=== PATIENT | female | born 1935 | race Caucasian/White ===

== ENCOUNTER → 2016-09-09 | Outpatient (CLI) | payer MEDICARE, OTHER ==
--- NOTE | 2016-09-09 11:07 | CR ---
EXAMINATION: Left knee HISTORY: Artificial joint COMPARISON: 03/06/2016 TECHNIQUE: 3 views FINDINGS/IMPRESSION: Left total knee hardware is demonstrated in stable position and alignment. No a cute osseous abnormalities are noted. Persistent postoperative soft tissue changes are present witho ut underlying joint effusion.
== END | disposition home or self-care (01) ==
LOC: MW.CHORTHO 08:54
PROVIDERS: ATTEND Orthopaedic Surgery
DX: Z47.1 Aftercare following joint replacement surgery (principal); M79.89 Other specified soft tissue disorders; Z96.652 Presence of left artificial knee joint
CPT/HCPCS: 73562; G0463

== ENCOUNTER 2016-11-01 10:17 | Emergency (ER) | payer MEDICARE, OTHER ==
[2016-11-01 10:34] VITALS: BP 155/54
--- NOTE | 2016-11-01 11:02 | EDM.PDOC ---
ED HPI RENAL/ - General Chief Complaint: Genitourinary Problem Stated Complaint: BLADDER INFECTION Time Seen by Provider: 11/01/16 10:23 Source of Information: Reports: Patient History Limitations: Reports: No limitations - History of Present Illness INITIAL COMMENTS - FREE TEXT/NARRATIVE: Presents reporting a 24-hour history of urinary frequency, burning and hematuria. She denies back pain or fever. She has had urinary tract infections previously. She was recently diagnosed with melanoma. - Related Data Allergies/ADRs: Allergies Allergy/AdvReac Type Severity Reaction Status Date / Time No Known Allergies Allergy Verified 11/01/16 10:28 Home Meds: Home Meds Chlorthalidone 12.5 mg PO DAILY 02/21/16 [History] Moexipril HCl [Moexipril] 15 mg PO DAILY 02/21/16 [History] Multivitamin [Daily Multiple Vitamin] 1 tab PO DAILY 02/21/16 [History] atorvaSTATin Calcium [Atorvastatin Calcium] 40 mg PO BEDTIME 02/21/16 [History] rOPINIRole HCl [Requip] 0.25 mg PO BEDTIME 02/21/16 [History] Acetaminophen [Tylenol Extra Strength] 1,000 mg PO Q6H #100 tablet 02/29/16 [Rx] Aspirin 325 mg PO BID #60 tablet 02/29/16 [Rx] Cephalexin [Keflex] 500 mg PO Q12H #8 capsule 02/29/16 [Rx] Docusate Sodium [Colace] 100 mg PO BID #60 cap 02/29/16 [Rx] Gabapentin [Neurontin] 300 mg PO BEDTIME #45 cap 02/29/16 [Rx] Ondansetron [Zofran] 4 mg PO Q8H PRN #20 tab 02/29/16 [Rx] oxyCODONE 5 mg PO Q4H PRN #80 tablet 02/29/16 [Rx] Nitrofurantoin Monohyd/M-Cryst [Macrobid 100 mg Capsule] 100 mg PO BID #14 capsule 11/01/16 [Rx] Past Medical History HEENT History: Reports: Cataract Other HEENT History: wears glasses Cardiovascular History: Reports: High cholesterol, Hypertension Respiratory History: Reports: None Gastrointestinal History: Reports: None Genitourinary History: Reports: None. 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 Musculoskeletal History: Reports: Other (see below) Other Musculoskeletal History: Lymphedema, both legs Neurological History: Reports: Other (see below) Other Neuro History: hx of restless leg syndrome Psychiatric History: Reports: None Endocrine/Metabolic History: Reports: Obesity/BMI 30+ Hematologic History: Reports: None Immunologic History: Reports: None Oncologic (Cancer) History: Reports: Other (see below) Other Oncologic History: malignant melanoma Dermatologic History: Reports: Melanoma - Past Surgical History Other Neurological Surgeries/Procedures: 3 cysts removed from spine (1950) Other Oncologic Surgeries/Procedures: removal of melanoma x2 Social & Family History - Family History Family Medical History: Noncontributory HEENT: Reports: None Other Cardiac Family History: Father from a stroke. Respiratory: Reports: None GI: Reports: None : Reports: None OBGYN: Reports: None Musculoskeletal: Reports: Arthritis Neurological: Reports: Seizure Endocrine/Metabolic: Reports: Diabetes, type II Dermatologic: Reports: Eczema - Tobacco Use Smoking Status *Q: Never Smoker Second Hand Smoke Exposure: No - Recreational Drug Use Recreational Drug Use: No Drug Use in Last 12 Months: No ED ROS GENERAL - Review of Systems Review Of Systems: ROS reveals no pertinent complaints other than HPI. ED EXAM, RENAL/ - Physical Exam Exam: See Below Exam Limited By: No limitations General Appearance: alert, no apparent distress Ears: normal external exam Nose: normal inspection Throat/Mouth: Normal inspection Head: atraumatic, normocephalic Neck: normal inspection Respiratory/Chest: no respiratory distress, lungs clear, normal breath sounds Cardiovascular: normal peripheral pulses, regular rate, rhythm, no murmur GI/Abdominal: soft Back Exam: No: CVA tenderness (L), CVA tenderness (R) Extremities: normal inspection Neurological: alert, oriented, normal cognition Psychiatric: normal affect, normal mood Skin Exam: Warm, Dry, Intact, Normal color, No rash Lymphatic: no adenopathy Course - Vital Signs Last Recorded V/S: Last Vital Signs Temp 36.9 C 11/01/16 10:30 Pulse 74 11/01/16 10:30 Resp 16 11/01/16 10:30 BP 155/54 H 11/01/16 10:30 Pulse Ox 96 11/01/16 10:30 - Orders/Labs/Meds Labs: Laboratory Tests 11/01/16 Range/Units 10:25 Urine Color BROWN Urine Appearance CLOUDY Urine pH 5.5 (5.0-8.0) Ur Specific [place] >= 1.030 (1.001-1.035) Urine Protein >=300 (NEGATIVE) mg/dL Urine Glucose (UA) NEGATIVE (NEGATIVE) mg/dL Urine Ketones TRACE H (NEGATIVE) mg/dL Urine Occult Blood LARGE H (NEGATIVE) Urine Nitrite POSITIVE H (NEGATIVE) Urine Bilirubin NEGATIVE (NEGATIVE) Urine Urobilinogen 1.0 (<2.0) EU/dL Ur Leukocyte Esterase TRACE (NEGATIVE) Urine RBC TOO NUMBEROUS TO CT H (0-2/HPF) Urine WBC 25-30 (0-5/HPF) Ur Epithelial Cells FEW (NONE-FEW) Urine Bacteria FEW (NEGATIVE) Departure - Departure Time of Disposition: 10:58 Disposition: Home, Self-Care 01 Condition: good Clinical Impression: UTI, Urinary tract infectious disease Referrals: PCP,None [Primary Care Provider] - [facility] [Outside] [facility] [Outside] Forms: ED Department Discharge Additional Instructions: 1. take your antibiotic twice daily for the next 7 days, start immediately 2. AZO over the counter as directed for bladder/urinary pain 3. Return promptly for back pain or fever 4. Drink large amounts of fluids
== END 2016-11-01 11:20 | disposition home or self-care (01) ==
LOC: MW.ED 10:17
DX: N39.0 Urinary tract infection, site not specified (principal); I10 Essential (primary) hypertension; E78.00 Pure hypercholesterolemia, unspecified; E66.9 Obesity, unspecified; Z68.34 Body mass index [BMI] 34.0-34.9, adult; Z98.890 Other specified postprocedural states; Z79.82 Long term (current) use of aspirin; Z79.899 Other long term (current) drug therapy
CPT/HCPCS: 81001; 99283

== ENCOUNTER → 2016-11-14 | Outpatient (CLI) | payer MEDICARE, OTHER | LOC: MW.CHGS 08:00 | PROVIDERS: ATTEND Surgery | DX: C43.9 Malignant melanoma of skin, unspecified (principal) | CPT/HCPCS: 99203 ==

== ENCOUNTER 2016-11-20 08:07 | Day surgery (SDC) | payer MEDICARE, OTHER ==
[~2016-11-20 08:07] MED LIST: Bupivacaine 0.5% 30 ML SDV ONE; Heparin Sodium 100 Units/ML 3 ML Syringe ONE; Iopamidol 408 MG/ML 50 ML SDV ONE; Lactated Ringers 1,000 ML IV SCH; Lidocaine 1% 20 ML MDV ONE; Propofol 200 MG/20 ML SDV ONE; Sodium Chloride 0.9% 10 ML Syringe FLUSH PRN; Sodium Chloride 0.9% 2.5 ML Syringe FLUSH PRN; ceFAZolin 2 GM in Premix Bag 1 BAG IV ONE; fentaNYL 100 MCG/2 ML SDV ONE
--- NOTE | 2016-11-20 08:50 | PCM.PREANE ---
Preanesthetic Assessment - Anesthesia/Transfusion/Family Hx Anesthesia History: Prior Anesthesia Without Reaction Family History of Anesthesia Reaction: No Transfusion History: No Prior Transfusion(s) - Review of Systems General: No Symptoms Pulmonary: No Symptoms Cardiovascular: No Symptoms Gastrointestinal: No symptoms Neurological: No Symptoms Other: Reports: None - Physical Assessment NPO Status Date: 11/19/16 NPO Status Time: 23:00 O2 Sat by Pulse Oximetry: 100 Respiratory Rate: 16 Vital Signs: Last Vital Signs Temp 37.1 C 11/20/16 08:29 Pulse 61 11/20/16 08:29 Resp 16 11/20/16 08:29 BP 147/56 H 11/20/16 08:29 Pulse Ox 100 11/20/16 08:29 Height: 1.52 m Weight: 77.564 kg ASA Class: 2 Mental Status: Alert & Oriented x3 Airway Class: Mallampati = 1 Dentition: Reports: Normal Dentition ROM/Head Extension: Full Lungs: Clear to auscultation, Normal respiratory effort Cardiovascular: Regular Rate, Regular Rhythm - Allergies Allergies/Adverse Reactions: Allergies Allergy/AdvReac Type Severity Reaction Status Date / Time No Known Allergies Allergy Verified 11/01/16 10:28 - Anesthesia Plan Pre-Op Medication Ordered: None - Acknowledgements Anesthesia Type Planned: General Anesthesia, MAC Pt an Appropriate Candidate for the Planned Anesthesia: Yes Alternatives and Risks of Anesthesia Discussed w Pt/Guardian: Yes Pt/Guardian Understands and Agrees with Anesthesia Plan: Yes PreAnesthesia Questionnaire HEENT History: Reports: Cataract Other HEENT History: wears glasses Cardiovascular History: Reports: High cholesterol, Hypertension Respiratory History: Reports: None Gastrointestinal History: Reports: None Genitourinary History: Reports: UTI, recurrent 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 Musculoskeletal History: Reports: Other (see below) Other Musculoskeletal History: Lymphedema, both legs Neurological History: Reports: Other (see below) Other Neuro History: hx of restless leg syndrome Psychiatric History: Reports: None Endocrine/Metabolic History: Reports: Obesity/BMI 30+ Hematologic History: Reports: None Immunologic History: Reports: None Oncologic (Cancer) History: Reports: Other (see below) Other Oncologic History: malignant melanoma Dermatologic History: Reports: Melanoma - Infectious Disease History Infectious Disease History: Reports: Chicken pox, Mumps - Past Surgical History Head Surgeries/Procedures: Reports: None HEENT Surgical History: Reports: Cataract surgery Cardiovascular Surgical History: Reports: None Respiratory Surgical History: Reports: None GI Surgical History: Reports: None Female Surgical History: Reports: None Endocrine Surgical History: Reports: None Neurological Surgical History: Reports: Other (see below) Other Neurological Surgeries/Procedures: 3 cysts removed from spine (1950) Musculoskeletal Surgical History: Reports: Knee replacement Other Musculoskeletal Surgeries/Procedures:: she knee replacements, continues to use cane Oncologic Surgical History: Reports: Other (see below) Other Oncologic Surgeries/Procedures: removal of melanoma x2 Dermatological Surgical History: Reports: Other (see below) - SUBSTANCE USE Smoking Status *Q: Never Smoker Second Hand Smoke Exposure: No Recreational Drug Use History: No - HOME MEDS Home Medications: Home Meds Chlorthalidone 12.5 mg PO DAILY 02/21/16 [History] Moexipril HCl [Moexipril] 15 mg PO ASDIRECTED 02/21/16 [History] atorvaSTATin Calcium [Atorvastatin Calcium] 40 mg PO BEDTIME 02/21/16 [History] rOPINIRole HCl [Requip] 0.25 mg PO BEDTIME 02/21/16 [History] Aspirin 81 mg PO BID 11/18/16 [History] Potassium Chloride 10 meq PO DAILY 11/18/16 [History] - CURRENT (IN HOUSE) MEDS Current Meds: Current Medications Lactated Ringer's (Ringers, Lactated) 1,000 mls @ 125 mls/hr IV ASDIRECTED EMILIO Last Admin: 11/20/16 07:11 Dose: 125 mls/hr Sodium Chloride (Saline Flush) 10 ml FLUSH ASDIRECTED PRN PRN Reason: Keep Vein Open Sodium Chloride (Saline Flush) 2.5 ml FLUSH ASDIRECTED PRN PRN Reason: Keep Vein Open Discontinued Medications Bupivacaine HCl (Marcaine 0.5%) Confirm Administered Dose 30 ml .ROUTE .STK-MED ONE Stop: 11/20/16 07:29 Fentanyl (Sublimaze) Confirm Administered Dose 100 mcg .ROUTE .STK-MED ONE Stop: 11/20/16 07:28 Heparin Sodium (Porcine) (Heparin Lock Flush 100 Units/Ml) Confirm Administered Dose 600 unit .ROUTE .STK-MED ONE Stop: 11/20/16 07:29 Cefazolin Sodium/Dextrose 2 gm (/ Premix) 50 mls @ 100 mls/hr IV ONETIME ONE Stop: 11/20/16 06:54 Iopamidol (Isovue-200 (41%)) Confirm Administered Dose 50 ml .ROUTE .STK-MED ONE Stop: 11/20/16 07:30 Lidocaine HCl (Xylocaine 1%) Confirm Administered Dose 20 ml .ROUTE .STK-MED ONE Stop: 11/20/16 07:30 Propofol (Diprivan 20 Ml) Confirm Administered Dose 200 mg .ROUTE .STK-MED ONE Stop: 11/20/16 07:27 Preanesthetic Assessment - ANESTHESIA/TRANSFUSION/FAMILY HX Anesthesia/Transfusion History: Prior Anesthesia (right knee replaced under genral anesthesia per patient report) Family History of Anesthesia Reaction: No Intubation History: Unknown - PHYSICAL ASSESSMENT O2 Sat by Pulse Oximetry: 100 RR: 16 Vital Signs: Last Vital Signs Temp 37.1 C 11/20/16 08:29 Pulse 61 11/20/16 08:29 Resp 16 11/20/16 08:29 BP 147/56 H 11/20/16 08:29 Pulse Ox 100 11/20/16 08:29 Height: 1.52 m Weight: 77.564 kg NPO Status Date: 11/19/16 NPO Status Time: 23:00 - ALLERGIES Allergies/Adverse Reactions: Allergies Allergy/AdvReac Type Severity Reaction Status Date / Time No Known Allergies Allergy Verified 11/01/16 10:28
[2016-11-20] MEDS ORDERED: Bupivacaine 0.5% 10 ML SDV ONE (09:39)
--- NOTE | 2016-11-20 11:03 | PCM.OPNOTE ---
- General Post-Op/Procedure Note Date of Surgery/Procedure: 11/20/16 Operative Procedure(s): Right internal jugular port a cath placement Findings: right internal jugular port placement Pre Op Diagnosis: Malignant melanoma Post-Op Diagnosis: same Anesthesia Technique: MAC Primary Surgeon: Tanya Polanco Condition: Good
--- NOTE | 2016-11-20 11:21 | PCM.POSTAN ---
POST ANESTHESIA ASSESSMENT - MENTAL STATUS Mental Status: alert, oriented - RESPIRATORY Respiratory Status: respiratory rate WNL, airway patent - CARDIOVASCULAR CV Status: pulse rate WNL, blood pressure stable - GASTROINTESTINAL GI Status: no symptoms - PAIN Pain Score: 0 - POST OP HYDRATION Hydration Status: adequate & stable
--- NOTE | 2016-11-20 11:21 | PCM48HPAN ---
Post Anesthesia Note - EVALUATION WITHIN 48HRS OF ANESTHETIC Vital Signs in Normal Range: Yes Patient Participated in Evaluation: Yes Respiratory Function Stable: Yes Airway Patent: Yes Cardiovascular Function Stable: Yes Hydration Status Stable: Yes Pain Control Satisfactory: Yes Nausea and Vomiting Control Satisfactory: Yes Mental Status Recovered: Yes
--- NOTE | 2016-11-20 11:29 | CR ---
EXAMINATION: Portable chest radiograph. HISTORY: Port-A-Cath placement. FINDINGS: The trachea is midline. The cardiomediastinal silhouette is within normal limits. No pulmonary infil trates, effusions or pneumothorax. There is a right-sided portacatheter with tip in the upper SVC. A ortic calcifications are noted. Chronic interstitial prominence is also noted. Osseous structures appear unremarkable. IMPRESSION: Right-sided portacatheter with tip in the upper SVC.
[2016-11-20 13:45] VITALS: BP 127/73
--- NOTE | 2016-11-20 20:10 | OR ---
SURGEON: KRISTEN KC MD DATE OF PROCEDURE: 11/20/2016 PREOPERATIVE DIAGNOSIS: Malignant melanoma. POSTOPERATIVE DIAGNOSIS: Malignant melanoma. PROCEDURE PERFORMED: Right internal jugular Port-A-Cath placement. ANESTHESIA: Monitored anesthesia care. ESTIMATED BLOOD LOSS: 5 mL. FINDINGS: Right internal jugular Port-A-Cath placement. COMPLICATIONS: None. INDICATIONS: The patient is a 81-year-old female with a diagnosis of malignant melanoma. She is in need of a Port-A-Cath placement for chemotherapy treatment. The patient and I discussed the procedure as well as expected perioperative course. We discussed the risks, including bleeding, infection, or damage to surrounding structures, including hemothorax or pneumothorax. The patient verbalized understanding and wished to proceed. PROCEDURE IN DETAIL: The patient was brought to the operating room and placed on the operating room table in supine position. A time-out was completed verifying the patient's name, age, date of , allergies, and procedure to be performed. A shoulder roll was placed on the patient's shoulders and both arms were tucked at her side. An ultrasound was brought in to verify the vasculature anatomy of the right side of the neck. The neck and chest were then prepped and draped in usual standard fashion. An ultrasound covered in a sterile probe cover was used to locate the right internal jugular vein at the base of the right neck. I was able to clearly visualize the right internal jugular vein and right carotid artery. Using the ultrasound, I gained access to the vein using a finder needle. A guidewire was then placed down the finder needle into the superior vena cava. C-arm was brought in to verify the placement of the guidewire within the vena cava. Once this was completed, I turned my attention to the right chest wall. A 3 cm incision was made 2 finger breaths below the right lateral clavicle using a 15 blade. Prior to doing this, both the neck and the port site on the chest were anesthetized with 1% lidocaine plain and 0.5% Marcaine plain. Using cautery, I dissected down to the chest wall and created a subcutaneous pocket for the port to be placed in. A tunneling device was used to tunnel the catheter tubing from the chest site up to the insertion site of the guidewire. A dilator and vascular sheath were then placed over the guidewire and the catheter tract was dilated using fluoroscopic guidance. The guidewire and dilator were then removed leaving the vascular sheath in place. The port catheter tubing was then placed down the sheath and the sheath broken and pulled out of the wound. C-arm was brought in to verify placement of the catheter tubing within the neck and in the vena cava. The catheter was pulled back under fluoroscopic guidance to an appropriate placement within the SVC. The catheter tubing was then aspirated and flushed with injectable saline. The catheter tubing was then trimmed to size and placed on the Port-A-Cath device. The Port- A-Cath device was then placed in subcutaneous pocket and secured to the chest wall using 3 interrupted 2-0 Prolene sutures. The Port-A-Cath was then accessed and had a good return of venous blood. It was then locked with 3 mL of heparinized saline. The Port-A-Cath site on the right anterior chest was closed with interrupted Vicryl sutures in the subcutaneous layer and the skin was closed with a running 4-0 Monocryl suture. The neck insertion site was then closed with interrupted 4-0 Monocryl. Steri-Strips and sterile dressings were applied. Counts were complete and correct at the end of the case. The patient was taken to the PACU in stable condition. A chest x-ray was completed at that time, that showed good placement of the Port-A-Cath with no evidence of pneumothorax or hemothorax. RAINE HARGROVE /[id number]
== END 2016-11-20 12:00 | disposition home or self-care (01) ==
LOC: MW.SDS 08:07
PROVIDERS: ATTEND Surgery
PROC: 05HM33Z Insertion of Infusion Device into Right Internal Jugular Vein, Percutaneous Approach (ICD-10-PCS; principal; 2016-11-20)
DX: C43.9 Malignant melanoma of skin, unspecified (principal); I10 Essential (primary) hypertension; E78.00 Pure hypercholesterolemia, unspecified; E66.9 Obesity, unspecified; Z87.440 Personal history of urinary (tract) infections; Z98.49 Cataract extraction status, unspecified eye; Z96.653 Presence of artificial knee joint, bilateral; Z98.890 Other specified postprocedural states; Z79.899 Other long term (current) drug therapy; Z79.82 Long term (current) use of aspirin
CPT/HCPCS: 36561; 71010; 76000; J1642; J3010; J7120; 00532; J2704; Q9966

== ENCOUNTER → 2016-12-01 | Outpatient (CLI) | payer MEDICARE, OTHER | LOC: MW.CHIM 09:17 | PROVIDERS: ATTEND Internal Medicine | DX: R30.0 Dysuria (principal); N39.0 Urinary tract infection, site not specified | CPT/HCPCS: 81001; 87086; 87088; 87186 ==

== ENCOUNTER → 2016-12-16 | Outpatient (CLI) | payer MEDICARE, OTHER | LOC: MW.CHIM 16:07 | PROVIDERS: ATTEND Internal Medicine | DX: R30.0 Dysuria (principal); N39.0 Urinary tract infection, site not specified | CPT/HCPCS: 81001; 87086; 87088; 87186 ==

== ENCOUNTER 2017-02-02 11:37 | Inpatient (IN) | payer MEDICARE, OTHER ==
[2017-02-02] MEDS ORDERED: Sodium Chloride 0.9% 1,000 ML IV ONE (12:15)
--- NOTE | 2017-02-02 12:22 | EDM.PDOC ---
ED HPI GENERAL MEDICAL PROBLEM - General Chief Complaint: General Stated Complaint: WEAKNESS Time Seen by Provider: 02/02/17 12:17 Source of Information: Reports: Patient History Limitations: Reports: No Limitations - History of Present Illness INITIAL COMMENTS - FREE TEXT/NARRATIVE: History of present illness: [81-year-old female comes in with complaints of abdominal pain and continued diarrhea for the last month.] Review of systems: As per history of present illness and below otherwise all systems reviewed and negative. Past medical history: As per history of present illness and as reviewed below otherwise noncontributory. Surgical history: As per history of present illness and as reviewed below otherwise noncontributory. Social history: No reported history of drug or alcohol abuse. Family history: As per history of present illness and as reviewed below otherwise noncontributory. Physical exam: HEENT: Atraumatic, normocephalic, pupils reactive, negative for conjunctival pallor or scleral icterus, mucous membranes moist, throat clear, neck supple, nontender, trachea midline. Lungs: Clear to auscultation, breath sounds equal bilaterally, chest nontender. Heart: S1S2, regular, negative for clicks, rubs, or JVD. Abdomen: Soft, with nonspecific diffuse tenderness Negative for masses or hepatosplenomegaly. Negative for costovertebral tenderness. Pelvis: Stable nontender. Genitourinary: Deferred. Rectal: Deferred. Extremities: Atraumatic, negative for cords or calf pain. Neurovascular unremarkable. Neuro: Awake, alert, oriented. Cranial nerves II through XII unremarkable. Cerebellum unremarkable. Motor and sensory unremarkable throughout. Exam nonfocal. Diagnostics: [CBC, CMP, amylase, lipase] Therapeutics: [IV fluid] Impression: [Dehydration] Plan: [Admit to observation and rehydration] Definitive disposition and diagnosis as appropriate pending reevaluation and review of above. - Related Data Allergies Allergy/AdvReac Type Severity Reaction Status Date / Time No Known Allergies Allergy Verified 11/01/16 10:28 Home Meds: Home Meds Chlorthalidone 12.5 mg PO DAILY 02/21/16 [History] Moexipril HCl [Moexipril] 15 mg PO ASDIRECTED 02/21/16 [History] atorvaSTATin Calcium [Atorvastatin Calcium] 40 mg PO BEDTIME 02/21/16 [History] rOPINIRole HCl [Requip] 0.25 mg PO BEDTIME 02/21/16 [History] Aspirin 81 mg PO BID 11/18/16 [History] Potassium Chloride 10 meq PO DAILY 11/18/16 [History] Ipilimumab 02/02/17 [History] Levothyroxine 125 mcg DAILY 02/02/17 [History] Nivolumab [Opdivo] 02/02/17 [History] Omeprazole 20 mg DAILY 02/02/17 [History] Past Medical History HEENT History: Reports: Cataract Other HEENT History: wears glasses Cardiovascular History: Reports: High Cholesterol, Hypertension Respiratory History: Reports: None Gastrointestinal History: Reports: None Genitourinary History: Reports: UTI, Recurrent 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 Musculoskeletal History: Reports: Other (See Below) Other Musculoskeletal History: Lymphedema, both legs Neurological History: Reports: Other (See Below) Other Neuro History: hx of restless leg syndrome Psychiatric History: Reports: None Endocrine/Metabolic History: Reports: Obesity/BMI 30+ Hematologic History: Reports: None Immunologic History: Reports: None Oncologic (Cancer) History: Reports: Malignant Melanoma, Other (See Below) Other Oncologic History: malignant melanoma Dermatologic History: Reports: Melanoma - Infectious Disease History Infectious Disease History: Reports: Chicken Pox, Mumps - Past Surgical History Head Surgeries/Procedures: Reports: None HEENT Surgical History: Reports: Cataract Surgery Respiratory Surgical History: Reports: None GI Surgical History: Reports: None Endocrine Surgical History: Reports: None Neurological Surgical History: Reports: Other (See Below) Musculoskeletal Surgical History: Reports: Knee Replacement Dermatological Surgical History: Reports: Other (See Below) Social & Family History - Family History Family Medical History: Noncontributory HEENT: Reports: None Other Cardiac Family History: Father from a stroke. Respiratory: Reports: None GI: Reports: None : Reports: None OBGYN: Reports: None Musculoskeletal: Reports: Arthritis Neurological: Reports: Seizure Endocrine/Metabolic: Reports: Diabetes, type II Dermatologic: Reports: Eczema - Tobacco Use Smoking Status *Q: Never Smoker Second Hand Smoke Exposure: No - Caffeine Use Caffeine Use: Reports: None - Recreational Drug Use Recreational Drug Use: No Drug Use in Last 12 Months: No ED ROS GENERAL - Review of Systems Review Of Systems: See Below (History of present illness) ED EXAM, GENERAL - Physical Exam Exam: See Below (History of present illness) Course - Vital Signs Last Recorded V/S: Last Vital Signs Temp 36.0 C 02/02/17 13:58 Pulse 99 02/02/17 13:58 Resp 18 02/02/17 13:58 BP 168/67 H 02/02/17 13:58 Pulse Ox 95 02/02/17 13:58 - Orders/Labs/Meds Orders: Active Orders 24 hr Category Date Time Status Abdomen Pelvis wo Cont [CT] Stat Exams 02/02/17 13:48 Ordered Labs: Laboratory Tests 02/02/17 02/02/17 Range/Units 13:13 13:13 WBC 11.78 H (4.0-11.0) K/uL RBC 5.20 (4.30-5.90) M/uL Hgb 15.2 (12.0-16.0) g/dL Hct 45.1 (36.0-46.0) % MCV 86.7 (80.0-98.0) fL MCH 29.2 (27.0-32.0) pg MCHC 33.7 (31.0-37.0) g/dL RDW Std Deviation 47.1 (28.0-62.0) fl RDW Coeff of Juan J 15 (11.0-15.0) % Plt Count 143 L (150-400) K/uL MPV 11.30 (7.40-12.00) fL Neut % (Auto) 89.2 H (48.0-80.0) % Lymph % (Auto) 7.3 L (16.0-40.0) % Pope % (Auto) 3.4 (0.0-15.0) % Eos % (Auto) 0.0 (0.0-7.0) % Baso % (Auto) 0.1 (0.0-1.5) % Neut # (Auto) 10.5 H (1.4-5.7) K/uL Lymph # (Auto) 0.9 (0.6-2.4) K/uL Pope # (Auto) 0.4 (0.0-0.8) K/uL Eos # (Auto) 0.0 (0.0-0.7) K/uL Baso # (Auto) 0.0 (0.0-0.1) K/uL Nucleated RBC % 0.0 /100WBC Nucleated RBCs # 0 K/uL Sodium 138 (136-146) mmol/L Potassium 4.2 (3.5-5.1) mmol/L Chloride 105 (98-110) mmol/L Carbon Dioxide 21 (21-31) mmol/L BUN 59 H (6.0-23.0) mg/dL Creatinine 2.5 H (0.6-1.5) mg/dL Est Cr Clr Drug Dosing 13.11 mL/min Estimated GFR (MDRD) 18.6 ml/min Glucose 146 H (60-110) mg/dL Calcium 7.8 L (8.8-10.8) mg/dL Total Bilirubin 0.9 (0.1-1.5) mg/dL AST 38 (5-40) IU/L ALT 22 (8-54) IU/L Alkaline Phosphatase 62 (40-150) Total Protein 4.6 L (6.0-8.0) g/dL Albumin 2.6 L (3.4-4.8) g/dL Globulin 2.0 (2.0-3.5) g/dL Albumin/Globulin Ratio 1.3 (1.3-2.8) Amylase 37 (10-90) U/L Lipase 67 (7-80) U/L Meds: Medications Discontinued Medications Generic Name Dose Route Start Last Admin Trade Name Freq PRN Reason Stop Dose Admin Sodium Chloride 1,000 mls @ 999 mls/hr 02/02/17 12:15 02/02/17 12:51 Normal Saline IV 02/02/17 13:15 999 mls/hr STAT ONE Administration Departure - Departure Time of Disposition: 14:22 Disposition: Refer to Observation Condition: Good Clinical Impression: Dehydration, Diarrhea - Discharge Information Forms: ED Department Discharge - My Orders Last 24 Hours: My Active Orders 02/02/17 13:48 Abdomen Pelvis wo Cont [CT] Stat - Assessment/Plan Last 24 Hours: My Active Orders 02/02/17 13:48 Abdomen Pelvis wo Cont [CT] Stat
[2017-02-02] MEDS ORDERED: Loperamide 2 MG Cap PO PRN (14:44)
[2017-02-02] MEDS ORDERED: Acetaminophen 325 MG Tab PO PRN (14:44)
--- NOTE | 2017-02-02 14:55 | CT ---
CT of the abdomen and pelvis without contrast. HISTORY: Pain TECHNIQUE: Axial CT images were obtained of the abdomen and pelvis without contrast. Coronal and sag ittal reconstructions obtained. FINDINGS: The lung bases are clear, no pleural effusion. The liver, spleen, adrenal glands, and pancreas appear unremarkable for noncontrast examination. The gallbladder appears normal. There is no bulky retroperitoneal lymphadenopathy. No abdominal ascite s. There is mild generalized soft tissue edema. There are no calcifications noted within the kidneys or along the courses of the ureters bilaterally . The large and small bowel are normal in caliber without evidence of obstruction. The appendix appear s normal. There is no bulky pelvic lymphadenopathy. No free fluid. No free air. The urinary bladder appears normal. Moderate degenerative changes noted within the spine with grade 1 anterolisthesis of L5 on S1. No rosa spicious osseous abnormalities identified. IMPRESSION: 1. Mild generalized soft tissue anasarca. 2. No focal acute abnormality identified within the abdomen or pelvis.
--- NOTE | 2017-02-02 14:57 | PCM.HP ---
H&P History of Present Illness - General Date of Service: 02/02/17 Admit Problem/Dx: Dehydration Source of Information: Patient, Family History Limitations: Reports: No Limitations - History of Present Illness Initial Comments - Free Text/Narative: 81 yo female admitted 02/02/17 for dehydration\\acute on chronic renal insufficiency with pmh of malignant melonoma on Nivolumab & Ipilimumab, hypertension, hypothyroidism, and lymphedema. Patient states that she has had diarrhea since starting therapy for her melonoma. This started 01/15/17. She has had "runny" stools 5-6 times daily since. No bloody stool or dark tarry stool. Reports no associated fever, sob, chest pain, or palpitations. No other family members having similar symptoms and no recent travel. Has felt fatigued for the past few days with no energy and chills. Has a history of hypertension and hypothyroidism that have been well controlled. Reports no allergies. In ED vitals 137/60 hr 59, afebrile. She did have mild leukocytosis of 11.78, low platelets 143, and acute on chronic renal insufficiency BUN 59, Cr 2.5. Creatnine on 01/15/[address] of the abdomin showed no acute abnormalities in the abdomen or pelvis. Patient was admitted for dehyration. - Related Data Allergies/Adverse Reactions: Allergies Allergy/AdvReac Type Severity Reaction Status Date / Time No Known Allergies Allergy Verified 11/01/16 10:28 Home Medications: Home Meds Chlorthalidone 12.5 mg PO DAILY 02/21/16 [History] Moexipril HCl [Moexipril] 15 mg PO ASDIRECTED 02/21/16 [History] atorvaSTATin Calcium [Atorvastatin Calcium] 40 mg PO BEDTIME 02/21/16 [History] rOPINIRole HCl [Requip] 0.25 mg PO BEDTIME 02/21/16 [History] Aspirin 81 mg PO BID 11/18/16 [History] Potassium Chloride 10 meq PO DAILY 11/18/16 [History] Ipilimumab 02/02/17 [History] Levothyroxine 125 mcg DAILY 02/02/17 [History] Nivolumab [Opdivo] 02/02/17 [History] Omeprazole 20 mg DAILY 02/02/17 [History] Past Medical History HEENT History: Reports: Cataract Other HEENT History: wears glasses Cardiovascular History: Reports: High Cholesterol, Hypertension Respiratory History: Reports: None Gastrointestinal History: Reports: None Genitourinary History: Reports: UTI, Recurrent [employer]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 Musculoskeletal History: Reports: Other (See Below) Other Musculoskeletal History: Lymphedema, both legs Neurological History: Reports: Other (See Below) Other Neuro History: hx of restless leg syndrome Psychiatric History: Reports: None Endocrine/Metabolic History: Reports: Obesity/BMI 30+ Hematologic History: Reports: None Immunologic History: Reports: None Oncologic (Cancer) History: Reports: Malignant Melanoma, Other (See Below) Other Oncologic History: malignant melanoma Dermatologic History: Reports: Melanoma - Infectious Disease History Infectious Disease History: Reports: Chicken Pox, Mumps - Past Surgical History Head Surgeries/Procedures: Reports: None HEENT Surgical History: Reports: Cataract Surgery Respiratory Surgical History: Reports: None GI Surgical History: Reports: None Endocrine Surgical History: Reports: None Neurological Surgical History: Reports: Other (See Below) Musculoskeletal Surgical History: Reports: Knee Replacement Dermatological Surgical History: Reports: Other (See Below) Social & Family History - Family History Family Medical History: Noncontributory HEENT: Reports: None Other Cardiac Family History: Father from a stroke. Respiratory: Reports: None GI: Reports: None : Reports: None OBGYN: Reports: None Musculoskeletal: Reports: Arthritis Neurological: Reports: Seizure Endocrine/Metabolic: Reports: Diabetes, type II Dermatologic: Reports: Eczema - Tobacco Use Smoking Status *Q: Never Smoker Second Hand Smoke Exposure: No - Caffeine Use Caffeine Use: Reports: None - Recreational Drug Use Recreational Drug Use: No Drug Use in Last 12 Months: No H&P Review of Systems - Review of Systems: Review Of Systems: See Below General: Reports: Chills, Weakness, Fatigue. Denies: Fever, Malaise HEENT: Denies: Ear Pain, Eye Pain, Headaches, Sore Throat Pulmonary: Denies: Shortness of Breath, Wheezing, Hemoptysis Cardiovascular: Reports: Edema. Denies: Chest Pain, Palpitations Gastrointestinal: Reports: Diarrhea. Denies: Abdominal Pain, Black Stool, Bloody Stool, Nausea Genitourinary: Denies: Dysuria, Hematuria, Flank Pain Musculoskeletal: Denies: Neck Pain, Leg Pain Skin: Denies: Cyanosis, Rash Psychiatric: Denies: Confusion, Depression Neurological: Denies: Confusion, Dizziness, Headache Hematologic/Lymphatic: Denies: Anemia Exam - Exam Exam: See Below - Vital Signs Vital Signs: Last Vital Signs Temp 36.0 C 02/02/17 13:58 Pulse 99 02/02/17 13:58 Resp 18 02/02/17 13:58 BP 168/67 H 02/02/17 13:58 Pulse Ox 95 02/02/17 13:58 Weight: 74.843 kg - Exam Quality Assessment: DVT Prophylaxis General: Alert, Oriented, Cooperative HEENT: Conjunctiva Clear, EACs Clear, EOMI, Hearing Intact, Mucosa Moist & [place] , Nares Patent, Normal Nasal Septum, Posterior Pharynx Clear Neck: Supple, Trachea Midline, 2 Lungs: Clear to Auscultation, Normal Respiratory Effort Cardiovascular: Regular Rate, Regular Rhythm, Normal S1, Normal S2 Abdomen: Normal Bowel Sounds, Soft. No: Distention, Guarding, Rigidity, Tenderness Back Exam: Normal Inspection, Full Range of Motion, NT Extremities: Normal Inspection, Normal Pulses, Edema Peripheral Pulses: 2+: Radial (L), Radial (R), Posterior Tibial (L), Posterior Tibial (R), Dorsalis Pedis (L), Dorsalis Pedis (R) Skin: Warm, Dry, Intact Neurological: Cranial Nerves Intact Neuro Extensive - Mental Status: Alert, Oriented x3, Normal Mood/Affect, Normal Cognition Neuro Extensive - Motor, Sensory, Reflexes: CN II-XII Intact Psychiatric: Alert, Normal Affect, Normal Mood - Patient Data Result Diagrams: 02/02/17 13:13 02/02/17 13:13 *Q Meaningful Use (ADM) - VTE *Q VTE Criteria *Q: - Stroke *Q Stroke Criteria *Q: - AMI *Q AMI Criteria *Q: - Problem List (1) Acute on chronic renal insufficiency SNOMED Code(s): 345815432 ICD Code: N28.9 - DISORDER OF KIDNEY AND URETER, UNSPECIFIED; N18.9 - CHRONIC KIDNEY DISEASE, UNSPECIFIED Status: Acute Priority: High Current Visit: Yes (2) Dehydration SNOMED Code(s): 57269384 ICD Code: E86.0 - DEHYDRATION Status: Acute Priority: High Current Visit: Yes (3) Diarrhea SNOMED Code(s): 97518344 ICD Code: R19.7 - DIARRHEA, UNSPECIFIED Status: Chronic Priority: High Current Visit: Yes Qualifiers: Diarrhea type: unspecified type Qualified Code(s): R19.7 - Diarrhea, unspecified (4) HTN (hypertension) SNOMED Code(s): 59846708 ICD Code: I10 - ESSENTIAL (PRIMARY) HYPERTENSION Status: Chronic Priority : Medium Current Visit: No Qualifiers: Hypertension type: essential hypertension Qualified Code(s): I10 - Essential (primary) hypertension (5) Lymphedema SNOMED Code(s): 995176771 ICD Code: I89.0 - LYMPHEDEMA, NOT ELSEWHERE CLASSIFIED Status: Chronic Priority: Medium Current Visit: Yes (6) Malignant melanoma SNOMED Code(s): 312836796 ICD Code: C43.9 - MALIGNANT MELANOMA OF SKIN, UNSPECIFIED Status: Chronic Priority: High Current Visit: Yes Qualifiers: Laterality: unspecified laterality Problem List Initiated/Reviewed/Updated: Yes Orders Last 24hrs: Active Orders 24 hr Category Date Time Status Patient Status [ADT] Routine ADT 02/02/17 14:44 Ordered Antiembolic Devices [RC] PER UNIT ROUTINE Care 02/02/17 14:46 Ordered Oxygen Therapy [RC] PRN Care 02/02/17 14:44 Ordered Up With Assistance [RC] ASDIRECTED Care 02/02/17 14:44 Ordered VTE/DVT Education [RC] PER UNIT ROUTINE Care 02/02/17 14:44 Ordered Vital Signs [RC] Q4H Care 02/02/17 14:44 Ordered Regular Diet [DIET] Diet 02/02/17 Dinner Ordered BASIC METABOLIC PANEL,BMP [CHEM] AM Lab 02/03/17 05:11 Ordered BASIC METABOLIC PANEL,BMP [CHEM] AM Lab 02/04/17 05:11 Ordered BASIC METABOLIC PANEL,BMP [CHEM] AM Lab 02/05/17 05:11 Ordered BASIC METABOLIC PANEL,BMP [CHEM] AM Lab 02/06/17 05:11 Ordered CBC WITH AUTO DIFF [HEME] AM Lab 02/03/17 05:11 Ordered CBC WITH AUTO DIFF [HEME] AM Lab 02/04/17 05:11 Ordered CBC WITH AUTO DIFF [HEME] AM Lab 02/05/17 05:11 Ordered CBC WITH AUTO DIFF [HEME] AM Lab 02/06/17 05:11 Ordered CDIFF TOX A+B [OP] Routine Lab 02/02/17 14:44 Uncollected CULTURE STOOL + CAMPY+SHIGATOX [RM] Routine Lab 02/02/17 14:44 Uncollected MAGNESIUM [CHEM] AM Lab 02/03/17 05:11 Ordered PHOSPHORUS [CHEM] AM Lab 02/03/17 05:11 Ordered Acetaminophen [Tylenol] Med 02/02/17 14:44 Ordered 650 mg PO Q4H PRN Heparin Sodium Med 02/02/17 14:45 Ordered 5,000 units SUBCUT Q8H Levothyroxine Med 02/03/17 09:00 Ordered 125 mcg PO DAILY Loperamide [Imodium] Med 02/02/17 14:44 Ordered 2 mg PO Q4H PRN Ondansetron [Zofran ODT] Med 02/02/17 14:44 Ordered 4 mg PO Q4H PRN Sodium Chloride 0.9% @ 125 MLS/HR (1000ml) Med 02/02/17 14:45 Ordered Sodium Chloride 0.9% [Normal Saline] 1,000 ml IV ASDIRECTED Sequential Compression Device [OM.PC] Per Unit Routine Oth 02/02/17 14:45 Ordered Medication Orders Acetaminophen (Tylenol) 650 mg PO Q4H PRN PRN Reason: Pain (Mild 1-3)/fever Heparin Sodium (Porcine) (Heparin Sodium) 5,000 units SUBCUT Q8H EMILIO Sodium Chloride (Normal Saline) 1,000 mls @ 125 mls/hr IV ASDIRECTED EMILIO Levothyroxine Sodium (Levothyroxine) 125 mcg PO DAILY EMILIO Loperamide HCl (Imodium) 2 mg PO Q4H PRN PRN Reason: Diarrhea Ondansetron HCl (Zofran Odt) 4 mg PO Q4H PRN PRN Reason: nausea, able to take PO Assessment/Plan Comment:: 81 yo female with dehydration/acute on chronic renal insufficiency and diarrhea with pmh of malignant melenoma, htn, hypothyroidism, and lymphedema. Dehydration\\acute on chronic renal insufficiency: Most likely secondary to diarrhea. Cr was 1.3 on 01/15/17. Will resus with IVF at 125ml Diarrhea: Most likely from her current Nivolumab and Ipilimumab for her malignant melenoma as diarrhea started when she started these meds. Will rule out infectious with Stool culture and C-diff. Imodium for diarrhea as needed. Malignant melenoma: Currently being treated will have to double check her current medications and possible contact her oncologist as to her diarrhea. htn: Controlled Restart home meds hypothyroidism: controlled will restart home meds. VTE: SCD and Heparin Dispo 1-2 days
[2017-02-02] MEDS: Sodium Chloride 0.9% 1,000 ML IV SCH (16:22)
[2017-02-02] MEDS: Heparin Sodium 5,000 Units/ML Vial SUBCUT SCH ×2 (16:32→21:49)
[2017-02-02] MEDS ORDERED: Calcium Carbonate 500 MG Tab.Chew PO ONE (17:19)
[2017-02-03] MEDS: Sodium Chloride 0.9% 1,000 ML IV SCH ×3 (00:31→20:04)
[2017-02-03] MEDS ORDERED: Levofloxacin/Dextrose 5%-Water 750 MG in Premix Bag 1 BAG IV ONE (04:45)
[2017-02-03] MEDS: Heparin Sodium 5,000 Units/ML Vial SUBCUT SCH (06:29)
[2017-02-03] MEDS: Levothyroxine 125 MCG Tab PO SCH (06:29)
[2017-02-03] MEDS ORDERED: Potassium Chloride 20 MEQ Tab.ER PO ONE (07:50)
[2017-02-03] MEDS ORDERED: Calcium Carbonate 500 MG Tab.Chew PO ONE (07:51)
[2017-02-03] MEDS ORDERED: Sodium Chloride 0.9% 500 ML IV SCH (08:00)
--- NOTE | 2017-02-03 09:53 | PCM.PN ---
- General Info Date of Service: 02/03/17 Admission Dx/Problem (Free Text): Dehydration Subjective Update: Feeling very tired and "out of sorts" this am. No pain but just feels weak. Denies pain with urination but states that she has not been urinating that much. No appetite. Denies difficulty with swallowing. Still having diarrhea. Functional Status: Reports: pain controlled. Denies: tolerating diet, ambulating - Review of Systems General: Reports: Weakness, Fatigue, Malaise, Chills. Denies: Fever HEENT: Denies: dysphasia, headaches, sinus congestion, sore throat Pulmonary: Denies: shortness of breath, wheezing Cardiovascular: Reports: Edema (chronic from lymphedema). Denies: Chest Pain, Palpitations Gastrointestinal: Reports: Diarrhea. Denies: Abdominal pain, Constipation, Vomiting Genitourinary: Denies: dysuria, hematuria Musculoskeletal: Denies: neck pain, leg pain Skin: Denies: cyanosis Neurological: Denies: Confusion Psychiatric: Denies: confusion - Patient Data Vitals - most recent: Last Vital Signs Temp 36.2 C 02/03/17 08:00 Pulse 83 02/03/17 08:00 Resp 20 02/03/17 08:00 BP 93/45 L 02/03/17 08:00 Pulse Ox 95 02/03/17 08:00 Weight - most recent: 80.1 kg I&O - last 24 hours: Intake & Output 02/02/17 02/03/17 02/03/17 22:59 06:59 14:59 Intake Total 150 Output Total 300 Balance -150 Lab Results last 24 hrs: Laboratory Results - last 24 hr 02/03/17 02/03/17 02/03/17 Range/Units 01:15 05:11 05:11 WBC 10.41 (4.0-11.0) K/uL RBC 4.86 (4.30-5.90) M/uL Hgb 14.0 (12.0-16.0) g/dL Hct 41.7 (36.0-46.0) % MCV 85.8 (80.0-98.0) fL MCH 28.8 (27.0-32.0) pg MCHC 33.6 (31.0-37.0) g/dL RDW Std Deviation 46.8 (28.0-62.0) fl RDW Coeff of Juan J 15 (11.0-15.0) % Plt Count 137 L (150-400) K/uL MPV 11.40 (7.40-12.00) fL Neut % (Auto) 88.7 H (48.0-80.0) % Lymph % (Auto) 5.1 L (16.0-40.0) % Braxton % (Auto) 6.1 (0.0-15.0) % Eos % (Auto) 0.1 (0.0-7.0) % Baso % (Auto) 0.0 (0.0-1.5) % Neut # (Auto) 9.2 H (1.4-5.7) K/uL Lymph # (Auto) 0.5 L (0.6-2.4) K/uL Braxton # (Auto) 0.6 (0.0-0.8) K/uL Eos # (Auto) 0.0 (0.0-0.7) K/uL Baso # (Auto) 0.0 (0.0-0.1) K/uL Nucleated RBC % 0.0 /100WBC Nucleated RBCs # 0 K/uL Sodium 139 (136-146) mmol/L Potassium 3.0 L (3.5-5.1) mmol/L Chloride 108 (98-110) mmol/L Carbon Dioxide 19 L (21-31) mmol/L BUN 61 H (6.0-23.0) mg/dL Creatinine 2.2 H (0.6-1.5) mg/dL Est Cr Clr Drug Dosing 14.89 mL/min Estimated GFR (MDRD) 21.5 ml/min Glucose 86 (60-110) mg/dL Calcium 7.1 L (8.8-10.8) mg/dL Phosphorus 3.3 (2.4-4.7) mg/dL Magnesium 1.8 (1.5-2.3) mEq/L Urine Color YELLOW Urine Appearance CLEAR Urine pH 5.5 (5.0-8.0) Ur Specific [place] 1.025 (1.001-1.035) Urine Protein NEGATIVE (NEGATIVE) mg/dL Urine Glucose (UA) NEGATIVE (NEGATIVE) mg/dL Urine Ketones TRACE H (NEGATIVE) mg/dL Urine Occult Blood SMALL H (NEGATIVE) Urine Nitrite POSITIVE H (NEGATIVE) Urine Bilirubin SMALL H (NEGATIVE) Urine Ictotest NEGATIVE Urine Urobilinogen 0.2 (<2.0) EU/dL Ur Leukocyte Esterase TRACE (NEGATIVE) Urine RBC 2-5 (0-2/HPF) Urine WBC 2-4 (0-5/HPF) Ur Epithelial Cells FEW (NONE-FEW) Urine Bacteria 3+ H (NEGATIVE) Hyaline Casts 30-35 (0-2/LPF) Urine Mucus LIGHT (NONE-MOD) Ge[place]any Results last 24 hrs: Microbiology 02/03/17 08:19 Campylobacter Antigen Assay - Final Stool / Feces NEGATIVE CAMPYLOBACTER AG 02/03/17 08:19 Clostridium difficile Toxin A&B (M) - Final Stool / Feces Negative for C.Diff Toxin/AG Med Orders - Current: Current Medications Acetaminophen (Tylenol) 650 mg PO Q4H PRN PRN Reason: Pain (Mild 1-3)/fever Heparin Sodium (Porcine) (Heparin Sodium) 5,000 units SUBCUT Q8H [facility] Last Admin: 02/03/17 06:29 Dose: 5,000 units Sodium Chloride (Normal Saline) 1,000 mls @ 125 mls/hr IV ASDIRECTED [facility] Last Admin: 02/03/17 00:31 Dose: 125 mls/hr Levofloxacin/Dextrose (Levaquin In D5w 500 Mg/100 Ml) 100 mls @ 100 mls/hr IV Q48H [facility] Sodium Chloride (Normal Saline) 500 mls @ 999 mls/hr IV ASDIRECTED [facility] Last Admin: 02/03/17 08:37 Dose: 999 mls/hr Levothyroxine Sodium (Levothyroxine) 125 mcg PO ACBREAKFAST [facility] Last Admin: 02/03/17 06:29 Dose: 125 mcg Loperamide HCl (Imodium) 2 mg PO Q4H PRN PRN Reason: Diarrhea Last Admin: 02/02/17 16:22 Dose: 2 mg Ondansetron HCl (Zofran Odt) 4 mg PO Q4H PRN PRN Reason: nausea, able to take PO Discontinued Medications Calcium Carbonate/Glycine (Tums) 1,000 mg PO DAILY ONE Stop: 02/02/17 17:20 Last Admin: 02/02/17 17:32 Dose: 1,000 mg Calcium Carbonate/Glycine (Tums) 1,000 mg PO ONETIME ONE Stop: 02/03/17 07:52 Last Admin: 02/03/17 08:24 Dose: 1,000 mg Sodium Chloride (Normal Saline) 1,000 mls @ 999 mls/hr IV STAT ONE Stop: 02/02/17 13:15 Last Admin: 02/02/17 12:51 Dose: 999 mls/hr Levofloxacin/Dextrose 750 mg/ (Premix) 150 mls @ 100 mls/hr IV NOW ONE Stop: 02/03/17 06:14 Last Admin: 02/03/17 05:13 Dose: 100 mls/hr Potassium Chloride (Klor-Con M20) 40 meq PO DAILY ONE Stop: 02/03/17 07:51 Last Admin: 02/03/17 08:24 Dose: 40 meq - Exam Quality Assessment: DVT prophylaxis General: alert, oriented, cooperative, no acute distress HEENT: Pupils equal, Pupils reactive, EOMI, Mucous membr. moist/pink Neck: supple Lungs: Clear to auscultation, Normal respiratory effort Cardiovascular: Regular Rate, Regular Rhythm Abdomen: bowel sounds present, soft, no tenderness, no distension Back Exam: Normal Inspection Extremities: normal pulses, no tenderness/swelling, edema (lymphedema) Peripheral Pulses: 2+: Radial (L), Radial (R), Posterior Tibial (L), Posterior Tibial (R), Dorsalis Pedis (L), Dorsalis Pedis (R) Skin: warm, dry, intact Neurological: no new focal deficit Psy/Mental Status: alert, normal affect, normal mood - Problem List & Annotations (1) Acute on chronic renal insufficiency SNOMED Code(s): 566416258 Code(s): N28.9 - DISORDER OF KIDNEY AND URETER, UNSPECIFIED; N18.9 - CHRONIC KIDNEY DISEASE, UNSPECIFIED Status: Acute Priority: High Current Visit: Yes (2) Dehydration SNOMED Code(s): 47368579 Code(s): E86.0 - DEHYDRATION Status: Acute Priority: High Current Visit : Yes (3) Diarrhea SNOMED Code(s): 80142824 Code(s): R19.7 - DIARRHEA, UNSPECIFIED Status: Acute Priority: High Current Visit: Yes Qualifiers: Diarrhea type: unspecified type Qualified Code(s): R19.7 - Diarrhea, unspecified (4) HTN (hypertension) SNOMED Code(s): 90225357 Code(s): I10 - ESSENTIAL (PRIMARY) HYPERTENSION Status: Acute Current Visit: No Qualifiers: Hypertension type: essential hypertension Qualified Code(s): I10 - Essential (primary) hypertension (5) Lymphedema SNOMED Code(s): 296500206 Code(s): I89.0 - LYMPHEDEMA, NOT ELSEWHERE CLASSIFIED Status: Acute Current Visit: No (6) Malignant melanoma SNOMED Code(s): 655742716 Code(s): C43.9 - MALIGNANT MELANOMA OF SKIN, UNSPECIFIED Status: Acute Current Visit: No - Problem List Review Problem List Initiated/Reviewed/Updated: Yes - My Orders Last 24 Hours: My Active Orders 02/02/17 14:44 Patient Status [ADT] Routine Oxygen Therapy [RC] PRN Up With Assistance [RC] ASDIRECTED Vital Signs [RC] Q4H Acetaminophen [Tylenol] 650 mg PO Q4H PRN Loperamide [Imodium] 2 mg PO Q4H PRN Ondansetron [Zofran ODT] 4 mg PO Q4H PRN 02/02/17 14:45 Heparin Sodium 5,000 units SUBCUT Q8H Sodium Chloride 0.9% [Normal Saline] 1,000 ml IV ASDIRECTED Sequential Compression Device [OM.PC] Per Unit Routine 02/02/17 14:46 Antiembolic Devices [RC] PER UNIT ROUTINE 02/02/17 15:35 Fecal Occult Blood Collection [RC] ASDIRECTED 02/02/17 15:37 Code Status [Resuscitation Status] Routine 02/02/17 Dinner Regular Diet [DIET] 02/03/17 01:15 CULTURE URINE [RM] Routine 02/03/17 07:30 Levothyroxine 125 mcg PO ACBREAKFAST 02/03/17 08:00 Sodium Chloride 0.9% [Normal Saline] 500 ml IV ASDIRECTED 02/03/17 08:19 CULTURE STOOL + CAMPY+SHIGATOX [RM] Routine Hemoccult [OCCULT BLOOD DIAGNOSTIC] [OP] Routine 02/04/17 05:11 BASIC METABOLIC PANEL,BMP [CHEM] AM CBC WITH AUTO DIFF [HEME] AM 02/05/17 05:11 BASIC METABOLIC PANEL,BMP [CHEM] AM CBC WITH AUTO DIFF [HEME] AM 02/06/17 05:11 BASIC METABOLIC PANEL,BMP [CHEM] AM CBC WITH AUTO DIFF [HEME] AM - Plan Plan:: 81 yo female with dehydration/acute on chronic renal insufficiency and diarrhea with pmh of malignant melenoma, htn, hypothyroidism, and lymphedema. Dehydration\\acute on chronic renal insufficiency: Most likely secondary to diarrhea. Cr 2.2 today down from 2.5. Will give NS bolus of [address] catheter after bladder scan as patient reports not urinating. Strict I & O. Patient does see Dr. Whitten for frequent UTI. UTI: Urine positive for infection was started on Levaquin IV last evening renally dosed. Culture pending. Diarrhea: Most likely from her current Nivolumab and Ipilimumab for her malignant melenoma as diarrhea started when she started these meds. C-diff negative. Culture pending. Malignant melenoma: Will talk with her oncology team today, Elizabeth Truong, to report her diarrhea and modifications recommended. htn: holding home medications as patient vol. depeted and blood pressure normotensive. Cont. to monitor and restart home meds as indicated. hypothyroidism: controlled will restart home meds. VTE: SCD stool positive for blood will stop pharmacologic therapy Dispo 1-2 days
[2017-02-03] MEDS: Pantoprazole 40 MG in Sodium Chloride 0.9% 10 ML IVPUSH SCH (15:22)
[2017-02-04] MEDS: Sodium Chloride 0.9% 1,000 ML IV SCH ×3 (04:03→16:03)
[2017-02-04] MEDS: Levothyroxine 125 MCG Tab PO SCH (06:34)
[2017-02-04] MEDS ORDERED: Potassium Chloride 20 MEQ Tab.ER PO ONE (07:55)
[2017-02-04] MEDS ORDERED: Sodium Chloride 0.9% 500 ML IV SCH (09:30)
[2017-02-04] MEDS ORDERED: Calcium Carbonate 500 MG Tab.Chew PO ONE (09:36)
--- NOTE | 2017-02-04 11:27 | PCM.PN ---
- General Info Date of Service: 02/04/17 Admission Dx/Problem (Free Text): Dehydration Subjective Update: Still feeling very weak and tired. Some right sided abdominal pain. No nausea/ vomiting. Continued diarrhea. Eating very little with no appetite. No chest pain, palpitations or sob. Functional Status: Reports: pain controlled. Denies: tolerating diet, ambulating - Review of Systems General: Reports: Weakness, Fatigue, Malaise, Chills. Denies: Fever HEENT: Denies: headaches Pulmonary: Denies: shortness of breath, pleuritic chest pain, cough Cardiovascular: Reports: Edema. Denies: Chest Pain, Palpitations Gastrointestinal: Reports: Diarrhea. Denies: Abdominal pain, Constipation, Nausea, Vomiting Genitourinary: Denies: dysuria, hematuria Musculoskeletal: Denies: neck pain, leg pain Skin: Denies: cyanosis Neurological: Denies: Confusion, Dizziness Psychiatric: Denies: confusion - Patient Data Vitals - most recent: Last Vital Signs Temp 37.0 C 02/04/17 07:19 Pulse 88 02/04/17 07:19 Resp 16 02/04/17 07:19 BP 118/55 L 02/04/17 07:19 Pulse Ox 95 02/04/17 07:19 Weight - most recent: 80.1 kg I&O - last 24 hours: Intake & Output 02/03/17 02/04/17 02/04/17 22:59 06:59 14:59 Intake Total 1660 50 1200 Output Total 150 150 Balance 1510 -100 1200 Lab Results last 24 hrs: Laboratory Results - last 24 hr 02/03/17 02/04/17 02/04/17 Range/Units 17:50 04:19 04:19 WBC 8.89 (4.0-11.0) K/uL RBC 4.29 L (4.30-5.90) M/uL Hgb 12.3 (12.0-16.0) g/dL Hct 37.2 (36.0-46.0) % MCV 86.7 (80.0-98.0) fL MCH 28.7 (27.0-32.0) pg MCHC 33.1 (31.0-37.0) g/dL RDW Std Deviation 48.6 (28.0-62.0) fl RDW Coeff of Juan J 15 (11.0-15.0) % Plt Count 107 L (150-400) K/uL MPV 11.10 (7.40-12.00) fL Add Manual Diff YES Neutrophils % (Manual) 63 (48.0-80.0) % Band Neutrophils % 21 % Lymphocytes % (Manual) 13 L (16.0-40.0) % Monocytes % (Manual) 3 (0.0-15.0) % Nucleated RBC % 0.0 /100WBC Absolute Seg Neuts 5.6 Band Neutrophils # 1.9 Lymphocytes # (Manual) 1.2 Monocytes # (Manual) 0.3 Nucleated RBCs # 0 K/uL Lactate (0.20-2.00) mmol/L Sodium 138 (136-146) mmol/L Potassium 3.1 L (3.5-5.1) mmol/L Chloride 112 H (98-110) mmol/L Carbon Dioxide 18 L (21-31) mmol/L BUN 64 H (6.0-23.0) mg/dL Creatinine 2.1 H (0.6-1.5) mg/dL Est Cr Clr Drug Dosing 15.60 mL/min Estimated GFR (MDRD) 22.7 ml/min Glucose 122 H (60-110) mg/dL Calcium 6.7 L (8.8-10.8) mg/dL Ur Random Creatinine 206.6 mg/dL Ur Random Sodium < 20.0 mmol/L 02/04/17 Range/Units 08:27 WBC (4.0-11.0) K/uL RBC (4.30-5.90) M/uL Hgb (12.0-16.0) g/dL Hct (36.0-46.0) % MCV (80.0-98.0) fL MCH (27.0-32.0) pg MCHC (31.0-37.0) g/dL RDW Std Deviation (28.0-62.0) fl RDW Coeff of Juan J (11.0-15.0) % Plt Count (150-400) K/uL MPV (7.40-12.00) fL Add Manual Diff Neutrophils % (Manual) (48.0-80.0) % Band Neutrophils % % Lymphocytes % (Manual) (16.0-40.0) % Monocytes % (Manual) (0.0-15.0) % Nucleated RBC % /100WBC Absolute Seg Neuts Band Neutrophils # Lymphocytes # (Manual) Monocytes # (Manual) Nucleated RBCs # K/uL Lactate 1.0 (0.20-2.00) mmol/L Sodium (136-146) mmol/L Potassium (3.5-5.1) mmol/L Chloride (98-110) mmol/L Carbon Dioxide (21-31) mmol/L BUN (6.0-23.0) mg/dL Creatinine (0.6-1.5) mg/dL Est Cr Clr Drug Dosing mL/min Estimated GFR (MDRD) ml/min Glucose (60-110) mg/dL Calcium (8.8-10.8) mg/dL Ur Random Creatinine mg/dL Ur Random Sodium mmol/L Geovany Results last 24 hrs: Microbiology 02/03/17 08:19 Campylobacter Antigen Assay - Final Stool / Feces NEGATIVE CAMPYLOBACTER AG - Final NEGATIVE FOR SHIGA TOXIN 1 - Final NEGATIVE FOR SHIGA TOXIN 2 02/03/17 08:19 Stool Occult Blood (GEOVANY) - Final Stool / Feces 02/03/17 08:19 Clostridium difficile Toxin A&B (M) - Final Stool / Feces Negative for C.Diff Toxin/AG Med Orders - Current: Current Medications Acetaminophen (Tylenol) 650 mg PO Q4H PRN PRN Reason: Pain (Mild 1-3)/fever Sodium Chloride (Normal Saline) 1,000 mls @ 125 mls/hr IV ASDIRECTED [facility] Last Admin: 02/04/17 10:38 Dose: 125 mls/hr Levofloxacin/Dextrose (Levaquin In D5w 500 Mg/100 Ml) 100 mls @ 100 mls/hr IV Q48H [facility] Sodium Chloride (Normal Saline) 500 mls @ 999 mls/hr IV ASDIRECTED [facility] Last Admin: 02/03/17 08:37 Dose: 999 mls/hr Pantoprazole Sodium 40 mg/ (Sodium Chloride) 10 mls @ 300 mls/hr IVPUSH Q24H [facility] Last Admin: 02/03/17 15:22 Dose: 300 mls/hr Sodium Chloride (Normal Saline) 500 mls @ 999 mls/hr IV ASDIRECTED [facility] Last Admin: 02/04/17 10:28 Dose: 999 mls/hr Levothyroxine Sodium (Levothyroxine) 125 mcg PO ACBREAKFAST EMILIO Last Admin: 02/04/17 06:34 Dose: 125 mcg Loperamide HCl (Imodium) 2 mg PO Q4H PRN PRN Reason: Diarrhea Last Admin: 02/02/17 16:22 Dose: 2 mg Ondansetron HCl (Zofran Odt) 4 mg PO Q4H PRN PRN Reason: nausea, able to take PO Discontinued Medications Calcium Carbonate/Glycine (Tums) 1,000 mg PO DAILY ONE Stop: 02/02/17 17:20 Last Admin: 02/02/17 17:32 Dose: 1,000 mg Calcium Carbonate/Glycine (Tums) 1,000 mg PO ONETIME ONE Stop: 02/03/17 07:52 Last Admin: 02/03/17 08:24 Dose: 1,000 mg Calcium Carbonate/Glycine (Tums) 1,000 mg PO ONETIME ONE Stop: 02/04/17 09:37 Last Admin: 02/04/17 10:23 Dose: 1,000 mg Heparin Sodium (Porcine) (Heparin Sodium) 5,000 units SUBCUT Q8H [facility] Last Admin: 02/03/17 06:29 Dose: 5,000 units Sodium Chloride (Normal Saline) 1,000 mls @ 999 mls/hr IV STAT ONE Stop: 02/02/17 13:15 Last Admin: 02/02/17 12:51 Dose: 999 mls/hr Levofloxacin/Dextrose 750 mg/ (Premix) 150 mls @ 100 mls/hr IV NOW ONE Stop: 02/03/17 06:14 Last Admin: 02/03/17 05:13 Dose: 100 mls/hr Potassium Chloride (Klor-Con M20) 40 meq PO DAILY ONE Stop: 02/03/17 07:51 Last Admin: 02/03/17 08:24 Dose: 40 meq Potassium Chloride (Klor-Con M20) 40 meq PO ONETIME ONE Stop: 02/04/17 07:56 Last Admin: 02/04/17 08:58 Dose: 40 meq - Exam Quality Assessment: DVT prophylaxis General: alert, oriented, cooperative, no acute distress HEENT: Pupils equal, Pupils reactive, EOMI, Mucous membr. moist/pink Neck: supple Lungs: Clear to auscultation, Normal respiratory effort Cardiovascular: Regular Rate, Regular Rhythm, Murmurs Abdomen: bowel sounds present, soft, no distension, tenderness (mild right sided tenderness to palpation) (Female) Exam: Normal External Exam, Normal Speculum Exam, Normal Bimanual Exam Back Exam: Normal Inspection, Full Range of Motion Extremities: normal pulses, no calf tenderness, edema Peripheral Pulses: 2+: Radial (L), Radial (R), Posterior Tibial (L), Posterior Tibial (R), Dorsalis Pedis (L), Dorsalis Pedis (R) Skin: warm, dry, intact Neurological: no new focal deficit Psy/Mental Status: alert, normal affect, normal mood - Problem List & Annotations (1) Acute on chronic renal insufficiency SNOMED Code(s): 169899162 Code(s): N28.9 - DISORDER OF KIDNEY AND URETER, UNSPECIFIED; N18.9 - CHRONIC KIDNEY DISEASE, UNSPECIFIED Status: Acute Priority: High Current Visit: Yes (2) Dehydration SNOMED Code(s): 51061834 Code(s): E86.0 - DEHYDRATION Status: Acute Priority: High Current Visit : Yes (3) Diarrhea SNOMED Code(s): 51043496 Code(s): R19.7 - DIARRHEA, UNSPECIFIED Status: Acute Priority: High Current Visit: Yes Qualifiers: Diarrhea type: unspecified type Qualified Code(s): R19.7 - Diarrhea, unspecified (4) HTN (hypertension) SNOMED Code(s): 70462060 Code(s): I10 - ESSENTIAL (PRIMARY) HYPERTENSION Status: Chronic Priority : Medium Current Visit: No Qualifiers: Hypertension type: essential hypertension Qualified Code(s): I10 - Essential (primary) hypertension (5) Lymphedema SNOMED Code(s): 786710770 Code(s): I89.0 - LYMPHEDEMA, NOT ELSEWHERE CLASSIFIED Status: Chronic Priority: Medium Current Visit: No (6) Malignant melanoma SNOMED Code(s): 988813434 Code(s): C43.9 - MALIGNANT MELANOMA OF SKIN, UNSPECIFIED Status: Chronic Priority: Medium Current Visit: No Qualifiers: Laterality: unspecified laterality - Problem List Review Problem List Initiated/Reviewed/Updated: Yes - My Orders Last 24 Hours: My Active Orders 02/03/17 11:01 Admission Status [Patient Status] [ADT] Routine 02/04/17 09:30 Sodium Chloride 0.9% [Normal Saline] 500 ml IV ASDIRECTED 02/05/17 05:11 BASIC METABOLIC PANEL,BMP [CHEM] AM CBC WITH AUTO DIFF [HEME] AM 02/06/17 05:11 BASIC METABOLIC PANEL,BMP [CHEM] AM CBC WITH AUTO DIFF [HEME] AM - Plan Plan:: 81 yo female with dehydration/acute on chronic renal insufficiency and diarrhea with pmh of malignant melenoma, htn, hypothyroidism, and lymphedema. Dehydration\\acute on chronic renal insufficiency: Most likely secondary to diarrhea and vol depletion. FeNa 0.14% indicating prerenal. Cr 2.1 today down from 2.2. Will give NS bolus of 500 this am. Urine output only 300 yesteday. Strict I & O. Patient stated yesterday that she takes "lots" of ibuprofen but daughter thinks this is a mistake and she means imodium. Since she is having abd pain we will get CT abdomen and hold off on Renal ultrasound at this time. Heart murmur: Appreciated today on exam no history of CHF only htn will get Echo today. UTI: Asymptomatic Levaquin day 2. Culture pending. Diarrhea: Most likely from her current Nivolumab and Ipilimumab for her malignant melenoma as diarrhea started when she started these meds. All stool cultures have been negative thus far. Malignant melenoma: Will talk with her oncology team today, Elizabeth Truong, to report her diarrhea and modifications recommended. htn: holding home medications, normotensive. Cont. to monitor and restart home meds as indicated. hypothyroidism: controlled will restart home meds. VTE: SCD stool positive for blood will stop pharmacologic therapy Dispo 2-3 days
--- NOTE | 2017-02-04 12:54 | CT ---
CT of the abdomen and pelvis without contrast. HISTORY: Pain TECHNIQUE: Axial CT images were obtained of the abdomen and pelvis without contrast. Coronal and sag ittal reconstructions obtained. FINDINGS: Small bilateral pleural effusions are noted with adjacent atelectasis. The liver, spleen, adrenal glands, and pancreas appear unremarkable for noncontrast examination. The gallbladder appears mildly distended, otherwise unremarkable. There is no bulky retroperitoneal lym phadenopathy. No abdominal ascites. There is moderate generalized anasarca. There are no calcifications noted within the kidneys or along the courses of the ureters bilaterally . The large and small bowel are normal in caliber without evidence of obstruction. The appendix appear s normal. There are a few loops of small bowel within the the ileum demonstrating borderline wall th ickening. Mild gaseous distention is also noted of several loops of small bowel without evidence of obstruction. There is no bulky pelvic lymphadenopathy. No free fluid. No free air. There is a Kang catheter noted within the bladder. There is grade 1 anterolisthesis of L5 on S1 with mild degenerative changes noted within the lumbar spine. IMPRESSION: 1. Moderate generalized anasarca. 2. Borderline wall thickening within the small bowel and colon. Correlate clinically for a gastroent eritis. 3. The gallbladder appears distended otherwise unremarkable.
[2017-02-04] MEDS: Pantoprazole 40 MG in Sodium Chloride 0.9% 10 ML IVPUSH SCH (14:42)
[2017-02-05] MEDS: Sodium Chloride 0.9% 1,000 ML IV SCH ×3 (00:09→17:06)
[2017-02-05] MEDS: Levofloxacin/Dextrose 5%-Water 100 ML IV SCH (05:32)
[2017-02-05] MEDS: Levothyroxine 125 MCG Tab PO SCH (06:32)
[2017-02-05] MEDS: Potassium Chloride 10% 20 MEQ/15 ML Soln 30 ML UD Cup PO SCH ×2 (09:12→20:45)
--- NOTE | 2017-02-05 12:20 | PCM.PN ---
<MobleyGarrett paniagua - Last Filed: 02/05/17 12:08> - General Info Date of Service: 02/05/17 Admission Dx/Problem (Free Text): Dehydration Subjective Update: Still not feeling well. No appetite and only eating very little. Still having mild right sided abd pain. Not as much diarrhea. No nausea or vomiting. Functional Status: Reports: pain controlled, urinating. Denies: tolerating diet , ambulating - Review of Systems General: Reports: Weakness, Fatigue, Malaise, Chills. Denies: Fever HEENT: Denies: headaches, visual changes Pulmonary: Denies: shortness of breath, wheezing Cardiovascular: Reports: Edema. Denies: Chest Pain, Palpitations Gastrointestinal: Reports: Abdominal pain, Decreased appetite Genitourinary: Denies: dysuria, hematuria Musculoskeletal: Denies: neck pain, leg pain Skin: Denies: cyanosis Neurological: Denies: Confusion, Dizziness, Headache Psychiatric: Denies: confusion - Patient Data Vitals - most recent: Last Vital Signs Temp 36.4 C 02/05/17 07:00 Pulse 87 02/05/17 07:00 Resp 16 02/05/17 07:00 BP 120/58 L 02/05/17 07:00 Pulse Ox 95 02/05/17 07:00 Weight - most recent: 80.1 kg I&O - last 24 hours: Intake & Output 02/04/17 02/05/17 02/05/17 22:59 06:59 14:59 Intake Total 1100 240 Output Total 320 275 Balance 780 -35 Lab Results last 24 hrs: Laboratory Results - last 24 hr 02/05/17 02/05/17 Range/Units 04:01 04:01 WBC 5.35 (4.0-11.0) K/uL RBC 4.21 L (4.30-5.90) M/uL Hgb 12.3 (12.0-16.0) g/dL Hct 36.5 (36.0-46.0) % MCV 86.7 (80.0-98.0) fL MCH 29.2 (27.0-32.0) pg MCHC 33.7 (31.0-37.0) g/dL RDW Std Deviation 49.8 (28.0-62.0) fl RDW Coeff of Juan J 16 H (11.0-15.0) % Plt Count 99 L (150-400) K/uL MPV 11.40 (7.40-12.00) fL Add Manual Diff YES Neutrophils % (Manual) 79 (48.0-80.0) % Band Neutrophils % 10 % Lymphocytes % (Manual) 9 L (16.0-40.0) % Monocytes % (Manual) 1 (0.0-15.0) % Eosinophils % (Manual) 1 (0.0-7.0) % Nucleated RBC % 0.0 /100WBC Absolute Seg Neuts 4.2 Band Neutrophils # 0.5 Lymphocytes # (Manual) 0.5 Monocytes # (Manual) 0.1 Eosinophils # (Manual) 0.1 Nucleated RBCs # 0 K/uL Sodium 142 (136-146) mmol/L Potassium 3.2 L (3.5-5.1) mmol/L Chloride 116 H (98-110) mmol/L Carbon Dioxide 18 L (21-31) mmol/L BUN 60 H (6.0-23.0) mg/dL Creatinine 1.8 H (0.6-1.5) mg/dL Est Cr Clr Drug Dosing 18.20 mL/min Estimated GFR (MDRD) 27.1 ml/min Glucose 170 H (60-110) mg/dL Calcium 6.8 L (8.8-10.8) mg/dL [place] Results last 24 hrs: Microbiology 02/03/17 08:19 Stool Culture - Final Stool / Feces NO SALMONELLA, SHIGELLA,OR E.COLI O157 ISOLATED Campylobacter Antigen Assay - Final NEGATIVE CAMPYLOBACTER AG - Final NEGATIVE FOR SHIGA TOXIN 1 - Final NEGATIVE FOR SHIGA TOXIN 2 02/03/17 01:15 Urine Culture - Final Urine, Catheterized Klebsiella Pneumoniae 02/03/17 01:15 Urine Culture - Final Urine, Quick Cath (In-Out) Klebsiella Pneumoniae Med Orders - Current: Current Medications Acetaminophen (Tylenol) 650 mg PO Q4H PRN PRN Reason: Pain (Mild 1-3)/fever Sodium Chloride (Normal Saline) 1,000 mls @ 125 mls/hr IV ASDIRECTED [facility] Last Admin: 02/05/17 09:12 Dose: 125 mls/hr Levofloxacin/Dextrose (Levaquin In D5w 500 Mg/100 Ml) 100 mls @ 100 mls/hr IV Q48H [facility] Last Admin: 02/05/17 05:32 Dose: 100 mls/hr Sodium Chloride (Normal Saline) 500 mls @ 999 mls/hr IV ASDIRECTED [facility] Last Admin: 02/03/17 08:37 Dose: 999 mls/hr Pantoprazole Sodium 40 mg/ (Sodium Chloride) 10 mls @ 300 mls/hr IVPUSH Q24H [facility] Last Admin: 02/04/17 14:42 Dose: 300 mls/hr Sodium Chloride (Normal Saline) 500 mls @ 999 mls/hr IV ASDIRECTED [facility] Last Admin: 02/04/17 10:28 Dose: 999 mls/hr Levothyroxine Sodium (Levothyroxine) 125 mcg PO ACBREAKFAST [facility] Last Admin: 02/05/17 06:32 Dose: 125 mcg Loperamide HCl (Imodium) 2 mg PO Q4H PRN PRN Reason: Diarrhea Last Admin: 02/02/17 16:22 Dose: 2 mg Ondansetron HCl (Zofran Odt) 4 mg PO Q4H PRN PRN Reason: nausea, able to take PO Potassium Chloride (Potassium Chloride) 40 meq PO BID [facility] Stop: 02/06/17 23:59 Last Admin: 02/05/17 09:12 Dose: 40 meq Discontinued Medications Calcium Carbonate/Glycine (Tums) 1,000 mg PO DAILY ONE Stop: 02/02/17 17:20 Last Admin: 02/02/17 17:32 Dose: 1,000 mg Calcium Carbonate/Glycine (Tums) 1,000 mg PO ONETIME ONE Stop: 02/03/17 07:52 Last Admin: 02/03/17 08:24 Dose: 1,000 mg Calcium Carbonate/Glycine (Tums) 1,000 mg PO ONETIME ONE Stop: 02/04/17 09:37 Last Admin: 02/04/17 10:23 Dose: 1,000 mg Heparin Sodium (Porcine) (Heparin Sodium) 5,000 units SUBCUT Q8H [facility] Last Admin: 02/03/17 06:29 Dose: 5,000 units Sodium Chloride (Normal Saline) 1,000 mls @ 999 mls/hr IV STAT ONE Stop: 02/02/17 13:15 Last Admin: 02/02/17 12:51 Dose: 999 mls/hr Levofloxacin/Dextrose 750 mg/ (Premix) 150 mls @ 100 mls/hr IV NOW ONE Stop: 02/03/17 06:14 Last Admin: 02/03/17 05:13 Dose: 100 mls/hr Potassium Chloride (Klor-Con M20) 40 meq PO DAILY ONE Stop: 02/03/17 07:51 Last Admin: 02/03/17 08:24 Dose: 40 meq Potassium Chloride (Klor-Con M20) 40 meq PO ONETIME ONE Stop: 02/04/17 07:56 Last Admin: 02/04/17 08:58 Dose: 40 meq - Exam Quality Assessment: DVT prophylaxis General: alert, oriented, cooperative, no acute distress HEENT: Pupils equal, Pupils reactive, EOMI, Mucous membr. moist/pink Neck: supple Lungs: Normal respiratory effort, Crackles (bibasilar) Cardiovascular: Regular Rate, Regular Rhythm, Murmurs Abdomen: bowel sounds present, soft, no tenderness, no distension (Female) Exam: Normal Bimanual Exam Back Exam: Normal Inspection Extremities: no edema, normal pulses. No: calf tenderness Peripheral Pulses: 2+: Radial (L), Radial (R), Posterior Tibial (L), Posterior Tibial (R), Dorsalis Pedis (L), Dorsalis Pedis (R) Skin: warm, dry, intact Neurological: no new focal deficit Psy/Mental Status: alert, normal affect, normal mood - Problem List & Annotations (1) Acute on chronic renal insufficiency SNOMED Code(s): 013872499 Code(s): N28.9 - DISORDER OF KIDNEY AND URETER, UNSPECIFIED; N18.9 - CHRONIC KIDNEY DISEASE, UNSPECIFIED Status: Acute Priority: High Current Visit: Yes (2) Dehydration SNOMED Code(s): 29298962 Code(s): E86.0 - DEHYDRATION Status: Acute Priority: High Current Visit : Yes (3) Diarrhea SNOMED Code(s): 74732395 Code(s): R19.7 - DIARRHEA, UNSPECIFIED Status: Resolved Priority: High Current Visit: Yes Qualifiers: Diarrhea type: unspecified type Qualified Code(s): R19.7 - Diarrhea, unspecified (4) HTN (hypertension) SNOMED Code(s): 53515199 Code(s): I10 - ESSENTIAL (PRIMARY) HYPERTENSION Status: Chronic Priority : Medium Current Visit: Yes Qualifiers: Hypertension type: essential hypertension Qualified Code(s): I10 - Essential (primary) hypertension (5) Lymphedema SNOMED Code(s): 435643133 Code(s): I89.0 - LYMPHEDEMA, NOT ELSEWHERE CLASSIFIED Status: Chronic Priority: Medium Current Visit: Yes (6) Malignant melanoma SNOMED Code(s): 011766189 Code(s): C43.9 - MALIGNANT MELANOMA OF SKIN, UNSPECIFIED Status: Chronic Priority: Medium Current Visit: Yes Qualifiers: Laterality: unspecified laterality - Problem List Review Problem List Initiated/Reviewed/Updated: Yes - My Orders Last 24 Hours: My Active Orders 02/05/17 09:00 Potassium Chloride 40 meq PO BID 02/06/17 05:11 BASIC METABOLIC PANEL,BMP [CHEM] AM CBC WITH AUTO DIFF [HEME] AM - Plan Plan:: 81 yo female with dehydration/acute on chronic renal insufficiency and diarrhea with pmh of malignant melenoma, htn, hypothyroidism, and lymphedema. Dehydration\acute on chronic renal insufficiency: Prerenal Cr 1.8 today down from 2.1. Some bibasilar crackles on lung exam will not bolus IVF this am and keep fluids at 125. Strict I & O. CT abd showed moderate generalized anasarca increased from mild at admission closely watch fluids and may have to diurese some after kidney function back to normal. Borderline wall thickening within small bowel and colon and distended gallbladder most likely from gastroenteritis and lack of food intake. Heart murmur: Echo results pending UTI: Asymptomatic Levaquin day 3. Culture Kleb pneum highly sensitive including Levaquin Diarrhea: Most likely from her current Nivolumab and Ipilimumab for her malignant melenoma as diarrhea started when she started these meds. All stool cultures have been negative thus far. Seems to be resolving will monitory Malignant melenoma: Oncology team, Elizabeth Truong, report her diarrhea and modifications recommended. Patient was scheduled to get 4th round of chemo today but not medically stable for treatment. htn: holding home medications, normotensive. Cont. to monitor and restart home meds as indicated. hypothyroidism: controlled will restart home meds. VTE: SCD stool positive for blood will stop pharmacologic therapy Dispo 2-3 days <Emmanuel Rizvi - Last Filed: 02/05/17 19:16> - Patient Data Vitals - most recent: Last Vital Signs Temp 37.1 C 02/05/17 15:00 Pulse 92 02/05/17 15:00 Resp 18 02/05/17 15:00 BP 150/56 H 02/05/17 17:49 Pulse Ox 95 02/05/17 15:00 I&O - last 24 hours: Intake & Output 02/05/17 02/05/17 02/05/17 06:59 14:59 22:59 Intake Total 240 4283 Output Total 275 330 Balance -35 3953 Lab Results last 24 hrs: Laboratory Results - last 24 hr 02/05/17 02/05/17 Range/Units 04:01 04:01 WBC 5.35 (4.0-11.0) K/uL RBC 4.21 L (4.30-5.90) M/uL Hgb 12.3 (12.0-16.0) g/dL Hct 36.5 (36.0-46.0) % MCV 86.7 (80.0-98.0) fL MCH 29.2 (27.0-32.0) pg MCHC 33.7 (31.0-37.0) g/dL RDW Std Deviation 49.8 (28.0-62.0) fl RDW Coeff of Juan J 16 H (11.0-15.0) % Plt Count 99 L (150-400) K/uL MPV 11.40 (7.40-12.00) fL Add Manual Diff YES Neutrophils % (Manual) 79 (48.0-80.0) % Band Neutrophils % 10 % Lymphocytes % (Manual) 9 L (16.0-40.0) % Monocytes % (Manual) 1 (0.0-15.0) % Eosinophils % (Manual) 1 (0.0-7.0) % Nucleated RBC % 0.0 /100WBC Absolute Seg Neuts 4.2 Band Neutrophils # 0.5 Lymphocytes # (Manual) 0.5 Monocytes # (Manual) 0.1 Eosinophils # (Manual) 0.1 Nucleated RBCs # 0 K/uL Sodium 142 (136-146) mmol/L Potassium 3.2 L (3.5-5.1) mmol/L Chloride 116 H (98-110) mmol/L Carbon Dioxide 18 L (21-31) mmol/L BUN 60 H (6.0-23.0) mg/dL Creatinine 1.8 H (0.6-1.5) mg/dL Est Cr Clr Drug Dosing 18.20 mL/min Estimated GFR (MDRD) 27.1 ml/min Glucose 170 H (60-110) mg/dL Calcium 6.8 L (8.8-10.8) mg/dL [place] Results last 24 hrs: Microbiology 02/03/17 08:19 Stool Culture - Final Stool / Feces NO SALMONELLA, SHIGELLA,OR E.COLI O157 ISOLATED Campylobacter Antigen Assay - Final NEGATIVE CAMPYLOBACTER AG - Final NEGATIVE FOR SHIGA TOXIN 1 - Final NEGATIVE FOR SHIGA TOXIN 2 02/03/17 01:15 Urine Culture - Final Urine, Catheterized Klebsiella Pneumoniae 02/03/17 01:15 Urine Culture - Final Urine, Quick Cath (In-Out) Klebsiella Pneumoniae Med Orders - Current: Current Medications Acetaminophen (Tylenol) 650 mg PO Q4H PRN PRN Reason: Pain (Mild 1-3)/fever Sodium Chloride (Normal Saline) 1,000 mls @ 125 mls/hr IV ASDIRECTED [facility] Last Admin: 02/05/17 17:06 Dose: 125 mls/hr Levofloxacin/Dextrose (Levaquin In D5w 500 Mg/100 Ml) 100 mls @ 100 mls/hr IV Q48H [facility] Last Admin: 02/05/17 05:32 Dose: 100 mls/hr Sodium Chloride (Normal Saline) 500 mls @ 999 mls/hr IV ASDIRECTED [facility] Last Admin: 02/03/17 08:37 Dose: 999 mls/hr Pantoprazole Sodium 40 mg/ (Sodium Chloride) 10 mls @ 300 mls/hr IVPUSH Q24H [facility] Last Admin: 02/05/17 13:50 Dose: 300 mls/hr Sodium Chloride (Normal Saline) 500 mls @ 999 mls/hr IV ASDIRECTED [facility] Last Admin: 02/04/17 10:28 Dose: 999 mls/hr Levothyroxine Sodium (Levothyroxine) 125 mcg PO ACBREAKFAST [facility] Last Admin: 02/05/17 06:32 Dose: 125 mcg Loperamide HCl (Imodium) 2 mg PO Q4H PRN PRN Reason: Diarrhea Last Admin: 02/02/17 16:22 Dose: 2 mg Ondansetron HCl (Zofran Odt) 4 mg PO Q4H PRN PRN Reason: nausea, able to take PO Potassium Chloride (Potassium Chloride) 40 meq PO BID [facility] Stop: 02/06/17 23:59 Last Admin: 02/05/17 09:12 Dose: 40 meq Discontinued Medications Calcium Carbonate/Glycine (Tums) 1,000 mg PO DAILY ONE Stop: 02/02/17 17:20 Last Admin: 02/02/17 17:32 Dose: 1,000 mg Calcium Carbonate/Glycine (Tums) 1,000 mg PO ONETIME ONE Stop: 02/03/17 07:52 Last Admin: 02/03/17 08:24 Dose: 1,000 mg Calcium Carbonate/Glycine (Tums) 1,000 mg PO ONETIME ONE Stop: 02/04/17 09:37 Last Admin: 02/04/17 10:23 Dose: 1,000 mg Heparin Sodium (Porcine) (Heparin Sodium) 5,000 units SUBCUT Q8H [facility] Last Admin: 02/03/17 06:29 Dose: 5,000 units Sodium Chloride (Normal Saline) 1,000 mls @ 999 mls/hr IV STAT ONE Stop: 02/02/17 13:15 Last Admin: 02/02/17 12:51 Dose: 999 mls/hr Levofloxacin/Dextrose 750 mg/ (Premix) 150 mls @ 100 mls/hr IV NOW ONE Stop: 02/03/17 06:14 Last Admin: 02/03/17 05:13 Dose: 100 mls/hr Potassium Chloride (Klor-Con M20) 40 meq PO DAILY ONE Stop: 02/03/17 07:51 Last Admin: 02/03/17 08:24 Dose: 40 meq Potassium Chloride (Klor-Con M20) 40 meq PO ONETIME ONE Stop: 02/04/17 07:56 Last Admin: 02/04/17 08:58 Dose: 40 meq - My Orders Last 24 Hours: My Active Orders 02/05/17 05:00 Levofloxacin/Dextrose 5%-Water [Levaquin in D5W 500 MG/100 ML] 100 ml IV Q48H - Free Text/Narrative Note: I have examined the patient. I have discussed findings and treatment plan with resident. I agree with the assessment and plan outlined in the following note.
[2017-02-05] MEDS: Pantoprazole 40 MG in Sodium Chloride 0.9% 10 ML IVPUSH SCH (13:50)
[2017-02-06] MEDS: Sodium Chloride 0.9% 1,000 ML IV SCH ×3 (01:13→18:08)
[2017-02-06] MEDS: Levothyroxine 125 MCG Tab PO SCH (07:00)
[2017-02-06] MEDS: Potassium Chloride 10% 20 MEQ/15 ML Soln 30 ML UD Cup PO SCH ×2 (09:21→21:04)
--- NOTE | 2017-02-06 13:41 | PCM.PN ---
- General Info Date of Service: 02/06/17 Admission Dx/Problem (Free Text): she feels weak; poor appetite for food. No complaint of pain currently. - Patient Data Vitals - most recent: Last Vital Signs Temp 97.2 F 02/06/17 11:52 Pulse 70 02/06/17 11:52 Resp 20 02/06/17 11:52 BP 145/67 H 02/06/17 11:52 Pulse Ox 96 02/06/17 11:52 Weight - most recent: 80.1 kg I&O - last 24 hours: Intake & Output 02/05/17 02/06/17 02/06/17 22:59 06:59 14:59 Intake Total 4283 1548 Output Total 330 450 Balance 3953 1098 Lab Results last 24 hrs: Laboratory Results - last 24 hr 02/06/17 02/06/17 Range/Units 05:14 05:14 WBC 3.81 L (4.0-11.0) K/uL RBC 4.12 L (4.30-5.90) M/uL Hgb 12.0 (12.0-16.0) g/dL Hct 36.0 (36.0-46.0) % MCV 87.4 (80.0-98.0) fL MCH 29.1 (27.0-32.0) pg MCHC 33.3 (31.0-37.0) g/dL RDW Std Deviation 51.4 (28.0-62.0) fl RDW Coeff of Juan J 16 H (11.0-15.0) % Plt Count 97 L (150-400) K/uL MPV 11.00 (7.40-12.00) fL Add Manual Diff YES Neutrophils % (Manual) 72 (48.0-80.0) % Band Neutrophils % 14 % Lymphocytes % (Manual) 6 L (16.0-40.0) % Monocytes % (Manual) 8 (0.0-15.0) % Nucleated RBC % 0.0 /100WBC Absolute Seg Neuts 2.7 Band Neutrophils # 0.5 Lymphocytes # (Manual) 0.2 Monocytes # (Manual) 0.3 Nucleated RBCs # 0 K/uL Sodium 142 (136-146) mmol/L Potassium 3.6 (3.5-5.1) mmol/L Chloride 120 H (98-110) mmol/L Carbon Dioxide 16 L (21-31) mmol/L BUN 51 H (6.0-23.0) mg/dL Creatinine 1.3 (0.6-1.5) mg/dL Est Cr Clr Drug Dosing 25.20 mL/min Estimated GFR (MDRD) 39.5 ml/min Glucose 137 H (60-110) mg/dL Calcium 7.2 L (8.8-10.8) mg/dL [place] Results last 24 hrs: Microbiology 02/03/17 08:19 Stool Culture - Final Stool / Feces NO SALMONELLA, SHIGELLA,OR E.COLI O157 ISOLATED Campylobacter Antigen Assay - Final NEGATIVE CAMPYLOBACTER AG - Final NEGATIVE FOR SHIGA TOXIN 1 - Final NEGATIVE FOR SHIGA TOXIN 2 Med Orders - Current: Current Medications Acetaminophen (Tylenol) 650 mg PO Q4H PRN PRN Reason: Pain (Mild 1-3)/fever Sodium Chloride (Normal Saline) 1,000 mls @ 125 mls/hr IV ASDIRECTED [facility] Last Admin: 02/06/17 09:51 Dose: 125 mls/hr Levofloxacin/Dextrose (Levaquin In D5w 500 Mg/100 Ml) 100 mls @ 100 mls/hr IV Q48H [facility] Last Admin: 02/05/17 05:32 Dose: 100 mls/hr Sodium Chloride (Normal Saline) 500 mls @ 999 mls/hr IV ASDIRECTED [facility] Last Admin: 02/03/17 08:37 Dose: 999 mls/hr Pantoprazole Sodium 40 mg/ (Sodium Chloride) 10 mls @ 300 mls/hr IVPUSH Q24H [facility] Last Admin: 02/05/17 13:50 Dose: 300 mls/hr Sodium Chloride (Normal Saline) 500 mls @ 999 mls/hr IV ASDIRECTED [facility] Last Admin: 02/04/17 10:28 Dose: 999 mls/hr Levothyroxine Sodium (Levothyroxine) 125 mcg PO ACBREAKFAST [facility] Last Admin: 02/06/17 07:00 Dose: 125 mcg Loperamide HCl (Imodium) 2 mg PO Q4H PRN PRN Reason: Diarrhea Last Admin: 02/02/17 16:22 Dose: 2 mg Ondansetron HCl (Zofran Odt) 4 mg PO Q4H PRN PRN Reason: nausea, able to take PO Potassium Chloride (Potassium Chloride) 40 meq PO BID [facility] Stop: 02/06/17 23:59 Last Admin: 02/06/17 09:21 Dose: 40 meq Discontinued Medications Calcium Carbonate/Glycine (Tums) 1,000 mg PO DAILY ONE Stop: 02/02/17 17:20 Last Admin: 02/02/17 17:32 Dose: 1,000 mg Calcium Carbonate/Glycine (Tums) 1,000 mg PO ONETIME ONE Stop: 02/03/17 07:52 Last Admin: 02/03/17 08:24 Dose: 1,000 mg Calcium Carbonate/Glycine (Tums) 1,000 mg PO ONETIME ONE Stop: 02/04/17 09:37 Last Admin: 02/04/17 10:23 Dose: 1,000 mg Heparin Sodium (Porcine) (Heparin Sodium) 5,000 units SUBCUT Q8H [facility] Last Admin: 02/03/17 06:29 Dose: 5,000 units Sodium Chloride (Normal Saline) 1,000 mls @ 999 mls/hr IV STAT ONE Stop: 02/02/17 13:15 Last Admin: 02/02/17 12:51 Dose: 999 mls/hr Levofloxacin/Dextrose 750 mg/ (Premix) 150 mls @ 100 mls/hr IV NOW ONE Stop: 02/03/17 06:14 Last Admin: 02/03/17 05:13 Dose: 100 mls/hr Potassium Chloride (Klor-Con M20) 40 meq PO DAILY ONE Stop: 02/03/17 07:51 Last Admin: 02/03/17 08:24 Dose: 40 meq Potassium Chloride (Klor-Con M20) 40 meq PO ONETIME ONE Stop: 02/04/17 07:56 Last Admin: 02/04/17 08:58 Dose: 40 meq - Exam General: alert, cooperative Neck: supple Lungs: Clear to auscultation, Normal respiratory effort Cardiovascular: Regular Rate, Regular Rhythm Abdomen: no tenderness Physical Findings Comments:: 3- 4 plus chronic lymphedema LE's marked generalized weakness - Problem List & Annotations (1) Generalized weakness SNOMED Code(s): 60585619 Code(s): R53.1 - WEAKNESS Status: Acute Current Visit: Yes (2) Acute on chronic renal insufficiency SNOMED Code(s): 185262400 Code(s): N28.9 - DISORDER OF KIDNEY AND URETER, UNSPECIFIED; N18.9 - CHRONIC KIDNEY DISEASE, UNSPECIFIED Status: Acute Priority: High Current Visit: Yes (3) Lymphedema SNOMED Code(s): 824788179 Code(s): I89.0 - LYMPHEDEMA, NOT ELSEWHERE CLASSIFIED Status: Chronic Priority: Medium Current Visit: Yes (4) Malignant melanoma SNOMED Code(s): 943049977 Code(s): C43.9 - MALIGNANT MELANOMA OF SKIN, UNSPECIFIED Status: Chronic Priority: Medium Current Visit: Yes Qualifiers: Laterality: unspecified laterality - Problem List Review Problem List Initiated/Reviewed/Updated: Yes - My Orders Last 24 Hours: My Active Orders 02/06/17 21:00 Aspirin 81 mg PO BID rOPINIRole [Requip] 1 mg PO BEDTIME 02/07/17 05:11 CBC WITH AUTO DIFF [HEME] AM COMPREHENSIVE METABOLIC PN,CMP [CHEM] AM MG [MAGNESIUM] [CHEM] AM 02/07/17 09:00 Omeprazole [Omeprazole] 20 mg PO DAILY 02/08/17 05:11 CBC WITH AUTO DIFF [HEME] AM COMPREHENSIVE METABOLIC PN,CMP [CHEM] AM MG [MAGNESIUM] [CHEM] AM 02/09/17 05:11 CBC WITH AUTO DIFF [HEME] AM COMPREHENSIVE METABOLIC PN,CMP [CHEM] AM MG [MAGNESIUM] [CHEM] AM - Plan Plan:: 81 yo female with dehydration/acute on chronic renal insufficiency and diarrhea with pmh of malignant melenoma, htn, hypothyroidism, and lymphedema. Dehydration\acute on chronic renal insufficiency: Prerenal Cr 1.8 today down from 2.1. Some bibasilar crackles on lung exam will not bolus IVF this am and keep fluids at 125. Strict I & O. CT abd showed moderate generalized anasarca increased from mild at admission closely watch fluids and may have to diurese some after kidney function back to normal. Borderline wall thickening within small bowel and colon and distended gallbladder most likely from gastroenteritis and lack of food intake. Heart murmur: Echo results pending UTI: Asymptomatic Levaquin day 3. Culture Kleb pneum highly sensitive including Levaquin Diarrhea: Most likely from her current Nivolumab and Ipilimumab for her malignant melenoma as diarrhea started when she started these meds. All stool cultures have been negative thus far. Seems to be resolving will monitory Malignant melenoma: Oncology team, Elizabeth Waitman, report her diarrhea and modifications recommended. Patient was scheduled to get 4th round of chemo today but not medically stable for treatment. htn: holding home medications, normotensive. Cont. to monitor and restart home meds as indicated. hypothyroidism: controlled will restart home meds. VTE: SCD stool positive for blood will stop pharmacologic therapy Dispo 2-3 days 02/06/2017: supportive care; planning likely discharge to [facility] thursday or Thursday. Richard Mccracken MD
[2017-02-06] MEDS: Pantoprazole 40 MG in Sodium Chloride 0.9% 10 ML IVPUSH SCH (15:08)
[2017-02-06] MEDS ORDERED: rOPINIRole 1 MG Tab PO SCH (21:00)
[2017-02-06] MEDS ORDERED: Aspirin 325 MG Tab PO SCH (21:00)
[2017-02-06] MEDS: Aspirin 81 MG Tab.EC PO SCH (21:55)
[2017-02-07] MEDS: Sodium Chloride 0.9% 1,000 ML IV SCH (02:16)
[2017-02-07] MEDS: Levofloxacin/Dextrose 5%-Water 100 ML IV SCH (05:08)
[2017-02-07] MEDS: Ondansetron 4 MG Tab.DIS PO PRN ×3 (05:12→15:37)
[2017-02-07] MEDS: Levothyroxine 125 MCG Tab PO SCH (06:46)
[2017-02-07] MEDS ORDERED: Omeprazole 20 MG Cap.CR PO SCH (09:00)
[2017-02-07] MEDS: Aspirin 81 MG Tab.EC PO SCH (09:26)
[2017-02-07] MEDS ORDERED: Magnesium Sulfate/Water 4 GM in Premix Bag 1 BAG IV ONE (12:23)
[2017-02-07] MEDS ORDERED: MVI, Adult with Vitamin K 10 ML SDV IV SCH (12:30)
[2017-02-07] MEDS ORDERED: Metoclopramide 10 MG/2 ML SDV IVPUSH SCH (12:30)
[2017-02-07] MEDS ORDERED: MVI, Adult with Vitamin K 10 ML in Sodium Chloride 0.9% 500 ML IV SCH ×4 (13:00→15:30)
--- NOTE | 2017-02-07 13:46 | PCM.PN ---
- General Info Date of Service: 02/07/17 Subjective Update: she feels very weak. She vomited this am. she feels some abdominal bloating. she has passed flatus this am. - Patient Data Vitals - most recent: Last Vital Signs Temp 97.6 F 02/07/17 11:47 Pulse 100 02/07/17 11:47 Resp 22 H 02/07/17 11:47 BP 120/58 L 02/07/17 11:47 Pulse Ox 95 02/07/17 11:47 Weight - most recent: 80.1 kg I&O - last 24 hours: Intake & Output 02/06/17 02/07/17 02/07/17 22:59 06:59 14:59 Intake Total 1009 1400 999 Output Total 350 Balance 1009 1050 999 Lab Results last 24 hrs: Laboratory Results - last 24 hr 02/07/17 02/07/17 Range/Units 06:20 06:20 WBC 5.01 (4.0-11.0) K/uL RBC 4.47 (4.30-5.90) M/uL Hgb 13.0 (12.0-16.0) g/dL Hct 39.2 (36.0-46.0) % MCV 87.7 (80.0-98.0) fL MCH 29.1 (27.0-32.0) pg MCHC 33.2 (31.0-37.0) g/dL RDW Std Deviation 52.7 (28.0-62.0) fl RDW Coeff of Juan J 17 H (11.0-15.0) % Plt Count 95 L (150-400) K/uL MPV 10.70 (7.40-12.00) fL Add Manual Diff YES Neutrophils % (Manual) 71 (48.0-80.0) % Band Neutrophils % 21 % Lymphocytes % (Manual) 3 L (16.0-40.0) % Monocytes % (Manual) 5 (0.0-15.0) % Nucleated RBC % 0.0 /100WBC Absolute Seg Neuts 3.6 Band Neutrophils # 1.1 Lymphocytes # (Manual) 0.2 Monocytes # (Manual) 0.3 Nucleated RBCs # 0 K/uL Sodium 141 (136-146) mmol/L Potassium 4.0 (3.5-5.1) mmol/L Chloride 119 H (98-110) mmol/L Carbon Dioxide 16 L (21-31) mmol/L BUN 42 H (6.0-23.0) mg/dL Creatinine 1.1 (0.6-1.5) mg/dL Est Cr Clr Drug Dosing 29.79 mL/min Estimated GFR (MDRD) 47.9 ml/min Glucose 153 H (60-110) mg/dL Calcium 7.3 L (8.8-10.8) mg/dL Magnesium 1.2 L (1.5-2.3) mEq/L Total Bilirubin 1.1 (0.1-1.5) mg/dL AST 21 (5-40) IU/L ALT 29 (8-54) IU/L Alkaline Phosphatase 77 (40-150) Total Protein 4.0 L (6.0-8.0) g/dL Albumin 1.6 L (3.4-4.8) g/dL Globulin 2.4 (2.0-3.5) g/dL Albumin/Globulin Ratio 0.7 L (1.3-2.8) Med Orders - Current: Current Medications Acetaminophen (Tylenol) 650 mg PO Q4H PRN PRN Reason: Pain (Mild 1-3)/fever Aspirin (Halfprin) 81 mg PO BID [facility] Last Admin: 02/07/17 09:26 Dose: 81 mg Sodium Chloride (Normal Saline) 1,000 mls @ 100 mls/hr IV ASDIRECTED [facility] Last Admin: 02/07/17 02:16 Dose: 125 mls/hr Levofloxacin/Dextrose (Levaquin In D5w 500 Mg/100 Ml) 100 mls @ 100 mls/hr IV Q48H [facility] Last Admin: 02/07/17 05:08 Dose: 100 mls/hr Sodium Chloride (Normal Saline) 500 mls @ 999 mls/hr IV ASDIRECTED [facility] Last Admin: 02/03/17 08:37 Dose: 999 mls/hr Pantoprazole Sodium 40 mg/ (Sodium Chloride) 10 mls @ 300 mls/hr IVPUSH Q24H [facility] Last Admin: 02/06/17 15:08 Dose: 300 mls/hr Sodium Chloride (Normal Saline) 500 mls @ 999 mls/hr IV ASDIRECTED [facility] Last Admin: 02/04/17 10:28 Dose: 999 mls/hr Magnesium Sulfate 4 gm/ Premix 100 mls @ 50 mls/hr IV ONETIME ONE Stop: 02/07/17 14:22 Last Admin: 02/07/17 12:54 Dose: 50 mls/hr Multivitamins/Minerals 10 ml/ (Sodium Chloride) 510 mls @ 510 mls/hr IV Q24H [facility] Levothyroxine Sodium (Levothyroxine) 125 mcg PO ACBREAKFAST [facility] Last Admin: 02/07/17 06:46 Dose: 125 mcg Loperamide HCl (Imodium) 2 mg PO Q4H PRN PRN Reason: Diarrhea Last Admin: 02/02/17 16:22 Dose: 2 mg Metoclopramide HCl (Reglan) 5 mg IVPUSH Q6H [facility] Last Admin: 02/07/17 12:54 Dose: 5 mg Omeprazole (Omeprazole) 20 mg PO DAILY [facility] Last Admin: 02/07/17 09:26 Dose: 20 mg Ondansetron HCl (Zofran Odt) 4 mg PO Q4H PRN PRN Reason: nausea, able to take PO Last Admin: 02/07/17 09:35 Dose: 4 mg Ropinirole HCl (Requip) 1 mg PO BEDTIME [facility] Last Admin: 02/06/17 21:06 Dose: 1 mg Discontinued Medications Calcium Carbonate/Glycine (Tums) 1,000 mg PO DAILY ONE Stop: 02/02/17 17:20 Last Admin: 02/02/17 17:32 Dose: 1,000 mg Calcium Carbonate/Glycine (Tums) 1,000 mg PO ONETIME ONE Stop: 02/03/17 07:52 Last Admin: 02/03/17 08:24 Dose: 1,000 mg Calcium Carbonate/Glycine (Tums) 1,000 mg PO ONETIME ONE Stop: 02/04/17 09:37 Last Admin: 02/04/17 10:23 Dose: 1,000 mg Heparin Sodium (Porcine) (Heparin Sodium) 5,000 units SUBCUT Q8H [facility] Last Admin: 02/03/17 06:29 Dose: 5,000 units Sodium Chloride (Normal Saline) 1,000 mls @ 999 mls/hr IV STAT ONE Stop: 02/02/17 13:15 Last Admin: 02/02/17 12:51 Dose: 999 mls/hr Levofloxacin/Dextrose 750 mg/ (Premix) 150 mls @ 100 mls/hr IV NOW ONE Stop: 02/03/17 06:14 Last Admin: 02/03/17 05:13 Dose: 100 mls/hr Multivitamins/Minerals (Infuvite Adult) 10 ml IV Q24H [facility] Last Admin: 02/07/17 13:35 Dose: Not Given Potassium Chloride (Klor-Con M20) 40 meq PO DAILY ONE Stop: 02/03/17 07:51 Last Admin: 02/03/17 08:24 Dose: 40 meq Potassium Chloride (Klor-Con M20) 40 meq PO ONETIME ONE Stop: 02/04/17 07:56 Last Admin: 02/04/17 08:58 Dose: 40 meq Potassium Chloride (Potassium Chloride) 40 meq PO BID [facility] Stop: 02/06/17 23:59 Last Admin: 02/06/17 21:04 Dose: 40 meq - Exam General: alert, cooperative Neck: trachea midline Lungs: Clear to auscultation, Normal respiratory effort Cardiovascular: Regular Rate, Regular Rhythm Abdomen: bowel sounds present (some slightly high pitched bowel sounds), soft, no tenderness, distension. No: no distension (slight distention) Extremities: other (marked lymphedema LE's ) Psy/Mental Status: No: agitated - Problem List & Annotations (1) Generalized weakness SNOMED Code(s): 71280395 Code(s): R53.1 - WEAKNESS Status: Acute Current Visit: Yes (2) Acute on chronic renal insufficiency SNOMED Code(s): 181074081 Code(s): N28.9 - DISORDER OF KIDNEY AND URETER, UNSPECIFIED; N18.9 - CHRONIC KIDNEY DISEASE, UNSPECIFIED Status: Acute Priority: High Current Visit: Yes (3) Lymphedema SNOMED Code(s): 160142423 Code(s): I89.0 - LYMPHEDEMA, NOT ELSEWHERE CLASSIFIED Status: Chronic Priority: Medium Current Visit: Yes (4) Malignant melanoma SNOMED Code(s): 807101164 Code(s): C43.9 - MALIGNANT MELANOMA OF SKIN, UNSPECIFIED Status: Chronic Priority: Medium Current Visit: Yes Qualifiers: Laterality: unspecified laterality - Problem List Review Problem List Initiated/Reviewed/Updated: Yes - My Orders Last 24 Hours: My Active Orders 02/06/17 21:00 Aspirin [Halfprin] 81 mg PO BID rOPINIRole [Requip] 1 mg PO BEDTIME 02/07/17 09:00 Omeprazole 20 mg PO DAILY 02/07/17 12:23 Magnesium Sulfate/Water [Magnesium Sulfate 4 GM in Water 100 ML] 4 gm Premix Bag 1 bag IV ONETIME 02/07/17 12:30 Metoclopramide [Reglan] 5 mg IVPUSH Q6H 02/07/17 13:00 MVI, Adult with Vitamin K [Infuvite Adult] 10 ml Sodium Chloride 0.9% [Normal Saline] 500 ml IV Q24H 02/07/17 13:41 Consult to Pharmacy [CONS] Routine 02/07/17 Lunch Clear Liquid Diet [DIET] 02/08/17 05:11 CBC WITH AUTO DIFF [HEME] AM COMPREHENSIVE METABOLIC PN,CMP [CHEM] AM MG [MAGNESIUM] [CHEM] AM 02/09/17 05:11 CBC WITH AUTO DIFF [HEME] AM COMPREHENSIVE METABOLIC PN,CMP [CHEM] AM MG [MAGNESIUM] [CHEM] AM - Assessment Assessment:: 02/07/[address] from February 04. In light of bowel wall thickening, will start flagyl IV I suspect that she has a mild ileus. Will start reglan IV scheduled and change to clear liquid diet As she has had very little po intake for over one week, will plan to start TPN if not improved in about 24 hours. Richard Mccracken MD - Plan Plan:: 81 yo female with dehydration/acute on chronic renal insufficiency and diarrhea with pmh of malignant melenoma, htn, hypothyroidism, and lymphedema. Dehydration\acute on chronic renal insufficiency: Prerenal Cr 1.8 today down from 2.1. Some bibasilar crackles on lung exam will not bolus IVF this am and keep fluids at 125. Strict I & O. CT abd showed moderate generalized anasarca increased from mild at admission closely watch fluids and may have to diurese some after kidney function back to normal. Borderline wall thickening within small bowel and colon and distended gallbladder most likely from gastroenteritis and lack of food intake. Heart murmur: Echo results pending UTI: Asymptomatic Levaquin day 3. Culture Kleb pneum highly sensitive including Levaquin Diarrhea: Most likely from her current Nivolumab and Ipilimumab for her malignant melenoma as diarrhea started when she started these meds. All stool cultures have been negative thus far. Seems to be resolving will monitory Malignant melenoma: Oncology team, Elizabeth Beedeion, report her diarrhea and modifications recommended. Patient was scheduled to get 4th round of chemo today but not medically stable for treatment. htn: holding home medications, normotensive. Cont. to monitor and restart home meds as indicated. hypothyroidism: controlled will restart home meds. VTE: SCD stool positive for blood will stop pharmacologic therapy Dispo 2-3 days 02/06/2017: supportive care; planning likely discharge to [facility] thursday or Thursday. Richard Mccracken MD
[2017-02-07] MEDS ORDERED: Albumin 25% 12.5 GM/50 ML BAG IV ONE (13:47)
--- NOTE | 2017-02-07 13:51 | PCM.SN ---
- Free Text/Narrative Note: echo result reviewed: LVEF of 70-75% noted. hyperdynamic left ventricular systolic function. Mild aortic valve regurgitation. hyperchloremia noted; will change to LR; MVI ordered low serum albumin noted; likely nutritional; I have ordered albumin 25% 50 ml IV Richard Mccracken MD
[2017-02-07] MEDS ORDERED: metroNIDAZOLE/Normal Saline 500 MG in Premix Bag 1 BAG IV SCH (14:00)
[2017-02-07] MEDS: Pantoprazole 40 MG in Sodium Chloride 0.9% 10 ML IVPUSH SCH (14:52)
--- NOTE | 2017-02-07 16:07 | PCM.SN ---
- Free Text/Narrative Note: increasing feeling of abdominal bloating. Exam: abdomen: distended; decreased bowel sounds; no focal tenderness. A: suspect ileus P: NG to low intermittent suction; CT abdomen and pelvis
[2017-02-07] MEDS ORDERED: Furosemide 40 MG/4 ML VIAL IVPUSH ONE (16:08)
[2017-02-07] MEDS: Lactated Ringers 1,000 ML IV SCH (16:47)
[2017-02-07] MEDS: metroNIDAZOLE/Normal Saline 500 MG in Premix Bag 1 BAG IV SCH ×2 (16:51→21:42)
[2017-02-07] MEDS ORDERED: Pantoprazole 40 MG in Sodium Chloride 0.9% 10 ML IVPUSH SCH (20:00)
[2017-02-08] MEDS: Pantoprazole 40 MG in Sodium Chloride 0.9% 10 ML IVPUSH SCH ×2 (02:26→16:10)
[2017-02-08] MEDS: Lactated Ringers 1,000 ML IV SCH (04:45)
[2017-02-08] MEDS: metroNIDAZOLE/Normal Saline 500 MG in Premix Bag 1 BAG IV SCH ×4 (04:49→21:29)
[2017-02-08] MEDS ORDERED: Albumin 25% 12.5 GM/50 ML BAG IV ONE (11:07)
[2017-02-08] MEDS ORDERED: FAMOTIDINE IV SCH (11:30)
[2017-02-08] MEDS ORDERED: [UNRECOGNIZED DRUG - OTHER] IV SCH (11:30)
[2017-02-08] MEDS ORDERED: MVI IV SCH (11:30)
[2017-02-08] MEDS ORDERED: VITAMIN K IV SCH (11:30)
--- NOTE | 2017-02-08 12:34 | PCM.PN ---
- General Info Date of Service: 02/08/17 Subjective Update: she seems very weak. She feels better with the nasogastric tube in place. she is thirsty. - Patient Data Vitals - most recent: Last Vital Signs Temp 97.2 F 02/08/17 11:38 Pulse 84 02/08/17 11:38 Resp 20 02/08/17 11:38 BP 102/54 L 02/08/17 11:38 Pulse Ox 92 L 02/08/17 11:38 Weight - most recent: 80.1 kg I&O - last 24 hours: Intake & Output 02/07/17 02/08/17 02/08/17 22:59 06:59 14:59 Intake Total 870 1130 150 Output Total 1150 1700 Balance -280 -570 150 Lab Results last 24 hrs: Laboratory Results - last 24 hr 02/08/17 02/08/17 Range/Units 05:55 05:55 WBC 7.54 (4.0-11.0) K/uL RBC 4.09 L (4.30-5.90) M/uL Hgb 11.8 L (12.0-16.0) g/dL Hct 35.7 L (36.0-46.0) % MCV 87.3 (80.0-98.0) fL MCH 28.9 (27.0-32.0) pg MCHC 33.1 (31.0-37.0) g/dL RDW Std Deviation 52.9 (28.0-62.0) fl RDW Coeff of Juan J 17 H (11.0-15.0) % Plt Count 81 L (150-400) K/uL MPV 10.40 (7.40-12.00) fL Add Manual Diff YES Neutrophils % (Manual) 76 (48.0-80.0) % Band Neutrophils % 16 % Lymphocytes % (Manual) 2 L (16.0-40.0) % Monocytes % (Manual) 6 (0.0-15.0) % Nucleated RBC % 0.0 /100WBC Absolute Seg Neuts 5.7 Band Neutrophils # 1.2 Lymphocytes # (Manual) 0.2 Monocytes # (Manual) 0.5 Nucleated RBCs # 0 K/uL Sodium 144 (136-146) mmol/L Potassium 3.5 (3.5-5.1) mmol/L Chloride 120 H (98-110) mmol/L Carbon Dioxide 15 L (21-31) mmol/L BUN 47 H (6.0-23.0) mg/dL Creatinine 1.4 (0.6-1.5) mg/dL Est Cr Clr Drug Dosing 23.40 mL/min Estimated GFR (MDRD) 36.3 ml/min Glucose 137 H (60-110) mg/dL Calcium 7.4 L (8.8-10.8) mg/dL Magnesium 1.7 (1.5-2.3) mEq/L Total Bilirubin 1.3 (0.1-1.5) mg/dL AST 16 (5-40) IU/L ALT 22 (8-54) IU/L Alkaline Phosphatase 70 (40-150) Total Protein 3.7 L (6.0-8.0) g/dL Albumin 1.7 L (3.4-4.8) g/dL Globulin 2.0 (2.0-3.5) g/dL Albumin/Globulin Ratio 0.9 L (1.3-2.8) Med Orders - Current: Current Medications Acetaminophen (Tylenol) 650 mg PO Q4H PRN PRN Reason: Pain (Mild 1-3)/fever Aspirin (Halfprin) 81 mg PO BID [facility] Last Admin: 02/07/17 09:26 Dose: 81 mg Levofloxacin/Dextrose (Levaquin In D5w 500 Mg/100 Ml) 100 mls @ 100 mls/hr IV Q48H [facility] Last Admin: 02/07/17 05:08 Dose: 100 mls/hr Lactated Ringer's (Ringers, Lactated) 1,000 mls @ 100 mls/hr IV ASDIRECTED [facility] Last Admin: 02/08/17 04:45 Dose: 100 mls/hr Metronidazole 500 mg/ Premix 100 mls @ 100 mls/hr IV Q6H [facility] Last Admin: 02/08/17 11:11 Dose: 100 mls/hr Pantoprazole Sodium 40 mg/ (Sodium Chloride) 10 mls @ 300 mls/hr IVPUSH Q12H [facility] Last Infusion: 02/08/17 02:30 Dose: Infused Multivitamins/Minerals 10 ml/Famotidine 40 mg/ Amino Ac/Electrol/Dextrose/ Calcium/ Fat Emulsion Intravenous 2,264 mls @ 94.333 mls/hr IV Q24H [facility] Levothyroxine Sodium (Levothyroxine) 125 mcg PO ACBREAKFAST [facility] Last Admin: 02/07/17 06:46 Dose: 125 mcg Loperamide HCl (Imodium) 2 mg PO Q4H PRN PRN Reason: Diarrhea Last Admin: 02/02/17 16:22 Dose: 2 mg Omeprazole (Omeprazole) 20 mg PO DAILY [facility] Last Admin: 02/07/17 09:26 Dose: 20 mg Ondansetron HCl (Zofran Odt) 4 mg PO Q4H PRN PRN Reason: nausea, able to take PO Last Admin: 02/07/17 15:37 Dose: 4 mg Ropinirole HCl (Requip) 1 mg PO BEDTIME [facility] Last Admin: 02/06/17 21:06 Dose: 1 mg Discontinued Medications Calcium Carbonate/Glycine (Tums) 1,000 mg PO DAILY ONE Stop: 02/02/17 17:20 Last Admin: 02/02/17 17:32 Dose: 1,000 mg Calcium Carbonate/Glycine (Tums) 1,000 mg PO ONETIME ONE Stop: 02/03/17 07:52 Last Admin: 02/03/17 08:24 Dose: 1,000 mg Calcium Carbonate/Glycine (Tums) 1,000 mg PO ONETIME ONE Stop: 02/04/17 09:37 Last Admin: 02/04/17 10:23 Dose: 1,000 mg Furosemide (Lasix) 60 mg IVPUSH NOW ONE Stop: 02/07/17 16:09 Last Admin: 02/07/17 16:47 Dose: 60 mg Heparin Sodium (Porcine) (Heparin Sodium) 5,000 units SUBCUT Q8H [facility] Last Admin: 02/03/17 06:29 Dose: 5,000 units Sodium Chloride (Normal Saline) 1,000 mls @ 999 mls/hr IV STAT ONE Stop: 02/02/17 13:15 Last Admin: 02/02/17 12:51 Dose: 999 mls/hr Sodium Chloride (Normal Saline) 1,000 mls @ 100 mls/hr IV ASDIRECTED [facility] Last Admin: 02/07/17 02:16 Dose: 125 mls/hr Levofloxacin/Dextrose 750 mg/ (Premix) 150 mls @ 100 mls/hr IV NOW ONE Stop: 02/03/17 06:14 Last Admin: 02/03/17 05:13 Dose: 100 mls/hr Sodium Chloride (Normal Saline) 500 mls @ 999 mls/hr IV ASDIRECTED [facility] Last Admin: 02/03/17 08:37 Dose: 999 mls/hr Pantoprazole Sodium 40 mg/ (Sodium Chloride) 10 mls @ 300 mls/hr IVPUSH Q24H [facility] Last Admin: 02/07/17 14:52 Dose: 300 mls/hr Sodium Chloride (Normal Saline) 500 mls @ 999 mls/hr IV ASDIRECTED [facility] Last Admin: 02/04/17 10:28 Dose: 999 mls/hr Magnesium Sulfate 4 gm/ Premix 100 mls @ 50 mls/hr IV ONETIME ONE Stop: 02/07/17 14:22 Last Admin: 02/07/17 12:54 Dose: 50 mls/hr Multivitamins/Minerals 10 ml/ (Sodium Chloride) 510 mls @ 510 mls/hr IV Q24H [facility] Last Admin: 02/07/17 15:22 Dose: Not Given Albumin Human (Flexbumin 25%) 12.5 gm in 50 mls @ 100 mls/hr IV ONETIME ONE Stop: 02/07/17 14:16 Last Admin: 02/07/17 14:58 Dose: 100 mls/hr Metronidazole 500 mg/ Premix 100 mls @ 100 mls/hr IV Q6H [facility] Last Admin: 02/07/17 15:22 Dose: Not Given Multivitamins/Minerals 10 ml/ (Sodium Chloride) 510 mls @ 510 mls/hr IV Q24H [facility] Last Admin: 02/07/17 15:37 Dose: 510 mls/hr Pantoprazole Sodium 40 mg/ (Sodium Chloride) 10 mls @ 300 mls/hr IVPUSH Q12H [facility] Albumin Human (Flexbumin 25%) 12.5 gm in 50 mls @ 100 mls/hr IV ONETIME ONE Stop: 02/08/17 11:36 Last Admin: 02/08/17 12:16 Dose: 100 mls/hr Metoclopramide HCl (Reglan) 5 mg IVPUSH Q6H [facility] Last Admin: 02/07/17 12:54 Dose: 5 mg Multivitamins/Minerals (Infuvite Adult) 10 ml IV Q24H [facility] Last Admin: 02/07/17 13:35 Dose: Not Given Potassium Chloride (Klor-Con M20) 40 meq PO DAILY ONE Stop: 02/03/17 07:51 Last Admin: 02/03/17 08:24 Dose: 40 meq Potassium Chloride (Klor-Con M20) 40 meq PO ONETIME ONE Stop: 02/04/17 07:56 Last Admin: 02/04/17 08:58 Dose: 40 meq Potassium Chloride (Potassium Chloride) 40 meq PO BID [facility] Stop: 02/06/17 23:59 Last Admin: 02/06/17 21:04 Dose: 40 meq - Exam General: other (sleeping but awakens and answers questions) Lungs: Clear to auscultation Cardiovascular: Regular Rate, Regular Rhythm Abdomen: no tenderness, other (still with slight distention but improved; abdomen firm but not rigid; no focal tenderness) Psy/Mental Status: No: agitated Physical Findings Comments:: marked edema LE's to the thighs scattered reddened macular rash with incomplete blanching; mainly LEs - Problem List & Annotations (1) Generalized weakness SNOMED Code(s): 74246027 Code(s): R53.1 - WEAKNESS Status: Acute Current Visit: Yes (2) Acute on chronic renal insufficiency SNOMED Code(s): 167483854 Code(s): N28.9 - DISORDER OF KIDNEY AND URETER, UNSPECIFIED; N18.9 - CHRONIC KIDNEY DISEASE, UNSPECIFIED Status: Acute Priority: High Current Visit: Yes (3) Lymphedema SNOMED Code(s): 493620064 Code(s): I89.0 - LYMPHEDEMA, NOT ELSEWHERE CLASSIFIED Status: Chronic Priority: Medium Current Visit: Yes (4) Malignant melanoma SNOMED Code(s): 359745149 Code(s): C43.9 - MALIGNANT MELANOMA OF SKIN, UNSPECIFIED Status: Chronic Priority: Medium Current Visit: Yes Qualifiers: Laterality: unspecified laterality (5) Rash and nonspecific skin eruption SNOMED Code(s): 607442203, 524768775 Code(s): R21 - RASH AND OTHER NONSPECIFIC SKIN ERUPTION Status: Acute Current Visit: Yes (6) Heme positive stool SNOMED Code(s): 68067328, 529010738 Code(s): R19.5 - OTHER FECAL ABNORMALITIES Status: Acute Current Visit: Yes - Problem List Review Problem List Initiated/Reviewed/Updated: Yes - My Orders Last 24 Hours: My Active Orders 02/07/17 13:41 Consult to Pharmacy [CONS] Routine 02/07/17 14:00 Lactated Ringers [Ringers, Lactated] 1,000 ml IV ASDIRECTED 02/07/17 16:15 Communication Order [RC] STAT 02/07/17 16:22 Abdomen Pelvis wo Cont [CT] Routine 02/07/17 16:30 metroNIDAZOLE/Normal Saline [Flagyl 500 MG in NS 100 ML] 500 mg Premix Bag 1 bag IV Q6H 02/07/17 16:52 Nasogastric Tube Management [Gastrointestinal Tube Mgmt] [RC] Q4H 02/07/17 Dinner NPO [Nothing Per Oral Diet] [DIET] 02/08/17 02:30 Pantoprazole [ProTONIX IV] 40 mg Sodium Chloride 0.9% [Normal Saline] 10 ml IVPUSH Q12H 02/08/17 11:16 UA W/MICROSCOPIC [URIN] Routine 02/08/17 11:18 CXR [Chest 1V Frontal] [CR] Routine 02/08/17 11:30 MVI, Adult with Vitamin K [Infuvite Adult] 10 ml Famotidine [Pepcid] 40 mg AA 5%/Calcium/D20W/Lytes [Clinimix E 5/20] 2,000 ml Fat Emulsion [Intralipid 20% ] 250 ml IV Q24H 02/08/17 12:27 Chest wo Cont [CT] Urgent Head wo Cont [CT] Urgent 02/09/17 05:11 CBC WITH AUTO DIFF [HEME] AM COMPREHENSIVE METABOLIC PN,CMP [CHEM] AM LIPID PANEL [CHEM] AM MAGNESIUM [CHEM] AM 02/10/17 05:11 CBC WITH AUTO DIFF [HEME] AM COMPREHENSIVE METABOLIC PN,CMP [CHEM] AM LIPID PANEL [CHEM] AM MAGNESIUM [CHEM] AM 02/11/17 05:11 CBC WITH AUTO DIFF [HEME] AM COMPREHENSIVE METABOLIC PN,CMP [CHEM] AM LIPID PANEL [CHEM] AM MAGNESIUM [CHEM] AM 02/12/17 05:11 CBC WITH AUTO DIFF [HEME] AM COMPREHENSIVE METABOLIC PN,CMP [CHEM] AM LIPID PANEL [CHEM] AM MAGNESIUM [CHEM] AM 02/13/17 05:11 CBC WITH AUTO DIFF [HEME] AM COMPREHENSIVE METABOLIC PN,CMP [CHEM] AM LIPID PANEL [CHEM] AM MAGNESIUM [CHEM] AM - Assessment Assessment:: 02/07/[address] from February 04. In light of bowel wall thickening, will start flagyl IV I suspect that she has a mild ileus. Will start reglan IV scheduled and change to clear liquid diet As she has had very little po intake for over one week, will plan to start TPN if not improved in about 24 hours. Richard Mccracken MD - Plan Plan:: 81 yo female with dehydration/acute on chronic renal insufficiency and diarrhea with pmh of malignant melenoma, htn, hypothyroidism, and lymphedema. Dehydration\acute on chronic renal insufficiency: Prerenal Cr 1.8 today down from 2.1. Some bibasilar crackles on lung exam will not bolus IVF this am and keep fluids at 125. Strict I & O. CT abd showed moderate generalized anasarca increased from mild at admission closely watch fluids and may have to diurese some after kidney function back to normal. Borderline wall thickening within small bowel and colon and distended gallbladder most likely from gastroenteritis and lack of food intake. Heart murmur: Echo results pending UTI: Asymptomatic Levaquin day 3. Culture Kleb pneum highly sensitive including Levaquin Diarrhea: Most likely from her current Nivolumab and Ipilimumab for her malignant melenoma as diarrhea started when she started these meds. All stool cultures have been negative thus far. Seems to be resolving will monitory Malignant melenoma: Oncology team, Elizabeth Truong, report her diarrhea and modifications recommended. Patient was scheduled to get 4th round of chemo today but not medically stable for treatment. htn: holding home medications, normotensive. Cont. to monitor and restart home meds as indicated. hypothyroidism: controlled will restart home meds. VTE: SCD stool positive for blood will stop pharmacologic therapy Dispo 2-3 days 02/06/2017: supportive care; planning likely discharge to [facility] thursday or Thursday. Richard Mccracken MD 02/08/2017: She has clinically deteriorated as far as level of generalized weakness. I see that she has no had recent imaging of the brain or chest. CXR , CT of brain, CT of chest ordered. TPN to be started today. repeat UA levaquin was for UTI flagyl is for possible concurrent colitis Will continue antibiotics for now but they are of doubtful benefit. time of disposition unclear at this time; I do not plan discharge to [place] by Thursday or Thursday. Richard Mccracken
[2017-02-08] MEDS: Insulin Regular, Human 100 Units/ML 10 ML Vial SUBCUT SCH ×2 (14:38→20:09)
[2017-02-08] MEDS ORDERED: Lactated Ringers 1,000 ML IV SCH (16:00)
[2017-02-09] MEDS: Insulin Regular, Human 100 Units/ML 10 ML Vial SUBCUT SCH ×4 (01:15→20:09)
[2017-02-09] MEDS: metroNIDAZOLE/Normal Saline 500 MG in Premix Bag 1 BAG IV SCH ×4 (04:15→21:48)
[2017-02-09] MEDS: Levofloxacin/Dextrose 5%-Water 100 ML IV SCH (05:39)
[2017-02-09] MEDS: Morphine 4 MG/ML Syringe IVPUSH PRN ×3 (09:25→23:33)
[2017-02-09] MEDS ORDERED: FAMOTIDINE IV SCH ×15 (09:30→10:00)
[2017-02-09] MEDS ORDERED: HUMAN IV SCH ×14 (09:30→10:00)
[2017-02-09] MEDS ORDERED: VITAMIN K IV SCH ×15 (09:30→10:00)
[2017-02-09] MEDS ORDERED: [UNRECOGNIZED DRUG - OTHER] IV SCH ×14 (09:30→10:00)
[2017-02-09] MEDS ORDERED: MVI IV SCH ×15 (09:30→10:00)
[2017-02-09] MEDS ORDERED: INSULIN REGULAR IV SCH ×14 (09:30→10:00)
[2017-02-09] MEDS ORDERED: [UNRECOGNIZED DRUG - OTHER] IV SCH (10:00)
--- NOTE | 2017-02-09 10:12 | PCM.PN ---
- General Info Date of Service: 02/09/17 Subjective Update: she feels very weak. - Patient Data Vitals - most recent: Last Vital Signs Temp 98 F 02/09/17 07:53 Pulse 96 02/09/17 07:53 Resp 22 H 02/09/17 07:53 BP 131/59 L 02/09/17 07:53 Pulse Ox 94 L 02/09/17 07:53 Weight - most recent: 88.1 kg I&O - last 24 hours: Intake & Output 02/08/17 02/09/17 02/09/17 22:59 06:59 14:59 Intake Total 2304 1285 Output Total 575 1425 Balance 1729 -140 Lab Results last 24 hrs: Laboratory Results - last 24 hr 02/08/17 02/08/17 02/08/17 Range/Units 13:19 13:29 19:43 WBC (4.0-11.0) K/uL RBC (4.30-5.90) M/uL Hgb (12.0-16.0) g/dL Hct (36.0-46.0) % MCV (80.0-98.0) fL MCH (27.0-32.0) pg MCHC (31.0-37.0) g/dL RDW Std Deviation (28.0-62.0) fl RDW Coeff of Juan J (11.0-15.0) % Plt Count (150-400) K/uL MPV (7.40-12.00) fL Add Manual Diff Neutrophils % (Manual) (48.0-80.0) % Band Neutrophils % % Lymphocytes % (Manual) (16.0-40.0) % Monocytes % (Manual) (0.0-15.0) % Nucleated RBC % /100WBC Absolute Seg Neuts Band Neutrophils # Lymphocytes # (Manual) Monocytes # (Manual) Nucleated RBCs # K/uL Sodium (136-146) mmol/L Potassium (3.5-5.1) mmol/L Chloride (98-110) mmol/L Carbon Dioxide (21-31) mmol/L BUN (6.0-23.0) mg/dL Creatinine (0.6-1.5) mg/dL Est Cr Clr Drug Dosing mL/min Estimated GFR (MDRD) ml/min Glucose (60-110) mg/dL POC Glucose 115 H 229 H (60-110) mg/dL Calcium (8.8-10.8) mg/dL Magnesium (1.5-2.3) mEq/L Total Bilirubin (0.1-1.5) mg/dL AST (5-40) IU/L ALT (8-54) IU/L Alkaline Phosphatase (40-150) Total Protein (6.0-8.0) g/dL Albumin (3.4-4.8) g/dL Globulin (2.0-3.5) g/dL Albumin/Globulin Ratio (1.3-2.8) Triglycerides (10-190) mg/dL Cholesterol (131-240) mg/dL LDL Cholesterol, Calc (60-180) mg/dL VLDL Cholesterol (5-55) mg/dL HDL Cholesterol (40-80) mg/dL Cholesterol/HDL Ratio (3.3-6.0) Urine Color YELLOW Urine Appearance SLT CLOUDY Urine pH 5.0 (5.0-8.0) Ur Specific Hope 1.015 (1.001-1.035) Urine Protein NEGATIVE (NEGATIVE) mg/dL Urine Glucose (UA) NEGATIVE (NEGATIVE) mg/dL Urine Ketones NEGATIVE (NEGATIVE) mg/dL Urine Occult Blood LARGE H (NEGATIVE) Urine Nitrite NEGATIVE (NEGATIVE) Urine Bilirubin NEGATIVE (NEGATIVE) Urine Urobilinogen 0.2 (<2.0) EU/dL Ur Leukocyte Esterase NEGATIVE (NEGATIVE) Urine RBC 6-8 (0-2/HPF) Urine WBC 0-2 (0-5/HPF) Ur Epithelial Cells FEW (NONE-FEW) Amorphous Sediment FEW (NEGATIVE) Urine Bacteria FEW (NEGATIVE) 02/09/17 02/09/17 02/09/17 Range/Units 01:08 06:23 07:39 WBC (4.0-11.0) K/uL RBC (4.30-5.90) M/uL Hgb (12.0-16.0) g/dL Hct (36.0-46.0) % MCV (80.0-98.0) fL MCH (27.0-32.0) pg MCHC (31.0-37.0) g/dL RDW Std Deviation (28.0-62.0) fl RDW Coeff of Juan J (11.0-15.0) % Plt Count (150-400) K/uL MPV (7.40-12.00) fL Add Manual Diff Neutrophils % (Manual) (48.0-80.0) % Band Neutrophils % % Lymphocytes % (Manual) (16.0-40.0) % Monocytes % (Manual) (0.0-15.0) % Nucleated RBC % /100WBC Absolute Seg Neuts Band Neutrophils # Lymphocytes # (Manual) Monocytes # (Manual) Nucleated RBCs # K/uL Sodium 144 (136-146) mmol/L Potassium 2.5 L (3.5-5.1) mmol/L Chloride 120 H (98-110) mmol/L Carbon Dioxide 17 L (21-31) mmol/L BUN 49 H (6.0-23.0) mg/dL Creatinine 1.4 (0.6-1.5) mg/dL Est Cr Clr Drug Dosing 23.40 mL/min Estimated GFR (MDRD) 36.3 ml/min Glucose 267 H (60-110) mg/dL POC Glucose 280 H 397 H (60-110) mg/dL Calcium 7.1 L (8.8-10.8) mg/dL Magnesium 1.8 (1.5-2.3) mEq/L Total Bilirubin 0.8 (0.1-1.5) mg/dL AST 11 (5-40) IU/L ALT 17 (8-54) IU/L Alkaline Phosphatase 62 (40-150) Total Protein 3.2 L (6.0-8.0) g/dL Albumin 1.7 L (3.4-4.8) g/dL Globulin 1.5 L (2.0-3.5) g/dL Albumin/Globulin Ratio 1.1 L (1.3-2.8) Triglycerides 30 (10-190) mg/dL Cholesterol 55 L (131-240) mg/dL LDL Cholesterol, Calc 28 L (60-180) mg/dL VLDL Cholesterol 6 (5-55) mg/dL HDL Cholesterol 21 L (40-80) mg/dL Cholesterol/HDL Ratio 2.6 L (3.3-6.0) Urine Color Urine Appearance Urine pH (5.0-8.0) Ur Specific Hope (1.001-1.035) Urine Protein (NEGATIVE) mg/dL Urine Glucose (UA) (NEGATIVE) mg/dL Urine Ketones (NEGATIVE) mg/dL Urine Occult Blood (NEGATIVE) Urine Nitrite (NEGATIVE) Urine Bilirubin (NEGATIVE) Urine Urobilinogen (<2.0) EU/dL Ur Leukocyte Esterase (NEGATIVE) Urine RBC (0-2/HPF) Urine WBC (0-5/HPF) Ur Epithelial Cells (NONE-FEW) Amorphous Sediment (NEGATIVE) Urine Bacteria (NEGATIVE) 02/09/17 Range/Units 07:39 WBC 4.09 (4.0-11.0) K/uL RBC 3.90 L (4.30-5.90) M/uL Hgb 11.4 L (12.0-16.0) g/dL Hct 33.6 L (36.0-46.0) % MCV 86.2 (80.0-98.0) fL MCH 29.2 (27.0-32.0) pg MCHC 33.9 (31.0-37.0) g/dL RDW Std Deviation 52.7 (28.0-62.0) fl RDW Coeff of Juan J 17 H (11.0-15.0) % Plt Count 69 L (150-400) K/uL MPV 11.20 (7.40-12.00) fL Add Manual Diff YES Neutrophils % (Manual) 75 (48.0-80.0) % Band Neutrophils % 11 % Lymphocytes % (Manual) 11 L (16.0-40.0) % Monocytes % (Manual) 3 (0.0-15.0) % Nucleated RBC % 0.0 /100WBC Absolute Seg Neuts 3.1 Band Neutrophils # 0.4 Lymphocytes # (Manual) 0.4 Monocytes # (Manual) 0.1 Nucleated RBCs # 0 K/uL Sodium (136-146) mmol/L Potassium (3.5-5.1) mmol/L Chloride (98-110) mmol/L Carbon Dioxide (21-31) mmol/L BUN (6.0-23.0) mg/dL Creatinine (0.6-1.5) mg/dL Est Cr Clr Drug Dosing mL/min Estimated GFR (MDRD) ml/min Glucose (60-110) mg/dL POC Glucose (60-110) mg/dL Calcium (8.8-10.8) mg/dL Magnesium (1.5-2.3) mEq/L Total Bilirubin (0.1-1.5) mg/dL AST (5-40) IU/L ALT (8-54) IU/L Alkaline Phosphatase (40-150) Total Protein (6.0-8.0) g/dL Albumin (3.4-4.8) g/dL Globulin (2.0-3.5) g/dL Albumin/Globulin Ratio (1.3-2.8) Triglycerides (10-190) mg/dL Cholesterol (131-240) mg/dL LDL Cholesterol, Calc (60-180) mg/dL VLDL Cholesterol (5-55) mg/dL HDL Cholesterol (40-80) mg/dL Cholesterol/HDL Ratio (3.3-6.0) Urine Color Urine Appearance Urine pH (5.0-8.0) Ur Specific Hope (1.001-1.035) Urine Protein (NEGATIVE) mg/dL Urine Glucose (UA) (NEGATIVE) mg/dL Urine Ketones (NEGATIVE) mg/dL Urine Occult Blood (NEGATIVE) Urine Nitrite (NEGATIVE) Urine Bilirubin (NEGATIVE) Urine Urobilinogen (<2.0) EU/dL Ur Leukocyte Esterase (NEGATIVE) Urine RBC (0-2/HPF) Urine WBC (0-5/HPF) Ur Epithelial Cells (NONE-FEW) Amorphous Sediment (NEGATIVE) Urine Bacteria (NEGATIVE) Med Orders - Current: Current Medications Acetaminophen (Tylenol) 650 mg PO Q4H PRN PRN Reason: Pain (Mild 1-3)/fever Aspirin (Halfprin) 81 mg PO BID [facility] Last Admin: 02/07/17 09:26 Dose: 81 mg Levofloxacin/Dextrose (Levaquin In D5w 500 Mg/100 Ml) 100 mls @ 100 mls/hr IV Q48H [facility] Last Infusion: 02/09/17 06:40 Dose: Infused Metronidazole 500 mg/ Premix 100 mls @ 100 mls/hr IV Q6H [facility] Last Infusion: 02/09/17 05:15 Dose: Infused Multivitamins/Minerals 10 ml/Famotidine 40 mg/ Insulin Human Regular 10 unit/ Potassium Phosphate 27 mmole/Amino Ac/Electrol/Dextrose/Calcium/ Fat Emulsion Intravenous/ Sterile Water 3,273.1 mls @ 136.379 mls/hr IV Q24H [facility] Multivitamins/Minerals 10 ml/Famotidine 40 mg/ Amino Ac/Electrol/Dextrose/ Calcium/ Fat Emulsion Intravenous 2,264 mls @ 94.333 mls/hr IV Q24H [facility] Stop: 02/09/17 14:00 Potassium Phosphate 27 mmole/ (Sodium Chloride) 509 mls @ 127.25 mls/hr IV ONETIME ONE Stop: 02/09/17 14:14 Insulin Human Regular (Novolin R) 0 unit SUBCUT Q6H [facility] PRN Reason: Protocol Last Admin: 02/09/17 07:45 Dose: 5 units Levothyroxine Sodium (Levothyroxine) 125 mcg PO ACBREAKFAST [facility] Last Admin: 02/07/17 06:46 Dose: 125 mcg Loperamide HCl (Imodium) 2 mg PO Q4H PRN PRN Reason: Diarrhea Last Admin: 02/02/17 16:22 Dose: 2 mg Morphine Sulfate (Morphine) 0 mg IVPUSH Q1H PRN PRN Reason: Pain Last Admin: 02/09/17 09:25 Dose: 2 mg Ondansetron HCl (Zofran Odt) 4 mg PO Q4H PRN PRN Reason: nausea, able to take PO Last Admin: 02/07/17 15:37 Dose: 4 mg Ropinirole HCl (Requip) 1 mg PO BEDTIME [facility] Last Admin: 02/06/17 21:06 Dose: 1 mg Discontinued Medications Calcium Carbonate/Glycine (Tums) 1,000 mg PO DAILY ONE Stop: 02/02/17 17:20 Last Admin: 02/02/17 17:32 Dose: 1,000 mg Calcium Carbonate/Glycine (Tums) 1,000 mg PO ONETIME ONE Stop: 02/03/17 07:52 Last Admin: 02/03/17 08:24 Dose: 1,000 mg Calcium Carbonate/Glycine (Tums) 1,000 mg PO ONETIME ONE Stop: 02/04/17 09:37 Last Admin: 02/04/17 10:23 Dose: 1,000 mg Furosemide (Lasix) 60 mg IVPUSH NOW ONE Stop: 02/07/17 16:09 Last Admin: 02/07/17 16:47 Dose: 60 mg Heparin Sodium (Porcine) (Heparin Sodium) 5,000 units SUBCUT Q8H [facility] Last Admin: 02/03/17 06:29 Dose: 5,000 units Sodium Chloride (Normal Saline) 1,000 mls @ 999 mls/hr IV STAT ONE Stop: 02/02/17 13:15 Last Admin: 02/02/17 12:51 Dose: 999 mls/hr Sodium Chloride (Normal Saline) 1,000 mls @ 100 mls/hr IV ASDIRECTED [facility] Last Admin: 02/07/17 02:16 Dose: 125 mls/hr Levofloxacin/Dextrose 750 mg/ (Premix) 150 mls @ 100 mls/hr IV NOW ONE Stop: 02/03/17 06:14 Last Admin: 02/03/17 05:13 Dose: 100 mls/hr Sodium Chloride (Normal Saline) 500 mls @ 999 mls/hr IV ASDIRECTED [facility] Last Admin: 02/03/17 08:37 Dose: 999 mls/hr Pantoprazole Sodium 40 mg/ (Sodium Chloride) 10 mls @ 300 mls/hr IVPUSH Q24H [facility] Last Admin: 02/07/17 14:52 Dose: 300 mls/hr Sodium Chloride (Normal Saline) 500 mls @ 999 mls/hr IV ASDIRECTED [facility] Last Admin: 02/04/17 10:28 Dose: 999 mls/hr Magnesium Sulfate 4 gm/ Premix 100 mls @ 50 mls/hr IV ONETIME ONE Stop: 02/07/17 14:22 Last Admin: 02/07/17 12:54 Dose: 50 mls/hr Multivitamins/Minerals 10 ml/ (Sodium Chloride) 510 mls @ 510 mls/hr IV Q24H [facility] Last Admin: 02/07/17 15:22 Dose: Not Given Albumin Human (Flexbumin 25%) 12.5 gm in 50 mls @ 100 mls/hr IV ONETIME ONE Stop: 02/07/17 14:16 Last Admin: 02/07/17 14:58 Dose: 100 mls/hr Lactated Ringer's (Ringers, Lactated) 1,000 mls @ 100 mls/hr IV ASDIRECTED [facility] Last Infusion: 02/08/17 13:38 Dose: 50 mls/hr Metronidazole 500 mg/ Premix 100 mls @ 100 mls/hr IV Q6H [facility] Last Admin: 02/07/17 15:22 Dose: Not Given Multivitamins/Minerals 10 ml/ (Sodium Chloride) 510 mls @ 510 mls/hr IV Q24H [facility] Last Admin: 02/07/17 15:37 Dose: 510 mls/hr Pantoprazole Sodium 40 mg/ (Sodium Chloride) 10 mls @ 300 mls/hr IVPUSH Q12H [facility] Pantoprazole Sodium 40 mg/ (Sodium Chloride) 10 mls @ 300 mls/hr IVPUSH Q12H [facility] Last Admin: 02/08/17 16:10 Dose: Not Given Albumin Human (Flexbumin 25%) 12.5 gm in 50 mls @ 100 mls/hr IV ONETIME ONE Stop: 02/08/17 11:36 Last Admin: 02/08/17 12:16 Dose: 100 mls/hr Multivitamins/Minerals 10 ml/Famotidine 40 mg/ Amino Ac/Electrol/Dextrose/ Calcium/ Fat Emulsion Intravenous 2,264 mls @ 94.333 mls/hr IV Q24H [facility] Last Infusion: 02/08/17 17:35 Dose: 94 mls/hr Lactated Ringer's (Ringers, Lactated) 1,000 mls @ 50 mls/hr IV ASDIRECTED [facility] Last Admin: 02/08/17 21:35 Dose: 50 mls/hr Multivitamins/Minerals 10 ml/Famotidine 40 mg/ Insulin Human Regular 10 unit/ Potassium Chloride 40 meq/Amino Ac/Electrol/Dextrose/Calcium/ Fat Emulsion Intravenous/ Sterile Water 3,284.1 mls @ 136.838 mls/hr IV Q24H [facility] Multivitamins/Minerals 10 ml/Famotidine 40 mg/ Insulin Human Regular 10 unit/ Potassium Phosphate 27 mmole/Amino Ac/Electrol/Dextrose/Calcium/ Fat Emulsion Intravenous/ Sterile Water 3,273.1 mls @ 136.379 mls/hr IV Q24H [facility] Metoclopramide HCl (Reglan) 5 mg IVPUSH Q6H [facility] Last Admin: 02/07/17 12:54 Dose: 5 mg Multivitamins/Minerals (Infuvite Adult) 10 ml IV Q24H [facility] Last Admin: 02/07/17 13:35 Dose: Not Given Omeprazole (Omeprazole) 20 mg PO DAILY [facility] Last Admin: 02/07/17 09:26 Dose: 20 mg Potassium Chloride (Klor-Con M20) 40 meq PO DAILY ONE Stop: 02/03/17 07:51 Last Admin: 02/03/17 08:24 Dose: 40 meq Potassium Chloride (Klor-Con M20) 40 meq PO ONETIME ONE Stop: 02/04/17 07:56 Last Admin: 02/04/17 08:58 Dose: 40 meq Potassium Chloride (Potassium Chloride) 40 meq PO BID [facility] Stop: 02/06/17 23:59 Last Admin: 02/06/17 21:04 Dose: 40 meq - Exam General: other (severe generalized weakness) Lungs: Clear to auscultation, Normal respiratory effort Cardiovascular: Regular Rate, Regular Rhythm Abdomen: tenderness (mild diffuse tenderness) Extremities: other (severe diffuse edema worse LE's ) Neurological: normal speech (but soft ,quiet) Psy/Mental Status: No: agitated Physical Findings Comments:: about 150 out NG tube past shift - Problem List & Annotations (1) Generalized weakness SNOMED Code(s): 11570863 Code(s): R53.1 - WEAKNESS Status: Acute Current Visit: Yes (2) Acute on chronic renal insufficiency SNOMED Code(s): 290251578 Code(s): N28.9 - DISORDER OF KIDNEY AND URETER, UNSPECIFIED; N18.9 - CHRONIC KIDNEY DISEASE, UNSPECIFIED Status: Acute Priority: High Current Visit: Yes (3) Lymphedema SNOMED Code(s): 814136572 Code(s): I89.0 - LYMPHEDEMA, NOT ELSEWHERE CLASSIFIED Status: Chronic Priority: Medium Current Visit: Yes (4) Malignant melanoma SNOMED Code(s): 138436986 Code(s): C43.9 - MALIGNANT MELANOMA OF SKIN, UNSPECIFIED Status: Chronic Priority: Medium Current Visit: Yes Qualifiers: Laterality: unspecified laterality (5) Rash and nonspecific skin eruption SNOMED Code(s): 173111324, 683636057 Code(s): R21 - RASH AND OTHER NONSPECIFIC SKIN ERUPTION Status: Acute Current Visit: Yes (6) Heme positive stool SNOMED Code(s): 14012680, 513208339 Code(s): R19.5 - OTHER FECAL ABNORMALITIES Status: Acute Current Visit: Yes - Problem List Review Problem List Initiated/Reviewed/Updated: Yes - My Orders Last 24 Hours: My Active Orders 02/08/17 11:18 CXR [Chest 1V Frontal] [CR] Routine 02/08/17 12:27 Chest wo Cont [CT] Urgent Head wo Cont [CT] Urgent 02/08/17 13:30 Blood Glucose Check, Bedside [RC] Q6HR Insulin Regular, Human [NovoLIN R] See Protocol SUBCUT Q6H 02/08/17 Dinner Clear Liquid Diet [DIET] 02/09/17 09:11 Morphine See Dose Instructions IVPUSH Q1H PRN 02/09/17 10:00 MVI, Adult with Vitamin K [Infuvite Adult] 10 ml Famotidine [Pepcid] 40 mg AA 5%/Calcium/D20W/Lytes [Clinimix E 5/20] 2,000 ml Fat Emulsion [Intralipid 20% ] 250 ml IV Q24H 02/09/17 10:15 Potassium Phosphates 27 mmole Sodium Chloride 0.45% 500 ml IV ONETIME 02/09/17 14:00 MVI, Adult with Vitamin K [Infuvite Adult] 10 ml Famotidine [Pepcid] 40 mg Insulin Regular, Human [NovoLIN R] 10 unit Potassium Phosphates 27 mmole AA 5% /Calcium/D20W/Lytes [Clinimix E 5/20] 2,000 ml Fat Emulsion [Intralipid 20%] 250 ml Water For Injection,Sterile [Sterile Water for Injection] 1,000 ml IV Q24H 02/10/17 05:11 CBC WITH AUTO DIFF [HEME] AM COMPREHENSIVE METABOLIC PN,CMP [CHEM] AM LIPID PANEL [CHEM] AM MAGNESIUM [CHEM] AM 02/11/17 05:11 CBC WITH AUTO DIFF [HEME] AM COMPREHENSIVE METABOLIC PN,CMP [CHEM] AM LIPID PANEL [CHEM] AM MAGNESIUM [CHEM] AM 02/12/17 05:11 CBC WITH AUTO DIFF [HEME] AM COMPREHENSIVE METABOLIC PN,CMP [CHEM] AM LIPID PANEL [CHEM] AM MAGNESIUM [CHEM] AM 02/13/17 05:11 CBC WITH AUTO DIFF [HEME] AM COMPREHENSIVE METABOLIC PN,CMP [CHEM] AM LIPID PANEL [CHEM] AM MAGNESIUM [CHEM] AM - Assessment Assessment:: 02/07/[address] from February 04. In light of bowel wall thickening, will start flagyl IV I suspect that she has a mild ileus. Will start reglan IV scheduled and change to clear liquid diet As she has had very little po intake for over one week, will plan to start TPN if not improved in about 24 hours. Richard Mccracken MD - Plan Plan:: 81 yo female with dehydration/acute on chronic renal insufficiency and diarrhea with pmh of malignant melenoma, htn, hypothyroidism, and lymphedema. Dehydration\acute on chronic renal insufficiency: Prerenal Cr 1.8 today down from 2.1. Some bibasilar crackles on lung exam will not bolus IVF this am and keep fluids at 125. Strict I & O. CT abd showed moderate generalized anasarca increased from mild at admission closely watch fluids and may have to diurese some after kidney function back to normal. Borderline wall thickening within small bowel and colon and distended gallbladder most likely from gastroenteritis and lack of food intake. Heart murmur: Echo results pending UTI: Asymptomatic Levaquin day 3. Culture Kleb pneum highly sensitive including Levaquin Diarrhea: Most likely from her current Nivolumab and Ipilimumab for her malignant melenoma as diarrhea started when she started these meds. All stool cultures have been negative thus far. Seems to be resolving will monitory Malignant melenoma: Oncology team, Elizabeth Truong, report her diarrhea and modifications recommended. Patient was scheduled to get 4th round of chemo today but not medically stable for treatment. htn: holding home medications, normotensive. Cont. to monitor and restart home meds as indicated. hypothyroidism: controlled will restart home meds. VTE: SCD stool positive for blood will stop pharmacologic therapy Dispo 2-3 days 02/06/2017: supportive care; planning likely discharge to [facility] thursday or Thursday. Richard Mccracken MD 02/08/2017: She has clinically deteriorated as far as level of generalized weakness. I see that she has no had recent imaging of the brain or chest. CXR , CT of brain, CT of chest ordered. TPN to be started today. repeat UA levaquin was for UTI flagyl is for possible concurrent colitis Will continue antibiotics for now but they are of doubtful benefit. time of disposition unclear at this time; I do not plan discharge to [place] by Thursday or Thursday. Richard Mccracken 02/09/2017: hypokalemia, hyperchloremia and elevated serum creatinine noted. hyperglycemia noted. adjust insulin dosing with 10 units added to each bag of TPN; K replacement - will add some to TPN and give also via 40 meq bag in over 4 hours. add free water to TPN. Discussed with Naomie, pharmacist Discussed case with Dr Hairston. Will arrange follow up with oncology this week when visiting oncologists come to our facility ( thu or ). Richard Mccracken MD
[2017-02-09] MEDS ORDERED: POTASSIUM PHOSPHATES IV ONE (10:15)
[2017-02-09] MEDS ORDERED: SODIUM CHLORIDE IV ONE (10:15)
--- NOTE | 2017-02-09 11:33 | CT ---
EXAM DATE: 02/02/17 PATIENT'S AGE: 81 Patient: CR SERRANO Facility: [place], [place] Site . Site : 1935 Study: CT Abdomen/Pelvis [id number]/24/2017 5:41:27 PM Ordering Physician: Belkys Benitez Final Report: INDICATION: Metastatic melanoma. Technique: Volumetric unenhanced CT of the abdomen and pelvis with multiplanar reconstruction. Comparison: Unenhanced CT of the abdomen and pelvis on 02/04/2017. Findings: Again noted is deformity of the right chest wall. Bibasilar atelectasis with bilateral pleural effusions, left greater than right. The left-sided effusion has increased in size since prior study. Nasogastric tube in place with its tip in the stomach. The liver, spleen, pancreas, and adrenal glands are unremarkable. The gallbladder is present. Partial resolution of gallbladder distention. The kidneys bilaterally symmetrical. Prominence of the renal pelves no collecting system or ureteral dilatation.The abdominal aorta normal in caliber and displays changes of atherosclerosis. No para aortic or retrocrural adenopathy. Air-fluid levels in dilated loops of small bowel throughout the abdomen without a transition point. Scattered air and stool in colon. The colon is decompressed. The urinary bladder has a smooth contour. There is a Kang catheter in the urinary bladder. Air within the bladder is likely the result of catheter placement. No free fluid in the abdomen and pelvis. Extensive whole- body edema is stable since prior study. Lumbar spondylosis. Impression : 1. Mildly dilated fluid-filled loops of small bowel throughout the abdomen. No transition point. The colon is decompressed. Distal tip of a nasogastric tube in the stomach. 2. Extensive anasarca is similar to prior study. 3. Partial resolution of gallbladder distention. Please note that all CT scans at this facility use dose modulation, iterative reconstruction, and/or weight-based dosing when appropriate to reduce radiation dose to as low as reasonably achievable. Dictated by Jazmyne Brown MD @ Feb 07 2017 5:52PM (Electronic Signature) Report Signed by Proxy. [facility]
--- NOTE | 2017-02-09 12:47 | CR ---
EXAM DATE: 02/02/17 PATIENT'S AGE: 81 Patient: CR SERRANO Facility: [place], [place] Site . Site : 1935 Study: XRay Chest [id number]/25/2017 12:22:28 PM Ordering Physician: Belkys Benitez Final Report: INDICATION: Metastatic melanoma. Technique: Portable chest. Findings: The distal tip of the nasogastric tube in stomach. Distal tip of a right internal jugular central venous catheter in the mid superior vena cava. No pneumothorax. The heart and mediastinum are normal in size. The pulmonary vessels are normal. Mild elevation of the right hemidiaphragm with adjacent atelectasis. No pleural fluid. Multiple air-filled dilated loops of bowel beneath the diaphragm. Impression : 1. Support tubes and catheters as described above. No pneumothorax 2. Right lower lobe atelectasis. Dictated by Jazmyne Brown MD @ Feb 08 2017 12:29PM (Electronic Signature) Report Signed by Proxy. NIL[facility]
--- NOTE | 2017-02-09 13:20 | CT ---
EXAM DATE: 02/02/17 PATIENT'S AGE: 81 Patient: CR SERRANO Facility: [place], [place] Site . Site : 1935 Study: CT Chest [id number]/25/2017 2:14:04 PM Ordering Physician: Belkys Benitez Final Report: INDICATION: Metastatic melanoma. Technique: Volumetric unenhanced CT acquisition of the chest with multiplanar reconstruction. Findings: The thyroid gland bilaterally symmetrical. The distal tip of a right internal jugular central venous catheter in the mid superior vena cava. The distal tip of the nasogastric tube in the stomach. The thoracic aorta normal in caliber and displays changes of atherosclerosis. The right and left main pulmonary arteries are unremarkable. The trachea and mainstem bronchi are patent. The lungs are free of nodules, masses, and areas of acute airspace consolidation. Mild elevation of the right hemidiaphragm with adjacent atelectasis. Left lower lobe atelectasis. Bilateral pleural effusions, right larger than left. No abnormal pericardial fluid. Accentuation of the normal thoracic kyphosis and thoracic spondylosis. Extensive subcutaneous edema in the soft tissues of the chest wall Impression : 1. Extensive anasarca 2. Bibasilar atelectasis and bilateral pleural effusions, right larger than left Please note that all CT scans at this facility use dose modulation, iterative reconstruction, and/or weight-based dosing when appropriate to reduce radiation dose to as low as reasonably achievable. Dictated by Jazmyne Brown MD @ Feb 08 2017 2:17PM (Electronic Signature) Report Signed by Proxy. NIL[facility]
--- NOTE | 2017-02-09 13:21 | CT ---
EXAM DATE: 02/02/17 PATIENT'S AGE: 81 Patient: CR SERRANO Facility: [place], [place] Site . Site : 1935 Study: CT Head [id number]/25/2017 2:16:24 PM Ordering Physician: Belkys Benitez Final Report: INDICATION: Metastatic malignant melanoma. Technique : Noncontrast head CT. FINDINGS: There is no evidence for acute intracranial hemorrhage or hydrocephalus. There is no evidence for mass effect or shift of midline structures. Small vessel ischemic type change in the deep white matter of the cerebral hemispheres. The calvarium and skull base are negative for fractures. The included paranasal sinuses and mastoid air cells are clear although please note there is a nasogastric tube via the right nasal passage. Impression : Chronic age related changes intracranially. No acute intracranial process identified. No convincing evidence for metastatic disease on this noncontrast study. Dictated by Herbie Curran MD @ 02/08/2017 2:22:28 PM Dictated by: Herbie Curran MD @ 02/08/2017 14:22:32 (Electronic Signature) Report Signed by Proxy. [facility]
--- NOTE | 2017-02-09 13:56 | ECHO ---
EXAM DATE: 02/02/17 PATIENT'S AGE: 81 The echocardiogram report can be seen in this patient's EMR (Electronic Medical Record) in the Reports section. NILESH
[2017-02-09] MEDS ORDERED: Sodium Chloride 0.45% 1,000 ML IV SCH ×2 (15:00→16:45)
[2017-02-09] MEDS: MVI IV SCH ×7 (15:07)
[2017-02-09] MEDS: [UNRECOGNIZED DRUG - OTHER] IV SCH ×7 (15:07)
[2017-02-09] MEDS: VITAMIN K IV SCH ×7 (15:07)
[2017-02-09] MEDS: HUMAN IV SCH ×7 (15:07)
[2017-02-09] MEDS: INSULIN REGULAR IV SCH ×7 (15:07)
[2017-02-09] MEDS: FAMOTIDINE IV SCH ×7 (15:07)
[2017-02-10] MEDS: Insulin Regular, Human 100 Units/ML 10 ML Vial SUBCUT SCH ×4 (01:22→18:42)
[2017-02-10] MEDS: metroNIDAZOLE/Normal Saline 500 MG in Premix Bag 1 BAG IV SCH ×4 (03:33→22:55)
[2017-02-10 05:47] LABS: CHLORIDE,CL 118 mmol/L (98-110); SODIUM,NA 141 mmol/L (136-146)
[2017-02-10] MEDS ORDERED: Magnesium Sulfate/Water 2 GM in Premix Bag 1 BAG IV ONE (10:59)
[2017-02-10] MEDS ORDERED: Furosemide 40 MG/4 ML VIAL IVPUSH ONE (11:15)
[2017-02-10] MEDS: NS + KCl 20mEq/L 1,000 ML IV SCH (11:30)
[2017-02-10] MEDS: Levothyroxine 100 MCG Vial IVPUSH SCH (12:28)
[2017-02-10] MEDS: HUMAN IV SCH ×7 (15:00)
[2017-02-10] MEDS: INSULIN REGULAR IV SCH ×7 (15:00)
[2017-02-10] MEDS: MVI IV SCH ×7 (15:00)
[2017-02-10] MEDS: [UNRECOGNIZED DRUG - OTHER] IV SCH ×7 (15:00)
[2017-02-10] MEDS: VITAMIN K IV SCH ×7 (15:00)
[2017-02-10] MEDS: FAMOTIDINE IV SCH ×7 (15:00)
--- NOTE | 2017-02-10 15:47 | PCM.PN ---
- General Info Date of Service: 02/10/17 Subjective Update: she seems a little more alert. She sat on the side of the bed today. she has slight abdominal pain well controlled with morphine. - Patient Data Vitals - most recent: Last Vital Signs Temp 97.0 F 02/10/17 12:00 Pulse 87 02/10/17 12:00 Resp 16 02/10/17 12:00 BP 100/45 L 02/10/17 12:00 Pulse Ox 93 L 02/10/17 12:00 Weight - most recent: 91.5 kg I&O - last 24 hours: Intake & Output 02/10/17 02/10/17 02/10/17 06:59 14:59 22:59 Intake Total 75 150 3050 Output Total 310 Balance -[phone] Lab Results last 24 hrs: Laboratory Results - last 24 hr 02/09/17 02/10/17 02/10/17 Range/Units 18:47 01:17 05:05 WBC (4.0-11.0) K/uL RBC (4.30-5.90) M/uL Hgb (12.0-16.0) g/dL Hct (36.0-46.0) % MCV (80.0-98.0) fL MCH (27.0-32.0) pg MCHC (31.0-37.0) g/dL RDW Std Deviation (28.0-62.0) fl RDW Coeff of Juan J (11.0-15.0) % Plt Count (150-400) K/uL MPV (7.40-12.00) fL Add Manual Diff Neutrophils % (Manual) (48.0-80.0) % Band Neutrophils % % Lymphocytes % (Manual) (16.0-40.0) % Monocytes % (Manual) (0.0-15.0) % Eosinophils % (Manual) (0.0-7.0) % Basophils % (Manual) (0.0-1.5) % Nucleated RBC % /100WBC Absolute Seg Neuts Band Neutrophils # Lymphocytes # (Manual) Monocytes # (Manual) Eosinophils # (Manual) Basophils # (Manual) Nucleated RBCs # K/uL Sodium 141 (136-146) mmol/L Potassium 2.9 L (3.5-5.1) mmol/L Chloride 118 H (98-110) mmol/L Carbon Dioxide 16 L (21-31) mmol/L BUN 49 H (6.0-23.0) mg/dL Creatinine 1.3 (0.6-1.5) mg/dL Est Cr Clr Drug Dosing 25.20 mL/min Estimated GFR (MDRD) 39.5 ml/min Glucose 150 H (60-110) mg/dL POC Glucose 243 H 196 H (60-110) mg/dL Calcium 6.7 L (8.8-10.8) mg/dL Magnesium 1.5 (1.5-2.3) mEq/L Total Bilirubin 0.5 (0.1-1.5) mg/dL AST 12 (5-40) IU/L ALT 14 (8-54) IU/L Alkaline Phosphatase 62 (40-150) Total Protein 3.0 L (6.0-8.0) g/dL Albumin 1.4 L (3.4-4.8) g/dL Globulin 1.6 L (2.0-3.5) g/dL Albumin/Globulin Ratio 0.9 L (1.3-2.8) Triglycerides 24 (10-190) mg/dL Cholesterol 49 L (131-240) mg/dL LDL Cholesterol, Calc 25 L (60-180) mg/dL VLDL Cholesterol 5 (5-55) mg/dL HDL Cholesterol 19 L (40-80) mg/dL Cholesterol/HDL Ratio 2.6 L (3.3-6.0) Vitamin B12 > 2000 H (200-1100) PG/ML Folate 4.6 L (7.2-15.4) ng/mL Free T4 0.40 L (0.7-1.48) ng/dL TSH 3rd Generation 15.96 H (0.47-5.0) uIU/mL 02/10/17 02/10/17 02/10/17 Range/Units 05:05 05:41 12:27 WBC 5.56 (4.0-11.0) K/uL RBC 3.88 L (4.30-5.90) M/uL Hgb 11.3 L (12.0-16.0) g/dL Hct 33.5 L (36.0-46.0) % MCV 86.3 (80.0-98.0) fL MCH 29.1 (27.0-32.0) pg MCHC 33.7 (31.0-37.0) g/dL RDW Std Deviation 53.4 (28.0-62.0) fl RDW Coeff of Juan J 17 H (11.0-15.0) % Plt Count 61 L (150-400) K/uL MPV 11.50 (7.40-12.00) fL Add Manual Diff YES Neutrophils % (Manual) 67 (48.0-80.0) % Band Neutrophils % 11 % Lymphocytes % (Manual) 16 (16.0-40.0) % Monocytes % (Manual) 4 (0.0-15.0) % Eosinophils % (Manual) 1 (0.0-7.0) % Basophils % (Manual) 1 (0.0-1.5) % Nucleated RBC % 0.4 /100WBC Absolute Seg Neuts 3.7 Band Neutrophils # 0.6 Lymphocytes # (Manual) 0.9 Monocytes # (Manual) 0.2 Eosinophils # (Manual) 0.1 Basophils # (Manual) 0 Nucleated RBCs # 0 K/uL Sodium (136-146) mmol/L Potassium (3.5-5.1) mmol/L Chloride (98-110) mmol/L Carbon Dioxide (21-31) mmol/L BUN (6.0-23.0) mg/dL Creatinine (0.6-1.5) mg/dL Est Cr Clr Drug Dosing mL/min Estimated GFR (MDRD) ml/min Glucose (60-110) mg/dL POC Glucose 191 H 176 H (60-110) mg/dL Calcium (8.8-10.8) mg/dL Magnesium (1.5-2.3) mEq/L Total Bilirubin (0.1-1.5) mg/dL AST (5-40) IU/L ALT (8-54) IU/L Alkaline Phosphatase (40-150) Total Protein (6.0-8.0) g/dL Albumin (3.4-4.8) g/dL Globulin (2.0-3.5) g/dL Albumin/Globulin Ratio (1.3-2.8) Triglycerides (10-190) mg/dL Cholesterol (131-240) mg/dL LDL Cholesterol, Calc (60-180) mg/dL VLDL Cholesterol (5-55) mg/dL HDL Cholesterol (40-80) mg/dL Cholesterol/HDL Ratio (3.3-6.0) Vitamin B12 (200-1100) PG/ML Folate (7.2-15.4) ng/mL Free T4 (0.7-1.48) ng/dL TSH 3rd Generation (0.47-5.0) uIU/mL Geovany Results last 24 hrs: Microbiology 02/10/17 12:10 Clostridium difficile Toxin A&B (M) - Final Stool / Feces - Stool, Liquid Negative for C.Diff Toxin/AG 02/10/17 12:10 Campylobacter Antigen Assay - Final Stool / Feces - Stool, Liquid NEGATIVE [facility] Med Orders - Current: Current Medications Levofloxacin/Dextrose (Levaquin In D5w 500 Mg/100 Ml) 100 mls @ 100 mls/hr IV Q48H [facility] Last Infusion: 02/09/17 06:40 Dose: Infused Metronidazole 500 mg/ Premix 100 mls @ 100 mls/hr IV Q6H [facility] Last Admin: 02/10/17 15:41 Dose: 100 mls/hr Multivitamins/Minerals 10 ml/Famotidine 40 mg/ Insulin Human Regular 10 unit/ Potassium Phosphate 27 mmole/Amino Ac/Electrol/Dextrose/Calcium/ Fat Emulsion Intravenous/ Sterile Water 3,273.1 mls @ 95 mls/hr IV Q24H [facility] Last Admin: 02/10/17 15:00 Dose: 95 mls/hr Potassium Chloride/Sodium Chloride (Normal Saline With 20 Meq Kcl) 1,000 mls @ 75 mls/hr IV ASDIRECTED [facility] Last Admin: 02/10/17 11:30 Dose: 75 mls/hr Insulin Human Regular (Novolin R) 0 unit SUBCUT Q6H [facility] PRN Reason: Protocol Last Admin: 02/10/17 12:30 Dose: 1 units Levothyroxine Sodium (Levothyroxine) 125 mcg PO ACBREAKFAST [facility] Last Admin: 02/07/17 06:46 Dose: 125 mcg Levothyroxine Sodium (Synthroid) 75 mcg IVPUSH DAILY [facility] Last Admin: 02/10/17 12:28 Dose: 75 mcg Morphine Sulfate (Morphine) 0 mg IVPUSH Q1H PRN PRN Reason: Pain Last Admin: 02/09/17 23:33 Dose: 2 mg Ondansetron HCl (Zofran Odt) 4 mg PO Q4H PRN PRN Reason: nausea, able to take PO Last Admin: 02/07/17 15:37 Dose: 4 mg Discontinued Medications Acetaminophen (Tylenol) 650 mg PO Q4H PRN PRN Reason: Pain (Mild 1-3)/fever Aspirin (Halfprin) 81 mg PO BID [facility] Last Admin: 02/07/17 09:26 Dose: 81 mg Calcium Carbonate/Glycine (Tums) 1,000 mg PO DAILY ONE Stop: 02/02/17 17:20 Last Admin: 02/02/17 17:32 Dose: 1,000 mg Calcium Carbonate/Glycine (Tums) 1,000 mg PO ONETIME ONE Stop: 02/03/17 07:52 Last Admin: 02/03/17 08:24 Dose: 1,000 mg Calcium Carbonate/Glycine (Tums) 1,000 mg PO ONETIME ONE Stop: 02/04/17 09:37 Last Admin: 02/04/17 10:23 Dose: 1,000 mg Furosemide (Lasix) 60 mg IVPUSH NOW ONE Stop: 02/07/17 16:09 Last Admin: 02/07/17 16:47 Dose: 60 mg Furosemide (Lasix) 60 mg IVPUSH NOW ONE Stop: 02/10/17 11:16 Last Admin: 02/10/17 11:28 Dose: 60 mg Heparin Sodium (Porcine) (Heparin Sodium) 5,000 units SUBCUT Q8H [facility] Last Admin: 02/03/17 06:29 Dose: 5,000 units Sodium Chloride (Normal Saline) 1,000 mls @ 999 mls/hr IV STAT ONE Stop: 02/02/17 13:15 Last Admin: 02/02/17 12:51 Dose: 999 mls/hr Sodium Chloride (Normal Saline) 1,000 mls [facility] Admin: 02/07/17 02:16 Dose: 125 mls/hr Levofloxacin/Dextrose 750 mg/ (Premix) 150 mls @ 100 mls/hr IV NOW ONE Stop: 02/03/17 06:14 Last Admin: 02/03/17 05:13 Dose: 100 mls/hr Sodium Chloride (Normal Saline) 500 mls @ [facility] Last Admin: 02/03/17 08:37 Dose: 999 mls/hr Pantoprazole Sodium 40 mg/ (Sodium Chloride) 10 mls @ 300 mls/hr IVPUSH Q24H [facility] Last Admin: 02/07/17 14:52 Dose: 300 mls/hr Sodium Chloride (Normal Saline) 500 mls @ 999 mls/hr IV ASDIRECTED [facility] Last Admin: 02/04/17 10:28 Dose: 999 mls/hr Magnesium Sulfate 4 gm/ Premix 100 mls @ 50 mls/hr IV ONETIME ONE Stop: 02/07/17 14:22 Last Admin: 02/07/17 12:54 Dose: 50 mls/hr Multivitamins/Minerals 10 ml/ (Sodium Chloride) 510 mls @ 510 mls/hr IV Q24H [facility] Last Admin: 02/07/17 15:22 Dose: Not Given Albumin Human (Flexbumin 25%) 12.5 gm in 50 mls @ 100 mls/hr IV ONETIME ONE Stop: 02/07/17 14:16 Last Admin: 02/07/17 14:58 Dose: 100 mls/hr Lactated Ringer's (Ringers, Lactated) 1,000 mls @ 100 mls/hr IV ASDIRECTED [facility] Last Infusion: 02/08/17 13:38 Dose: 50 mls/hr Metronidazole 500 mg/ Premix 100 mls @ 100 mls/hr IV Q6H [facility] Last Admin: 02/07/17 15:22 Dose: Not Given Multivitamins/Minerals 10 ml/ (Sodium Chloride) 510 mls @ 510 mls/hr IV Q24H [facility] Last Admin: 02/07/17 15:37 Dose: 510 mls/hr Pantoprazole Sodium 40 mg/ (Sodium Chloride) 10 mls @ 300 mls/hr IVPUSH Q12H [facility] Pantoprazole Sodium 40 mg/ (Sodium Chloride) 10 mls @ 300 mls/hr IVPUSH Q12H [facility] Last Admin: 02/08/17 16:10 Dose: Not Given Albumin Human (Flexbumin 25%) 12.5 gm in 50 mls @ 100 mls/hr IV ONETIME ONE Stop: 02/08/17 11:36 Last Admin: 02/08/17 12:16 Dose: 100 mls/hr Multivitamins/Minerals 10 ml/Famotidine 40 mg/ Amino Ac/Electrol/Dextrose/ Calcium/ Fat Emulsion Intravenous 2,264 mls @ 94.333 mls/hr IV Q24H [facility] Last Infusion: 02/08/17 17:35 Dose: 94 mls/hr Lactated Ringer's (Ringers, Lactated) 1,000 mls @ 50 mls/hr IV ASDIRECTED [facility] Last Admin: 02/08/17 21:35 Dose: 50 mls/hr Potassium Phosphate 27 mmole/ (Sodium Chloride) 509 mls @ 127.25 mls/hr IV ONETIME ONE Stop: 02/09/17 14:14 Last Admin: 02/09/17 11:44 Dose: 127.25 mls/hr Sodium Chloride (Sodium Chloride 0.45%) 1,000 mls @ 50 mls/hr IV ASDIRECTED [facility] Sodium Chloride (Sodium Chloride 0.45%) 1,000 mls @ 50 mls/hr IV ASDIRECTED [facility] Last Admin: 02/09/17 16:42 Dose: 50 mls/hr Magnesium Sulfate 2 gm/ Premix 50 mls @ 25 mls/hr IV ONETIME ONE Stop: 02/10/17 12:58 Last Admin: 02/10/17 11:28 Dose: 25 mls/hr Loperamide HCl (Imodium) 2 mg PO Q4H PRN PRN Reason: Diarrhea Last Admin: 02/02/17 16:22 Dose: 2 mg Metoclopramide HCl (Reglan) 5 mg IVPUSH Q6H [facility] Last Admin: 02/07/17 12:54 Dose: 5 mg Multivitamins/Minerals (Infuvite Adult) 10 ml IV Q24H [facility] Last Admin: 02/07/17 13:35 Dose: Not Given Omeprazole (Omeprazole) 20 mg PO DAILY [facility] Last Admin: 02/07/17 09:26 Dose: 20 mg Potassium Chloride (Klor-Con M20) 40 meq PO DAILY ONE Stop: 02/03/17 07:51 Last Admin: 02/03/17 08:24 Dose: 40 meq Potassium Chloride (Klor-Con M20) 40 meq PO ONETIME ONE Stop: 02/04/17 07:56 Last Admin: 02/04/17 08:58 Dose: 40 meq Potassium Chloride (Potassium Chloride) 40 meq PO BID [facility] Stop: 02/06/17 23:59 Last Admin: 06/23/17 21:04 Dose: 40 meq Ropinirole HCl (Requip) 1 mg PO BEDTIME [facility] Last Admin: 02/06/17 21:06 Dose: 1 mg - Exam General: cooperative Lungs: Clear to auscultation, Normal respiratory effort Abdomen: soft, tenderness (mild diffuse) Extremities: other (anasarca noted) - Problem List & Annotations (1) Generalized weakness SNOMED Code(s): 14088963 Code(s): R53.1 - WEAKNESS Status: Acute Current Visit: Yes (2) Acute on chronic renal insufficiency SNOMED Code(s): 185310668 Code(s): N28.9 - DISORDER OF KIDNEY AND URETER, UNSPECIFIED; N18.9 - CHRONIC KIDNEY DISEASE, UNSPECIFIED Status: Acute Priority: High Current Visit: Yes (3) Lymphedema SNOMED Code(s): 550255584 Code(s): I89.0 - LYMPHEDEMA, NOT ELSEWHERE CLASSIFIED Status: Chronic Priority: Medium Current Visit: Yes (4) Malignant melanoma SNOMED Code(s): 788069934 Code(s): C43.9 - MALIGNANT MELANOMA OF SKIN, UNSPECIFIED Status: Chronic Priority: Medium Current Visit: Yes Qualifiers: Laterality: unspecified laterality (5) Rash and nonspecific skin eruption SNOMED Code(s): 403417004, 253927803 Code(s): R21 - RASH AND OTHER NONSPECIFIC SKIN ERUPTION Status: Acute Current Visit: Yes (6) Heme positive stool SNOMED Code(s): 66531245, 410037462 Code(s): R19.5 - OTHER FECAL ABNORMALITIES Status: Acute Current Visit: Yes (7) Physical deconditioning SNOMED Code(s): 68213637700192 Code(s): R53.81 - OTHER MALAISE Status: Acute Current Visit: Yes (8) Hypothyroidism SNOMED Code(s): 51937881 Code(s): E03.9 - HYPOTHYROIDISM, UNSPECIFIED Status: Acute Current Visit : Yes (9) Volume overload SNOMED Code(s): 09357890 Code(s): E87.70 - FLUID OVERLOAD, UNSPECIFIED Status: Acute Current Visit : Yes (10) Anasarca SNOMED Code(s): 989968912, 739012564 Code(s): R60.1 - GENERALIZED EDEMA Status: Acute Current Visit: Yes (11) UTI (urinary tract infection) SNOMED Code(s): 50397724 Code(s): N39.0 - URINARY TRACT INFECTION, SITE NOT SPECIFIED Status: Acute Current Visit: No Qualifiers: Urinary tract infection type: acute cystitis Hematuria presence: with hematuria Qualified Code(s): N30.01 - Acute cystitis with hematuria - Problem List Review Problem List Initiated/Reviewed/Updated: Yes - My Orders Last 24 Hours: My Active Orders 02/10/17 11:00 NS + KCl 20mEq/L [Normal Saline with 20 mEq KCl] 1,000 ml IV ASDIRECTED 02/11/17 05:11 CBC WITH AUTO DIFF [HEME] AM COMPREHENSIVE METABOLIC PN,CMP [CHEM] AM LIPID PANEL [CHEM] AM MAGNESIUM [CHEM] AM 02/12/17 05:11 CBC WITH AUTO DIFF [HEME] AM COMPREHENSIVE METABOLIC PN,CMP [CHEM] AM LIPID PANEL [CHEM] AM MAGNESIUM [CHEM] AM 02/13/17 05:11 CBC WITH AUTO DIFF [HEME] AM COMPREHENSIVE METABOLIC PN,CMP [CHEM] AM LIPID PANEL [CHEM] AM MAGNESIUM [CHEM] AM - Assessment Assessment:: 02/07/[address] from February 04. In light of bowel wall thickening, will start flagyl IV I suspect that she has a mild ileus. Will start reglan IV scheduled and change to clear liquid diet As she has had very little po intake for over one week, will plan to start TPN if not improved in about 24 hours. Richard Mccracken MD - Plan Plan:: 81 yo female with dehydration/acute on chronic renal insufficiency and diarrhea with pmh of malignant melenoma, htn, hypothyroidism, and lymphedema. Dehydration\acute on chronic renal insufficiency: Prerenal Cr 1.8 today down from 2.1. Some bibasilar crackles on lung exam will not bolus IVF this am and keep fluids at 125. Strict I & O. CT abd showed moderate generalized anasarca increased from mild at admission closely watch fluids and may have to diurese some after kidney function back to normal. Borderline wall thickening within small bowel and colon and distended gallbladder most likely from gastroenteritis and lack of food intake. Heart murmur: Echo results pending UTI: Asymptomatic Levaquin day 3. Culture Kleb pneum highly sensitive including Levaquin Diarrhea: Most likely from her current Nivolumab and Ipilimumab for her malignant melenoma as diarrhea started when she started these meds. All stool cultures have been negative thus far. Seems to be resolving will monitory Malignant melenoma: Oncology team, Elizabeth Truong, report her diarrhea and modifications recommended. Patient was scheduled to get 4th round of chemo today but not medically stable for treatment. htn: holding home medications, normotensive. Cont. to monitor and restart home meds as indicated. hypothyroidism: controlled will restart home meds. VTE: SCD stool positive for blood will stop pharmacologic therapy Dispo 2-3 days 02/06/2017: supportive care; planning likely discharge to [facility] thursday or Thursday. Richard Mccracken MD 02/08/2017: She has clinically deteriorated as far as level of generalized weakness. I see that she has no had recent imaging of the brain or chest. CXR , CT of brain, CT of chest ordered. TPN to be started today. repeat UA levaquin was for UTI flagyl is for possible concurrent colitis Will continue antibiotics for now but they are of doubtful benefit. time of disposition unclear at this time; I do not plan discharge to [place] by Thursday or Thursday. Richard Mccracken 02/09/2017: hypokalemia, hyperchloremia and elevated serum creatinine noted. hyperglycemia noted. adjust insulin dosing with 10 units added to each bag of TPN; K replacement - will add some to TPN and give also via 40 meq bag in over 4 hours. add free water to TPN. Discussed with Naomie, pharmacist Discussed case with Dr Hairston. Will arrange follow up with oncology this week when visiting oncologists come to our facility ( thu or ). Richard Mccracken MD 02/10/2017 monitor electrolytes. oncology consult tomorrow pending frequent position changes K replacement intravenous levothyroxine reviewed I/Os : lasix today IV . reassess need for diuresis daily. Richard Mccracken MD
[2017-02-11] MEDS: Insulin Regular, Human 100 Units/ML 10 ML Vial SUBCUT SCH ×4 (01:52→17:50)
[2017-02-11] MEDS: metroNIDAZOLE/Normal Saline 500 MG in Premix Bag 1 BAG IV SCH ×2 (04:07→10:20)
[2017-02-11] MEDS: NS + KCl 20mEq/L 1,000 ML IV SCH (04:16)
[2017-02-11] MEDS: Levofloxacin/Dextrose 5%-Water 100 ML IV SCH (05:39)
[2017-02-11] MEDS: Morphine 4 MG/ML Syringe IVPUSH PRN ×2 (07:39→14:50)
[2017-02-11] MEDS: Levothyroxine 100 MCG Vial IVPUSH SCH (10:10)
[2017-02-11] MEDS ORDERED: SODIUM CHLORIDE IV SCH ×2 (10:15→14:00)
[2017-02-11] MEDS ORDERED: POTASSIUM PHOSPHATES IV SCH ×9 (10:15→14:00)
[2017-02-11] MEDS ORDERED: MVI IV SCH ×7 (14:00)
[2017-02-11] MEDS ORDERED: FAMOTIDINE IV SCH ×7 (14:00)
[2017-02-11] MEDS ORDERED: VITAMIN K IV SCH ×7 (14:00)
[2017-02-11] MEDS ORDERED: [UNRECOGNIZED DRUG - OTHER] IV SCH ×7 (14:00)
[2017-02-11] MEDS ORDERED: Furosemide 40 MG/4 ML VIAL IVPUSH ONE (14:49)
--- NOTE | 2017-02-11 14:55 | PCM.PN ---
- General Info Date of Service: 02/11/17 Admission Dx/Problem (Free Text): she feels weak; poor appetite for food. No complaint of pain currently. Subjective Update: she is more alert; she has more speech; she took some bites of jello ( for comfort) she states that she is a little better. - Patient Data Vitals - most recent: Last Vital Signs Temp 96.3 F 02/11/17 12:00 Pulse 91 02/11/17 12:00 Resp 20 02/11/17 12:00 BP 129/45 L 02/11/17 12:00 Pulse Ox 95 02/11/17 12:00 Weight - most recent: 90.5 kg I&O - last 24 hours: Intake & Output 02/10/17 02/11/17 02/11/17 22:59 06:59 14:59 Intake Total 3998 2512 100 Output Total 1200 1050 Balance 2798 1462 100 Lab Results last 24 hrs: Laboratory Results - last 24 hr 02/10/17 02/11/17 02/11/17 Range/Units 18:39 01:35 05:51 WBC (4.0-11.0) K/uL RBC (4.30-5.90) M/uL Hgb (12.0-16.0) g/dL Hct (36.0-46.0) % MCV (80.0-98.0) fL MCH (27.0-32.0) pg MCHC (31.0-37.0) g/dL RDW Std Deviation (28.0-62.0) fl RDW Coeff of Juan J (11.0-15.0) % Plt Count (150-400) K/uL MPV (7.40-12.00) fL Add Manual Diff Neutrophils % (Manual) (48.0-80.0) % Band Neutrophils % % Lymphocytes % (Manual) (16.0-40.0) % Monocytes % (Manual) (0.0-15.0) % Eosinophils % (Manual) (0.0-7.0) % Basophils % (Manual) (0.0-1.5) % Nucleated RBC % /100WBC Absolute Seg Neuts Band Neutrophils # Lymphocytes # (Manual) Monocytes # (Manual) Eosinophils # (Manual) Basophils # (Manual) Nucleated RBCs # K/uL Sodium 141 (136-146) mmol/L Potassium 2.6 L (3.5-5.1) mmol/L Chloride 117 H (98-110) mmol/L Carbon Dioxide 15 L (21-31) mmol/L BUN 47 H (6.0-23.0) mg/dL Creatinine 1.2 (0.6-1.5) mg/dL Est Cr Clr Drug Dosing 27.30 mL/min Estimated GFR (MDRD) 43.3 ml/min Glucose 163 H (60-110) mg/dL POC Glucose 194 H 173 H (60-110) mg/dL Calcium 6.6 L (8.8-10.8) mg/dL Magnesium 1.7 (1.5-2.3) mEq/L Total Bilirubin 0.5 (0.1-1.5) mg/dL AST 12 (5-40) IU/L ALT 13 (8-54) IU/L Alkaline Phosphatase 63 (40-150) Total Protein 3.2 L (6.0-8.0) g/dL Albumin 1.4 L (3.4-4.8) g/dL Globulin 1.8 L (2.0-3.5) g/dL Albumin/Globulin Ratio 0.8 L (1.3-2.8) Triglycerides 27 (10-190) mg/dL Cholesterol 55 L (131-240) mg/dL LDL Cholesterol, Calc 30 L (60-180) mg/dL VLDL Cholesterol 5 (5-55) mg/dL HDL Cholesterol 20 L (40-80) mg/dL Cholesterol/HDL Ratio 2.8 L (3.3-6.0) 02/11/17 02/11/17 02/11/17 Range/Units 05:51 06:41 11:46 WBC 4.31 (4.0-11.0) K/uL RBC 3.93 L (4.30-5.90) M/uL Hgb 11.4 L (12.0-16.0) g/dL Hct 33.4 L (36.0-46.0) % MCV 85.0 (80.0-98.0) fL MCH 29.0 (27.0-32.0) pg MCHC 34.1 (31.0-37.0) g/dL RDW Std Deviation 52.8 (28.0-62.0) fl RDW Coeff of Juan J 17 H (11.0-15.0) % Plt Count 54 L (150-400) K/uL MPV 11.80 (7.40-12.00) fL Add Manual Diff YES Neutrophils % (Manual) 58 (48.0-80.0) % Band Neutrophils % 13 % Lymphocytes % (Manual) 14 L (16.0-40.0) % Monocytes % (Manual) 13 (0.0-15.0) % Eosinophils % (Manual) 1 (0.0-7.0) % Basophils % (Manual) 1 (0.0-1.5) % Nucleated RBC % 0.7 /100WBC Absolute Seg Neuts 2.5 Band Neutrophils # 0.6 Lymphocytes # (Manual) 0.6 Monocytes # (Manual) 0.6 Eosinophils # (Manual) 0 Basophils # (Manual) 0 Nucleated RBCs # 0 K/uL Sodium (136-146) mmol/L Potassium (3.5-5.1) mmol/L Chloride (98-110) mmol/L Carbon Dioxide (21-31) mmol/L BUN (6.0-23.0) mg/dL Creatinine (0.6-1.5) mg/dL Est Cr Clr Drug Dosing mL/min Estimated GFR (MDRD) ml/min Glucose (60-110) mg/dL POC Glucose 197 H 177 H (60-110) mg/dL Calcium (8.8-10.8) mg/dL Magnesium (1.5-2.3) mEq/L Total Bilirubin (0.1-1.5) mg/dL AST (5-40) IU/L ALT (8-54) IU/L Alkaline Phosphatase (40-150) Total Protein (6.0-8.0) g/dL Albumin (3.4-4.8) g/dL Globulin (2.0-3.5) g/dL Albumin/Globulin Ratio (1.3-2.8) Triglycerides (10-190) mg/dL Cholesterol (131-240) mg/dL LDL Cholesterol, Calc (60-180) mg/dL VLDL Cholesterol (5-55) mg/dL HDL Cholesterol (40-80) mg/dL Cholesterol/HDL Ratio (3.3-6.0) Geovany Results last 24 hrs: Microbiology 02/10/17 12:10 Campylobacter Antigen Assay - Final Stool / Feces - Stool, Liquid NEGATIVE CAMPYLOBACTER AG - Final NEGATIVE FOR SHIGA TOXIN 1 - Final NEGATIVE FOR SHIGA TOXIN 2 02/10/17 12:10 Clostridium difficile Toxin A&B (M) - Final Stool / Feces - Stool, Liquid Negative for C.Diff Toxin/AG Med Orders - Current: Current Medications Levofloxacin/Dextrose (Levaquin In D5w 500 Mg/100 Ml) 100 mls @ 100 mls/hr IV Q48H [facility] Last Admin: 02/11/17 05:39 Dose: 100 mls/hr Metronidazole 500 mg/ Premix 100 mls @ 100 mls/hr IV Q6H [facility] Last Admin: 02/11/17 10:20 Dose: 100 mls/hr Multivitamins/Minerals 10 ml/Famotidine 40 mg/ Potassium Phosphate 81 mmole/ Albumin Human 12.5 gm/ Amino Ac/Electrol/Dextrose/Calcium/ Fat Emulsion Intravenous/ Sterile Water 3,341 mls @ 96.971 mls/hr IV Q24H [facility] Potassium Phosphate 27 mmole/ (Sodium Chloride) 509 mls @ 127.25 mls/hr IV ONETIME [facility] Stop: 02/11/17 15:00 Last Admin: 02/11/17 12:13 Dose: 127.25 mls/hr Potassium Phosphate 27 mmole/ (Sodium Chloride) 1,009 mls @ 50 mls/hr IV ASDIRECTED [facility] Insulin Human Regular (Novolin R) 0 unit SUBCUT Q6H [facility] PRN Reason: Protocol Last Admin: 02/11/17 11:58 Dose: 2 units Levothyroxine Sodium (Synthroid) 75 mcg IVPUSH DAILY [facility] Last Admin: 02/11/17 10:10 Dose: 75 mcg Morphine Sulfate (Morphine) 0 mg IVPUSH Q1H PRN PRN Reason: Pain Last Admin: 02/11/17 07:39 Dose: 4 mg Ondansetron HCl (Zofran Odt) 4 mg PO Q4H PRN PRN Reason: nausea, able to take PO Last Admin: 02/07/17 15:37 Dose: 4 mg Discontinued Medications Acetaminophen (Tylenol) 650 mg PO Q4H PRN PRN Reason: Pain (Mild 1-3)/fever Aspirin (Halfprin) 81 mg PO BID [facility] Last Admin: 02/07/17 09:26 Dose: 81 mg Calcium Carbonate/Glycine (Tums) 1,000 mg PO DAILY ONE Stop: 02/02/17 17:20 Last Admin: 02/02/17 17:32 Dose: 1,000 mg Calcium Carbonate/Glycine (Tums) 1,000 mg PO ONETIME ONE Stop: 02/03/17 07:52 Last Admin: 02/03/17 08:24 Dose: 1,000 mg Calcium Carbonate/Glycine (Tums) 1,000 mg PO ONETIME ONE Stop: 02/04/17 09:37 Last Admin: 02/04/17 10:23 Dose: 1,000 mg Furosemide (Lasix) 60 mg IVPUSH NOW ONE Stop: 02/07/17 16:09 Last Admin: 02/07/17 16:47 Dose: 60 mg Furosemide (Lasix) 60 mg IVPUSH NOW ONE Stop: 02/10/17 11:16 Last Admin: 02/10/17 11:28 Dose: 60 mg Heparin Sodium (Porcine) (Heparin Sodium) 5,000 units SUBCUT Q8H [facility] Last Admin: 02/03/17 06:29 Dose: 5,000 units Sodium Chloride (Normal Saline) 1,000 mls @ 999 mls/hr IV STAT ONE Stop: 02/02/17 13:15 Last Admin: 02/02/17 12:51 Dose: 999 mls/hr Sodium Chloride (Normal Saline) 1,000 [facility]ls [facility] Admin: 02/07/17 02:16 Dose: 125 mls/hr Levofloxacin/Dextrose 750 mg/ (Premix) 150 mls @ 100 mls/hr IV NOW ONE Stop: 02/03/17 06:14 Last Admin: 02/03/17 05:13 Dose: 100 mls/hr Sodium Chloride (Normal Saline) 500 mls @ 999 [facility] Last Admin: 02/03/17 08:37 Dose: 999 mls/hr Pantoprazole Sodium 40 mg/ (Sodium Chloride) 10 mls @ 300 mls/hr IVPUSH Q24H [facility] Last Admin: 02/07/17 14:52 Dose: 300 mls/hr Sodium Chloride (Normal Saline) 500 mls @ 999 [facility] Last Admin: 02/04/17 10:28 Dose: 999 mls/hr Magnesium Sulfate 4 gm/ Premix 100 mls @ 50 mls/hr IV ONETIME ONE Stop: 02/07/17 14:22 Last Admin: 02/07/17 12:54 Dose: 50 mls/hr Multivitamins/Minerals 10 ml/ (Sodium Chloride) 510 mls @ 510 mls/hr IV Q24H [facility] Last Admin: 02/07/17 15:22 Dose: Not Given Albumin Human (Flexbumin 25%) 12.5 gm in 50 mls @ 100 mls/hr IV ONETIME ONE Stop: 02/07/17 14:16 Last Admin: 02/07/17 14:58 Dose: 100 mls/hr Lactated Ringer's (Ringers, Lactated) 1,000 mls @ 100 mls/hr IV ASDIRECTED [facility] Last Infusion: 02/08/17 13:38 Dose: 50 mls/hr Metronidazole 500 mg/ Premix 100 mls @ 100 mls/hr IV Q6H [facility] Last Admin: 02/07/17 15:22 Dose: Not Given Multivitamins/Minerals 10 ml/ (Sodium Chloride) 510 mls @ 510 mls/hr IV Q24H [facility] Last Admin: 02/07/17 15:37 Dose: 510 mls/hr Pantoprazole Sodium 40 mg/ (Sodium Chloride) 10 mls @ 300 mls/hr IVPUSH Q12H [facility] Pantoprazole Sodium 40 mg/ (Sodium Chloride) 10 mls @ 300 mls/hr IVPUSH Q12H [facility] Last Admin: 02/08/17 16:10 Dose: Not Given Albumin Human (Flexbumin 25%) 12.5 gm in 50 mls @ 100 mls/hr IV ONETIME ONE Stop: 02/08/17 11:36 Last Admin: 02/08/17 12:16 Dose: 100 mls/hr Multivitamins/Minerals 10 ml/Famotidine 40 mg/ Amino Ac/Electrol/Dextrose/ Calcium/ Fat Emulsion Intravenous 2,264 mls @ 94.333 mls/hr IV Q24H [facility] Last Infusion: 02/08/17 17:35 Dose: 94 mls/hr Lactated Ringer's (Ringers, Lactated) 1,000 mls @ 50 mls/hr IV ASDIRECTED [facility] Last Admin: 02/08/17 21:35 Dose: 50 mls/hr Multivitamins/Minerals 10 ml/Famotidine 40 mg/ Insulin Human Regular 10 unit/ Potassium Phosphate 27 mmole/Amino Ac/Electrol/Dextrose/Calcium/ Fat Emulsion Intravenous/ Sterile Water 3,273.1 mls @ 95 mls/hr IV Q24H [facility] Stop: 02/11/17 13:59 Last Admin: 02/10/17 15:00 Dose: 95 mls/hr Potassium Phosphate 27 mmole/ (Sodium Chloride) 509 mls @ 127.25 mls/hr IV ONETIME ONE Stop: 02/09/17 14:14 Last Admin: 02/09/17 11:44 Dose: 127.25 mls/hr Sodium Chloride (Sodium Chloride 0.45%) 1,000 mls @ 50 mls/hr IV ASDIRECTED [facility] Sodium Chloride (Sodium Chloride 0.45%) 1,000 mls @ 50 mls/hr IV ASDIRECTED [facility] Last Admin: 02/09/17 16:42 Dose: 50 mls/hr Potassium Chloride/Sodium Chloride (Normal Saline With 20 Meq Kcl) 1,000 mls @ 75 mls/hr IV ASDIRECTED [facility] Last Admin: 02/11/17 04:16 Dose: 75 mls/hr Magnesium Sulfate 2 gm/ Premix 50 mls @ 25 mls/hr IV ONETIME ONE Stop: 02/10/17 12:58 Last Admin: 02/10/17 11:28 Dose: 25 mls/hr Insulin Human Regular (Novolin R) 0 unit SUBCUT Q6H [facility] PRN Reason: Protocol Last Admin: 02/11/17 07:26 Dose: 1 units Levothyroxine Sodium (Levothyroxine) 125 mcg PO ACBREAKFAST [facility] Last Admin: 02/07/17 06:46 Dose: 125 mcg Loperamide HCl (Imodium) 2 mg PO Q4H PRN PRN Reason: Diarrhea Last Admin: 02/02/17 16:22 Dose: 2 mg Metoclopramide HCl (Reglan) 5 mg IVPUSH Q6H [facility] Last Admin: 02/07/17 12:54 Dose: 5 mg Multivitamins/Minerals (Infuvite Adult) 10 ml IV Q24H [facility] Last Admin: 02/07/17 13:35 Dose: Not Given Omeprazole (Omeprazole) 20 mg PO DAILY [facility] Last Admin: 02/07/17 09:26 Dose: 20 mg Potassium Chloride (Klor-Con M20) 40 meq PO DAILY ONE Stop: 02/03/17 07:51 Last Admin: 02/03/17 08:24 Dose: 40 meq Potassium Chloride (Klor-Con M20) 40 meq PO ONETIME ONE Stop: 02/04/17 07:56 Last Admin: 02/04/17 08:58 Dose: 40 meq Potassium Chloride (Potassium Chloride) 40 meq PO BID [facility] Stop: 02/06/17 23:59 Last Admin: 02/06/17 21:04 Dose: 40 meq Ropinirole HCl (Requip) 1 mg PO BEDTIME [facility] Last Admin: 02/06/17 21:06 Dose: 1 mg - Exam General: alert, cooperative Neck: trachea midline Lungs: Other (some slight increased work of breathing ;) Cardiovascular: Regular Rate, Regular Rhythm Abdomen: soft. No: tenderness (Female) Exam: Deferred Extremities: other (marked anasarca; severe diffuse LE edema) Neurological: no new focal deficit Psy/Mental Status: alert. No: agitated - Problem List & Annotations (1) Generalized weakness SNOMED Code(s): 77186667 Code(s): R53.1 - WEAKNESS Status: Acute Current Visit: Yes (2) Acute on chronic renal insufficiency SNOMED Code(s): 716055444 Code(s): N28.9 - DISORDER OF KIDNEY AND URETER, UNSPECIFIED; N18.9 - CHRONIC KIDNEY DISEASE, UNSPECIFIED Status: Acute Priority: High Current Visit: Yes (3) Lymphedema SNOMED Code(s): 480614998 Code(s): I89.0 - LYMPHEDEMA, NOT ELSEWHERE CLASSIFIED Status: Chronic Priority: Medium Current Visit: Yes (4) Malignant melanoma SNOMED Code(s): 128976468 Code(s): C43.9 - MALIGNANT MELANOMA OF SKIN, UNSPECIFIED Status: Chronic Priority: Medium Current Visit: Yes Qualifiers: Laterality: unspecified laterality (5) Rash and nonspecific skin eruption SNOMED Code(s): 379396743, 049886615 Code(s): R21 - RASH AND OTHER NONSPECIFIC SKIN ERUPTION Status: Acute Current Visit: Yes (6) Heme positive stool SNOMED Code(s): 92430772, 703246340 Code(s): R19.5 - OTHER FECAL ABNORMALITIES Status: Acute Current Visit: Yes (7) Physical deconditioning SNOMED Code(s): 38083526721212 Code(s): R53.81 - OTHER MALAISE Status: Acute Current Visit: Yes (8) Hypothyroidism SNOMED Code(s): 06079395 Code(s): E03.9 - HYPOTHYROIDISM, UNSPECIFIED Status: Acute Current Visit : Yes (9) Volume overload SNOMED Code(s): 96020402 Code(s): E87.70 - FLUID OVERLOAD, UNSPECIFIED Status: Acute Current Visit : Yes (10) Anasarca SNOMED Code(s): 113224910, 270649865 Code(s): R60.1 - GENERALIZED EDEMA Status: Acute Current Visit: Yes (11) UTI (urinary tract infection) SNOMED Code(s): 79093121 Code(s): N39.0 - URINARY TRACT INFECTION, SITE NOT SPECIFIED Status: Acute Current Visit: No Qualifiers: Urinary tract infection type: acute cystitis Hematuria presence: with hematuria Qualified Code(s): N30.01 - Acute cystitis with hematuria - Problem List Review Problem List Initiated/Reviewed/Updated: Yes - My Orders Last 24 Hours: My Active Orders 02/11/17 10:15 Potassium Phosphates 27 mmole Sodium Chloride 0.45% 500 ml IV ONETIME 02/11/17 12:00 Insulin Regular, Human [NovoLIN R] See Protocol SUBCUT Q6H 02/11/17 14:00 MVI, Adult with Vitamin K [Infuvite Adult] 10 ml Famotidine [Pepcid] 40 mg Potassium Phosphates 81 mmole Albumin 25% [Flexbumin 25%] 12.5 gm AA 5%/ Calcium/D20W/Lytes [Clinimix E 5/20] 2,000 ml Fat Emulsion [Intralipid 20%] 250 ml Water For Injection,Sterile [Sterile Water for Injection] 1,000 ml IV Q24H Potassium Phosphates 27 mmole Sodium Chloride 0.45% 1,000 ml IV ASDIRECTED 02/11/17 14:49 Furosemide [Lasix] 60 mg IVPUSH NOW ONE 02/12/17 05:00 PHOSPHORUS [CHEM] Routine 02/12/17 05:11 CBC WITH AUTO DIFF [HEME] AM COMPREHENSIVE METABOLIC PN,CMP [CHEM] AM FREE T3 [REF] AM LIPID PANEL [CHEM] AM MAGNESIUM [CHEM] AM T3, REVERSE [REF] AM T4 FREE [CHEM] AM 02/12/17 14:49 Furosemide [Lasix] 40 mg IVPUSH BID ONE 02/13/17 05:11 CBC WITH AUTO DIFF [HEME] AM COMPREHENSIVE METABOLIC PN,CMP [CHEM] AM LIPID PANEL [CHEM] AM MAGNESIUM [CHEM] AM - Assessment Assessment:: 02/07/[address] from February 04. In light of bowel wall thickening, will start flagyl IV I suspect that she has a mild ileus. Will start reglan IV scheduled and change to clear liquid diet As she has had very little po intake for over one week, will plan to start TPN if not improved in about 24 hours. Richard Mccracken MD - Plan Plan:: 81 yo female with dehydration/acute on chronic renal insufficiency and diarrhea with pmh of malignant melenoma, htn, hypothyroidism, and lymphedema. Dehydration\acute on chronic renal insufficiency: Prerenal Cr 1.8 today down from 2.1. Some bibasilar crackles on lung exam will not bolus IVF this am and keep fluids at 125. Strict I & O. CT abd showed moderate generalized anasarca increased from mild at admission closely watch fluids and may have to diurese some after kidney function back to normal. Borderline wall thickening within small bowel and colon and distended gallbladder most likely from gastroenteritis and lack of food intake. Heart murmur: Echo results pending UTI: Asymptomatic Levaquin day 3. Culture Kleb pneum highly sensitive including Levaquin Diarrhea: Most likely from her current Nivolumab and Ipilimumab for her malignant melenoma as diarrhea started when she started these meds. All stool cultures have been negative thus far. Seems to be resolving will monitory Malignant melenoma: Oncology team, Elizabeth Truong, report her diarrhea and modifications recommended. Patient was scheduled to get 4th round of chemo today but not medically stable for treatment. htn: holding home medications, normotensive. Cont. to monitor and restart home meds as indicated. hypothyroidism: controlled will restart home meds. VTE: SCD stool positive for blood will stop pharmacologic therapy Dispo 2-3 days 02/06/2017: supportive care; planning likely discharge to [facility] thursday or Thursday. Richard Mccracken MD 02/08/2017: She has clinically deteriorated as far as level of generalized weakness. I see that she has no had recent imaging of the brain or chest. CXR , CT of brain, CT of chest ordered. TPN to be started today. repeat UA levaquin was for UTI flagyl is for possible concurrent colitis Will continue antibiotics for now but they are of doubtful benefit. time of disposition unclear at this time; I do not plan discharge to [facility] by Thursday or Thursday. Richard Mccracken 02/09/2017: hypokalemia, hyperchloremia and elevated serum creatinine noted. hyperglycemia noted. adjust insulin dosing with 10 units added to each bag of TPN; K replacement - will add some to TPN and give also via 40 meq bag in over 4 hours. add free water to TPN. Discussed with Naomie, pharmacist Discussed case with Dr Hairston. Will arrange follow up with oncology this week when visiting oncologists come to our facility ( thu or ). Richard Mccracken MD 02/10/2017 monitor electrolytes. oncology consult tomorrow pending frequent position changes K replacement intravenous levothyroxine reviewed I/Os : lasix today IV . reassess need for diuresis daily. Richard Mccracken MD 02/11/2017 will stop antibiotics for UTI I spoke with Dr Hernandez, oncology. She has no visceral tumor involvement. Mets include buttock and skin left foot. Will postpone chemotherapy for now anticipate [facility] sometime next week for strengthening continue TPN may consider taking NG off of suction tomorrow and allow cautious po feeds She is getting sips of fluids now for comfort she has marked volume overload as per I/O's lasix 60 mg now then 60 mg bid measure free T4 and T3 levels continue intravenous levothyroxine K replacement; tomorrow will decrease amount of IVF Richard Mccracken MD
[2017-02-11] MEDS ORDERED: Albuterol/Ipratropium 3.0-0.5 MG/3 ML Neb Soln NEB PRN (21:24)
[2017-02-11] MEDS ORDERED: Furosemide 20 MG/2 ML VIAL IVPUSH ONE (21:27)
[2017-02-12] MEDS: Insulin Regular, Human 100 Units/ML 10 ML Vial SUBCUT SCH ×4 (00:04→18:17)
[2017-02-12 05:54] LABS: CHLORIDE,CL 112 mmol/L (98-110); SODIUM,NA 141 mmol/L (136-146)
--- NOTE | 2017-02-12 07:34 | PCM.PN ---
- General Info Date of Service: 02/12/17 Subjective Update: she is a little more alert today. she would like to try eating. - Patient Data Vitals - most recent: Last Vital Signs Temp 97.5 F 02/12/17 04:00 Pulse 97 02/12/17 04:00 Resp 18 02/12/17 04:00 BP 107/53 L 02/12/17 04:00 Pulse Ox 92 L 02/12/17 04:00 Weight - most recent: 89.1 kg I&O - last 24 hours: Intake & Output 02/11/17 02/12/17 02/12/17 22:59 06:59 14:59 Intake Total 1520 1258 Output Total 4985 1635 Balance 95 -2367 Lab Results last 24 hrs: Laboratory Results - last 24 hr 02/11/17 02/11/17 02/11/17 Range/Units 11:46 17:26 23:50 WBC (4.0-11.0) K/uL RBC (4.30-5.90) M/uL Hgb (12.0-16.0) g/dL Hct (36.0-46.0) % MCV (80.0-98.0) fL MCH (27.0-32.0) pg MCHC (31.0-37.0) g/dL RDW Std Deviation (28.0-62.0) fl RDW Coeff of Juan J (11.0-15.0) % Plt Count (150-400) K/uL MPV (7.40-12.00) fL Add Manual Diff Neutrophils % (Manual) (48.0-80.0) % Band Neutrophils % % Lymphocytes % (Manual) (16.0-40.0) % Monocytes % (Manual) (0.0-15.0) % Eosinophils % (Manual) (0.0-7.0) % Basophils % (Manual) (0.0-1.5) % Nucleated RBC % /100WBC Absolute Seg Neuts Band Neutrophils # Lymphocytes # (Manual) Monocytes # (Manual) Eosinophils # (Manual) Basophils # (Manual) Nucleated RBCs # K/uL Sodium (136-146) mmol/L Potassium (3.5-5.1) mmol/L Chloride (98-110) mmol/L Carbon Dioxide (21-31) mmol/L BUN (6.0-23.0) mg/dL Creatinine (0.6-1.5) mg/dL Est Cr Clr Drug Dosing Estimated GFR (MDRD) ml/min Glucose (60-110) mg/dL POC Glucose 177 H 165 H 194 H (60-110) mg/dL Calcium (8.8-10.8) mg/dL Phosphorus (2.4-4.7) mg/dL Magnesium (1.5-2.3) mEq/L Total Bilirubin (0.1-1.5) mg/dL AST (5-40) IU/L ALT (8-54) IU/L Alkaline Phosphatase (40-150) Total Protein (6.0-8.0) g/dL Albumin (3.4-4.8) g/dL Globulin (2.0-3.5) g/dL Albumin/Globulin Ratio (1.3-2.8) Triglycerides (10-190) mg/dL Cholesterol (131-240) mg/dL LDL Cholesterol, Calc (60-180) mg/dL VLDL Cholesterol (5-55) mg/dL HDL Cholesterol (40-80) mg/dL Cholesterol/HDL Ratio (3.3-6.0) Free T4 (0.7-1.48) ng/dL 02/12/17 02/12/17 02/12/17 Range/Units 05:19 05:19 05:19 WBC 5.16 (4.0-11.0) K/uL RBC 4.04 L (4.30-5.90) M/uL Hgb 11.6 L (12.0-16.0) g/dL Hct 34.1 L (36.0-46.0) % MCV 84.4 (80.0-98.0) fL MCH 28.7 (27.0-32.0) pg MCHC 34.0 (31.0-37.0) g/dL RDW Std Deviation 53.4 (28.0-62.0) fl RDW Coeff of Juan J 17 H (11.0-15.0) % Plt Count 64 L (150-400) K/uL MPV 11.80 (7.40-12.00) fL Add Manual Diff YES Neutrophils % (Manual) 54 (48.0-80.0) % Band Neutrophils % 11 % Lymphocytes % (Manual) 16 (16.0-40.0) % Monocytes % (Manual) 12 (0.0-15.0) % Eosinophils % (Manual) 5 (0.0-7.0) % Basophils % (Manual) 2 H (0.0-1.5) % Nucleated RBC % 0.9 /100WBC Absolute Seg Neuts 2.8 Band Neutrophils # 0.6 Lymphocytes # (Manual) 0.8 Monocytes # (Manual) 0.6 Eosinophils # (Manual) 0.3 Basophils # (Manual) 0 Nucleated RBCs # 0 K/uL Sodium 141 (136-146) mmol/L Potassium 3.0 L (3.5-5.1) mmol/L Chloride 112 H (98-110) mmol/L Carbon Dioxide 18 L (21-31) mmol/L BUN 45 H (6.0-23.0) mg/dL Creatinine 1.2 (0.6-1.5) mg/dL Est Cr Clr Drug Dosing TNP Estimated GFR (MDRD) 43.3 ml/min Glucose 170 H (60-110) mg/dL POC Glucose (60-110) mg/dL Calcium 6.6 L (8.8-10.8) mg/dL Phosphorus 6.0 H (2.4-4.7) mg/dL Magnesium 1.6 (1.5-2.3) mEq/L Total Bilirubin 0.5 (0.1-1.5) mg/dL AST 12 (5-40) IU/L ALT 11 (8-54) IU/L Alkaline Phosphatase 65 (40-150) Total Protein 3.5 L (6.0-8.0) g/dL Albumin 1.7 L (3.4-4.8) g/dL Globulin 1.8 L (2.0-3.5) g/dL Albumin/Globulin Ratio 0.9 L (1.3-2.8) Triglycerides 30 (10-190) mg/dL Cholesterol 61 L (131-240) mg/dL LDL Cholesterol, Calc 35 L (60-180) mg/dL VLDL Cholesterol 6 (5-55) mg/dL HDL Cholesterol 20 L (40-80) mg/dL Cholesterol/HDL Ratio 3.1 L (3.3-6.0) Free T4 0.60 L (0.7-1.48) ng/dL 02/12/17 Range/Units 05:45 WBC (4.0-11.0) K/uL RBC (4.30-5.90) M/uL Hgb (12.0-16.0) g/dL Hct (36.0-46.0) % MCV (80.0-98.0) fL MCH (27.0-32.0) pg MCHC (31.0-37.0) g/dL RDW Std Deviation (28.0-62.0) fl RDW Coeff of Juan J (11.0-15.0) % Plt Count (150-400) K/uL MPV (7.40-12.00) fL Add Manual Diff Neutrophils % (Manual) (48.0-80.0) % Band Neutrophils % % Lymphocytes % (Manual) (16.0-40.0) % Monocytes % (Manual) (0.0-15.0) % Eosinophils % (Manual) (0.0-7.0) % Basophils % (Manual) (0.0-1.5) % Nucleated RBC % /100WBC Absolute Seg Neuts Band Neutrophils # Lymphocytes # (Manual) Monocytes # (Manual) Eosinophils # (Manual) Basophils # (Manual) Nucleated RBCs # K/uL Sodium (136-146) mmol/L Potassium (3.5-5.1) mmol/L Chloride (98-110) mmol/L Carbon Dioxide (21-31) mmol/L BUN (6.0-23.0) mg/dL Creatinine (0.6-1.5) mg/dL Est Cr Clr Drug Dosing Estimated GFR (MDRD) ml/min Glucose (60-110) mg/dL POC Glucose 162 H (60-110) mg/dL Calcium (8.8-10.8) mg/dL Phosphorus (2.4-4.7) mg/dL Magnesium (1.5-2.3) mEq/L Total Bilirubin (0.1-1.5) mg/dL AST (5-40) IU/L ALT (8-54) IU/L Alkaline Phosphatase (40-150) Total Protein (6.0-8.0) g/dL Albumin (3.4-4.8) g/dL Globulin (2.0-3.5) g/dL Albumin/Globulin Ratio (1.3-2.8) Triglycerides (10-190) mg/dL Cholesterol (131-240) mg/dL LDL Cholesterol, Calc (60-180) mg/dL VLDL Cholesterol (5-55) mg/dL HDL Cholesterol (40-80) mg/dL Cholesterol/HDL Ratio (3.3-6.0) Free T4 (0.7-1.48) ng/dL Geovany Results last 24 hrs: Microbiology 02/10/17 12:10 Campylobacter Antigen Assay - Final Stool / Feces - Stool, Liquid NEGATIVE CAMPYLOBACTER AG - Final NEGATIVE FOR SHIGA TOXIN 1 - Final NEGATIVE FOR SHIGA TOXIN 2 Med Orders - Current: Current Medications Albuterol/Ipratropium (Duoneb 3.0-0.5 Mg/3 Ml) 3 ml NEB Q4HRRT PRN PRN Reason: Shortness of Breath Last Admin: 02/11/17 21:42 Dose: 3 ml Furosemide (Lasix) 40 mg IVPUSH BIDDIURETIC [facility] Multivitamins/Minerals 10 ml/Famotidine 40 mg/ Potassium Phosphate 81 mmole/ Albumin Human 12.5 gm/ Amino Ac/Electrol/Dextrose/Calcium/ Fat Emulsion Intravenous/ Sterile Water 3,341 mls @ 96.971 mls/hr IV Q24H [facility] Last Admin: 02/11/17 14:51 Dose: 96.971 mls/hr Potassium Phosphate 27 mmole/ (Sodium Chloride) 1,009 mls @ 50 mls/hr IV ASDIRECTED [facility] Last Admin: 02/11/17 16:38 Dose: 50 mls/hr Insulin Human Regular (Novolin R) 0 unit SUBCUT Q6H [facility] PRN Reason: Protocol Last Admin: 02/12/17 06:16 Dose: 2 units Levothyroxine Sodium (Synthroid) 75 mcg IVPUSH DAILY [facility] Last Admin: 02/11/17 10:10 Dose: 75 mcg Morphine Sulfate (Morphine) 0 mg IVPUSH Q1H PRN PRN Reason: Pain Last Admin: 02/11/17 14:50 Dose: 4 mg Ondansetron HCl (Zofran Odt) 4 mg PO Q4H PRN PRN Reason: nausea, able to take PO Last Admin: 02/07/17 15:37 Dose: 4 mg Discontinued Medications Acetaminophen (Tylenol) 650 mg PO Q4H PRN PRN Reason: Pain (Mild 1-3)/fever Aspirin (Halfprin) 81 mg PO BID [facility] Last Admin: 02/07/17 09:26 Dose: 81 mg Calcium Carbonate/Glycine (Tums) 1,000 mg PO DAILY ONE Stop: 02/02/17 17:20 Last Admin: 02/02/17 17:32 Dose: 1,000 mg Calcium Carbonate/Glycine (Tums) 1,000 mg PO ONETIME ONE Stop: 02/03/17 07:52 Last Admin: 02/03/17 08:24 Dose: 1,000 mg Calcium Carbonate/Glycine (Tums) 1,000 mg PO ONETIME ONE Stop: 02/04/17 09:37 Last Admin: 02/04/17 10:23 Dose: 1,000 mg Furosemide (Lasix) 60 mg IVPUSH NOW ONE Stop: 02/07/17 16:09 Last Admin: 02/07/17 16:47 Dose: 60 mg Furosemide (Lasix) 60 mg IVPUSH NOW ONE Stop: 02/10/17 11:16 Last Admin: 02/10/17 11:28 Dose: 60 mg Furosemide (Lasix) 60 mg IVPUSH NOW ONE Stop: 02/11/17 14:50 Last Admin: 02/11/17 16:39 Dose: 60 mg Furosemide (Lasix) 40 mg IVPUSH BID ONE Stop: 02/12/17 14:50 Furosemide (Lasix) 60 mg IVPUSH ONETIME ONE Stop: 02/11/17 21:28 Last Admin: 02/11/17 21:43 Dose: 60 mg Heparin Sodium (Porcine) (Heparin Sodium) 5,000 units SUBCUT Q8H [facility] Last Admin: 02/03/17 06:29 Dose: 5,000 units Sodium Chloride (Normal Saline) 1,000 mls @ 999 mls/hr IV STAT ONE Stop: 02/02/17 13:15 Last Admin: 02/02/17 12:51 Dose: 999 mls/hr Sodium Chloride (Normal Saline) 1,000 mls @ 100 mls/hr IV ASDIRECTED [facility] Last Admin: 02/07/17 02:16 Dose: 125 mls/hr Levofloxacin/Dextrose 750 mg/ (Premix) 150 mls @ 100 mls/hr IV NOW ONE Stop: 02/03/17 06:14 Last Admin: 02/03/17 05:13 Dose: 100 mls/hr Levofloxacin/Dextrose (Levaquin In D5w 500 Mg/100 Ml) 100 mls @ 100 mls/hr IV Q48H [facility] Last Admin: 02/11/17 05:39 Dose: 100 mls/hr Sodium Chloride (Normal Saline) 500 mls @ 999 mls/hr IV ASDIRECTED [facility] Last Admin: 02/03/17 08:37 Dose: 999 mls/hr Pantoprazole Sodium 40 mg/ (Sodium Chloride) 10 mls @ 300 mls/hr IVPUSH Q24H [facility] Last Admin: 02/07/17 14:52 Dose: 300 mls/hr Sodium Chloride (Normal Saline) 500 mls @ 999 mls/hr IV ASDIRECTED [facility] Last Admin: 02/04/17 10:28 Dose: 999 mls/hr Magnesium Sulfate 4 gm/ Premix 100 mls @ 50 mls/hr IV ONETIME ONE Stop: 02/07/17 14:22 Last Admin: 02/07/17 12:54 Dose: 50 mls/hr Multivitamins/Minerals 10 ml/ (Sodium Chloride) 510 mls @ 510 mls/hr IV Q24H [facility] Last Admin: 02/07/17 15:22 Dose: Not Given Albumin Human (Flexbumin 25%) 12.5 gm in 50 mls @ 100 mls/hr IV ONETIME ONE Stop: 02/07/17 14:16 Last Admin: 02/07/17 14:58 Dose: 100 mls/hr Lactated Ringer's (Ringers, Lactated) 1,000 mls @ 100 mls/hr IV ASDIRECTED [facility] Last Infusion: 02/08/17 13:38 Dose: 50 mls/hr Metronidazole 500 mg/ Premix 100 mls @ 100 mls/hr IV Q6H [facility] Last Admin: 02/07/17 15:22 Dose: Not Given Multivitamins/Minerals 10 ml/ (Sodium Chloride) 510 mls @ 510 mls/hr IV Q24H [facility] Last Admin: 02/07/17 15:37 Dose: 510 mls/hr Metronidazole 500 mg/ Premix 100 mls @ 100 mls/hr IV Q6H [facility] Last Admin: 02/11/17 10:20 Dose: 100 mls/hr Pantoprazole Sodium 40 mg/ (Sodium Chloride) 10 mls @ 300 mls/hr IVPUSH Q12H [facility] Pantoprazole Sodium 40 mg/ (Sodium Chloride) 10 mls @ 300 mls/hr IVPUSH Q12H [facility] Last Admin: 02/08/17 16:10 Dose: Not Given Albumin Human (Flexbumin 25%) 12.5 gm in 50 mls @ 100 mls/hr IV ONETIME ONE Stop: 02/08/17 11:36 Last Admin: 02/08/17 12:16 Dose: 100 mls/hr Multivitamins/Minerals 10 ml/Famotidine 40 mg/ Amino Ac/Electrol/Dextrose/ Calcium/ Fat Emulsion Intravenous 2,264 mls @ 94.333 mls/hr IV Q24H [facility] Last Infusion: 02/08/17 17:35 Dose: 94 mls/hr Lactated Ringer's (Ringers, Lactated) 1,000 mls @ 50 mls/hr IV ASDIRECTED [facility] Last Admin: 02/08/17 21:35 Dose: 50 mls/hr Multivitamins/Minerals 10 ml/Famotidine 40 mg/ Insulin Human Regular 10 unit/ Potassium Phosphate 27 mmole/Amino Ac/Electrol/Dextrose/Calcium/ Fat Emulsion Intravenous/ Sterile Water 3,273.1 mls @ 95 mls/hr IV Q24H [facility] Stop: 02/11/17 13:59 Last Admin: 02/10/17 15:00 Dose: 95 mls/hr Potassium Phosphate 27 mmole/ (Sodium Chloride) 509 mls @ 127.25 mls/hr IV ONETIME ONE Stop: 02/09/17 14:14 Last Admin: 02/09/17 11:44 Dose: 127.25 mls/hr Sodium Chloride (Sodium Chloride 0.45%) 1,000 mls @ 50 mls/hr IV ASDIRECTED [facility] Sodium Chloride (Sodium Chloride 0.45%) 1,000 mls @ 50 mls/hr IV ASDIRECTED [facility] Last Admin: 02/09/17 16:42 Dose: 50 mls/hr Potassium Chloride/Sodium Chloride (Normal Saline With 20 Meq Kcl) 1,000 mls @ 75 mls/hr IV ASDIRECTED [facility] Last Admin: 02/11/17 04:16 Dose: 75 mls/hr Magnesium Sulfate 2 gm/ Premix 50 mls @ 25 mls/hr IV ONETIME ONE Stop: 02/10/17 12:58 Last Admin: 02/10/17 11:28 Dose: 25 mls/hr Potassium Phosphate 27 mmole/ (Sodium Chloride) 509 mls @ 127.25 mls/hr IV ONETIME [facility] Stop: 02/11/17 15:00 Last Admin: 02/11/17 12:13 Dose: 127.25 mls/hr Insulin Human Regular (Novolin R) 0 unit SUBCUT Q6H [facility] PRN Reason: Protocol Last Admin: 02/11/17 07:26 Dose: 1 units Levothyroxine Sodium (Levothyroxine) 125 mcg PO ACBREAKFAST [facility] Last Admin: 02/07/17 06:46 Dose: 125 mcg Loperamide HCl (Imodium) 2 mg PO Q4H PRN PRN Reason: Diarrhea Last Admin: 02/02/17 16:22 Dose: 2 mg Metoclopramide HCl (Reglan) 5 mg IVPUSH Q6H [facility] Last Admin: 02/07/17 12:54 Dose: 5 mg Multivitamins/Minerals (Infuvite Adult) 10 ml IV Q24H [facility] Last Admin: 02/07/17 13:35 Dose: Not Given Omeprazole (Omeprazole) 20 mg PO DAILY [facility] Last Admin: 02/07/17 09:26 Dose: 20 mg Potassium Chloride (Klor-Con M20) 40 meq PO DAILY ONE Stop: 02/03/17 07:51 Last Admin: 02/03/17 08:24 Dose: 40 meq Potassium Chloride (Klor-Con M20) 40 meq PO ONETIME ONE Stop: 02/04/17 07:56 Last Admin: 02/04/17 08:58 Dose: 40 meq Potassium Chloride (Potassium Chloride) 40 meq PO BID [facility] Stop: 02/06/17 23:59 Last Admin: 02/06/17 21:04 Dose: 40 meq Ropinirole HCl (Requip) 1 mg PO BEDTIME [facility] Last Admin: 02/06/17 21:06 Dose: 1 mg - Exam General: alert, cooperative, other (slight improvement in general strength as manifest in ability to speak and to move head and neck and extremities. ) Lungs: Other (breathing slightly labored). No: Rales, Rhonchi, Wheezing Cardiovascular: Regular Rate, Regular Rhythm, Other (distant S1S2). No: Murmurs Abdomen: bowel sounds present, soft, no tenderness. No: distension Psy/Mental Status: alert. No: agitated - Problem List & Annotations (1) Generalized weakness SNOMED Code(s): 25815726 Code(s): R53.1 - WEAKNESS Status: Acute Current Visit: Yes (2) Acute on chronic renal insufficiency SNOMED Code(s): 982213690 Code(s): N28.9 - DISORDER OF KIDNEY AND URETER, UNSPECIFIED; N18.9 - CHRONIC KIDNEY DISEASE, UNSPECIFIED Status: Acute Priority: High Current Visit: Yes (3) Lymphedema SNOMED Code(s): 529395075 Code(s): I89.0 - LYMPHEDEMA, NOT ELSEWHERE CLASSIFIED Status: Chronic Priority: Medium Current Visit: Yes (4) Malignant melanoma SNOMED Code(s): 472797965 Code(s): C43.9 - MALIGNANT MELANOMA OF SKIN, UNSPECIFIED Status: Chronic Priority: Medium Current Visit: Yes Qualifiers: Laterality: unspecified laterality (5) Rash and nonspecific skin eruption SNOMED Code(s): 499068886, 360963912 Code(s): R21 - RASH AND OTHER NONSPECIFIC SKIN ERUPTION Status: Acute Current Visit: Yes (6) Heme positive stool SNOMED Code(s): 63685963, 948473446 Code(s): R19.5 - OTHER FECAL ABNORMALITIES Status: Acute Current Visit: Yes (7) Physical deconditioning SNOMED Code(s): 51720934288717 Code(s): R53.81 - OTHER MALAISE Status: Acute Current Visit: Yes (8) Hypothyroidism SNOMED Code(s): 57056815 Code(s): E03.9 - HYPOTHYROIDISM, UNSPECIFIED Status: Acute Current Visit : Yes (9) Volume overload SNOMED Code(s): 30665889 Code(s): E87.70 - FLUID OVERLOAD, UNSPECIFIED Status: Acute Current Visit : Yes (10) Anasarca SNOMED Code(s): 422295791, 412995112 Code(s): R60.1 - GENERALIZED EDEMA Status: Acute Current Visit: Yes (11) UTI (urinary tract infection) SNOMED Code(s): 21488521 Code(s): N39.0 - URINARY TRACT INFECTION, SITE NOT SPECIFIED Status: Acute Current Visit: No Qualifiers: Urinary tract infection type: acute cystitis Hematuria presence: with hematuria Qualified Code(s): N30.01 - Acute cystitis with hematuria - Problem List Review Problem List Initiated/Reviewed/Updated: Yes - My Orders Last 24 Hours: My Active Orders 02/11/17 12:00 Insulin Regular, Human [NovoLIN R] See Protocol SUBCUT Q6H 02/11/17 14:00 MVI, Adult with Vitamin K [Infuvite Adult] 10 ml Famotidine [Pepcid] 40 mg Potassium Phosphates 81 mmole Albumin 25% [Flexbumin 25%] 12.5 gm AA 5%/ Calcium/D20W/Lytes [Clinimix E 01/03] 2,000 ml Fat Emulsion [Intralipid 20%] 250 ml Water For Injection,Sterile [Sterile Water for Injection] 1,000 ml IV Q24H Potassium Phosphates 27 mmole Sodium Chloride 0.45% 1,000 ml IV ASDIRECTED 02/11/17 21:24 Albuterol/Ipratropium [DuoNeb 3.0-0.5 MG/3 ML] 3 ml NEB Q4HRRT PRN 02/11/17 21:25 RT Aerosol Therapy [RC] ASDIRECTED 02/12/17 05:11 T3, REVERSE [REF] AM 02/12/17 05:19 FREE T3 [REF] AM 02/12/17 08:00 Furosemide [Lasix] 40 mg IVPUSH BIDDIURETIC 02/13/17 05:11 CBC WITH AUTO DIFF [HEME] AM COMPREHENSIVE METABOLIC PN,CMP [CHEM] AM LIPID PANEL [CHEM] AM MAGNESIUM [CHEM] AM - Assessment Assessment:: 02/07/[address] from February 04. In light of bowel wall thickening, will start flagyl IV I suspect that she has a mild ileus. Will start reglan IV scheduled and change to clear liquid diet As she has had very little po intake for over one week, will plan to start TPN if not improved in about 24 hours. Richard Mccracken MD - Plan Plan:: 81 yo female with dehydration/acute on chronic renal insufficiency and diarrhea with pmh of malignant melenoma, htn, hypothyroidism, and lymphedema. Dehydration\acute on chronic renal insufficiency: Prerenal Cr 1.8 today down from 2.1. Some bibasilar crackles on lung exam will not bolus IVF this am and keep fluids at 125. Strict I & O. CT abd showed moderate generalized anasarca increased from mild at admission closely watch fluids and may have to diurese some after kidney function back to normal. Borderline wall thickening within small bowel and colon and distended gallbladder most likely from gastroenteritis and lack of food intake. Heart murmur: Echo results pending UTI: Asymptomatic Levaquin day 3. Culture Kleb pneum highly sensitive including Levaquin Diarrhea: Most likely from her current Nivolumab and Ipilimumab for her malignant melenoma as diarrhea started when she started these meds. All stool cultures have been negative thus far. Seems to be resolving will monitory Malignant melenoma: Oncology team, Elizabeth Alexi, report her diarrhea and modifications recommended. Patient was scheduled to get 4th round of chemo today but not medically stable for treatment. htn: holding home medications, normotensive. Cont. to monitor and restart home meds as indicated. hypothyroidism: controlled will restart home meds. VTE: SCD stool positive for blood will stop pharmacologic therapy Dispo 2-3 days 02/06/2017: supportive care; planning likely discharge to [facility] thursday or Thursday. Richard Mccracken MD 02/08/2017: She has clinically deteriorated as far as level of generalized weakness. I see that she has no had recent imaging of the brain or chest. CXR , CT of brain, CT of chest ordered. TPN to be started today. repeat UA levaquin was for UTI flagyl is for possible concurrent colitis Will continue antibiotics for now but they are of doubtful benefit. time of disposition unclear at this time; I do not plan discharge to [facility] by Thursday or Thursday. Richard Mccracken 02/09/2017: hypokalemia, hyperchloremia and elevated serum creatinine noted. hyperglycemia noted. adjust insulin dosing with 10 units added to each bag of TPN; K replacement - will add some to TPN and give also via 40 meq bag in over 4 hours. add free water to TPN. Discussed with Naomie, pharmacist Discussed case with Dr Hairston. Will arrange follow up with oncology this week when visiting oncologists come to our facility ( thu or ). Richard Mccracken MD 02/10/2017 monitor electrolytes. oncology consult tomorrow pending frequent position changes K replacement intravenous levothyroxine reviewed I/Os : lasix today IV . reassess need for diuresis daily. Richard Mccracken MD 02/11/2017 will stop antibiotics for UTI I spoke with Dr Hernandez, oncology. She has no visceral tumor involvement. Mets include buttock and skin left foot. Will postpone chemotherapy for now anticipate Pedro sometime next week for strengthening continue TPN may consider taking NG off of suction tomorrow and allow cautious po feeds She is getting sips of fluids now for comfort she has marked volume overload as per I/O's lasix 60 mg now then 60 mg bid measure free T4 and T3 levels continue intravenous levothyroxine K replacement; tomorrow will decrease amount of IVF Richard Mccracken MD 02/12/2017 I notice that her NG output is decreasing. Will take NG tube off of intermittent suction and pull NG tube at 1800 if tolerates po intake today. Lasix is being started today bid. Previously it has been ordered day by day as needed. continue albumin , tpn, K , infusions. INsulin in TPN and sliding scale. CXR is am Richard Mccracken MD
[2017-02-12] MEDS: Furosemide 40 MG/4 ML VIAL IVPUSH SCH ×2 (08:15→13:35)
[2017-02-12] MEDS: Levothyroxine 100 MCG Vial IVPUSH SCH (09:09)
[2017-02-12] MEDS ORDERED: Sodium Chloride 0.9% with KCl 1,000 ML IV SCH (09:45)
[2017-02-12] MEDS ORDERED: Potassium Chloride 20 MEQ Tab.ER PO ONE (09:53)
[2017-02-12] MEDS ORDERED: POTASSIUM CHLORIDE IV SCH ×6 (14:00)
[2017-02-12] MEDS ORDERED: VITAMIN K IV SCH ×6 (14:00)
[2017-02-12] MEDS ORDERED: FAMOTIDINE IV SCH ×6 (14:00)
[2017-02-12] MEDS ORDERED: [UNRECOGNIZED DRUG - OTHER] IV SCH ×6 (14:00)
[2017-02-12] MEDS ORDERED: MVI IV SCH ×6 (14:00)
[2017-02-12] MEDS ORDERED: Furosemide 40 MG/4 ML VIAL IVPUSH ONE (14:49)
[2017-02-12] MEDS: Morphine 4 MG/ML Syringe IVPUSH PRN (18:44)
[2017-02-13] MEDS: Insulin Regular, Human 100 Units/ML 10 ML Vial SUBCUT SCH ×4 (00:43→18:49)
[2017-02-13 06:11] LABS: CHLORIDE,CL 115 mmol/L (98-110); SODIUM,NA 144 mmol/L (136-146)
[2017-02-13] MEDS: Furosemide 40 MG/4 ML VIAL IVPUSH SCH ×2 (07:59→14:41)
[2017-02-13] MEDS: Levothyroxine 75 MCG Tab PO SCH (08:28)
--- NOTE | 2017-02-13 10:20 | CR ---
EXAMINATION: Portable chest radiograph. HISTORY: Dyspnea. FINDINGS: The trachea is midline. The cardiomediastinal silhouette is stable. There is mild bibasilar atelecta sis and/or infiltrate. There is a small right and trace left pleural effusion.. There is a right-glenn ed portacatheter noted with tip in the SVC. Osseous structures appear osteopenic. IMPRESSION: 1. Mild bibasilar atelectasis and/or infiltrate. 2. Small right and trace left pleural effusion.
--- NOTE | 2017-02-13 11:29 | PCM.PN ---
- Review of Systems Systems Review Comment:: reports weakness and nausea, ate jello for breakfast. - Patient Data Vitals - most recent: Last Vital Signs Temp 36.8 C 02/13/17 08:00 Pulse 92 02/13/17 08:00 Resp 18 02/13/17 08:00 BP 118/57 L 02/13/17 08:00 Pulse Ox 92 L 02/13/17 08:00 Weight - most recent: 85.1 kg I&O - last 24 hours: Intake & Output 02/12/17 02/13/17 02/13/17 22:59 06:59 14:59 Intake Total 100 704 Output Total 5567 2310 Balance -7526 -4679 Lab Results last 24 hrs: Laboratory Results - last 24 hr 02/12/17 02/12/17 02/12/17 Range/Units 05:19 12:10 17:57 WBC (4.0-11.0) K/uL RBC (4.30-5.90) M/uL Hgb (12.0-16.0) g/dL Hct (36.0-46.0) % MCV (80.0-98.0) fL MCH (27.0-32.0) pg MCHC (31.0-37.0) g/dL RDW Std Deviation (28.0-62.0) fl RDW Coeff of Juan J (11.0-15.0) % Plt Count (150-400) K/uL Neut % (Auto) (48.0-80.0) % Lymph % (Auto) (16.0-40.0) % [place] % (Auto) (0.0-15.0) % Eos % (Auto) (0.0-7.0) % Baso % (Auto) (0.0-1.5) % Neut # (Auto) (1.4-5.7) K/uL Lymph # (Auto) (0.6-2.4) K/uL [place] # (Auto) (0.0-0.8) K/uL Eos # (Auto) (0.0-0.7) K/uL Baso # (Auto) (0.0-0.1) K/uL Neutrophils % (Manual) (48.0-80.0) % Band Neutrophils % % Lymphocytes % (Manual) (16.0-40.0) % Monocytes % (Manual) (0.0-15.0) % Nucleated RBC % /100WBC Absolute Seg Neuts Band Neutrophils # Lymphocytes # (Manual) Monocytes # (Manual) Nucleated RBCs # K/uL Sodium (136-146) mmol/L Potassium (3.5-5.1) mmol/L Chloride (98-110) mmol/L Carbon Dioxide (21-31) mmol/L BUN (6.0-23.0) mg/dL Creatinine (0.6-1.5) mg/dL Est Cr Clr Drug Dosing Estimated GFR (MDRD) ml/min Glucose (60-110) mg/dL POC Glucose 200 H 153 H (60-110) mg/dL Calcium (8.8-10.8) mg/dL Magnesium (1.5-2.3) mEq/L Total Bilirubin (0.1-1.5) mg/dL AST (5-40) IU/L ALT (8-54) IU/L Alkaline Phosphatase (40-150) Total Protein (6.0-8.0) g/dL Albumin (3.4-4.8) g/dL Globulin (2.0-3.5) g/dL Albumin/Globulin Ratio (1.3-2.8) Triglycerides (10-190) mg/dL Cholesterol (131-240) mg/dL LDL Cholesterol, Calc (60-180) mg/dL VLDL Cholesterol (5-55) mg/dL HDL Cholesterol (40-80) mg/dL Cholesterol/HDL Ratio (3.3-6.0) Free T3 pg/mL 1.71 L (2.50-3.90) pg/mL 02/13/17 02/13/17 02/13/17 Range/Units 00:32 05:25 05:25 WBC 6.15 (4.0-11.0) K/uL RBC 4.04 L (4.30-5.90) M/uL Hgb 12.0 (12.0-16.0) g/dL Hct 34.0 L (36.0-46.0) % MCV 84.2 (80.0-98.0) fL MCH 29.7 (27.0-32.0) pg MCHC 35.3 (31.0-37.0) g/dL RDW Std Deviation 54.0 (28.0-62.0) fl RDW Coeff of Juan J 18 H (11.0-15.0) % Plt Count 69 L (150-400) K/uL Neut % (Auto) 78.9 (48.0-80.0) % Lymph % (Auto) 12.8 L (16.0-40.0) % [place] % (Auto) 7.0 (0.0-15.0) % Eos % (Auto) 0.8 (0.0-7.0) % Baso % (Auto) 0.5 (0.0-1.5) % Neut # (Auto) 4.9 (1.4-5.7) K/uL Lymph # (Auto) 0.8 (0.6-2.4) K/uL [place] # (Auto) 0.4 (0.0-0.8) K/uL Eos # (Auto) 0.1 (0.0-0.7) K/uL Baso # (Auto) 0.0 (0.0-0.1) K/uL Neutrophils % (Manual) 66 (48.0-80.0) % Band Neutrophils % 11 % Lymphocytes % (Manual) 18 (16.0-40.0) % Monocytes % (Manual) 5 (0.0-15.0) % Nucleated RBC % 0.7 /100WBC Absolute Seg Neuts 4.1 Band Neutrophils # 0.7 Lymphocytes # (Manual) 1.1 Monocytes # (Manual) 0.3 Nucleated RBCs # 0 K/uL Sodium 144 (136-146) mmol/L Potassium 3.1 L (3.5-5.1) mmol/L Chloride 115 H (98-110) mmol/L Carbon Dioxide 18 L (21-31) mmol/L BUN 46 H (6.0-23.0) mg/dL Creatinine 1.2 (0.6-1.5) mg/dL Est Cr Clr Drug Dosing TNP Estimated GFR (MDRD) 43.3 ml/min Glucose 158 H (60-110) mg/dL POC Glucose 152 H (60-110) mg/dL Calcium 6.6 L (8.8-10.8) mg/dL Magnesium 1.8 (1.5-2.3) mEq/L Total Bilirubin 0.6 (0.1-1.5) mg/dL AST 15 (5-40) IU/L ALT 10 (8-54) IU/L Alkaline Phosphatase 59 (40-150) Total Protein 3.7 L (6.0-8.0) g/dL Albumin 1.7 L (3.4-4.8) g/dL Globulin 2.0 (2.0-3.5) g/dL Albumin/Globulin Ratio 0.9 L (1.3-2.8) Triglycerides 35 (10-190) mg/dL Cholesterol 66 L (131-240) mg/dL LDL Cholesterol, Calc 41 L (60-180) mg/dL VLDL Cholesterol 7 (5-55) mg/dL HDL Cholesterol 18 L (40-80) mg/dL Cholesterol/HDL Ratio 3.7 (3.3-6.0) Free T3 pg/mL (2.50-3.90) pg/mL 02/13/17 Range/Units 05:54 WBC (4.0-11.0) K/uL RBC (4.30-5.90) M/uL Hgb (12.0-16.0) g/dL Hct (36.0-46.0) % MCV (80.0-98.0) fL MCH (27.0-32.0) pg MCHC (31.0-37.0) g/dL RDW Std Deviation (28.0-62.0) fl RDW Coeff of Juan J (11.0-15.0) % Plt Count (150-400) K/uL Neut % (Auto) (48.0-80.0) % Lymph % (Auto) (16.0-40.0) % [place] % (Auto) (0.0-15.0) % Eos % (Auto) (0.0-7.0) % Baso % (Auto) (0.0-1.5) % Neut # (Auto) (1.4-5.7) K/uL Lymph # (Auto) (0.6-2.4) K/uL [place] # (Auto) (0.0-0.8) K/uL Eos # (Auto) (0.0-0.7) K/uL Baso # (Auto) (0.0-0.1) K/uL Neutrophils % (Manual) (48.0-80.0) % Band Neutrophils % % Lymphocytes % (Manual) (16.0-40.0) % Monocytes % (Manual) (0.0-15.0) % Nucleated RBC % /100WBC Absolute Seg Neuts Band Neutrophils # Lymphocytes # (Manual) Monocytes # (Manual) Nucleated RBCs # K/uL Sodium (136-146) mmol/L Potassium (3.5-5.1) mmol/L Chloride (98-110) mmol/L Carbon Dioxide (21-31) mmol/L BUN (6.0-23.0) mg/dL Creatinine (0.6-1.5) mg/dL Est Cr Clr Drug Dosing Estimated GFR (MDRD) ml/min Glucose (60-110) mg/dL POC Glucose 141 H (60-110) mg/dL Calcium (8.8-10.8) mg/dL Magnesium (1.5-2.3) mEq/L Total Bilirubin (0.1-1.5) mg/dL AST (5-40) IU/L ALT (8-54) IU/L Alkaline Phosphatase (40-150) Total Protein (6.0-8.0) g/dL Albumin (3.4-4.8) g/dL Globulin (2.0-3.5) g/dL Albumin/Globulin Ratio (1.3-2.8) Triglycerides (10-190) mg/dL Cholesterol (131-240) mg/dL LDL Cholesterol, Calc (60-180) mg/dL VLDL Cholesterol (5-55) mg/dL HDL Cholesterol (40-80) mg/dL Cholesterol/HDL Ratio (3.3-6.0) Free T3 pg/mL (2.50-3.90) pg/mL [place] Results last 24 hrs: Microbiology 02/10/17 12:10 Stool Culture - Final Stool / Feces - Stool, Liquid Campylobacter Antigen Assay - Final NEGATIVE CAMPYLOBACTER AG - Final NEGATIVE FOR SHIGA TOXIN 1 - Final NEGATIVE FOR SHIGA TOXIN 2 Med Orders - Current: Current Medications Albuterol/Ipratropium (Duoneb 3.0-0.5 Mg/3 Ml) 3 ml NEB Q4HRRT PRN PRN Reason: Shortness of Breath Last Admin: 02/11/17 21:42 Dose: 3 ml Furosemide (Lasix) 40 mg IVPUSH BIDDIURETIC EMILIO Last Admin: 02/13/17 07:59 Dose: 40 mg Multivitamins/Minerals 10 ml/Famotidine 40 mg/ Potassium Chloride 120 meq/ Albumin Human 12.5 gm/ Amino Ac/Electrol/Dextrose/Calcium/ Fat Emulsion Intravenous 2,374 mls @ 50 mls/hr IV Q24H [facility] Stop: 02/13/17 13:59 Last Admin: 02/12/17 14:28 Dose: 50 mls/hr Insulin Human Regular (Novolin R) 0 unit SUBCUT Q6H EMILIO PRN Reason: Protocol Last Admin: 02/13/17 06:10 Dose: Not Given Levothyroxine Sodium (Levothyroxine) 75 mcg PO ACBREAKFAST [facility] Last Admin: 02/13/17 08:28 Dose: 75 mcg Morphine Sulfate (Morphine) 0 mg IVPUSH Q1H PRN PRN Reason: Pain Last Admin: 02/12/17 18:44 Dose: 4 mg Ondansetron HCl (Zofran Odt) 4 mg PO Q4H PRN PRN Reason: nausea, able to take PO Last Admin: 02/07/17 15:37 Dose: 4 mg Discontinued Medications Acetaminophen (Tylenol) 650 mg PO Q4H PRN PRN Reason: Pain (Mild 1-3)/fever Aspirin (Halfprin) 81 mg PO BID [facility] Last Admin: 02/07/17 09:26 Dose: 81 mg Calcium Carbonate/Glycine (Tums) 1,000 mg PO DAILY ONE Stop: 02/02/17 17:20 Last Admin: 02/02/17 17:32 Dose: 1,000 mg Calcium Carbonate/Glycine (Tums) 1,000 mg PO ONETIME ONE Stop: 02/03/17 07:52 Last Admin: 02/03/17 08:24 Dose: 1,000 mg Calcium Carbonate/Glycine (Tums) 1,000 mg PO ONETIME ONE Stop: 02/04/17 09:37 Last Admin: 02/04/17 10:23 Dose: 1,000 mg Furosemide (Lasix) 60 mg IVPUSH NOW ONE Stop: 02/07/17 16:09 Last Admin: 02/07/17 16:47 Dose: 60 mg Furosemide (Lasix) 60 mg IVPUSH NOW ONE Stop: 02/10/17 11:16 Last Admin: 02/10/17 11:28 Dose: 60 mg Furosemide (Lasix) 60 mg IVPUSH NOW ONE Stop: 02/11/17 14:50 Last Admin: 02/11/17 16:39 Dose: 60 mg Furosemide (Lasix) 40 mg IVPUSH BID ONE Stop: 02/12/17 14:50 Furosemide (Lasix) 60 mg IVPUSH ONETIME ONE Stop: 02/11/17 21:28 Last Admin: 02/11/17 21:43 Dose: 60 mg Heparin Sodium (Porcine) (Heparin Sodium) 5,000 units SUBCUT Q8H [facility] Last Admin: 02/03/17 06:29 Dose: 5,000 units Sodium Chloride (Normal Saline) 1,000 mls @ 999 mls/hr IV STAT ONE Stop: 02/02/17 13:15 Last Admin: 02/02/17 12:51 Dose: 999 mls/hr Sodium Chloride (Normal Saline) 1,000 mls @ 100 [facility] Last Admin: 02/07/17 02:16 Dose: 125 mls/hr Levofloxacin/Dextrose 750 mg/ (Premix) 150 mls @ 100 mls/hr IV NOW ONE Stop: 02/03/17 06:14 Last Admin: 02/03/17 05:13 Dose: 100 mls/hr Levofloxacin/Dextrose (Levaquin In D5w 500 Mg/100 Ml) 100 mls @ 100 mls/hr IV Q48H [facility] Last Admin: 02/11/17 05:39 Dose: 100 mls/hr Sodium Chloride (Normal Saline) 500 mls @ 999 [facility]ls[facility] Last Admin: 02/03/17 08:37 Dose: 999 mls/hr Pantoprazole Sodium 40 mg/ (Sodium Chloride) 10 mls @ 300 mls/hr IVPUSH Q24H [facility] Last Admin: 02/07/17 14:52 Dose: 300 mls/hr Sodium Chloride (Normal Saline) 500 mls @ 999 [facility] Last Admin: 02/04/17 10:28 Dose: 999 mls/hr Magnesium Sulfate 4 gm/ Premix 100 mls @ 50 mls/hr IV ONETIME ONE Stop: 02/07/17 14:22 Last Admin: 02/07/17 12:54 Dose: 50 mls/hr Multivitamins/Minerals 10 ml/ (Sodium Chloride) 510 mls @ 510 mls/hr IV Q24H [facility] Last Admin: 02/07/17 15:22 Dose: Not Given Albumin Human (Flexbumin 25%) 12.5 gm in 50 mls @ 100 mls/hr IV ONETIME ONE Stop: 02/07/17 14:16 Last Admin: 02/07/17 14:58 Dose: 100 mls/hr Lactated Ringer's (Ringers, Lactated) 1,000 mls @ 100 mls/hr IV [facility] Last Infusion: 02/08/17 13:38 Dose: 50 mls/hr Metronidazole 500 mg/ Premix 100 mls @ 100 mls/hr IV Q6H [facility] Last Admin: 02/07/17 15:22 Dose: Not Given Multivitamins/Minerals 10 ml/ (Sodium Chloride) 510 mls @ 510 mls/hr IV Q24H [facility] Last Admin: 02/07/17 15:37 Dose: 510 mls/hr Metronidazole 500 mg/ Premix 100 mls @ 100 mls/hr IV Q6H [facility] Last Admin: 02/11/17 10:20 Dose: 100 mls/hr Pantoprazole Sodium 40 mg/ (Sodium Chloride) 10 mls @ 300 mls/hr IVPUSH Q12H [facility] Pantoprazole Sodium 40 mg/ (Sodium Chloride) 10 mls @ 300 mls/hr IVPUSH Q12H [facility] Last Admin: 02/08/17 16:10 Dose: Not Given Albumin Human (Flexbumin 25%) 12.5 gm in 50 mls @ 100 mls/hr IV ONETIME ONE Stop: 02/08/17 11:36 Last Admin: 02/08/17 12:16 Dose: 100 mls/hr Multivitamins/Minerals 10 ml/Famotidine 40 mg/ Amino Ac/Electrol/Dextrose/ Calcium/ Fat Emulsion Intravenous 2,264 mls @ 94.333 mls/hr IV Q24H [facility] Last Infusion: 02/08/17 17:35 Dose: 94 mls/hr Lactated Ringer's (Ringers, Lactated) 1,000 mls @ 50 mls/hr IV ASD[facility]RECTED [facility] Last Admin: 02/08/17 21:35 Dose: 50 mls/hr Multivitamins/Minerals 10 ml/Famotidine 40 mg/ Insulin Human Regular 10 unit/ Potassium Phosphate 27 mmole/Amino Ac/Electrol/Dextrose/Calcium/ Fat Emulsion Intravenous/ Sterile Water 3,273.1 mls @ 95 mls/hr IV Q24H [facility] Stop: 02/11/17 13:59 Last Admin: 02/10/17 15:00 Dose: 95 mls/hr Potassium Phosphate 27 mmole/ (Sodium Chloride) 509 mls @ 127.25 mls/hr IV ONETIME ONE Stop: 02/09/17 14:14 Last Admin: 02/09/17 11:44 Dose: 127.25 mls/hr Sodium Chloride (Sodium Chloride 0.45%) 1,000 mls @ 50 mls/hr IV ASDIRECTED EMILIO Sodium Chloride (Sodium Chloride 0.45%) 1,000 mls @ 50 mls/hr IV ASDIRECTED EMILIO Last Admin: 02/09/17 16:42 Dose: 50 mls/hr Potassium Chloride/Sodium Chloride (Normal Saline With 20 Meq Kcl) 1,000 mls @ 75 mls/hr IV [facility] Last Admin: 02/11/17 04:16 Dose: 75 mls/hr Magnesium Sulfate 2 gm/ Premix 50 mls @ 25 mls/hr IV ONETIME ONE Stop: 02/10/17 12:58 Last Admin: 02/10/17 11:28 Dose: 25 mls/hr Multivitamins/Minerals 10 ml/Famotidine 40 mg/ Potassium Phosphate 81 mmole/ Albumin Human 12.5 gm/ Amino Ac/Electrol/Dextrose/Calcium/ Fat Emulsion Intravenous/ Sterile Water 3,341 mls @ 96.971 mls/hr IV Q24H [facility] Stop: 02/12/17 13:59 Last Admin: 02/11/17 14:51 Dose: 96.971 mls/hr Potassium Phosphate 27 mmole/ (Sodium Chloride) 509 mls @ 127.25 mls/hr IV ONETIME [facility] Stop: 02/11/17 15:00 Last Admin: 02/11/17 12:13 Dose: 127.25 mls/hr Potassium Phosphate 27 mmole/ (Sodium Chloride) 1,009 mls @ 50 mls/hr IV [facility] Last Admin: 02/11/17 16:38 Dose: 50 mls/hr Potassium Chloride/Sodium Chloride (Normal Saline With 40 Meq Kcl) 1,000 mls @ 150 mls/hr IV [facility]RECT[facility] Stop: 02/12/17 16:24 Last Admin: 02/12/17 10:01 Dose: Not Given Insulin Human Regular (Novolin R) 0 unit SUBCUT Q6H [facility] PRN Reason: Protocol Last Admin: 02/11/17 07:26 Dose: 1 units Levothyroxine Sodium (Levothyroxine) 125 mcg PO ACBREAKFAST [facility] Last Admin: 02/07/17 06:46 Dose: 125 mcg Levothyroxine Sodium (Synthroid) 75 mcg IVPUSH DAILY [facility] Last Admin: 02/12/17 09:09 Dose: 75 mcg Loperamide HCl (Imodium) 2 mg PO Q4H PRN PRN Reason: Diarrhea Last Admin: 02/02/17 16:22 Dose: 2 mg Metoclopramide HCl (Reglan) 5 mg IVPUSH Q6H [facility] Last Admin: 02/07/17 12:54 Dose: 5 mg Multivitamins/Minerals (Infuvite Adult) 10 ml IV Q24H [facility] Last Admin: 02/07/17 13:35 Dose: Not Given Omeprazole (Omeprazole) 20 mg PO DAILY [facility] Last Admin: 02/07/17 09:26 Dose: 20 mg Potassium Chloride (Klor-Con M20) 40 meq PO DAILY ONE Stop: 02/03/17 07:51 Last Admin: 02/03/17 08:24 Dose: 40 meq Potassium Chloride (Klor-Con M20) 40 meq PO ONETIME ONE Stop: 02/04/17 07:56 Last Admin: 02/04/17 08:58 Dose: 40 meq Potassium Chloride (Potassium Chloride) 40 meq PO BID [facility] Stop: 02/06/17 23:59 Last Admin: 02/06/17 21:04 Dose: 40 meq Potassium Chloride (Klor-Con M20) 40 meq PO ONETIME ONE Stop: 02/12/17 09:54 Last Admin: 02/12/17 10:12 Dose: 40 meq Ropinirole HCl (Requip) 1 mg PO BEDTIME [facility] Last Admin: 02/06/17 21:06 Dose: 1 mg - Exam General: alert, cooperative Lungs: Clear to auscultation, Normal respiratory effort Cardiovascular: Regular Rate, Regular Rhythm Abdomen: bowel sounds present, soft, no tenderness, no distension Extremities: no edema Skin: warm, dry, intact - Problem List Review Problem List Initiated/Reviewed/Updated: Yes - My Orders Last 24 Hours: My Active Orders 02/13/17 11:24 Potassium Chloride [Klor-Con M20] 40 meq PO ONETIME ONE 02/13/17 11:30 Dronabinol [Marinol] 2.5 mg PO BID - Plan Plan:: 81 yo female with dehydration/acute on chronic renal insufficiency and diarrhea with pmh of malignant melenoma, htn, hypothyroidism, and lymphedema. admitted with UTI and now ileus. On TPN, NG tube removed, will continue to encourage oral intake. Discharge pending assisted placement.
[2017-02-13] MEDS ORDERED: Potassium Chloride 20 MEQ Tab.ER PO ONE (11:30)
[2017-02-13] MEDS: Dronabinol 2.5 MG Cap PO SCH ×2 (12:20→21:59)
[2017-02-13] MEDS: Morphine 4 MG/ML Syringe IVPUSH PRN (12:48)
[2017-02-13] MEDS: FAMOTIDINE IV SCH ×6 (14:31)
[2017-02-13] MEDS: POTASSIUM CHLORIDE IV SCH ×6 (14:31)
[2017-02-13] MEDS: VITAMIN K IV SCH ×6 (14:31)
[2017-02-13] MEDS: [UNRECOGNIZED DRUG - OTHER] IV SCH ×6 (14:31)
[2017-02-13] MEDS: MVI IV SCH ×6 (14:31)
[2017-02-14] MEDS: Insulin Regular, Human 100 Units/ML 10 ML Vial SUBCUT SCH ×4 (00:11→17:46)
[2017-02-14] MEDS: Levothyroxine 75 MCG Tab PO SCH (06:40)
[2017-02-14 07:05] LABS: CHLORIDE,CL 117 mmol/L (98-110); SODIUM,NA 144 mmol/L (136-146)
[2017-02-14] MEDS: Dronabinol 2.5 MG Cap PO SCH ×2 (08:00→21:50)
[2017-02-14] MEDS: Furosemide 40 MG/4 ML VIAL IVPUSH SCH ×2 (08:00→13:50)
[2017-02-14] MEDS ORDERED: Potassium Chloride 20 MEQ Tab.ER PO ONE (09:23)
--- NOTE | 2017-02-14 12:06 | PCM.PN ---
- Review of Systems Systems Review Comment:: eating orange camilla - Patient Data Vitals - most recent: Last Vital Signs Temp 36.3 C 02/14/17 08:00 Pulse 95 02/14/17 08:00 Resp 16 02/14/17 08:00 BP 111/55 L 02/14/17 08:00 Pulse Ox 93 L 02/14/17 08:00 Weight - most recent: 86.2 kg I&O - last 24 hours: Intake & Output 02/13/17 02/14/17 02/14/17 22:59 06:59 14:59 Intake Total 550 866 Output Total 1560 925 Balance -1010 -59 Lab Results last 24 hrs: Laboratory Results - last 24 hr 02/13/17 02/13/17 02/14/17 Range/Units 18:42 23:57 06:19 WBC (4.0-11.0) K/uL RBC (4.30-5.90) M/uL Hgb (12.0-16.0) g/dL Hct (36.0-46.0) % MCV (80.0-98.0) fL MCH (27.0-32.0) pg MCHC (31.0-37.0) g/dL RDW Std Deviation (28.0-62.0) fl RDW Coeff of Juan J (11.0-15.0) % Plt Count (150-400) K/uL MPV (7.40-12.00) fL Add Manual Diff Neutrophils % (Manual) (48.0-80.0) % Band Neutrophils % % Lymphocytes % (Manual) (16.0-40.0) % Monocytes % (Manual) (0.0-15.0) % Basophils % (Manual) (0.0-1.5) % Nucleated RBC % /100WBC Absolute Seg Neuts Band Neutrophils # Lymphocytes # (Manual) Monocytes # (Manual) Basophils # (Manual) Nucleated RBCs # K/uL Sodium (136-146) mmol/L Potassium (3.5-5.1) mmol/L Chloride (98-110) mmol/L Carbon Dioxide (21-31) mmol/L BUN (6.0-23.0) mg/dL Creatinine (0.6-1.5) mg/dL Est Cr Clr Drug Dosing Estimated GFR (MDRD) ml/min Glucose (60-110) mg/dL POC Glucose 171 H 185 H 218 H (60-110) mg/dL Calcium (8.8-10.8) mg/dL 02/14/17 02/14/17 Range/Units 06:35 06:35 WBC 7.60 (4.0-11.0) K/uL RBC 3.99 L (4.30-5.90) M/uL Hgb 11.9 L (12.0-16.0) g/dL Hct 34.0 L (36.0-46.0) % MCV 85.2 (80.0-98.0) fL MCH 29.8 (27.0-32.0) pg MCHC 35.0 (31.0-37.0) g/dL RDW Std Deviation 55.1 (28.0-62.0) fl RDW Coeff of Juan J 18 H (11.0-15.0) % Plt Count 80 L (150-400) K/uL MPV 12.50 H (7.40-12.00) fL Add Manual Diff YES Neutrophils % (Manual) 72 (48.0-80.0) % Band Neutrophils % 11 % Lymphocytes % (Manual) 13 L (16.0-40.0) % Monocytes % (Manual) 3 (0.0-15.0) % Basophils % (Manual) 1 (0.0-1.5) % Nucleated RBC % 0.0 /100WBC Absolute Seg Neuts 5.5 Band Neutrophils # 0.8 Lymphocytes # (Manual) 1.0 Monocytes # (Manual) 0.2 Basophils # (Manual) 0 Nucleated RBCs # 0 K/uL Sodium 144 (136-146) mmol/L Potassium 3.1 L (3.5-5.1) mmol/L Chloride 117 H (98-110) mmol/L Carbon Dioxide 17 L (21-31) mmol/L BUN 48 H (6.0-23.0) mg/dL Creatinine 1.2 (0.6-1.5) mg/dL Est Cr Clr Drug Dosing TNP Estimated GFR (MDRD) 43.3 ml/min Glucose 183 H (60-110) mg/dL POC Glucose (60-110) mg/dL Calcium 6.8 L (8.8-10.8) mg/dL Med Orders - Current: Current Medications Albuterol/Ipratropium (Duoneb 3.0-0.5 Mg/3 Ml) 3 ml NEB Q4HRRT PRN PRN Reason: Shortness of Breath Last Admin: 02/11/17 21:42 Dose: 3 ml Dronabinol (Marinol) 2.5 mg PO BID [facility] Last Admin: 02/14/17 08:00 Dose: 2.5 mg Furosemide (Lasix) 40 mg IVPUSH BIDDIURETIC [facility] Last Admin: 02/14/17 08:00 Dose: 40 mg Multivitamins/Minerals 10 ml/Famotidine 40 mg/ Potassium Chloride 120 meq/ Albumin Human 12.5 gm/ Amino Ac/Electrol/Dextrose/Calcium/ Fat Emulsion Intravenous 2,374 mls @ 50 mls/hr IV Q24H [facility] Last Admin: 02/13/17 14:31 Dose: 50 mls/hr Insulin Human Regular (Novolin R) 0 unit SUBCUT Q6H [facility] PRN Reason: Protocol Last Admin: 02/14/17 06:39 Dose: 4 units Levothyroxine Sodium (Levothyroxine) 75 mcg PO ACBREAKFAST [facility] Last Admin: 02/14/17 06:40 Dose: 75 mcg Morphine Sulfate (Morphine) 0 mg IVPUSH Q1H PRN PRN Reason: Pain Last Admin: 02/13/17 12:48 Dose: 4 mg Ondansetron HCl (Zofran Odt) 4 mg PO Q4H PRN PRN Reason: nausea, able to take PO Last Admin: 02/07/17 15:37 Dose: 4 mg Discontinued Medications Acetaminophen (Tylenol) 650 mg PO Q4H PRN PRN Reason: Pain (Mild 1-3)/fever Aspirin (Halfprin) 81 mg PO BID [facility] Last Admin: 02/07/17 09:26 Dose: 81 mg Calcium Carbonate/Glycine (Tums) 1,000 mg PO DAILY ONE Stop: 02/02/17 17:20 Last Admin: 02/02/17 17:32 Dose: 1,000 mg Calcium Carbonate/Glycine (Tums) 1,000 mg PO ONETIME ONE Stop: 02/03/17 07:52 Last Admin: 02/03/17 08:24 Dose: 1,000 mg Calcium Carbonate/Glycine (Tums) 1,000 mg PO ONETIME ONE Stop: 02/04/17 09:37 Last Admin: 02/04/17 10:23 Dose: 1,000 mg Furosemide (Lasix) 60 mg IVPUSH NOW ONE Stop: 02/07/17 16:09 Last Admin: 02/07/17 16:47 Dose: 60 mg Furosemide (Lasix) 60 mg IVPUSH NOW ONE Stop: 02/10/17 11:16 Last Admin: 02/10/17 11:28 Dose: 60 mg Furosemide (Lasix) 60 mg IVPUSH NOW ONE Stop: 02/11/17 14:50 Last Admin: 02/11/17 16:39 Dose: 60 mg Furosemide (Lasix) 40 mg IVPUSH BID ONE Stop: 02/12/17 14:50 Furosemide (Lasix) 60 mg IVPUSH ONETIME ONE Stop: 02/11/17 21:28 Last Admin: 02/11/17 21:43 Dose: 60 mg Heparin Sodium (Porcine) (Heparin Sodium) 5,000 units SUBCUT Q8H [facility] Last Admin: 02/03/17 06:29 Dose: 5,000 units Sodium Chloride (Normal Saline) 1,000 mls @ 999 mls/hr IV STAT ONE Stop: 02/02/17 13:15 Last Admin: 02/02/17 12:51 Dose: 999 mls/hr Sodium Chloride (Normal Saline) 1,000 mls @ 100 mls/hr IV ASDIRECTED [facility] Last Admin: 02/07/17 02:16 Dose: 125 mls/hr Levofloxacin/Dextrose 750 mg/ (Premix) 150 mls @ 100 mls/hr IV NOW ONE Stop: 02/03/17 06:14 Last Admin: 02/03/17 05:13 Dose: 100 mls/hr Levofloxacin/Dextrose (Levaquin In D5w 500 Mg/100 Ml) 100 mls @ 100 mls/hr IV Q48H [facility] Last Admin: 02/11/17 05:39 Dose: 100 mls/hr Sodium Chloride (Normal Saline) 500 mls @ 999 mls/hr IV ASDIRECTED [facility] Last Admin: 02/03/17 08:37 Dose: 999 mls/hr Pantoprazole Sodium 40 mg/ (Sodium Chloride) 10 mls @ 300 mls/hr IVPUSH Q24H [facility] Last Admin: 02/07/17 14:52 Dose: 300 mls/hr Sodium Chloride (Normal Saline) 500 mls @ 999 mls/hr IV ASDIRECTED [facility] Last Admin: 02/04/17 10:28 Dose: 999 mls/hr Magnesium Sulfate 4 gm/ Premix 100 mls @ 50 mls/hr IV ONETIME ONE Stop: 02/07/17 14:22 Last Admin: 02/07/17 12:54 Dose: 50 mls/hr Multivitamins/Minerals 10 ml/ (Sodium Chloride) 510 mls @ 510 mls/hr IV Q24H [facility] Last Admin: 02/07/17 15:22 Dose: Not Given Albumin Human (Flexbumin 25%) 12.5 gm in 50 mls @ 100 mls/hr IV ONETIME ONE Stop: 02/07/17 14:16 Last Admin: 02/07/17 14:58 Dose: 100 mls/hr Lactated Ringer's (Ringers, Lactated) 1,000 mls @ 100 mls/hr IV ASDIRECTED [facility] Last Infusion: 02/08/17 13:38 Dose: 50 mls/hr Metronidazole 500 mg/ Premix 100 mls @ 100 mls/hr IV Q6H [facility] Last Admin: 02/07/17 15:22 Dose: Not Given Multivitamins/Minerals 10 ml/ (Sodium Chloride) 510 mls @ 510 mls/hr IV Q24H [facility] Last Admin: 02/07/17 15:37 Dose: 510 mls/hr Metronidazole 500 mg/ Premix 100 mls @ 100 mls/hr IV Q6H [facility] Last Admin: 02/11/17 10:20 Dose: 100 mls/hr Pantoprazole Sodium 40 mg/ (Sodium Chloride) 10 mls @ 300 mls/hr IVPUSH Q12H [facility] Pantoprazole Sodium 40 mg/ (Sodium Chloride) 10 mls @ 300 mls/hr IVPUSH Q12H [facility] Last Admin: 02/08/17 16:10 Dose: Not Given Albumin Human (Flexbumin 25%) 12.5 gm in 50 mls @ 100 mls/hr IV ONETIME ONE Stop: 02/08/17 11:36 Last Admin: 02/08/17 12:16 Dose: 100 mls/hr Multivitamins/Minerals 10 ml/Famotidine 40 mg/ Amino Ac/Electrol/Dextrose/ Calcium/ Fat Emulsion Intravenous 2,264 mls @ 94.333 mls/hr IV Q24H [facility] Last Infusion: 02/08/17 17:35 Dose: 94 mls/hr Lactated Ringer's (Ringers, Lactated) 1,000 mls @ 50 mls/hr IV ASDIRECTED [facility] Last Admin: 02/08/17 21:35 Dose: 50 mls/hr Multivitamins/Minerals 10 ml/Famotidine 40 mg/ Insulin Human Regular 10 unit/ Potassium Phosphate 27 mmole/Amino Ac/Electrol/Dextrose/Calcium/ Fat Emulsion Intravenous/ Sterile Water 3,273.1 mls @ 95 mls/hr IV Q24H [facility] Stop: 02/11/17 13:59 Last Admin: 02/10/17 15:00 Dose: 95 mls/hr Potassium Phosphate 27 mmole/ (Sodium Chloride) 509 mls @ 127.25 mls/hr IV ONETIME ONE Stop: 02/09/17 14:14 Last Admin: 02/09/17 11:44 Dose: 127.25 mls/hr Sodium Chloride (Sodium Chloride 0.45%) 1,000 mls @ 50 mls/hr IV ASDIRECTED [facility] Sodium Chloride (Sodium Chloride 0.45%) 1,000 mls @ 50 mls/hr IV ASDIRECTED [facility] Last Admin: 02/09/17 16:42 Dose: 50 mls/hr Potassium Chloride/Sodium Chloride (Normal Saline With 20 Meq Kcl) 1,000 mls @ 75 mls/hr IV ASDIRECTED [facility] Last Admin: 02/11/17 04:16 Dose: 75 mls/hr Magnesium Sulfate 2 gm/ Premix 50 mls @ 25 mls/hr IV ONETIME ONE Stop: 02/10/17 12:58 Last Admin: 02/10/17 11:28 Dose: 25 mls/hr Multivitamins/Minerals 10 ml/Famotidine 40 mg/ Potassium Phosphate 81 mmole/ Albumin Human 12.5 gm/ Amino Ac/Electrol/Dextrose/Calcium/ Fat Emulsion Intravenous/ Sterile Water 3,341 mls @ 96.971 mls/hr IV Q24H [facility] Stop: 02/12/17 13:59 Last Admin: 02/11/17 14:51 Dose: 96.971 mls/hr Potassium Phosphate 27 mmole/ (Sodium Chloride) 509 mls @ 127.25 mls/hr IV ONETIME [facility] Stop: 02/11/17 15:00 Last Admin: 02/11/17 12:13 Dose: 127.25 mls/hr Potassium Phosphate 27 mmole/ (Sodium Chloride) 1,009 mls @ 50 mls/hr IV ASDIRECTED [facility] Last Admin: 02/11/17 16:38 Dose: 50 mls/hr Potassium Chloride/Sodium Chloride (Normal Saline With 40 Meq Kcl) 1,000 mls @ 150 mls/hr IV ASDIRECTED [facility] Stop: 02/12/17 16:24 Last Admin: 02/12/17 10:01 Dose: Not Given Multivitamins/Minerals 10 ml/Famotidine 40 mg/ Potassium Chloride 120 meq/ Albumin Human 12.5 gm/ Amino Ac/Electrol/Dextrose/Calcium/ Fat Emulsion Intravenous 2,374 mls @ 50 mls/hr IV Q24H [facility] Stop: 02/13/17 13:59 Last Admin: 02/12/17 14:28 Dose: 50 mls/hr Insulin Human Regular (Novolin R) 0 unit SUBCUT Q6H [facility] PRN Reason: Protocol Last Admin: 02/11/17 07:26 Dose: 1 units Levothyroxine Sodium (Levothyroxine) 125 mcg PO ACBREAKFAST [facility] Last Admin: 02/07/17 06:46 Dose: 125 mcg Levothyroxine Sodium (Synthroid) 75 mcg IVPUSH DAILY [facility] Last Admin: 02/12/17 09:09 Dose: 75 mcg Loperamide HCl (Imodium) 2 mg PO Q4H PRN PRN Reason: Diarrhea Last Admin: 02/02/17 16:22 Dose: 2 mg Metoclopramide HCl (Reglan) 5 mg IVPUSH Q6H [facility] Last Admin: 02/07/17 12:54 Dose: 5 mg Multivitamins/Minerals (Infuvite Adult) 10 ml IV Q24H [facility] Last Admin: 02/07/17 13:35 Dose: Not Given Omeprazole (Omeprazole) 20 mg PO DAILY [facility] Last Admin: 02/07/17 09:26 Dose: 20 mg Potassium Chloride (Klor-Con M20) 40 meq PO DAILY ONE Stop: 02/03/17 07:51 Last Admin: 02/03/17 08:24 Dose: 40 meq Potassium Chloride (Klor-Con M20) 40 meq PO ONETIME ONE Stop: 02/04/17 07:56 Last Admin: 02/04/17 08:58 Dose: 40 meq Potassium Chloride (Potassium Chloride) 40 meq PO BID [facility] Stop: 02/06/17 23:59 Last Admin: 02/06/17 21:04 Dose: 40 meq Potassium Chloride (Klor-Con M20) 40 meq PO ONETIME ONE Stop: 02/12/17 09:54 Last Admin: 02/12/17 10:12 Dose: 40 meq Potassium Chloride (Klor-Con M20) 40 meq PO ONETIME ONE Stop: 02/13/17 11:31 Last Admin: 02/13/17 12:20 Dose: 40 meq Potassium Chloride (Klor-Con M20) 40 meq PO ONETIME ONE Stop: 02/14/17 09:24 Last Admin: 02/14/17 09:36 Dose: 40 meq Ropinirole HCl (Requip) 1 mg PO BEDTIME [facility] Last Admin: 02/06/17 21:06 Dose: 1 mg - Exam General: alert, cooperative, no acute distress Lungs: Clear to auscultation, Normal respiratory effort Cardiovascular: Regular Rate, Regular Rhythm Abdomen: bowel sounds present, soft, no tenderness, no distension Extremities: edema (+2 edema) Skin: warm, dry, intact Neurological: no new focal deficit - Problem List Review Problem List Initiated/Reviewed/Updated: Yes - My Orders Last 24 Hours: My Active Orders 02/13/17 11:30 Dronabinol [Marinol] 2.5 mg PO BID 02/14/17 Dinner Advance Diet Instructions [DIET] 02/15/17 05:11 CBC WITH AUTO DIFF [HEME] AM COMPREHENSIVE METABOLIC PN,CMP [CHEM] AM MAGNESIUM [CHEM] AM PHOSPHORUS [CHEM] AM 02/16/17 05:11 CBC WITH AUTO DIFF [HEME] AM COMPREHENSIVE METABOLIC PN,CMP [CHEM] AM MAGNESIUM [CHEM] AM PHOSPHORUS [CHEM] AM 02/17/17 05:11 CBC WITH AUTO DIFF [HEME] AM COMPREHENSIVE METABOLIC PN,CMP [CHEM] AM MAGNESIUM [CHEM] AM PHOSPHORUS [CHEM] AM 02/18/17 05:11 CBC WITH AUTO DIFF [HEME] AM MAGNESIUM [CHEM] AM PHOSPHORUS [CHEM] AM 02/19/17 05:11 CBC WITH AUTO DIFF [HEME] AM MAGNESIUM [CHEM] AM PHOSPHORUS [CHEM] AM 02/20/17 05:11 CBC WITH AUTO DIFF [HEME] AM MAGNESIUM [CHEM] AM PHOSPHORUS [CHEM] AM - Plan Plan:: 81 yo female with dehydration/acute on chronic renal insufficiency and diarrhea with pmh of malignant melenoma, htn, hypothyroidism, and lymphedema. admitted with UTI and ileus. On TPN until improvement in oral intake, will continue to encourage oral intake. marinol started. Discharge pending [facility] placement.
[2017-02-14] MEDS: [UNRECOGNIZED DRUG - OTHER] IV SCH ×6 (13:51)
[2017-02-14] MEDS: MVI IV SCH ×6 (13:51)
[2017-02-14] MEDS: FAMOTIDINE IV SCH ×6 (13:51)
[2017-02-14] MEDS: VITAMIN K IV SCH ×6 (13:51)
[2017-02-14] MEDS: POTASSIUM CHLORIDE IV SCH ×6 (13:51)
[2017-02-14] MEDS: Ondansetron 4 MG Tab.DIS PO PRN (21:58)
[2017-02-15] MEDS: Levothyroxine 75 MCG Tab PO SCH (06:42)
[2017-02-15] MEDS: Insulin Regular, Human 100 Units/ML 10 ML Vial SUBCUT SCH ×3 (06:42→16:37)
[2017-02-15 06:54] LABS: CHLORIDE,CL 118 mmol/L (98-110); SODIUM,NA 145 mmol/L (136-146)
[2017-02-15] MEDS: Ondansetron 4 MG Tab.DIS PO PRN (07:14)
[2017-02-15] MEDS: Furosemide 40 MG/4 ML VIAL IVPUSH SCH ×2 (07:59→14:01)
[2017-02-15] MEDS: Dronabinol 2.5 MG Cap PO SCH ×2 (07:59→21:00)
[2017-02-15] MEDS: Morphine 4 MG/ML Syringe IVPUSH PRN (08:13)
[2017-02-15] MEDS ORDERED: Potassium Chloride 20 MEQ Tab.ER PO ONE (11:00)
--- NOTE | 2017-02-15 13:09 | PCM.PN ---
- Review of Systems Systems Review Comment:: reports fatigue, ate jello and paramjit yesterday - Patient Data Vitals - most recent: Last Vital Signs Temp 36.3 C 02/15/17 08:00 Pulse 93 02/15/17 08:00 Resp 16 02/15/17 08:00 BP 104/53 L 02/15/17 08:00 Pulse Ox 95 02/15/17 08:00 Weight - most recent: 88.2 kg I&O - last 24 hours: Intake & Output 02/14/17 02/15/17 02/15/17 22:59 06:59 14:59 Intake Total 566 698 Output Total 825 Balance 566 -127 Lab Results last 24 hrs: Laboratory Results - last 24 hr 02/14/17 02/14/17 02/15/17 Range/Units 13:39 17:39 05:40 WBC 9.27 (4.0-11.0) K/uL RBC 4.01 L (4.30-5.90) M/uL Hgb 12.0 (12.0-16.0) g/dL Hct 34.7 L (36.0-46.0) % MCV 86.5 (80.0-98.0) fL MCH 29.9 (27.0-32.0) pg MCHC 34.6 (31.0-37.0) g/dL RDW Std Deviation 56.7 (28.0-62.0) fl RDW Coeff of Juan J 19 H (11.0-15.0) % Plt Count 101 L (150-400) K/uL MPV 12.10 H (7.40-12.00) fL Add Manual Diff YES Neutrophils % (Manual) 72 (48.0-80.0) % Band Neutrophils % 8 % Lymphocytes % (Manual) 13 L (16.0-40.0) % Monocytes % (Manual) 5 (0.0-15.0) % Eosinophils % (Manual) 2 (0.0-7.0) % Nucleated RBC % 0.0 /100WBC Absolute Seg Neuts 6.7 Band Neutrophils # 0.7 Lymphocytes # (Manual) 1.2 Monocytes # (Manual) 0.5 Eosinophils # (Manual) 0.2 Nucleated RBCs # 0 K/uL Sodium (136-146) mmol/L Potassium (3.5-5.1) mmol/L Chloride (98-110) mmol/L Carbon Dioxide (21-31) mmol/L BUN (6.0-23.0) mg/dL Creatinine (0.6-1.5) mg/dL Est Cr Clr Drug Dosing Estimated GFR (MDRD) ml/min Glucose (60-110) mg/dL POC Glucose 178 H 255 H (60-110) mg/dL Calcium (8.8-10.8) mg/dL Phosphorus (2.4-4.7) mg/dL Magnesium (1.5-2.3) mEq/L Total Bilirubin (0.1-1.5) mg/dL AST (5-40) IU/L ALT (8-54) IU/L Alkaline Phosphatase (40-150) Total Protein (6.0-8.0) g/dL Albumin (3.4-4.8) g/dL Globulin (2.0-3.5) g/dL Albumin/Globulin Ratio (1.3-2.8) 02/15/17 02/15/17 02/15/17 Range/Units 05:40 06:13 11:37 WBC (4.0-11.0) K/uL RBC (4.30-5.90) M/uL Hgb (12.0-16.0) g/dL Hct (36.0-46.0) % MCV (80.0-98.0) fL MCH (27.0-32.0) pg MCHC (31.0-37.0) g/dL RDW Std Deviation (28.0-62.0) fl RDW Coeff of Juan J (11.0-15.0) % Plt Count (150-400) K/uL MPV (7.40-12.00) fL Add Manual Diff Neutrophils % (Manual) (48.0-80.0) % Band Neutrophils % % Lymphocytes % (Manual) (16.0-40.0) % Monocytes % (Manual) (0.0-15.0) % Eosinophils % (Manual) (0.0-7.0) % Nucleated RBC % /100WBC Absolute Seg Neuts Band Neutrophils # Lymphocytes # (Manual) Monocytes # (Manual) Eosinophils # (Manual) Nucleated RBCs # K/uL Sodium 145 (136-146) mmol/L Potassium 3.3 L (3.5-5.1) mmol/L Chloride 118 H (98-110) mmol/L Carbon Dioxide 16 L (21-31) mmol/L BUN 49 H (6.0-23.0) mg/dL Creatinine 1.3 (0.6-1.5) mg/dL Est Cr Clr Drug Dosing TNP Estimated GFR (MDRD) 39.5 ml/min Glucose 175 H (60-110) mg/dL POC Glucose 188 H 184 H (60-110) mg/dL Calcium 7.7 L (8.8-10.8) mg/dL Phosphorus 3.5 (2.4-4.7) mg/dL Magnesium 1.6 (1.5-2.3) mEq/L Total Bilirubin 0.6 (0.1-1.5) mg/dL AST 13 (5-40) IU/L ALT 9 (8-54) IU/L Alkaline Phosphatase 54 (40-150) Total Protein 4.4 L (6.0-8.0) g/dL Albumin 2.0 L (3.4-4.8) g/dL Globulin 2.4 (2.0-3.5) g/dL Albumin/Globulin Ratio 0.8 L (1.3-2.8) Med Orders - Current: Current Medications Acetaminophen (Tylenol) 650 mg PO Q4H PRN PRN Reason: Pain Albuterol/Ipratropium (Duoneb 3.0-0.5 Mg/3 Ml) 3 ml NEB Q4HRRT PRN PRN Reason: Shortness of Breath Last Admin: 02/11/17 21:42 Dose: 3 ml Dronabinol (Marinol) 2.5 mg PO BID [facility] Last Admin: 02/15/17 07:59 Dose: 2.5 mg Furosemide (Lasix) 40 mg IVPUSH BIDDIURETIC [facility] Last Admin: 02/15/17 07:59 Dose: 40 mg Multivitamins/Minerals 10 ml/Famotidine 40 mg/ Potassium Chloride 120 meq/ Albumin Human 12.5 gm/ Amino Ac/Electrol/Dextrose/Calcium/ Fat Emulsion Intravenous 2,374 mls @ 50 mls/hr IV Q24H [facility] Last Admin: 02/14/17 13:51 Dose: 50 mls/hr Insulin Human Regular (Novolin R) 0 unit SUBCUT TIDAC [facility] PRN Reason: Protocol Last Admin: 02/15/17 11:43 Dose: 2 units Levothyroxine Sodium (Levothyroxine) 75 mcg PO ACBREAKFAST [facility] Last Admin: 02/15/17 06:42 Dose: 75 mcg Ondansetron HCl (Zofran Odt) 4 mg PO Q4H PRN PRN Reason: nausea, able to take PO Last Admin: 02/15/17 07:14 Dose: 4 mg Discontinued Medications Acetaminophen (Tylenol) 650 mg PO Q4H PRN PRN Reason: Pain (Mild 1-3)/fever Aspirin (Halfprin) 81 mg PO BID [facility] Last Admin: 02/07/17 09:26 Dose: 81 mg Calcium Carbonate/Glycine (Tums) 1,000 mg PO DAILY ONE Stop: 02/02/17 17:20 Last Admin: 02/02/17 17:32 Dose: 1,000 mg Calcium Carbonate/Glycine (Tums) 1,000 mg PO ONETIME ONE Stop: 02/03/17 07:52 Last Admin: 02/03/17 08:24 Dose: 1,000 mg Calcium Carbonate/Glycine (Tums) 1,000 mg PO ONETIME ONE Stop: 02/04/17 09:37 Last Admin: 02/04/17 10:23 Dose: 1,000 mg Furosemide (Lasix) 60 mg IVPUSH NOW ONE Stop: 02/07/17 16:09 Last Admin: 02/07/17 16:47 Dose: 60 mg Furosemide (Lasix) 60 mg IVPUSH NOW ONE Stop: 02/10/17 11:16 Last Admin: 02/10/17 11:28 Dose: 60 mg Furosemide (Lasix) 60 mg IVPUSH NOW ONE Stop: 02/11/17 14:50 Last Admin: 02/11/17 16:39 Dose: 60 mg Furosemide (Lasix) 40 mg IVPUSH BID ONE Stop: 02/12/17 14:50 Furosemide (Lasix) 60 mg IVPUSH ONETIME ONE Stop: 02/11/17 21:28 Last Admin: 02/11/17 21:43 Dose: 60 mg Heparin Sodium (Porcine) (Heparin Sodium) 5,000 units SUBCUT Q8H [facility] Last Admin: 02/03/17 06:29 Dose: 5,000 units Sodium Chloride (Normal Saline) 1,000 mls @ 999 mls/hr IV STAT ONE Stop: 02/02/17 13:15 Last Admin: 02/02/17 12:51 Dose: 999 mls/hr Sodium Chloride (Normal Saline) 1,000 mls @ 100 mls/hr IV ASDIRECTED [facility] Last Admin: 02/07/17 02:16 Dose: 125 mls/hr Levofloxacin/Dextrose 750 mg/ (Premix) 150 mls @ 100 mls/hr IV NOW ONE Stop: 02/03/17 06:14 Last Admin: 02/03/17 05:13 Dose: 100 mls/hr Levofloxacin/Dextrose (Levaquin In D5w 500 Mg/100 Ml) 100 mls @ 100 mls/hr IV Q48H [facility] Last Admin: 02/11/17 05:39 Dose: 100 mls/hr Sodium Chloride (Normal Saline) 500 mls @ 999 mls/hr IV ASDIRECTED [facility] Last Admin: 02/03/17 08:37 Dose: 999 mls/hr Pantoprazole Sodium 40 mg/ (Sodium Chloride) 10 mls @ 300 mls/hr IVPUSH Q24H [facility] Last Admin: 02/07/17 14:52 Dose: 300 mls/hr Sodium Chloride (Normal Saline) 500 mls @ 999 mls/hr IV ASDIRECTED [facility] Last Admin: 02/04/17 10:28 Dose: 999 mls/hr Magnesium Sulfate 4 gm/ Premix 100 mls @ 50 mls/hr IV ONETIME ONE Stop: 02/07/17 14:22 Last Admin: 02/07/17 12:54 Dose: 50 mls/hr Multivitamins/Minerals 10 ml/ (Sodium Chloride) 510 mls @ 510 mls/hr IV Q24H [facility] Last Admin: 02/07/17 15:22 Dose: Not Given Albumin Human (Flexbumin 25%) 12.5 gm in 50 mls @ 100 mls/hr IV ONETIME ONE Stop: 02/07/17 14:16 Last Admin: 02/07/17 14:58 Dose: 100 mls/hr Lactated Ringer's (Ringers, Lactated) 1,000 mls @ 100 mls/hr IV ASDIRECTED [facility] Last Infusion: 02/08/17 13:38 Dose: 50 mls/hr Metronidazole 500 mg/ Premix 100 mls @ 100 mls/hr IV Q6H [facility] Last Admin: 02/07/17 15:22 Dose: Not Given Multivitamins/Minerals 10 ml/ (Sodium Chloride) 510 mls @ 510 mls/hr IV Q24H [facility] Last Admin: 02/07/17 15:37 Dose: 510 mls/hr Metronidazole 500 mg/ Premix 100 mls @ 100 mls/hr IV Q6H [facility] Last Admin: 02/11/17 10:20 Dose: 100 mls/hr Pantoprazole Sodium 40 mg/ (Sodium Chloride) 10 mls @ 300 mls/hr IVPUSH Q12H [facility] Pantoprazole Sodium 40 mg/ (Sodium Chloride) 10 mls @ 300 mls/hr IVPUSH Q12H [facility] Last Admin: 02/08/17 16:10 Dose: Not Given Albumin Human (Flexbumin 25%) 12.5 gm in 50 mls @ 100 mls/hr IV ONETIME ONE Stop: 02/08/17 11:36 Last Admin: 02/08/17 12:16 Dose: 100 mls/hr Multivitamins/Minerals 10 ml/Famotidine 40 mg/ Amino Ac/Electrol/Dextrose/ Calcium/ Fat Emulsion Intravenous 2,264 mls @ 94.333 mls/hr IV Q24H [facility] Last Infusion: 02/08/17 17:35 Dose: 94 mls/hr Lactated Ringer's (Ringers, Lactated) 1,000 mls @ 50 mls/hr IV ASDIRECTED [facility] Last Admin: 02/08/17 21:35 Dose: 50 mls/hr Multivitamins/Minerals 10 ml/Famotidine 40 mg/ Insulin Human Regular 10 unit/ Potassium Phosphate 27 mmole/Amino Ac/Electrol/Dextrose/Calcium/ Fat Emulsion Intravenous/ Sterile Water 3,273.1 mls @ 95 mls/hr IV Q24H [facility] Stop: 02/11/17 13:59 Last Admin: 02/10/17 15:00 Dose: 95 mls/hr Potassium Phosphate 27 mmole/ (Sodium Chloride) 509 mls @ 127.25 mls/hr IV ONETIME ONE Stop: 02/09/17 14:14 Last Admin: 02/09/17 11:44 Dose: 127.25 mls/hr Sodium Chloride (Sodium Chloride 0.45%) 1,000 mls @ 50 mls/hr IV ASDIRECTED [facility] Sodium Chloride (Sodium Chloride 0.45%) 1,000 mls @ 50 mls/hr IV ASDIRECTED [facility] Last Admin: 02/09/17 16:42 Dose: 50 mls/hr Potassium Chloride/Sodium Chloride (Normal Saline With 20 Meq Kcl) 1,000 mls @ 75 mls/hr IV ASDIRECTED [facility] Last Admin: 02/11/17 04:16 Dose: 75 mls/hr Magnesium Sulfate 2 gm/ Premix 50 mls @ 25 mls/hr IV ONETIME ONE Stop: 02/10/17 12:58 Last Admin: 02/10/17 11:28 Dose: 25 mls/hr Multivitamins/Minerals 10 ml/Famotidine 40 mg/ Potassium Phosphate 81 mmole/ Albumin Human 12.5 gm/ Amino Ac/Electrol/Dextrose/Calcium/ Fat Emulsion Intravenous/ Sterile Water 3,341 mls @ 96.971 mls/hr IV Q24H [facility] Stop: 02/12/17 13:59 Last Admin: 02/11/17 14:51 Dose: 96.971 mls/hr Potassium Phosphate 27 mmole/ (Sodium Chloride) 509 mls @ 127.25 mls/hr IV ONETIME [facility] Stop: 02/11/17 15:00 Last Admin: 02/11/17 12:13 Dose: 127.25 mls/hr Potassium Phosphate 27 mmole/ (Sodium Chloride) 1,009 mls @ 50 mls/hr IV ASDIRECTED [facility] Last Admin: 02/11/17 16:38 Dose: 50 mls/hr Potassium Chloride/Sodium Chloride (Normal Saline With 40 Meq Kcl) 1,000 mls @ 150 mls/hr IV ASDIRECTED [facility] Stop: 02/12/17 16:24 Last Admin: 02/12/17 10:01 Dose: Not Given Multivitamins/Minerals 10 ml/Famotidine 40 mg/ Potassium Chloride 120 meq/ Albumin Human 12.5 gm/ Amino Ac/Electrol/Dextrose/Calcium/ Fat Emulsion Intravenous 2,374 mls @ 50 mls/hr IV Q24H [facility] Stop: 02/13/17 13:59 Last Admin: 02/12/17 14:28 Dose: 50 mls/hr Insulin Human Regular (Novolin R) 0 unit SUBCUT Q6H [facility] PRN Reason: Protocol Last Admin: 02/11/17 07:26 Dose: 1 units Insulin Human Regular (Novolin R) 0 unit SUBCUT Q6H [facility] PRN Reason: Protocol Last Admin: 02/14/17 17:46 Dose: 6 units Levothyroxine Sodium (Levothyroxine) 125 mcg PO ACBREAKFAST [facility] Last Admin: 02/07/17 06:46 Dose: 125 mcg Levothyroxine Sodium (Synthroid) 75 mcg IVPUSH DAILY [facility] Last Admin: 02/12/17 09:09 Dose: 75 mcg Loperamide HCl (Imodium) 2 mg PO Q4H PRN PRN Reason: Diarrhea Last Admin: 02/02/17 16:22 Dose: 2 mg Metoclopramide HCl (Reglan) 5 mg IVPUSH Q6H [facility] Last Admin: 02/07/17 12:54 Dose: 5 mg Morphine Sulfate (Morphine) 0 mg IVPUSH Q1H PRN PRN Reason: Pain Last Admin: 02/15/17 08:13 Dose: 2 mg Multivitamins/Minerals (Infuvite Adult) 10 ml IV Q24H [facility] Last Admin: 02/07/17 13:35 Dose: Not Given Omeprazole (Omeprazole) 20 mg PO DAILY [facility] Last Admin: 02/07/17 09:26 Dose: 20 mg Potassium Chloride (Klor-Con M20) 40 meq PO DAILY ONE Stop: 02/03/17 07:51 Last Admin: 02/03/17 08:24 Dose: 40 meq Potassium Chloride (Klor-Con M20) 40 meq PO ONETIME ONE Stop: 02/04/17 07:56 Last Admin: 02/04/17 08:58 Dose: 40 meq Potassium Chloride (Potassium Chloride) 40 meq PO BID [facility] Stop: 02/06/17 23:59 Last Admin: 02/06/17 21:04 Dose: 40 meq Potassium Chloride (Klor-Con M20) 40 meq PO ONETIME ONE Stop: 02/12/17 09:54 Last Admin: 02/12/17 10:12 Dose: 40 meq Potassium Chloride (Klor-Con M20) 40 meq PO ONETIME ONE Stop: 02/13/17 11:31 Last Admin: 02/13/17 12:20 Dose: 40 meq Potassium Chloride (Klor-Con M20) 40 meq PO ONETIME ONE Stop: 02/14/17 09:24 Last Admin: 02/14/17 09:36 Dose: 40 meq Potassium Chloride (Klor-Con M20) 40 meq PO ONETIME ONE Stop: 02/15/17 11:01 Last Admin: 02/15/17 11:24 Dose: 40 meq Ropinirole HCl (Requip) 1 mg PO BEDTIME [facility] Last Admin: 02/06/17 21:06 Dose: 1 mg - Exam General: alert, oriented Lungs: Clear to auscultation, Normal respiratory effort Cardiovascular: Regular Rate, Regular Rhythm Extremities: edema (+3 edema) Skin: warm, dry, intact Neurological: no new focal deficit - Problem List Review Problem List Initiated/Reviewed/Updated: Yes - My Orders Last 24 Hours: My Active Orders 02/14/17 Dinner Advance Diet Instructions [DIET] 02/15/17 07:30 Insulin Regular, Human [NovoLIN R] See Protocol SUBCUT TIDAC 02/15/17 13:01 DC Stephens Catheter [Urinary Catheter Removal] [RC] Per Unit Routine Acetaminophen [Tylenol] 650 mg PO Q4H PRN 02/15/17 Breakfast Full Liquid Diet [DIET] 02/16/17 05:11 CBC WITH AUTO DIFF [HEME] AM COMPREHENSIVE METABOLIC PN,CMP [CHEM] AM MAGNESIUM [CHEM] AM PHOSPHORUS [CHEM] AM 02/17/17 05:11 CBC WITH AUTO DIFF [HEME] AM COMPREHENSIVE METABOLIC PN,CMP [CHEM] AM MAGNESIUM [CHEM] AM PHOSPHORUS [CHEM] AM 02/18/17 05:11 CBC WITH AUTO DIFF [HEME] AM MAGNESIUM [CHEM] AM PHOSPHORUS [CHEM] AM 02/19/17 05:11 CBC WITH AUTO DIFF [HEME] AM MAGNESIUM [CHEM] AM PHOSPHORUS [CHEM] AM 02/20/17 05:11 CBC WITH AUTO DIFF [HEME] AM MAGNESIUM [CHEM] AM PHOSPHORUS [CHEM] AM - Plan Plan:: 81 yo female with dehydration/acute on chronic renal insufficiency and diarrhea with pmh of malignant melenoma, htn, hypothyroidism, and lymphedema. admitted with UTI and ileus. Ileus with malnutrition: resolving, On TPN until improvement in oral intake, will continue to encourage oral intake. marinol started, will d/c morphine and d/c stephens to encourage mobility Lower extremity edema: continue IV lasix Discharge: pending placement at SNF
[2017-02-15] MEDS: MVI IV SCH ×6 (14:13)
[2017-02-15] MEDS: FAMOTIDINE IV SCH ×6 (14:13)
[2017-02-15] MEDS: [UNRECOGNIZED DRUG - OTHER] IV SCH ×6 (14:13)
[2017-02-15] MEDS: POTASSIUM CHLORIDE IV SCH ×6 (14:13)
[2017-02-15] MEDS: VITAMIN K IV SCH ×6 (14:13)
[2017-02-16] MEDS: Levothyroxine 75 MCG Tab PO SCH (06:53)
[2017-02-16] MEDS: Insulin Regular, Human 100 Units/ML 10 ML Vial SUBCUT SCH ×3 (06:54→17:36)
[2017-02-16 07:14] LABS: CHLORIDE,CL 117 mmol/L (98-110); SODIUM,NA 145 mmol/L (136-146)
[2017-02-16] MEDS: Furosemide 40 MG/4 ML VIAL IVPUSH SCH ×2 (08:13→14:44)
[2017-02-16] MEDS: Dronabinol 2.5 MG Cap PO SCH ×2 (08:14→20:51)
[2017-02-16] MEDS: Metoclopramide 10 MG/2 ML SDV IVPUSH SCH ×3 (12:54→23:23)
[2017-02-16] MEDS ORDERED: Furosemide 40 MG/4 ML VIAL IVPUSH SCH (14:00)
[2017-02-16] MEDS: Acetaminophen 325 MG Tab PO PRN ×2 (14:43→20:51)
[2017-02-16] MEDS: POTASSIUM CHLORIDE IV SCH ×6 (14:50)
[2017-02-16] MEDS: MVI IV SCH ×6 (14:50)
[2017-02-16] MEDS: [UNRECOGNIZED DRUG - OTHER] IV SCH ×6 (14:50)
[2017-02-16] MEDS: VITAMIN K IV SCH ×6 (14:50)
[2017-02-16] MEDS: FAMOTIDINE IV SCH ×6 (14:50)
[2017-02-16] MEDS: Ondansetron 4 MG Tab.DIS PO PRN (15:29)
--- NOTE | 2017-02-16 15:49 | PCM.PN ---
- General Info Date of Service: 02/16/17 Subjective Update: tolerating jello, crackers, ensure. Feels groggy and bloated. Functional Status: Reports: pain controlled - Review of Systems General: Reports: No Symptoms HEENT: Reports: no symptoms Pulmonary: Reports: no symptoms Cardiovascular: Reports: No Symptoms Gastrointestinal: Reports: Flatus, Other (bloated. ) Musculoskeletal: Reports: no symptoms Skin: Reports: no symptoms Neurological: Reports: No Symptoms Psychiatric: Reports: no symptoms - Patient Data Vitals - most recent: Last Vital Signs Temp 97.7 F 02/16/17 09:00 Pulse 92 02/16/17 09:00 Resp 16 02/16/17 09:00 BP 119/65 02/16/17 09:00 Pulse Ox 94 L 02/16/17 09:00 Weight - most recent: 82.3 kg I&O - last 24 hours: Intake & Output 02/16/17 02/16/17 02/16/17 06:59 14:59 22:59 Intake Total 861 718 Output Total 524 411 Balance 337 307 Lab Results last 24 hrs: Laboratory Results - last 24 hr 02/15/17 02/16/17 02/16/17 Range/Units 16:29 06:01 06:29 WBC (4.0-11.0) K/uL RBC (4.30-5.90) M/uL Hgb (12.0-16.0) g/dL Hct (36.0-46.0) % MCV (80.0-98.0) fL MCH (27.0-32.0) pg MCHC (31.0-37.0) g/dL RDW Std Deviation (28.0-62.0) fl RDW Coeff of Juan J (11.0-15.0) % Plt Count (150-400) K/uL MPV (7.40-12.00) fL Add Manual Diff Neutrophils % (Manual) (48.0-80.0) % Band Neutrophils % % Lymphocytes % (Manual) (16.0-40.0) % Monocytes % (Manual) (0.0-15.0) % Eosinophils % (Manual) (0.0-7.0) % Absolute Seg Neuts Band Neutrophils # Lymphocytes # (Manual) Monocytes # (Manual) Eosinophils # (Manual) Sodium 145 (136-146) mmol/L Potassium 4.0 (3.5-5.1) mmol/L Chloride 117 H (98-110) mmol/L Carbon Dioxide 18 L (21-31) mmol/L BUN 49 H (6.0-23.0) mg/dL Creatinine 1.3 (0.6-1.5) mg/dL Est Cr Clr Drug Dosing TNP Estimated GFR (MDRD) 39.5 ml/min Glucose 237 H (60-110) mg/dL POC Glucose 242 H 229 H (60-110) mg/dL Calcium 7.7 L (8.8-10.8) mg/dL Phosphorus 3.2 (2.4-4.7) mg/dL Magnesium 1.5 (1.5-2.3) mEq/L Total Bilirubin 0.7 (0.1-1.5) mg/dL AST 11 (5-40) IU/L ALT 9 (8-54) IU/L Alkaline Phosphatase 56 (40-150) Total Protein 4.6 L (6.0-8.0) g/dL Albumin 2.1 L (3.4-4.8) g/dL Globulin 2.5 (2.0-3.5) g/dL Albumin/Globulin Ratio 0.8 L (1.3-2.8) 02/16/17 02/16/17 Range/Units 06:45 11:42 WBC 9.39 (4.0-11.0) K/uL RBC 3.96 L (4.30-5.90) M/uL Hgb 11.8 L (12.0-16.0) g/dL Hct 35.2 L (36.0-46.0) % MCV 88.9 (80.0-98.0) fL MCH 29.8 (27.0-32.0) pg MCHC 33.5 (31.0-37.0) g/dL RDW Std Deviation 57.2 (28.0-62.0) fl RDW Coeff of Juan J 19 H (11.0-15.0) % Plt Count 108 L (150-400) K/uL MPV 13.00 H (7.40-12.00) fL Add Manual Diff YES Neutrophils % (Manual) 64 (48.0-80.0) % Band Neutrophils % 9 % Lymphocytes % (Manual) 21 (16.0-40.0) % Monocytes % (Manual) 5 (0.0-15.0) % Eosinophils % (Manual) 1 (0.0-7.0) % Absolute Seg Neuts 6.0 Band Neutrophils # 0.8 Lymphocytes # (Manual) 2.0 Monocytes # (Manual) 0.5 Eosinophils # (Manual) 0.1 Sodium (136-146) mmol/L Potassium (3.5-5.1) mmol/L Chloride (98-110) mmol/L Carbon Dioxide (21-31) mmol/L BUN (6.0-23.0) mg/dL Creatinine (0.6-1.5) mg/dL Est Cr Clr Drug Dosing Estimated GFR (MDRD) ml/min Glucose (60-110) mg/dL POC Glucose 227 H (60-110) mg/dL Calcium (8.8-10.8) mg/dL Phosphorus (2.4-4.7) mg/dL Magnesium (1.5-2.3) mEq/L Total Bilirubin (0.1-1.5) mg/dL AST (5-40) IU/L ALT (8-54) IU/L Alkaline Phosphatase (40-150) Total Protein (6.0-8.0) g/dL Albumin (3.4-4.8) g/dL Globulin (2.0-3.5) g/dL Albumin/Globulin Ratio (1.3-2.8) Med Orders - Current: Current Medications Acetaminophen (Tylenol) 650 mg PO Q4H PRN PRN Reason: Pain Last Admin: 02/16/17 14:43 Dose: 650 mg Albuterol/Ipratropium (Duoneb 3.0-0.5 Mg/3 Ml) 3 ml NEB Q4HRRT PRN PRN Reason: Shortness of Breath Last Admin: 02/11/17 21:42 Dose: 3 ml Dronabinol (Marinol) 2.5 mg PO BID EMILIO Last Admin: 02/16/17 08:14 Dose: 2.5 mg Furosemide (Lasix) 40 mg IVPUSH BIDDIURETIC EMILIO Last Admin: 02/16/17 14:44 Dose: 40 mg Multivitamins/Minerals 10 ml/Famotidine 40 mg/ Potassium Chloride 120 meq/ Albumin Human 12.5 gm/ Amino Ac/Electrol/Dextrose/Calcium/ Fat Emulsion Intravenous 2,374 mls @ 50 mls/hr IV Q24H [facility] Last Admin: 02/16/17 14:50 Dose: 50 mls/hr Insulin Human Regular (Novolin R) 0 unit SUBCUT TIDAC EMILIO PRN Reason: Protocol Last Admin: 02/16/17 12:53 Dose: 4 units Levothyroxine Sodium (Levothyroxine) 75 mcg PO ACBREAKFAST [facility] Last Admin: 02/16/17 06:53 Dose: 75 mcg Metoclopramide HCl (Reglan) 10 mg IVPUSH Q6H [facility] Last Admin: 02/16/17 12:54 Dose: 10 mg Ondansetron HCl (Zofran Odt) 4 mg PO Q4H PRN PRN Reason: nausea, able to take PO Last Admin: 02/16/17 15:29 Dose: 4 mg Discontinued Medications Acetaminophen (Tylenol) 650 mg PO Q4H PRN PRN Reason: Pain (Mild 1-3)/fever Aspirin (Halfprin) 81 mg PO BID [facility] Last Admin: 02/07/17 09:26 Dose: 81 mg Calcium Carbonate/Glycine (Tums) 1,000 mg PO DAILY ONE Stop: 02/02/17 17:20 Last Admin: 02/02/17 17:32 Dose: 1,000 mg Calcium Carbonate/Glycine (Tums) 1,000 mg PO ONETIME ONE Stop: 02/03/17 07:52 Last Admin: 02/03/17 08:24 Dose: 1,000 mg Calcium Carbonate/Glycine (Tums) 1,000 mg PO ONETIME ONE Stop: 02/04/17 09:37 Last Admin: 02/04/17 10:23 Dose: 1,000 mg Furosemide (Lasix) 60 mg IVPUSH NOW ONE Stop: 02/07/17 16:09 Last Admin: 02/07/17 16:47 Dose: 60 mg Furosemide (Lasix) 60 mg IVPUSH NOW ONE Stop: 02/10/17 11:16 Last Admin: 02/10/17 11:28 Dose: 60 mg Furosemide (Lasix) 60 mg IVPUSH NOW ONE Stop: 02/11/17 14:50 Last Admin: 02/11/17 16:39 Dose: 60 mg Furosemide (Lasix) 40 mg IVPUSH BID ONE Stop: 02/12/17 14:50 Furosemide (Lasix) 40 mg IVPUSH BIDDIURETIC [facility] Last Admin: 02/16/17 08:13 Dose: 40 mg Furosemide (Lasix) 60 mg IVPUSH ONETIME ONE Stop: 02/11/17 21:28 Last Admin: 02/11/17 21:43 Dose: 60 mg Furosemide (Lasix) 40 mg IVPUSH TID EMILIO Heparin Sodium (Porcine) (Heparin Sodium) 5,000 units SUBCUT Q8H [facility] Last Admin: 02/03/17 06:29 Dose: 5,000 units Sodium Chloride (Normal Saline) 1,000 mls @ 999 mls/hr IV STAT ONE Stop: 02/02/17 13:15 Last Admin: 02/02/17 12:51 Dose: 999 mls/hr Sodium Chloride (Normal Saline) 1,000 mls @ 100 mls/hr IV ASDIRECTED [facility] Last Admin: 02/07/17 02:16 Dose: 125 mls/hr Levofloxacin/Dextrose 750 mg/ (Premix) 150 mls @ 100 mls/hr IV NOW ONE Stop: 02/03/17 06:14 Last Admin: 02/03/17 05:13 Dose: 100 mls/hr Levofloxacin/Dextrose (Levaquin In D5w 500 Mg/100 Ml) 100 mls @ 100 mls/hr IV Q48H [facility] Last Admin: 02/11/17 05:39 Dose: 100 mls/hr Sodium Chloride (Normal Saline) 500 mls @ 999 mls/hr IV ASDIRECTED [facility] Last Admin: 02/03/17 08:37 Dose: 999 mls/hr Pantoprazole Sodium 40 mg/ (Sodium Chloride) 10 mls @ 300 mls/hr IVPUSH Q24H [facility] Last Admin: 02/07/17 14:52 Dose: 300 mls/hr Sodium Chloride (Normal Saline) 500 mls @ 999 mls/hr IV ASDIRECTED [facility] Last Admin: 02/04/17 10:28 Dose: 999 mls/hr Magnesium Sulfate 4 gm/ Premix 100 mls @ 50 mls/hr IV ONETIME ONE Stop: 02/07/17 14:22 Last Admin: 02/07/17 12:54 Dose: 50 mls/hr Multivitamins/Minerals 10 ml/ (Sodium Chloride) 510 mls @ 510 mls/hr IV Q24H EMILIO Last Admin: 02/07/17 15:22 Dose: Not Given Albumin Human (Flexbumin 25%) 12.5 gm in 50 mls @ 100 mls/hr IV ONETIME ONE Stop: 02/07/17 14:16 Last Admin: 02/07/17 14:58 Dose: 100 mls/hr Lactated Ringer's (Ringers, Lactated) 1,000 mls @ 100 mls/hr IV ASDIRECTED [facility] Last Infusion: 02/08/17 13:38 Dose: 50 mls/hr Metronidazole 500 mg/ Premix 100 mls @ 100 mls/hr IV Q6H [facility] Last Admin: 02/07/17 15:22 Dose: Not Given Multivitamins/Minerals 10 ml/ (Sodium Chloride) 510 mls @ 510 mls/hr IV Q24H [facility] Last Admin: 02/07/17 15:37 Dose: 510 mls/hr Metronidazole 500 mg/ Premix 100 mls @ 100 mls/hr IV Q6H [facility] Last Admin: 02/11/17 10:20 Dose: 100 mls/hr Pantoprazole Sodium 40 mg/ (Sodium Chloride) 10 mls @ 300 mls/hr IVPUSH Q12H EMILIO Pantoprazole Sodium 40 mg/ (Sodium Chloride) 10 mls @ 300 mls/hr IVPUSH Q12H [facility] Last Admin: 02/08/17 16:10 Dose: Not Given Albumin Human (Flexbumin 25%) 12.5 gm in 50 mls @ 100 mls/hr IV ONETIME ONE Stop: 02/08/17 11:36 Last Admin: 02/08/17 12:16 Dose: 100 mls/hr Multivitamins/Minerals 10 ml/Famotidine 40 mg/ Amino Ac/Electrol/Dextrose/ Calcium/ Fat Emulsion Intravenous 2,264 mls @ 94.333 mls/hr IV Q24H [facility] Last Infusion: 02/08/17 17:35 Dose: 94 mls/hr Lactated Ringer's (Ringers, Lactated) 1,000 mls @ 50 mls/hr IV ASDIRECTED [facility] Last Admin: 02/08/17 21:35 Dose: 50 mls/hr Multivitamins/Minerals 10 ml/Famotidine 40 mg/ Insulin Human Regular 10 unit/ Potassium Phosphate 27 mmole/Amino Ac/Electrol/Dextrose/Calcium/ Fat Emulsion Intravenous/ Sterile Water 3,273.1 mls @ 95 mls/hr IV Q24H EMILIO Stop: 02/11/17 13:59 Last Admin: 02/10/17 15:00 Dose: 95 mls/hr Potassium Phosphate 27 mmole/ (Sodium Chloride) 509 mls @ 127.25 mls/hr IV ONETIME ONE Stop: 02/09/17 14:14 Last Admin: 02/09/17 11:44 Dose: 127.25 mls/hr Sodium Chloride (Sodium Chloride 0.45%) 1,000 mls @ 50 mls/hr IV ASDIRECTED EMILIO Sodium Chloride (Sodium Chloride 0.45%) 1,000 mls @ 50 mls/hr IV ASDIRECTED EMILIO Last Admin: 02/09/17 16:42 Dose: 50 mls/hr Potassium Chloride/Sodium Chloride (Normal Saline With 20 Meq Kcl) 1,000 mls @ 75 mls/hr IV ASDIRECTED EMILIO Last Admin: 02/11/17 04:16 Dose: 75 mls/hr Magnesium Sulfate 2 gm/ Premix 50 mls @ 25 mls/hr IV ONETIME ONE Stop: 02/10/17 12:58 Last Admin: 02/10/17 11:28 Dose: 25 mls/hr Multivitamins/Minerals 10 ml/Famotidine 40 mg/ Potassium Phosphate 81 mmole/ Albumin Human 12.5 gm/ Amino Ac/Electrol/Dextrose/Calcium/ Fat Emulsion Intravenous/ Sterile Water 3,341 mls @ 96.971 mls/hr IV Q24H EMILIO Stop: 02/12/17 13:59 Last Admin: 02/11/17 14:51 Dose: 96.971 mls/hr Potassium Phosphate 27 mmole/ (Sodium Chloride) 509 mls @ 127.25 mls/hr IV ONETIME EMILIO Stop: 02/11/17 15:00 Last Admin: 02/11/17 12:13 Dose: 127.25 mls/hr Potassium Phosphate 27 mmole/ (Sodium Chloride) 1,009 mls @ 50 mls/hr IV ASDIRECTED EMILIO Last Admin: 02/11/17 16:38 Dose: 50 mls/hr Potassium Chloride/Sodium Chloride (Normal Saline With 40 Meq Kcl) 1,000 mls @ 150 mls/hr IV ASDIRECTED EMILIO Stop: 02/12/17 16:24 Last Admin: 02/12/17 10:01 Dose: Not Given Multivitamins/Minerals 10 ml/Famotidine 40 mg/ Potassium Chloride 120 meq/ Albumin Human 12.5 gm/ Amino Ac/Electrol/Dextrose/Calcium/ Fat Emulsion Intravenous 2,374 mls @ 50 mls/hr IV Q24H [facility] Stop: 02/13/17 13:59 Last Admin: 02/12/17 14:28 Dose: 50 mls/hr Insulin Human Regular (Novolin R) 0 unit SUBCUT Q6H EMILIO PRN Reason: Protocol Last Admin: 02/11/17 07:26 Dose: 1 units Insulin Human Regular (Novolin R) 0 unit SUBCUT Q6H [facility] PRN Reason: Protocol Last Admin: 02/14/17 17:46 Dose: 6 units Levothyroxine Sodium (Levothyroxine) 125 mcg PO ACBREAKFAST [facility] Last Admin: 02/07/17 06:46 Dose: 125 mcg Levothyroxine Sodium (Synthroid) 75 mcg IVPUSH DAILY [facility] Last Admin: 02/12/17 09:09 Dose: 75 mcg Loperamide HCl (Imodium) 2 mg PO Q4H PRN PRN Reason: Diarrhea Last Admin: 02/02/17 16:22 Dose: 2 mg Metoclopramide HCl (Reglan) 5 mg IVPUSH Q6H [facility] Last Admin: 02/07/17 12:54 Dose: 5 mg Morphine Sulfate (Morphine) 0 mg IVPUSH Q1H PRN PRN Reason: Pain Last Admin: 02/15/17 08:13 Dose: 2 mg Multivitamins/Minerals (Infuvite Adult) 10 ml IV Q24H [facility] Last Admin: 02/07/17 13:35 Dose: Not Given Omeprazole (Omeprazole) 20 mg PO DAILY [facility] Last Admin: 02/07/17 09:26 Dose: 20 mg Potassium Chloride (Klor-Con M20) 40 meq PO DAILY ONE Stop: 02/03/17 07:51 Last Admin: 02/03/17 08:24 Dose: 40 meq Potassium Chloride (Klor-Con M20) 40 meq PO ONETIME ONE Stop: 02/04/17 07:56 Last Admin: 02/04/17 08:58 Dose: 40 meq Potassium Chloride (Potassium Chloride) 40 meq PO BID [facility] Stop: 02/06/17 23:59 Last Admin: 02/06/17 21:04 Dose: 40 meq Potassium Chloride (Klor-Con M20) 40 meq PO ONETIME ONE Stop: 02/12/17 09:54 Last Admin: 02/12/17 10:12 Dose: 40 meq Potassium Chloride (Klor-Con M20) 40 meq PO ONETIME ONE Stop: 02/13/17 11:31 Last Admin: 02/13/17 12:20 Dose: 40 meq Potassium Chloride (Klor-Con M20) 40 meq PO ONETIME ONE Stop: 02/14/17 09:24 Last Admin: 02/14/17 09:36 Dose: 40 meq Potassium Chloride (Klor-Con M20) 40 meq PO ONETIME ONE Stop: 02/15/17 11:01 Last Admin: 02/15/17 11:24 Dose: 40 meq Ropinirole HCl (Requip) 1 mg PO BEDTIME [facility] Last Admin: 02/06/17 21:06 Dose: 1 mg - Exam General: alert, oriented HEENT: Pupils equal, EOMI Neck: supple, trachea midline Lungs: Clear to auscultation, Normal respiratory effort Cardiovascular: Regular Rate, Regular Rhythm Abdomen: bowel sounds present, soft, no tenderness, distension Back Exam: Normal Inspection - Problem List Review Problem List Initiated/Reviewed/Updated: Yes - Assessment Assessment:: 02/07/[address] from February 04. In light of bowel wall thickening, will start flagyl IV I suspect that she has a mild ileus. Will start reglan IV scheduled and change to clear liquid diet As she has had very little po intake for over one week, will plan to start TPN if not improved in about 24 hours. Richard Mccracken MD - Plan Plan:: 81 yo female with dehydration/acute on chronic renal insufficiency and diarrhea with pmh of malignant melenoma, htn, hypothyroidism, and lymphedema. admitted with UTI and ileus. Ileus with malnutrition: resolving, On TPN until improvement in oral intake. tolerating crackers, ensure, peanut butter. marinol started. on Tylenol for pain. Repeat flat abdominal xray. Lower extremity edema: continue IV lasix bid. Discharge: pending placement at SNF.
[2017-02-17 05:51] LABS: CHLORIDE,CL 118 mmol/L (98-110); SODIUM,NA 148 mmol/L (136-146)
[2017-02-17] MEDS: Metoclopramide 10 MG/2 ML SDV IVPUSH SCH ×4 (06:35→23:35)
[2017-02-17] MEDS: Insulin Regular, Human 100 Units/ML 10 ML Vial SUBCUT SCH ×3 (06:45→17:19)
[2017-02-17] MEDS: Levothyroxine 75 MCG Tab PO SCH (07:29)
[2017-02-17] MEDS ORDERED: Potassium Chloride 20 MEQ Tab.ER PO ONE ×2 (09:16→15:00)
--- NOTE | 2017-02-17 09:31 | PCM.PN ---
- General Info Date of Service: 02/17/17 Subjective Update: She had a bowel movement today. Passing gas. She still c/o abdominal pain and feeling of fullness. She is tolerating liquids, jello, ensure. On TPN and IVF. Functional Status: Reports: tolerating diet - Review of Systems General: Reports: No Symptoms HEENT: Reports: no symptoms Pulmonary: Reports: no symptoms Cardiovascular: Reports: No Symptoms Gastrointestinal: Reports: Abdominal pain, Flatus. Denies: Nausea, Vomiting Genitourinary: Reports: no symptoms Musculoskeletal: Reports: no symptoms Skin: Reports: no symptoms Neurological: Reports: No Symptoms Psychiatric: Reports: no symptoms - Patient Data Vitals - most recent: Last Vital Signs Temp 97.1 F 02/17/17 08:00 Pulse 103 H 02/17/17 08:00 Resp 20 02/17/17 08:00 BP 130/62 02/17/17 08:00 Pulse Ox 93 L 02/17/17 08:00 Weight - most recent: 80.4 kg I&O - last 24 hours: Intake & Output 02/16/17 02/17/17 02/17/17 22:59 06:59 14:59 Intake Total 718 1122 Output Total 411 Balance 307 1122 Lab Results last 24 hrs: Laboratory Results - last 24 hr 02/16/17 02/16/17 02/17/17 Range/Units 11:42 16:25 05:24 WBC 6.35 (4.0-11.0) K/uL RBC 3.86 L (4.30-5.90) M/uL Hgb 11.2 L (12.0-16.0) g/dL Hct 34.6 L (36.0-46.0) % MCV 89.6 (80.0-98.0) fL MCH 29.0 (27.0-32.0) pg MCHC 32.4 (31.0-37.0) g/dL RDW Std Deviation 60.8 (28.0-62.0) fl RDW Coeff of Juan J 19 H (11.0-15.0) % Plt Count 136 L (150-400) K/uL MPV 11.50 (7.40-12.00) fL Add Manual Diff YES Neutrophils % (Manual) 53 (48.0-80.0) % Band Neutrophils % 14 % Lymphocytes % (Manual) 23 (16.0-40.0) % Monocytes % (Manual) 8 (0.0-15.0) % Eosinophils % (Manual) 2 (0.0-7.0) % Nucleated RBC % 0.0 /100WBC Absolute Seg Neuts 3.4 Band Neutrophils # 0.9 Lymphocytes # (Manual) 1.5 Monocytes # (Manual) 0.5 Eosinophils # (Manual) 0.1 Nucleated RBCs # 0 K/uL Sodium (136-146) mmol/L Potassium (3.5-5.1) mmol/L Chloride (98-110) mmol/L Carbon Dioxide (21-31) mmol/L BUN (6.0-23.0) mg/dL Creatinine (0.6-1.5) mg/dL Est Cr Clr Drug Dosing Estimated GFR (MDRD) ml/min Glucose (60-110) mg/dL POC Glucose 227 H 219 H (60-110) mg/dL Calcium (8.8-10.8) mg/dL Phosphorus (2.4-4.7) mg/dL Magnesium (1.5-2.3) mEq/L Total Bilirubin (0.1-1.5) mg/dL AST (5-40) IU/L ALT (8-54) IU/L Alkaline Phosphatase (40-150) Total Protein (6.0-8.0) g/dL Albumin (3.4-4.8) g/dL Globulin (2.0-3.5) g/dL Albumin/Globulin Ratio (1.3-2.8) 02/17/17 02/17/17 Range/Units 05:24 06:40 WBC (4.0-11.0) K/uL RBC (4.30-5.90) M/uL Hgb (12.0-16.0) g/dL Hct (36.0-46.0) % MCV (80.0-98.0) fL MCH (27.0-32.0) pg MCHC (31.0-37.0) g/dL RDW Std Deviation (28.0-62.0) fl RDW Coeff of Juan J (11.0-15.0) % Plt Count (150-400) K/uL MPV (7.40-12.00) fL Add Manual Diff Neutrophils % (Manual) (48.0-80.0) % Band Neutrophils % % Lymphocytes % (Manual) (16.0-40.0) % Monocytes % (Manual) (0.0-15.0) % Eosinophils % (Manual) (0.0-7.0) % Nucleated RBC % /100WBC Absolute Seg Neuts Band Neutrophils # Lymphocytes # (Manual) Monocytes # (Manual) Eosinophils # (Manual) Nucleated RBCs # K/uL Sodium 148 H (136-146) mmol/L Potassium 3.3 L (3.5-5.1) mmol/L Chloride 118 H (98-110) mmol/L Carbon Dioxide 20 L (21-31) mmol/L BUN 53 H (6.0-23.0) mg/dL Creatinine 1.3 (0.6-1.5) mg/dL Est Cr Clr Drug Dosing TNP Estimated GFR (MDRD) 39.5 ml/min Glucose 256 H (60-110) mg/dL POC Glucose 249 H (60-110) mg/dL Calcium 7.6 L (8.8-10.8) mg/dL Phosphorus 3.1 (2.4-4.7) mg/dL Magnesium 1.5 (1.5-2.3) mEq/L Total Bilirubin 0.7 (0.1-1.5) mg/dL AST 10 (5-40) IU/L ALT 7 L (8-54) IU/L Alkaline Phosphatase 56 (40-150) Total Protein 4.1 L (6.0-8.0) g/dL Albumin 2.2 L (3.4-4.8) g/dL Globulin 1.9 L (2.0-3.5) g/dL Albumin/Globulin Ratio 1.2 L (1.3-2.8) Med Orders - Current: Current Medications Acetaminophen (Tylenol) 650 mg PO Q4H PRN PRN Reason: Pain Last Admin: 02/16/17 20:51 Dose: 650 mg Albuterol/Ipratropium (Duoneb 3.0-0.5 Mg/3 Ml) 3 ml NEB Q4HRRT PRN PRN Reason: Shortness of Breath Last Admin: 02/11/17 21:42 Dose: 3 ml Dronabinol (Marinol) 2.5 mg PO BID EMILIO Last Admin: 02/16/17 20:51 Dose: 2.5 mg Furosemide (Lasix) 40 mg IVPUSH BIDDIURETIC [facility] Last Admin: 02/16/17 14:44 Dose: 40 mg Multivitamins/Minerals 10 ml/Famotidine 40 mg/ Potassium Chloride 120 meq/ Albumin Human 12.5 gm/ Amino Ac/Electrol/Dextrose/Calcium/ Fat Emulsion Intravenous 2,374 mls @ 50 mls/hr IV Q24H [facility] Last Admin: 02/16/17 14:50 Dose: 50 mls/hr Insulin Aspart (Novolog) 0 unit SUBCUT TIDAC [facility] PRN Reason: Protocol Insulin Human Regular (Novolin R) 0 unit SUBCUT TIDAC [facility] PRN Reason: Protocol Last Admin: 02/17/17 06:45 Dose: 4 units Levothyroxine Sodium (Levothyroxine) 75 mcg PO ACBREAKFAST [facility] Last Admin: 02/17/17 07:29 Dose: 75 mcg Metoclopramide HCl (Reglan) 10 mg IVPUSH Q6H [facility] Last Admin: 02/17/17 06:35 Dose: 10 mg Ondansetron HCl (Zofran Odt) 4 mg PO Q4H PRN PRN Reason: nausea, able to take PO Last Admin: 02/16/17 15:29 Dose: 4 mg Discontinued Medications Acetaminophen (Tylenol) 650 mg PO Q4H PRN PRN Reason: Pain (Mild 1-3)/fever Aspirin (Halfprin) 81 mg PO BID [facility] Last Admin: 02/07/17 09:26 Dose: 81 mg Calcium Carbonate/Glycine (Tums) 1,000 mg PO DAILY ONE Stop: 02/02/17 17:20 Last Admin: 02/02/17 17:32 Dose: 1,000 mg Calcium Carbonate/Glycine (Tums) 1,000 mg PO ONETIME ONE Stop: 02/03/17 07:52 Last Admin: 02/03/17 08:24 Dose: 1,000 mg Calcium Carbonate/Glycine (Tums) 1,000 mg PO ONETIME ONE Stop: 02/04/17 09:37 Last Admin: 02/04/17 10:23 Dose: 1,000 mg Furosemide (Lasix) 60 mg IVPUSH NOW ONE Stop: 02/07/17 16:09 Last Admin: 02/07/17 16:47 Dose: 60 mg Furosemide (Lasix) 60 mg IVPUSH NOW ONE Stop: 02/10/17 11:16 Last Admin: 02/10/17 11:28 Dose: 60 mg Furosemide (Lasix) 60 mg IVPUSH NOW ONE Stop: 02/11/17 14:50 Last Admin: 02/11/17 16:39 Dose: 60 mg Furosemide (Lasix) 40 mg IVPUSH BID ONE Stop: 02/12/17 14:50 Furosemide (Lasix) 40 mg IVPUSH BIDDIURETIC EMILIO Last Admin: 02/16/17 08:13 Dose: 40 mg Furosemide (Lasix) 60 mg IVPUSH ONETIME ONE Stop: 02/11/17 21:28 Last Admin: 02/11/17 21:43 Dose: 60 mg Furosemide (Lasix) 40 mg IVPUSH TID EMILIO Heparin Sodium (Porcine) (Heparin Sodium) 5,000 units SUBCUT Q8H [facility] Last Admin: 02/03/17 06:29 Dose: 5,000 units Sodium Chloride (Normal Saline) 1,000 mls @ 999 mls/hr IV STAT ONE Stop: 02/02/17 13:15 Last Admin: 02/02/17 12:51 Dose: 999 mls/hr Sodium Chloride (Normal Saline) 1,000 mls @ 100 mls/hr IV ASDIRECTED [facility] Last Admin: 02/07/17 02:16 Dose: 125 mls/hr Levofloxacin/Dextrose 750 mg/ (Premix) 150 mls @ 100 mls/hr IV NOW ONE Stop: 02/03/17 06:14 Last Admin: 02/03/17 05:13 Dose: 100 mls/hr Levofloxacin/Dextrose (Levaquin In D5w 500 Mg/100 Ml) 100 mls @ 100 mls/hr IV Q48H [facility] Last Admin: 02/11/17 05:39 Dose: 100 mls/hr Sodium Chloride (Normal Saline) 500 mls @ 999 mls/hr IV ASDIRECTED [facility] Last Admin: 02/03/17 08:37 Dose: 999 mls/hr Pantoprazole Sodium 40 mg/ (Sodium Chloride) 10 mls @ 300 mls/hr IVPUSH Q24H [facility] Last Admin: 02/07/17 14:52 Dose: 300 mls/hr Sodium Chloride (Normal Saline) 500 mls @ 999 mls/hr IV ASDIRECTED [facility] Last Admin: 02/04/17 10:28 Dose: 999 mls/hr Magnesium Sulfate 4 gm/ Premix 100 mls @ 50 mls/hr IV ONETIME ONE Stop: 02/07/17 14:22 Last Admin: 02/07/17 12:54 Dose: 50 mls/hr Multivitamins/Minerals 10 ml/ (Sodium Chloride) 510 mls @ 510 mls/hr IV Q24H [facility] Last Admin: 02/07/17 15:22 Dose: Not Given Albumin Human (Flexbumin 25%) 12.5 gm in 50 mls @ 100 mls/hr IV ONETIME ONE Stop: 02/07/17 14:16 Last Admin: 02/07/17 14:58 Dose: 100 mls/hr Lactated Ringer's (Ringers, Lactated) 1,000 mls @ 100 mls/hr IV ASDIRECTED [facility] Last Infusion: 02/08/17 13:38 Dose: 50 mls/hr Metronidazole 500 mg/ Premix 100 mls @ 100 mls/hr IV Q6H [facility] Last Admin: 02/07/17 15:22 Dose: Not Given Multivitamins/Minerals 10 ml/ (Sodium Chloride) 510 mls @ 510 mls/hr IV Q24H [facility] Last Admin: 02/07/17 15:37 Dose: 510 mls/hr Metronidazole 500 mg/ Premix 100 mls @ 100 mls/hr IV Q6H [facility] Last Admin: 02/11/17 10:20 Dose: 100 mls/hr Pantoprazole Sodium 40 mg/ (Sodium Chloride) 10 mls @ 300 mls/hr IVPUSH Q12H [facility] Pantoprazole Sodium 40 mg/ (Sodium Chloride) 10 mls @ 300 mls/hr IVPUSH Q12H [facility] Last Admin: 02/08/17 16:10 Dose: Not Given Albumin Human (Flexbumin 25%) 12.5 gm in 50 mls @ 100 mls/hr IV ONETIME ONE Stop: 02/08/17 11:36 Last Admin: 02/08/17 12:16 Dose: 100 mls/hr Multivitamins/Minerals 10 ml/Famotidine 40 mg/ Amino Ac/Electrol/Dextrose/ Calcium/ Fat Emulsion Intravenous 2,264 mls @ 94.333 mls/hr IV Q24H [facility] Last Infusion: 02/08/17 17:35 Dose: 94 mls/hr Lactated Ringer's (Ringers, Lactated) 1,000 mls @ 50 mls/hr IV ASDIRECTED EMILIO Last Admin: 02/08/17 21:35 Dose: 50 mls/hr Multivitamins/Minerals 10 ml/Famotidine 40 mg/ Insulin Human Regular 10 unit/ Potassium Phosphate 27 mmole/Amino Ac/Electrol/Dextrose/Calcium/ Fat Emulsion Intravenous/ Sterile Water 3,273.1 mls @ 95 mls/hr IV Q24H [facility] Stop: 02/11/17 13:59 Last Admin: 02/10/17 15:00 Dose: 95 mls/hr Potassium Phosphate 27 mmole/ (Sodium Chloride) 509 mls @ 127.25 mls/hr IV ONETIME ONE Stop: 02/09/17 14:14 Last Admin: 02/09/17 11:44 Dose: 127.25 mls/hr Sodium Chloride (Sodium Chloride 0.45%) 1,000 mls @ 50 mls/hr IV ASDIRECTED EMILIO Sodium Chloride (Sodium Chloride 0.45%) 1,000 mls @ 50 mls/hr IV ASDIRECTED [facility] Last Admin: 02/09/17 16:42 Dose: 50 mls/hr Potassium Chloride/Sodium Chloride (Normal Saline With 20 Meq Kcl) 1,000 mls @ 75 mls/hr IV ASDIRECTED EMILIO Last Admin: 02/11/17 04:16 Dose: 75 mls/hr Magnesium Sulfate 2 gm/ Premix 50 mls @ 25 mls/hr IV ONETIME ONE Stop: 02/10/17 12:58 Last Admin: 02/10/17 11:28 Dose: 25 mls/hr Multivitamins/Minerals 10 ml/Famotidine 40 mg/ Potassium Phosphate 81 mmole/ Albumin Human 12.5 gm/ Amino Ac/Electrol/Dextrose/Calcium/ Fat Emulsion Intravenous/ Sterile Water 3,341 mls @ 96.971 mls/hr IV Q24H EMILIO Stop: 02/12/17 13:59 Last Admin: 02/11/17 14:51 Dose: 96.971 mls/hr Potassium Phosphate 27 mmole/ (Sodium Chloride) 509 mls @ 127.25 mls/hr IV ONETIME EMILIO Stop: 02/11/17 15:00 Last Admin: 02/11/17 12:13 Dose: 127.25 mls/hr Potassium Phosphate 27 mmole/ (Sodium Chloride) 1,009 mls @ 50 mls/hr IV ASDIRECTED [facility] Last Admin: 02/11/17 16:38 Dose: 50 mls/hr Potassium Chloride/Sodium Chloride (Normal Saline With 40 Meq Kcl) 1,000 mls @ 150 mls/hr IV ASDIRECTED EMILIO Stop: 02/12/17 16:24 Last Admin: 02/12/17 10:01 Dose: Not Given Multivitamins/Minerals 10 ml/Famotidine 40 mg/ Potassium Chloride 120 meq/ Albumin Human 12.5 gm/ Amino Ac/Electrol/Dextrose/Calcium/ Fat Emulsion Intravenous 2,374 mls @ 50 mls/hr IV Q24H [facility] Stop: 02/13/17 13:59 Last Admin: 02/12/17 14:28 Dose: 50 mls/hr Insulin Human Regular (Novolin R) 0 unit SUBCUT Q6H [facility] PRN Reason: Protocol Last Admin: 02/11/17 07:26 Dose: 1 units Insulin Human Regular (Novolin R) 0 unit SUBCUT Q6H [facility] PRN Reason: Protocol Last Admin: 02/14/17 17:46 Dose: 6 units Levothyroxine Sodium (Levothyroxine) 125 mcg PO ACBREAKFAST [facility] Last Admin: 02/07/17 06:46 Dose: 125 mcg Levothyroxine Sodium (Synthroid) 75 mcg IVPUSH DAILY [facility] Last Admin: 02/12/17 09:09 Dose: 75 mcg Loperamide HCl (Imodium) 2 mg PO Q4H PRN PRN Reason: Diarrhea Last Admin: 02/02/17 16:22 Dose: 2 mg Metoclopramide HCl (Reglan) 5 mg IVPUSH Q6H [facility] Last Admin: 02/07/17 12:54 Dose: 5 mg Morphine Sulfate (Morphine) 0 mg IVPUSH Q1H PRN PRN Reason: Pain Last Admin: 02/15/17 08:13 Dose: 2 mg Multivitamins/Minerals (Infuvite Adult) 10 ml IV Q24H [facility] Last Admin: 02/07/17 13:35 Dose: Not Given Omeprazole (Omeprazole) 20 mg PO DAILY [facility] Last Admin: 02/07/17 09:26 Dose: 20 mg Potassium Chloride (Klor-Con M20) 40 meq PO DAILY ONE Stop: 02/03/17 07:51 Last Admin: 02/03/17 08:24 Dose: 40 meq Potassium Chloride (Klor-Con M20) 40 meq PO ONETIME ONE Stop: 02/04/17 07:56 Last Admin: 02/04/17 08:58 Dose: 40 meq Potassium Chloride (Potassium Chloride) 40 meq PO BID EMILIO Stop: 02/06/17 23:59 Last Admin: 02/06/17 21:04 Dose: 40 meq Potassium Chloride (Klor-Con M20) 40 meq PO ONETIME ONE Stop: 02/12/17 09:54 Last Admin: 02/12/17 10:12 Dose: 40 meq Potassium Chloride (Klor-Con M20) 40 meq PO ONETIME ONE Stop: 02/13/17 11:31 Last Admin: 02/13/17 12:20 Dose: 40 meq Potassium Chloride (Klor-Con M20) 40 meq PO ONETIME ONE Stop: 02/14/17 09:24 Last Admin: 02/14/17 09:36 Dose: 40 meq Potassium Chloride (Klor-Con M20) 40 meq PO ONETIME ONE Stop: 02/15/17 11:01 Last Admin: 02/15/17 11:24 Dose: 40 meq Potassium Chloride (Klor-Con M20) 40 meq PO ONETIME ONE Stop: 02/17/17 09:17 Ropinirole HCl (Requip) 1 mg PO BEDTIME [facility] Last Admin: 02/06/17 21:06 Dose: 1 mg - Exam General: alert, oriented HEENT: Pupils equal, EOMI Neck: supple, trachea midline Lungs: Clear to auscultation, Decreased breath sounds Cardiovascular: Regular Rate, Regular Rhythm Abdomen: bowel sounds present, soft, tenderness Back Exam: Normal Inspection Extremities: other (pedal edema) Skin: warm, dry, intact Neurological: no new focal deficit Psy/Mental Status: alert, normal affect, normal mood - Problem List Review Problem List Initiated/Reviewed/Updated: Yes - My Orders Last 24 Hours: My Active Orders 02/17/17 09:29 Abdomen wo Cont [CT] Routine 02/17/17 11:30 Insulin Aspart [NovoLOG] See Protocol SUBCUT TIDAC - Assessment Assessment:: 02/07/[address] from [facility]. In light of bowel wall thickening, will start flagyl IV I suspect that she has a mild ileus. Will start reglan IV scheduled and change to clear liquid diet As she has had very little po intake for over one week, will plan to start TPN if not improved in about 24 hours. Richard Mccracken MD - Plan Plan:: 81 yo female with dehydration/acute on chronic renal insufficiency and diarrhea with pmh of malignant melenoma, htn, hypothyroidism, and lymphedema. admitted with UTI and ileus. Ileus with malnutrition: CT without contrast done today for persistent abdominal pain. Discussed the results with pateint and family. She has illeus without obstruction. Encouraged more po intake. Continue TPN. On TPN until improvement in oral intake. Distended gallbladder: No evidence of cholecystitis. consider US if persistent abdominal pain. Lower extremity edema: increase lasix TID with potassium replacement. Pain control: on marinol Hypothyroidism: synthroid Discharge: pending placement at SNF.
[2017-02-17] MEDS: Furosemide 40 MG/4 ML VIAL IVPUSH SCH ×3 (10:15→21:08)
[2017-02-17] MEDS: Dronabinol 2.5 MG Cap PO SCH ×2 (10:15→21:08)
[2017-02-17] MEDS ORDERED: Insulin Aspart 100 Units/ML 3 ML Pen SUBCUT SCH (11:30)
[2017-02-17] MEDS: MVI IV SCH ×6 (14:12)
[2017-02-17] MEDS: VITAMIN K IV SCH ×6 (14:12)
[2017-02-17] MEDS: [UNRECOGNIZED DRUG - OTHER] IV SCH ×6 (14:12)
[2017-02-17] MEDS: FAMOTIDINE IV SCH ×6 (14:12)
[2017-02-17] MEDS: POTASSIUM CHLORIDE IV SCH ×6 (14:12)
[2017-02-17] MEDS: Acetaminophen 325 MG Tab PO PRN (17:20)
[2017-02-18 01:31] LABS: CHLORIDE,CL 120 mmol/L (98-110); SODIUM,NA 151 mmol/L (136-146)
[2017-02-18] MEDS ORDERED: Magnesium Sulfate/Water 2 GM in Premix Bag 1 BAG IV ONE (02:40)
[2017-02-18] MEDS: Potassium Chloride 20 MEQ Tab.ER PO ONE ×2 (03:06→05:54)
[2017-02-18] MEDS ORDERED: KCL IV SCH (03:15)
[2017-02-18] MEDS ORDERED: SODIUM CHLORIDE 0.45% IV SCH (03:15)
[2017-02-18] MEDS ORDERED: POTASSIUM CHLORIDE IV SCH (03:15)
[2017-02-18] MEDS ORDERED: Levofloxacin/Dextrose 5%-Water 750 MG in Premix Bag 1 BAG IV SCH ×4 (04:30)
[2017-02-18] MEDS: Piperacillin/Tazobactam 3.375 GM in Sodium Chloride 0.9% 50 ML IV SCH ×2 (04:59→10:17)
--- NOTE | 2017-02-18 05:22 | PCM.SN ---
- Free Text/Narrative Note: Patient was noted to on the floor to be develop tachycardia, tachycpnic and lethargy. She was transfered to the ICU for closer monitoring, She is arousable and answers questions. CXR reports pulmonary edema, while CT abdomen reported consolidation of right lower lung base. Will obtain blood cultures and start broad spectrum antibiotics.
[2017-02-18] MEDS ORDERED: Sodium Bicarbonate 8.4% 50 MEQ/50 ML Syringe IVPUSH ONE (06:33)
[2017-02-18] MEDS: Levothyroxine 75 MCG Tab PO SCH (07:09)
[2017-02-18] MEDS: Furosemide 40 MG/4 ML VIAL IVPUSH SCH (07:10)
[2017-02-18] MEDS: Insulin Regular, Human 100 Units/ML 10 ML Vial SUBCUT SCH ×2 (08:00→12:10)
--- NOTE | 2017-02-18 09:51 | PCM.DCSUM1 ---
<Rpua Sapp - Last Filed: 02/18/17 10:08> Discharge Summary - Hospital Course Free Text/Narrative:: 81 yo female with history malignant melanoma undergoing chemotherapy ( sees Dr. Church at [facility]) with bonnie ochoa admitted on 02/02/2017 for diarrhea and acute on chronic renal insufficiency Creatinine 2.5. stool cultures negative. She was hydrated and her kidney funciton has improved. She has a history of chronic UTI not on prophylaxis antibiotics where she see the urologist. She developed UTI ( klebsiella) during hospitalization and was treated with I.V levaquin. She also developed ileus where NG tube placed. Her ileus has improved. NG was discontinued. Due to poor appetite she was placed on TPN. Last night she was tachynpic, tachycardic and sob. VSS T 99.0 HR 107-110, BP 109/51, RR 20-30. EKG: sinus tachycardia. Her cxr showed bilateral infiltrates. Her Chest CT showed right lower lobe pneumonia. Labs wbc 22.12 HB 11.4, Hct 34.5, PH 7.4, Pco2 27, Po2 62 bicarb 17, Na 151, K 3,2, cl 120, HCO3 18, BUN 51 cr 1.5. GFR 33. TPN was stopped. She was transferred to ICU and started on zosyn. She is transferred to higher level of care for possible GI consult. Her family requested transfer as well. Dr. Boone the hospitlist in [facility] in [place] kindly accepted the patient. She will be transported by flight. - Discharge Data Discharge Date: 02/18/17 Discharge Disposition: DC/Tfer to Acute Hospital 02 Condition: Good - Patient Summary/Data Consults: Consultations 02/05/17 14:22 OT Evaluation and Treatment [CONS] Routine PT Evaluation and Treatment [CONS] Routine 02/07/17 13:41 Consult to Pharmacy [CONS] Routine 02/17/17 11:12 Consult to [facility] [CONS] Routine - Patient Instructions Diet: Usual Diet as Tolerated - Discharge Plan Home Medications: Home Meds Chlorthalidone 12.5 mg PO DAILY 02/21/16 [History] Moexipril HCl [Moexipril] 15 mg PO DAILY 02/21/16 [History] atorvaSTATin Calcium [Atorvastatin Calcium] 40 mg PO BEDTIME 02/21/16 [History] Aspirin 81 mg PO BID 11/18/16 [History] Potassium Chloride 10 meq PO DAILY 11/18/16 [History] Ipilimumab 220 mg IV ASDIRECTED 02/02/17 [History] Levothyroxine 125 mcg DAILY 02/02/17 [History] Nivolumab [Opdivo] 75 mg IV ASDIRECTED 02/02/17 [History] Omeprazole 20 mg DAILY 02/02/17 [History] Ondansetron HCl [Ondansetron] 4 mg PO Q8H PRN 02/03/17 [History] Prochlorperazine [Compazine] 10 mg PO Q4H PRN 02/03/17 [History] predniSONE [Prednisone] 60 mg PO DAILY 02/03/17 [History] rOPINIRole [Requip] 1 mg PO BEDTIME 02/03/17 [History] Referrals: PCP,None [Primary Care Provider] - - General Info Date of Service: 02/18/17 Functional Status: Reports: tolerating diet - Review of Systems General: Reports: Weakness, Fatigue HEENT: Reports: no symptoms Pulmonary: Reports: shortness of breath Cardiovascular: Reports: No Symptoms Gastrointestinal: Reports: Abdominal pain (improving), Diarrhea, Flatus Genitourinary: Reports: no symptoms Musculoskeletal: Reports: no symptoms Skin: Reports: no symptoms Neurological: Reports: No Symptoms Psychiatric: Reports: no symptoms - Patient Data Vitals - Most Recent: Last Vital Signs Temp 99.0 F 02/18/17 08:00 Pulse 124 H 02/18/17 00:00 Resp 25 H 02/18/17 09:00 BP 106/49 L 02/18/17 09:00 Pulse Ox 91 L 02/18/17 09:00 Weight - Most Recent: 77 kg I&O - Last 24 hours: Intake & Output 02/17/17 02/18/17 02/18/17 22:59 06:59 14:59 Intake Total 1148 1942 150 Balance 1148 1942 150 Lab Results - Last 24 hrs: Laboratory Results - last 24 hr 02/17/17 02/17/17 02/18/17 Range/Units 10:24 17:05 01:00 WBC (4.0-11.0) K/uL RBC (4.30-5.90) M/uL Hgb (12.0-16.0) g/dL Hct (36.0-46.0) % MCV (80.0-98.0) fL MCH (27.0-32.0) pg MCHC (31.0-37.0) g/dL RDW Std Deviation (28.0-62.0) fl RDW Coeff of Juan J (11.0-15.0) % Plt Count (150-400) K/uL MPV (7.40-12.00) fL Add Manual Diff Neutrophils % (Manual) (48.0-80.0) % Band Neutrophils % % Lymphocytes % (Manual) (16.0-40.0) % Monocytes % (Manual) (0.0-15.0) % Myelocytes % % Nucleated RBC % /100WBC Absolute Seg Neuts Band Neutrophils # Lymphocytes # (Manual) Monocytes # (Manual) Absolute Myelocytes Nucleated RBCs # K/uL ABG pH (7.35-7.45) ABG pCO2 (35-45) mmHG ABG pO2 (75-100) mmHG ABG HCO3 (22-26) mEq/L ABG Total CO2 ABG Base Excess (-2.0-2.0) Sodium 151 H (136-146) mmol/L Potassium 3.2 L (3.5-5.1) mmol/L Chloride 120 H (98-110) mmol/L Carbon Dioxide 18 L (21-31) mmol/L BUN 51 H (6.0-23.0) mg/dL Creatinine 1.5 (0.6-1.5) mg/dL Est Cr Clr Drug Dosing TNP Estimated GFR (MDRD) 33.5 ml/min Glucose 219 H (60-110) mg/dL POC Glucose 277 H 323 H (60-110) mg/dL Calcium 8.9 (8.8-10.8) mg/dL Phosphorus (2.4-4.7) mg/dL Magnesium 1.7 (1.5-2.3) mEq/L Urine Color Urine Appearance Urine pH (5.0-8.0) Ur Specific [place] (1.001-1.035) Urine Protein (NEGATIVE) mg/dL Urine Glucose (UA) (NEGATIVE) mg/dL Urine Ketones (NEGATIVE) mg/dL Urine Occult Blood (NEGATIVE) Urine Nitrite (NEGATIVE) Urine Bilirubin (NEGATIVE) Urine Urobilinogen (<2.0) EU/dL Ur Leukocyte Esterase (NEGATIVE) Urine RBC (0-2/HPF) Urine WBC (0-5/HPF) Ur Epithelial Cells (NONE-FEW) Urine Bacteria (NEGATIVE) 02/18/17 02/18/17 02/18/17 Range/Units 04:15 07:02 07:20 WBC 22.12 H (4.0-11.0) K/uL RBC 3.82 L (4.30-5.90) M/uL Hgb 11.4 L (12.0-16.0) g/dL Hct 34.5 L (36.0-46.0) % MCV 90.3 (80.0-98.0) fL MCH 29.8 (27.0-32.0) pg MCHC 33.0 (31.0-37.0) g/dL RDW Std Deviation 62.0 (28.0-62.0) fl RDW Coeff of Juan J 20 H (11.0-15.0) % Plt Count 145 L (150-400) K/uL MPV 12.30 H (7.40-12.00) fL Add Manual Diff YES Neutrophils % (Manual) 62 (48.0-80.0) % Band Neutrophils % 27 % Lymphocytes % (Manual) 5 L (16.0-40.0) % Monocytes % (Manual) 5 (0.0-15.0) % Myelocytes % 1 % Nucleated RBC % 0.6 /100WBC Absolute Seg Neuts 13.7 Band Neutrophils # 6.0 Lymphocytes # (Manual) 1.1 Monocytes # (Manual) 1.1 Absolute Myelocytes 0.2 Nucleated RBCs # 0 K/uL ABG pH 7.407 (7.35-7.45) ABG pCO2 27 L (35-45) mmHG ABG pO2 62 L (75-100) mmHG ABG HCO3 17 L (22-26) mEq/L ABG Total CO2 15.0 ABG Base Excess -7.1 L (-2.0-2.0) Sodium (136-146) mmol/L Potassium (3.5-5.1) mmol/L Chloride (98-110) mmol/L Carbon Dioxide (21-31) mmol/L BUN (6.0-23.0) mg/dL Creatinine (0.6-1.5) mg/dL Est Cr Clr Drug Dosing Estimated GFR (MDRD) ml/min Glucose (60-110) mg/dL POC Glucose 233 H (60-110) mg/dL Calcium (8.8-10.8) mg/dL Phosphorus (2.4-4.7) mg/dL Magnesium (1.5-2.3) mEq/L Urine Color Urine Appearance Urine pH (5.0-8.0) Ur Specific [place] (1.001-1.035) Urine Protein (NEGATIVE) mg/dL Urine Glucose (UA) (NEGATIVE) mg/dL Urine Ketones (NEGATIVE) mg/dL Urine Occult Blood (NEGATIVE) Urine Nitrite (NEGATIVE) Urine Bilirubin (NEGATIVE) Urine Urobilinogen (<2.0) EU/dL Ur Leukocyte Esterase (NEGATIVE) Urine RBC (0-2/HPF) Urine WBC (0-5/HPF) Ur Epithelial Cells (NONE-FEW) Urine Bacteria (NEGATIVE) 02/18/17 02/18/17 Range/Units 07:20 08:00 WBC (4.0-11.0) K/uL RBC (4.30-5.90) M/uL Hgb (12.0-16.0) g/dL Hct (36.0-46.0) % MCV (80.0-98.0) fL MCH (27.0-32.0) pg MCHC (31.0-37.0) g/dL RDW Std Deviation (28.0-62.0) fl RDW Coeff of Juan J (11.0-15.0) % Plt Count (150-400) K/uL MPV (7.40-12.00) fL Add Manual Diff Neutrophils % (Manual) (48.0-80.0) % Band Neutrophils % % Lymphocytes % (Manual) (16.0-40.0) % Monocytes % (Manual) (0.0-15.0) % Myelocytes % % Nucleated RBC % /100WBC Absolute Seg Neuts Band Neutrophils # Lymphocytes # (Manual) Monocytes # (Manual) Absolute Myelocytes Nucleated RBCs # K/uL ABG pH (7.35-7.45) ABG pCO2 (35-45) mmHG ABG pO2 (75-100) mmHG ABG HCO3 (22-26) mEq/L ABG Total CO2 ABG Base Excess (-2.0-2.0) Sodium (136-146) mmol/L Potassium (3.5-5.1) mmol/L Chloride (98-110) mmol/L Carbon Dioxide (21-31) mmol/L BUN (6.0-23.0) mg/dL Creatinine (0.6-1.5) mg/dL Est Cr Clr Drug Dosing Estimated GFR (MDRD) ml/min Glucose (60-110) mg/dL POC Glucose (60-110) mg/dL Calcium (8.8-10.8) mg/dL Phosphorus 3.9 (2.4-4.7) mg/dL Magnesium 2.0 (1.5-2.3) mEq/L Urine Color YELLOW Urine Appearance CLEAR Urine pH 5.5 (5.0-8.0) Ur Specific [place] 1.015 (1.001-1.035) Urine Protein NEGATIVE (NEGATIVE) mg/dL Urine Glucose (UA) NEGATIVE (NEGATIVE) mg/dL Urine Ketones NEGATIVE (NEGATIVE) mg/dL Urine Occult Blood NEGATIVE (NEGATIVE) Urine Nitrite NEGATIVE (NEGATIVE) Urine Bilirubin NEGATIVE (NEGATIVE) Urine Urobilinogen 0.2 (<2.0) EU/dL Ur Leukocyte Esterase NEGATIVE (NEGATIVE) Urine RBC 3-5 (0-2/HPF) Urine WBC 1-2 (0-5/HPF) Ur Epithelial Cells FEW (NONE-FEW) Urine Bacteria 1+ H (NEGATIVE) Med Orders - Current: Current Medications Acetaminophen (Tylenol) 650 mg PO Q4H PRN PRN Reason: Pain Last Admin: 02/17/17 17:20 Dose: 650 mg Albuterol/Ipratropium (Duoneb 3.0-0.5 Mg/3 Ml) 3 ml NEB Q4HRRT PRN PRN Reason: Shortness of Breath Last Admin: 02/11/17 21:42 Dose: 3 ml Furosemide (Lasix) 40 mg IVPUSH TID [facility] Last Admin: 02/18/17 07:10 Dose: 40 mg Potassium Chloride 20 meq/Potassium Chloride/Sodium Chloride 1,010 mls @ 49.51 mls/hr IV ASDIRECTED [facility] Last Admin: 02/18/17 03:26 Dose: 49.51 mls/hr Piperacillin Sod/Tazobactam (Sod 3.375 gm/ Sodium Chloride) 50 mls @ 100 mls/ hr IV Q6H [facility] Last Admin: 02/18/17 04:59 Dose: 100 mls/hr Vancomycin HCl 1 gm/ Sodium (Chloride) 250 mls @ 166 mls/hr IV Q24H [facility] Last Infusion: 02/18/17 07:35 Dose: 166 mls/hr Levofloxacin/Dextrose 750 mg/ (Premix) 150 mls @ 100 mls/hr IV Q48H [facility] Last Admin: 02/18/17 05:43 Dose: 100 mls/hr Insulin Human Regular (Novolin R) 0 unit SUBCUT TIDAC [facility] PRN Reason: Protocol Last Admin: 02/18/17 08:00 Dose: 4 units Levothyroxine Sodium (Levothyroxine) 75 mcg PO ACBREAKFAST [facility] Last Admin: 02/18/17 07:09 Dose: Not Given Ondansetron HCl (Zofran Odt) 4 mg PO Q4H PRN PRN Reason: nausea, able to take PO Last Admin: 02/16/17 15:29 Dose: 4 mg Vancomycin HCl (Pharmacy To Dose - Vancomycin) 1 dose .XX ASDIRECTED [facility] Discontinued Medications Acetaminophen (Tylenol) 650 mg PO Q4H PRN PRN Reason: Pain (Mild 1-3)/fever Aspirin (Halfprin) 81 mg PO BID [facility] Last Admin: 02/07/17 09:26 Dose: 81 mg Calcium Carbonate/Glycine (Tums) 1,000 mg PO DAILY ONE Stop: 02/02/17 17:20 Last Admin: 02/02/17 17:32 Dose: 1,000 mg Calcium Carbonate/Glycine (Tums) 1,000 mg PO ONETIME ONE Stop: 02/03/17 07:52 Last Admin: 02/03/17 08:24 Dose: 1,000 mg Calcium Carbonate/Glycine (Tums) 1,000 mg PO ONETIME ONE Stop: 02/04/17 09:37 Last Admin: 02/04/17 10:23 Dose: 1,000 mg Dronabinol (Marinol) 2.5 mg PO BID [facility] Last Admin: 02/17/17 21:08 Dose: 2.5 mg Furosemide (Lasix) 60 mg IVPUSH NOW ONE Stop: 02/07/17 16:09 Last Admin: 02/07/17 16:47 Dose: 60 mg Furosemide (Lasix) 60 mg IVPUSH NOW ONE Stop: 02/10/17 11:16 Last Admin: 02/10/17 11:28 Dose: 60 mg Furosemide (Lasix) 60 mg IVPUSH NOW ONE Stop: 02/11/17 14:50 Last Admin: 02/11/17 16:39 Dose: 60 mg Furosemide (Lasix) 40 mg IVPUSH BID ONE Stop: 02/12/17 14:50 Furosemide (Lasix) 40 mg IVPUSH BIDDIURETIC [facility] Last Admin: 02/16/17 08:13 Dose: 40 mg Furosemide (Lasix) 60 mg IVPUSH ONETIME ONE Stop: 02/11/17 21:28 Last Admin: 02/11/17 21:43 Dose: 60 mg Furosemide (Lasix) 40 mg IVPUSH TID [facility] Furosemide (Lasix) 40 mg IVPUSH BIDDIURETIC [facility] Last Admin: 02/17/17 10:15 Dose: 40 mg Heparin Sodium (Porcine) (Heparin Sodium) 5,000 units SUBCUT Q8H [facility] Last Admin: 02/03/17 06:29 Dose: 5,000 units Sodium Chloride (Normal Saline) 1,000 mls @ 999 mls/hr IV STAT ONE Stop: 02/02/17 13:15 Last Admin: 02/02/17 12:51 Dose: 999 mls/hr Sodium Chloride (Normal Saline) 1,000 mls @ 100 mls/hr IV ASDIRECTED [facility] Last Admin: 02/07/17 02:16 Dose: 125 mls/hr Levofloxacin/Dextrose 750 mg/ (Premix) 150 mls @ 100 mls/hr IV NOW ONE Stop: 02/03/17 06:14 Last Admin: 02/03/17 05:13 Dose: 100 mls/hr Levofloxacin/Dextrose (Levaquin In D5w 500 Mg/100 Ml) 100 mls @ 100 mls/hr IV Q48H [facility] Last Admin: 02/11/17 05:39 Dose: 100 mls/hr Sodium Chloride (Normal Saline) 500 mls @ 999 mls/hr IV ASDIRECTED [facility] Last Admin: 02/03/17 08:37 Dose: 999 mls/hr Pantoprazole Sodium 40 mg/ (Sodium Chloride) 10 mls @ 300 mls/hr IVPUSH Q24H [facility] Last Admin: 02/07/17 14:52 Dose: 300 mls/hr Sodium Chloride (Normal Saline) 500 mls @ 999 mls/hr IV ASDIRECTED [facility] Last Admin: 02/04/17 10:28 Dose: 999 mls/hr Magnesium Sulfate 4 gm/ Premix 100 mls @ 50 mls/hr IV ONETIME ONE Stop: 02/07/17 14:22 Last Admin: 02/07/17 12:54 Dose: 50 mls/hr Multivitamins/Minerals 10 ml/ (Sodium Chloride) 510 mls @ 510 mls/hr IV Q24H [facility] Last Admin: 02/07/17 15:22 Dose: Not Given Albumin Human (Flexbumin 25%) 12.5 gm in 50 mls @ 100 mls/hr IV ONETIME ONE Stop: 02/07/17 14:16 Last Admin: 02/07/17 14:58 Dose: 100 mls/hr Lactated Ringer's (Ringers, Lactated) 1,000 mls @ 100 mls/hr IV ASDIRECTED [facility] Last Infusion: 02/08/17 13:38 Dose: 50 mls/hr Metronidazole 500 mg/ Premix 100 mls @ 100 mls/hr IV Q6H [facility] Last Admin: 02/07/17 15:22 Dose: Not Given Multivitamins/Minerals 10 ml/ (Sodium Chloride) 510 mls @ 510 mls/hr IV Q24H [facility] Last Admin: 02/07/17 15:37 Dose: 510 mls/hr Metronidazole 500 mg/ Premix 100 mls @ 100 mls/hr IV Q6H [facility] Last Admin: 02/11/17 10:20 Dose: 100 mls/hr Pantoprazole Sodium 40 mg/ (Sodium Chloride) 10 mls @ 300 mls/hr IVPUSH Q12H [facility] Pantoprazole Sodium 40 mg/ (Sodium Chloride) 10 mls @ 300 mls/hr IVPUSH Q12H [facility] Last Admin: 02/08/17 16:10 Dose: Not Given Albumin Human (Flexbumin 25%) 12.5 gm in 50 mls @ 100 mls/hr IV ONETIME ONE Stop: 02/08/17 11:36 Last Admin: 02/08/17 12:16 Dose: 100 mls/hr Multivitamins/Minerals 10 ml/Famotidine 40 mg/ Amino Ac/Electrol/Dextrose/ Calcium/ Fat Emulsion Intravenous 2,264 mls @ 94.333 mls/hr IV Q24H [facility] Last Infusion: 02/08/17 17:35 Dose: 94 mls/hr Lactated Ringer's (Ringers, Lactated) 1,000 mls @ 50 mls/hr IV ASDIRECTED [facility] Last Admin: 02/08/17 21:35 Dose: 50 mls/hr Multivitamins/Minerals 10 ml/Famotidine 40 mg/ Insulin Human Regular 10 unit/ Potassium Phosphate 27 mmole/Amino Ac/Electrol/Dextrose/Calcium/ Fat Emulsion Intravenous/ Sterile Water 3,273.1 mls @ 95 mls/hr IV Q24H [facility] Stop: 02/11/17 13:59 Last Admin: 02/10/17 15:00 Dose: 95 mls/hr Potassium Phosphate 27 mmole/ (Sodium Chloride) 509 mls @ 127.25 mls/hr IV ONETIME ONE Stop: 02/09/17 14:14 Last Admin: 02/09/17 11:44 Dose: 127.25 mls/hr Sodium Chloride (Sodium Chloride 0.45%) 1,000 mls @ 50 mls/hr IV ASDIRECTED [facility] Sodium Chloride (Sodium Chloride 0.45%) 1,000 mls @ 50 mls/hr IV ASDIRECTED [facility] Last Admin: 02/09/17 16:42 Dose: 50 mls/hr Potassium Chloride/Sodium Chloride (Normal Saline With 20 Meq Kcl) 1,000 mls @ 75 mls/hr IV ASDIRECTED [facility] Last Admin: 02/11/17 04:16 Dose: 75 mls/hr Magnesium Sulfate 2 gm/ Premix 50 mls @ 25 mls/hr IV ONETIME ONE Stop: 02/10/17 12:58 Last Admin: 02/10/17 11:28 Dose: 25 mls/hr Multivitamins/Minerals 10 ml/Famotidine 40 mg/ Potassium Phosphate 81 mmole/ Albumin Human 12.5 gm/ Amino Ac/Electrol/Dextrose/Calcium/ Fat Emulsion Intravenous/ Sterile Water 3,341 mls @ 96.971 mls/hr IV Q24H [facility] Stop: 02/12/17 13:59 Last Admin: 02/11/17 14:51 Dose: 96.971 mls/hr Potassium Phosphate 27 mmole/ (Sodium Chloride) 509 mls @ 127.25 mls/hr IV ONETIME [facility] Stop: 02/11/17 15:00 Last Admin: 02/11/17 12:13 Dose: 127.25 mls/hr Potassium Phosphate 27 mmole/ (Sodium Chloride) 1,009 mls @ 50 mls/hr IV ASDIRECTED [facility] Last Admin: 02/11/17 16:38 Dose: 50 mls/hr Potassium Chloride/Sodium Chloride (Normal Saline With 40 Meq Kcl) 1,000 mls @ 150 mls/hr IV ASDIRECTED [facility] Stop: 02/12/17 16:24 Last Admin: 02/12/17 10:01 Dose: Not Given Multivitamins/Minerals 10 ml/Famotidine 40 mg/ Potassium Chloride 120 meq/ Albumin Human 12.5 gm/ Amino Ac/Electrol/Dextrose/Calcium/ Fat Emulsion Intravenous 2,374 mls @ 50 mls/hr IV Q24H [facility] Stop: 02/13/17 13:59 Last Admin: 02/12/17 14:28 Dose: 50 mls/hr Multivitamins/Minerals 10 ml/Famotidine 40 mg/ Potassium Chloride 120 meq/ Albumin Human 12.5 gm/ Amino Ac/Electrol/Dextrose/Calcium/ Fat Emulsion Intravenous 2,374 mls @ 50 mls/hr IV Q24H [facility] Last Admin: 02/17/17 14:12 Dose: 50 mls/hr Magnesium Sulfate 2 gm/ Premix 50 mls @ 50 mls/hr IV ONETIME ONE Stop: 02/18/17 03:39 Last Admin: 02/18/17 03:07 Dose: 50 mls/hr Levofloxacin/Dextrose 750 mg/ (Premix) 150 mls @ 100 mls/hr IV Q24H [facility] Last Admin: 02/18/17 06:34 Dose: Not Given Insulin Aspart (Novolog) 0 unit SUBCUT TIDAC [facility] PRN Reason: Protocol Insulin Human Regular (Novolin R) 0 unit SUBCUT Q6H [facility] PRN Reason: Protocol Last Admin: 02/11/17 07:26 Dose: 1 units Insulin Human Regular (Novolin R) 0 unit SUBCUT Q6H [facility] PRN Reason: Protocol Last Admin: 02/14/17 17:46 Dose: 6 units Levothyroxine Sodium (Levothyroxine) 125 mcg PO ACBREAKFAST [facility] Last Admin: 02/07/17 06:46 Dose: 125 mcg Levothyroxine Sodium (Synthroid) 75 mcg IVPUSH DAILY [facility] Last Admin: 02/12/17 09:09 Dose: 75 mcg Loperamide HCl (Imodium) 2 mg PO Q4H PRN PRN Reason: Diarrhea Last Admin: 02/02/17 16:22 Dose: 2 mg Metoclopramide HCl (Reglan) 5 mg IVPUSH Q6H [facility] Last Admin: 02/07/17 12:54 Dose: 5 mg Metoclopramide HCl (Reglan) 10 mg IVPUSH Q6H [facility] Last Admin: 02/17/17 23:35 Dose: 10 mg Morphine Sulfate (Morphine) 0 mg IVPUSH Q1H PRN PRN Reason: Pain Last Admin: 02/15/17 08:13 Dose: 2 mg Multivitamins/Minerals (Infuvite Adult) 10 ml IV Q24H [facility] Last Admin: 02/07/17 13:35 Dose: Not Given Omeprazole (Omeprazole) 20 mg PO DAILY [facility] Last Admin: 02/07/17 09:26 Dose: 20 mg Potassium Chloride (Klor-Con M20) 40 meq PO DAILY ONE Stop: 02/03/17 07:51 Last Admin: 02/03/17 08:24 Dose: 40 meq Potassium Chloride (Klor-Con M20) 40 meq PO ONETIME ONE Stop: 02/04/17 07:56 Last Admin: 02/04/17 08:58 Dose: 40 meq Potassium Chloride (Potassium Chloride) 40 meq PO BID [facility] Stop: 02/06/17 23:59 Last Admin: 02/06/17 21:04 Dose: 40 meq Potassium Chloride (Klor-Con M20) 40 meq PO ONETIME ONE Stop: 02/12/17 09:54 Last Admin: 02/12/17 10:12 Dose: 40 meq Potassium Chloride (Klor-Con M20) 40 meq PO ONETIME ONE Stop: 02/13/17 11:31 Last Admin: 02/13/17 12:20 Dose: 40 meq Potassium Chloride (Klor-Con M20) 40 meq PO ONETIME ONE Stop: 02/14/17 09:24 Last Admin: 02/14/17 09:36 Dose: 40 meq Potassium Chloride (Klor-Con M20) 40 meq PO ONETIME ONE Stop: 02/15/17 11:01 Last Admin: 02/15/17 11:24 Dose: 40 meq Potassium Chloride (Klor-Con M20) 40 meq PO ONETIME ONE Stop: 02/17/17 09:17 Last Admin: 02/17/17 10:15 Dose: 40 meq Potassium Chloride (Klor-Con M20) 40 meq PO ONETIME ONE Stop: 02/17/17 15:01 Last Admin: 02/17/17 14:13 Dose: 40 meq Potassium Chloride (Klor-Con M20) 40 meq PO ONETIME ONE Stop: 02/18/17 02:41 Last Admin: 02/18/17 05:54 Dose: Not Given Ropinirole HCl (Requip) 1 mg PO BEDTIME [facility] Last Admin: 02/06/17 21:06 Dose: 1 mg Sodium Bicarbonate (Sodium Bicarbonate 8.4%) 100 meq IVPUSH ONETIME ONE Stop: 02/18/17 06:34 Last Admin: 02/18/17 06:44 Dose: 100 meq - Exam Quality Assessment: Reports: supplemental oxygen General: Reports: alert, oriented HEENT: Reports: Pupils equal, EOMI Neck: Reports: supple, trachea midline Lungs: Reports: Decreased breath sounds, Rales Cardiovascular: Reports: Regular Rate, Regular Rhythm Abdomen: Reports: bowel sounds present, soft, tenderness Extremities: Reports: edema (pedal edema) Skin: Reports: warm, dry, intact Neurological: Reports: no new focal deficit Psy/Mental Status: Reports: alert, normal affect, normal mood *Q Meaningful Use (DIS) - VTE *Q VTE Criteria *Q: - Stroke *Q Stroke Criteria *Q: - AMI *Q AMI Criteria *Q: <Emmanuel Rizvi - Last Filed: 02/18/17 15:33> Discharge Summary - Patient Summary/Data Consults: Consultations 02/05/17 14:22 OT Evaluation and Treatment [CONS] Routine PT Evaluation and Treatment [CONS] Routine 02/07/17 13:41 Consult to Pharmacy [CONS] Routine 02/17/17 11:12 Consult to [facility] [CONS] Routine - Patient Data Vitals - Most Recent: Last Vital Signs Temp 37.2 C 02/18/17 08:00 Pulse 124 H 02/18/17 00:00 Resp 28 H 02/18/17 10:00 BP 95/44 L 02/18/17 10:00 Pulse Ox 94 L 02/18/17 10:00 I&O - Last 24 hours: Intake & Output 02/18/17 02/18/17 02/18/17 06:59 14:59 22:59 Intake Total 1942 200 Balance 1942 200 Lab Results - Last 24 hrs: Laboratory Results - last 24 hr 02/17/17 02/18/17 02/18/17 Range/Units 17:05 01:00 04:15 WBC (4.0-11.0) K/uL RBC (4.30-5.90) M/uL Hgb (12.0-16.0) g/dL Hct (36.0-46.0) % MCV (80.0-98.0) fL MCH (27.0-32.0) pg MCHC (31.0-37.0) g/dL RDW Std Deviation (28.0-62.0) fl RDW Coeff of Juan J (11.0-15.0) % Plt Count (150-400) K/uL MPV (7.40-12.00) fL Add Manual Diff Neutrophils % (Manual) (48.0-80.0) % Band Neutrophils % % Lymphocytes % (Manual) (16.0-40.0) % Monocytes % (Manual) (0.0-15.0) % Myelocytes % % Nucleated RBC % /100WBC Absolute Seg Neuts Band Neutrophils # Lymphocytes # (Manual) Monocytes # (Manual) Absolute Myelocytes Nucleated RBCs # K/uL ABG pH 7.407 (7.35-7.45) ABG pCO2 27 L (35-45) mmHG ABG pO2 62 L (75-100) mmHG ABG HCO3 17 L (22-26) mEq/L ABG Total CO2 15.0 ABG Base Excess -7.1 L (-2.0-2.0) Sodium 151 H (136-146) mmol/L Potassium 3.2 L (3.5-5.1) mmol/L Chloride 120 H (98-110) mmol/L Carbon Dioxide 18 L (21-31) mmol/L BUN 51 H (6.0-23.0) mg/dL Creatinine 1.5 (0.6-1.5) mg/dL Est Cr Clr Drug Dosing TNP Estimated GFR (MDRD) 33.5 ml/min Glucose 219 H (60-110) mg/dL POC Glucose 323 H (60-110) mg/dL Calcium 8.9 (8.8-10.8) mg/dL Phosphorus (2.4-4.7) mg/dL Magnesium 1.7 (1.5-2.3) mEq/L Urine Color Urine Appearance Urine pH (5.0-8.0) Ur Specific [place] (1.001-1.035) Urine Protein (NEGATIVE) mg/dL Urine Glucose (UA) (NEGATIVE) mg/dL Urine Ketones (NEGATIVE) mg/dL Urine Occult Blood (NEGATIVE) Urine Nitrite (NEGATIVE) Urine Bilirubin (NEGATIVE) Urine Urobilinogen (<2.0) EU/dL Ur Leukocyte Esterase (NEGATIVE) Urine RBC (0-2/HPF) Urine WBC (0-5/HPF) Ur Epithelial Cells (NONE-FEW) Urine Bacteria (NEGATIVE) 02/18/17 02/18/17 02/18/17 Range/Units 07:02 07:20 07:20 WBC 22.12 H (4.0-11.0) K/uL RBC 3.82 L (4.30-5.90) M/uL Hgb 11.4 L (12.0-16.0) g/dL Hct 34.5 L (36.0-46.0) % MCV 90.3 (80.0-98.0) fL MCH 29.8 (27.0-32.0) pg MCHC 33.0 (31.0-37.0) g/dL RDW Std Deviation 62.0 (28.0-62.0) fl RDW Coeff of Juan J 20 H (11.0-15.0) % Plt Count 145 L (150-400) K/uL MPV 12.30 H (7.40-12.00) fL Add Manual Diff YES Neutrophils % (Manual) 62 (48.0-80.0) % Band Neutrophils % 27 % Lymphocytes % (Manual) 5 L (16.0-40.0) % Monocytes % (Manual) 5 (0.0-15.0) % Myelocytes % 1 % Nucleated RBC % 0.6 /100WBC Absolute Seg Neuts 13.7 Band Neutrophils # 6.0 Lymphocytes # (Manual) 1.1 Monocytes # (Manual) 1.1 Absolute Myelocytes 0.2 Nucleated RBCs # 0 K/uL ABG pH (7.35-7.45) ABG pCO2 (35-45) mmHG ABG pO2 (75-100) mmHG ABG HCO3 (22-26) mEq/L ABG Total CO2 ABG Base Excess (-2.0-2.0) Sodium (136-146) mmol/L Potassium (3.5-5.1) mmol/L Chloride (98-110) mmol/L Carbon Dioxide (21-31) mmol/L BUN (6.0-23.0) mg/dL Creatinine (0.6-1.5) mg/dL Est Cr Clr Drug Dosing Estimated GFR (MDRD) ml/min Glucose (60-110) mg/dL POC Glucose 233 H (60-110) mg/dL Calcium (8.8-10.8) mg/dL Phosphorus 3.9 (2.4-4.7) mg/dL Magnesium 2.0 (1.5-2.3) mEq/L Urine Color Urine Appearance Urine pH (5.0-8.0) Ur Specific [place] (1.001-1.035) Urine Protein (NEGATIVE) mg/dL Urine Glucose (UA) (NEGATIVE) mg/dL Urine Ketones (NEGATIVE) mg/dL Urine Occult Blood (NEGATIVE) Urine Nitrite (NEGATIVE) Urine Bilirubin (NEGATIVE) Urine Urobilinogen (<2.0) EU/dL Ur Leukocyte Esterase (NEGATIVE) Urine RBC (0-2/HPF) Urine WBC (0-5/HPF) Ur Epithelial Cells (NONE-FEW) Urine Bacteria (NEGATIVE) 02/18/17 02/18/17 Range/Units 08:00 12:11 WBC (4.0-11.0) K/uL RBC (4.30-5.90) M/uL Hgb (12.0-16.0) g/dL Hct (36.0-46.0) % MCV (80.0-98.0) fL MCH (27.0-32.0) pg MCHC (31.0-37.0) g/dL RDW Std Deviation (28.0-62.0) fl RDW Coeff of Juan J (11.0-15.0) % Plt Count (150-400) K/uL MPV (7.40-12.00) fL Add Manual Diff Neutrophils % (Manual) (48.0-80.0) % Band Neutrophils % % Lymphocytes % (Manual) (16.0-40.0) % Monocytes % (Manual) (0.0-15.0) % Myelocytes % % Nucleated RBC % /100WBC Absolute Seg Neuts Band Neutrophils # Lymphocytes # (Manual) Monocytes # (Manual) Absolute Myelocytes Nucleated RBCs # K/uL ABG pH (7.35-7.45) ABG pCO2 (35-45) mmHG ABG pO2 (75-100) mmHG ABG HCO3 (22-26) mEq/L ABG Total CO2 ABG Base Excess (-2.0-2.0) Sodium (136-146) mmol/L Potassium (3.5-5.1) mmol/L Chloride (98-110) mmol/L Carbon Dioxide (21-31) mmol/L BUN (6.0-23.0) mg/dL Creatinine (0.6-1.5) mg/dL Est Cr Clr Drug Dosing Estimated GFR (MDRD) ml/min Glucose (60-110) mg/dL POC Glucose 182 H (60-110) mg/dL Calcium (8.8-10.8) mg/dL Phosphorus (2.4-4.7) mg/dL Magnesium (1.5-2.3) mEq/L Urine Color YELLOW Urine Appearance CLEAR Urine pH 5.5 (5.0-8.0) Ur Specific [place] 1.015 (1.001-1.035) Urine Protein NEGATIVE (NEGATIVE) mg/dL Urine Glucose (UA) NEGATIVE (NEGATIVE) mg/dL Urine Ketones NEGATIVE (NEGATIVE) mg/dL Urine Occult Blood NEGATIVE (NEGATIVE) Urine Nitrite NEGATIVE (NEGATIVE) Urine Bilirubin NEGATIVE (NEGATIVE) Urine Urobilinogen 0.2 (<2.0) EU/dL Ur Leukocyte Esterase NEGATIVE (NEGATIVE) Urine RBC 3-5 (0-2/HPF) Urine WBC 1-2 (0-5/HPF) Ur Epithelial Cells FEW (NONE-FEW) Urine Bacteria 1+ H (NEGATIVE) TALON Results - Last 24 hrs: Microbiology 02/18/17 08:00 Campylobacter Antigen Assay - Final Stool / Feces NEGATIVE CAMPYLOBACTER AG 02/18/17 08:00 Clostridium difficile Toxin A&B (M) - Final Stool / Feces Negative for C.Diff Toxin/AG Med Orders - Current: Current Medications Discontinued Medications Acetaminophen (Tylenol) 650 mg PO Q4H PRN PRN Reason: Pain (Mild 1-3)/fever Acetaminophen (Tylenol) 650 mg PO Q4H PRN PRN Reason: Pain Last Admin: 02/17/17 17:20 Dose: 650 mg Albuterol/Ipratropium (Duoneb 3.0-0.5 Mg/3 Ml) 3 ml NEB Q4HRRT PRN PRN Reason: Shortness of Breath Last Admin: 02/11/17 21:42 Dose: 3 ml Aspirin (Halfprin) 81 mg PO BID EMILIO Last Admin: 02/07/17 09:26 Dose: 81 mg Calcium Carbonate/Glycine (Tums) 1,000 mg PO DAILY ONE Stop: 02/02/17 17:20 Last Admin: 02/02/17 17:32 Dose: 1,000 mg Calcium Carbonate/Glycine (Tums) 1,000 mg PO ONETIME ONE Stop: 02/03/17 07:52 Last Admin: 02/03/17 08:24 Dose: 1,000 mg Calcium Carbonate/Glycine (Tums) 1,000 mg PO ONETIME ONE Stop: 02/04/17 09:37 Last Admin: 02/04/17 10:23 Dose: 1,000 mg Dronabinol (Marinol) 2.5 mg PO BID EMILIO Last Admin: 02/17/17 21:08 Dose: 2.5 mg Furosemide (Lasix) 60 mg IVPUSH NOW ONE Stop: 02/07/17 16:09 Last Admin: 02/07/17 16:47 Dose: 60 mg Furosemide (Lasix) 60 mg IVPUSH NOW ONE Stop: 02/10/17 11:16 Last Admin: 02/10/17 11:28 Dose: 60 mg Furosemide (Lasix) 60 mg IVPUSH NOW ONE Stop: 02/11/17 14:50 Last Admin: 02/11/17 16:39 Dose: 60 mg Furosemide (Lasix) 40 mg IVPUSH BID ONE Stop: 02/12/17 14:50 Furosemide (Lasix) 40 mg IVPUSH BIDDIURETIC EMILIO Last Admin: 02/16/17 08:13 Dose: 40 mg Furosemide (Lasix) 60 mg IVPUSH ONETIME ONE Stop: 02/11/17 21:28 Last Admin: 02/11/17 21:43 Dose: 60 mg Furosemide (Lasix) 40 mg IVPUSH TID EMILIO Furosemide (Lasix) 40 mg IVPUSH BIDDIURETIC EMILIO Last Admin: 02/17/17 10:15 Dose: 40 mg Furosemide (Lasix) 40 mg IVPUSH TID EMILIO Last Admin: 02/18/17 07:10 Dose: 40 mg Heparin Sodium (Porcine) (Heparin Sodium) 5,000 units SUBCUT Q8H EMILIO Last Admin: 02/03/17 06:29 Dose: 5,000 units Sodium Chloride (Normal Saline) 1,000 mls @ 999 mls/hr IV STAT ONE Stop: 02/02/17 13:15 Last Admin: 02/02/17 12:51 Dose: 999 mls/hr Sodium Chloride (Normal Saline) 1,000 mls @ 100 mls/hr IV ASDIRECTED [facility] Last Admin: 02/07/17 02:16 Dose: 125 mls/hr Levofloxacin/Dextrose 750 mg/ (Premix) 150 mls @ 100 mls/hr IV NOW ONE Stop: 02/03/17 06:14 Last Admin: 02/03/17 05:13 Dose: 100 mls/hr Levofloxacin/Dextrose (Levaquin In D5w 500 Mg/100 Ml) 100 mls @ 100 mls/hr IV Q48H [facility] Last Admin: 02/11/17 05:39 Dose: 100 mls/hr Sodium Chloride (Normal Saline) 500 mls @ 999 mls/hr IV ASDIRECTED [facility] Last Admin: 02/03/17 08:37 Dose: 999 mls/hr Pantoprazole Sodium 40 mg/ (Sodium Chloride) 10 mls @ 300 mls/hr IVPUSH Q24H [facility] Last Admin: 02/07/17 14:52 Dose: 300 mls/hr Sodium Chloride (Normal Saline) 500 mls @ 999 mls/hr IV ASDIRECTED [facility] Last Admin: 02/04/17 10:28 Dose: 999 mls/hr Magnesium Sulfate 4 gm/ Premix 100 mls @ 50 mls/hr IV ONETIME ONE Stop: 02/07/17 14:22 Last Admin: 02/07/17 12:54 Dose: 50 mls/hr Multivitamins/Minerals 10 ml/ (Sodium Chloride) 510 mls @ 510 mls/hr IV Q24H [facility] Last Admin: 02/07/17 15:22 Dose: Not Given Albumin Human (Flexbumin 25%) 12.5 gm in 50 mls @ 100 mls/hr IV ONETIME ONE Stop: 02/07/17 14:16 Last Admin: 02/07/17 14:58 Dose: 100 mls/hr Lactated Ringer's (Ringers, Lactated) 1,000 mls @ 100 mls/hr IV ASDIRECTED [facility] Last Infusion: 02/08/17 13:38 Dose: 50 mls/hr Metronidazole 500 mg/ Premix 100 mls @ 100 mls/hr IV Q6H [facility] Last Admin: 02/07/17 15:22 Dose: Not Given Multivitamins/Minerals 10 ml/ (Sodium Chloride) 510 mls @ 510 mls/hr IV Q24H [facility] Last Admin: 02/07/17 15:37 Dose: 510 mls/hr Metronidazole 500 mg/ Premix 100 mls @ 100 mls/hr IV Q6H [facility] Last Admin: 02/11/17 10:20 Dose: 100 mls/hr Pantoprazole Sodium 40 mg/ (Sodium Chloride) 10 mls @ 300 mls/hr IVPUSH Q12H [facility]IL[facility] Pantoprazole Sodium 40 mg/ (Sodium Chloride) 10 mls @ 300 mls/hr IVPUSH Q12H [facility] Last Admin: 02/08/17 16:10 Dose: Not Given Albumin Human (Flexbumin 25%) 12.5 gm in 50 mls @ 100 mls/hr IV ONETIME ONE Stop: 02/08/17 11:36 Last Admin: 02/08/17 12:16 Dose: 100 mls/hr Multivitamins/Minerals 10 ml/Famotidine 40 mg/ Amino Ac/Electrol/Dextrose/ Calcium/ Fat Emulsion Intravenous 2,264 mls @ 94.333 mls/hr IV Q24H [facility] Last Infusion: 02/08/17 17:35 Dose: 94 mls/hr Lactated Ringer's (Ringers, Lactated) 1,000 mls @ 50 mls/hr IV ASDIRECTED [facility] Last Admin: 02/08/17 21:35 Dose: 50 mls/hr Multivitamins/Minerals 10 ml/Famotidine 40 mg/ Insulin Human Regular 10 unit/ Potassium Phosphate 27 mmole/Amino Ac/Electrol/Dextrose/Calcium/ Fat Emulsion Intravenous/ Sterile Water 3,273.1 mls @ 95 mls/hr IV Q24H [facility] Stop: 02/11/17 13:59 Last Admin: 02/10/17 15:00 Dose: 95 mls/hr Potassium Phosphate 27 mmole/ (Sodium Chloride) 509 mls @ 127.25 mls/hr IV ONETIME ONE Stop: 02/09/17 14:14 Last Admin: 02/09/17 11:44 Dose: 127.25 mls/hr Sodium Chloride (Sodium Chloride 0.45%) 1,000 mls @ 50 mls/hr IV ASDIRECTED EMILIO Sodium Chloride (Sodium Chloride 0.45%) 1,000 mls @ 50 mls/hr IV ASDIRECTED [facility]ILIO Last Admin: 02/09/17 16:42 Dose: 50 mls/hr Potassium Chloride/Sodium Chloride (Normal Saline With 20 Meq Kcl) 1,000 mls @ 75 mls/hr IV ASDIRECTED [facility] Last Admin: 02/11/17 04:16 Dose: 75 mls/hr Magnesium Sulfate 2 gm/ Premix 50 mls @ 25 mls/hr IV ONETIME ONE Stop: 02/10/17 12:58 Last Admin: 02/10/17 11:28 Dose: 25 mls/hr Multivitamins/Minerals 10 ml/Famotidine 40 mg/ Potassium Phosphate 81 mmole/ Albumin Human 12.5 gm/ Amino Ac/Electrol/Dextrose/Calcium/ Fat Emulsion Intravenous/ Sterile Water 3,341 mls @ 96.971 mls/hr IV Q24H [facility] Stop: 02/12/17 13:59 Last Admin: 02/11/17 14:51 Dose: 96.971 mls/hr Potassium Phosphate 27 mmole/ (Sodium Chloride) 509 mls @ 127.25 mls/hr IV ONETIME EMILIO Stop: 02/11/17 15:00 Last Admin: 02/11/17 12:13 Dose: 127.25 mls/hr Potassium Phosphate 27 mmole/ (Sodium Chloride) 1,009 mls @ 50 mls/hr IV ASDIRECTED EMILIO Last Admin: 02/11/17 16:38 Dose: 50 mls/hr Potassium Chloride/Sodium Chloride (Normal Saline With 40 Meq Kcl) 1,000 mls @ 150 mls/hr IV ASDIRECTED [facility] Stop: 02/12/17 16:24 Last Admin: 02/12/17 10:01 Dose: Not Given Multivitamins/Minerals 10 ml/Famotidine 40 mg/ Potassium Chloride 120 meq/ Albumin Human 12.5 gm/ Amino Ac/Electrol/Dextrose/Calcium/ Fat Emulsion Intravenous 2,374 mls @ 50 mls/hr IV Q24H [facility] Stop: 02/13/17 13:59 Last Admin: 02/12/17 14:28 Dose: 50 mls/hr Multivitamins/Minerals 10 ml/Famotidine 40 mg/ Potassium Chloride 120 meq/ Albumin Human 12.5 gm/ Amino Ac/Electrol/Dextrose/Calcium/ Fat Emulsion Intravenous 2,374 mls @ 50 mls/hr IV Q24H [facility] Last Admin: 02/17/17 14:12 Dose: 50 mls/hr Magnesium Sulfate 2 gm/ Premix 50 mls @ 50 mls/hr IV ONETIME ONE Stop: 02/18/17 03:39 Last Admin: 02/18/17 03:07 Dose: 50 mls/hr Potassium Chloride 20 meq/Potassium Chloride/Sodium Chloride 1,010 mls @ 49.51 mls/hr IV ASDIRECTED [facility] Last Admin: 02/18/17 03:26 Dose: 49.51 mls/hr Levofloxacin/Dextrose 750 mg/ (Premix) 150 mls @ 100 mls/hr IV Q24H [facility] Last Admin: 02/18/17 06:34 Dose: Not Given Piperacillin Sod/Tazobactam (Sod 3.375 gm/ Sodium Chloride) 50 mls @ 100 mls/ hr IV Q6H [facility] Last Admin: 02/18/17 10:17 Dose: 100 mls/hr Vancomycin HCl 1 gm/ Sodium (Chloride) 250 mls @ 166 mls/hr IV Q24H [facility] Last Infusion: 02/18/17 07:35 Dose: 166 mls/hr Levofloxacin/Dextrose 750 mg/ (Premix) 150 mls @ 100 mls/hr IV Q48H [facility] Last Admin: 02/18/17 05:43 Dose: 100 mls/hr Insulin Aspart (Novolog) 0 unit SUBCUT TIDAC [facility] PRN Reason: Protocol Insulin Human Regular (Novolin R) 0 unit SUBCUT Q6H [facility] PRN Reason: Protocol Last Admin: 02/11/17 07:26 Dose: 1 units Insulin Human Regular (Novolin R) 0 unit SUBCUT Q6H [facility] PRN Reason: Protocol Last Admin: 02/14/17 17:46 Dose: 6 units Insulin Human Regular (Novolin R) 0 unit SUBCUT TIDAC [facility]ILIO PRN Reason: Protocol Last Admin: 02/18/17 12:10 Dose: Not Given Levothyroxine Sodium (Levothyroxine) 125 mcg PO ACBREAKFAST [facility] Last Admin: 02/07/17 06:46 Dose: 125 mcg Levothyroxine Sodium (Synthroid) 75 mcg IVPUSH DAILY [facility] Last Admin: 02/12/17 09:09 Dose: 75 mcg Levothyroxine Sodium (Levothyroxine) 75 mcg PO ACBREAKFAST [facility] Last Admin: 02/18/17 07:09 Dose: Not Given Loperamide HCl (Imodium) 2 mg PO Q4H PRN PRN Reason: Diarrhea Last Admin: 02/02/17 16:22 Dose: 2 mg Metoclopramide HCl (Reglan) 5 mg IVPUSH Q6H [facility] Last Admin: 02/07/17 12:54 Dose: 5 mg Metoclopramide HCl (Reglan) 10 mg IVPUSH Q6H [facility] Last Admin: 02/17/17 23:35 Dose: 10 mg Morphine Sulfate (Morphine) 0 mg IVPUSH Q1H PRN PRN Reason: Pain Last Admin: 02/15/17 08:13 Dose: 2 mg Multivitamins/Minerals (Infuvite Adult) 10 ml IV Q24H [facility] Last Admin: 02/07/17 13:35 Dose: Not Given Omeprazole (Omeprazole) 20 mg PO DAILY [facility] Last Admin: 02/07/17 09:26 Dose: 20 mg Ondansetron HCl (Zofran Odt) 4 mg PO Q4H PRN PRN Reason: nausea, able to take PO Last Admin: 02/16/17 15:29 Dose: 4 mg Potassium Chloride (Klor-Con M20) 40 meq PO DAILY ONE Stop: 02/03/17 07:51 Last Admin: 02/03/17 08:24 Dose: 40 meq Potassium Chloride (Klor-Con M20) 40 meq PO ONETIME ONE Stop: 02/04/17 07:56 Last Admin: 02/04/17 08:58 Dose: 40 meq Potassium Chloride (Potassium Chloride) 40 meq PO BID EMILIO Stop: 02/06/17 23:59 Last Admin: 02/06/17 21:04 Dose: 40 meq Potassium Chloride (Klor-Con M20) 40 meq PO ONETIME ONE Stop: 02/12/17 09:54 Last Admin: 02/12/17 10:12 Dose: 40 meq Potassium Chloride (Klor-Con M20) 40 meq PO ONETIME ONE Stop: 02/13/17 11:31 Last Admin: 02/13/17 12:20 Dose: 40 meq Potassium Chloride (Klor-Con M20) 40 meq PO ONETIME ONE Stop: 02/14/17 09:24 Last Admin: 02/14/17 09:36 Dose: 40 meq Potassium Chloride (Klor-Con M20) 40 meq PO ONETIME ONE Stop: 02/15/17 11:01 Last Admin: 02/15/17 11:24 Dose: 40 meq Potassium Chloride (Klor-Con M20) 40 meq PO ONETIME ONE Stop: 02/17/17 09:17 Last Admin: 02/17/17 10:15 Dose: 40 meq Potassium Chloride (Klor-Con M20) 40 meq PO ONETIME ONE Stop: 02/17/17 15:01 Last Admin: 02/17/17 14:13 Dose: 40 meq Potassium Chloride (Klor-Con M20) 40 meq PO ONETIME ONE Stop: 02/18/17 02:41 Last Admin: 02/18/17 05:54 Dose: Not Given Ropinirole HCl (Requip) 1 mg PO BEDTIME EMILIO Last Admin: 02/06/17 21:06 Dose: 1 mg Sodium Bicarbonate (Sodium Bicarbonate 8.4%) 100 meq IVPUSH ONETIME ONE Stop: 02/18/17 06:34 Last Admin: 02/18/17 06:44 Dose: 100 meq Vancomycin HCl (Pharmacy To Dose - Vancomycin) 1 dose .XX ASDIRECTED EMILIO *Q Meaningful Use (DIS) - VTE *Q VTE Criteria *Q: - Stroke *Q Stroke Criteria *Q: - AMI *Q AMI Criteria *Q: - Free Text/Narrative Note: I have examined the patient. I have discussed findings and treatment plan with resident. I agree with the assessment and plan outlined in the note except for the following. Patient's k[place]ebse[place] UTI was present on admission
[2017-02-18 10:32] VITALS: BP 95/44
--- NOTE | 2017-02-18 14:14 | CR ---
EXAM DATE: 02/02/17 PATIENT'S AGE: 81 Patient: CR SERRANO Facility: [place], [place] Site . Site : 1935 Study: XRay Abdomen [id number]/3/2017 3:55:51 PM Ordering Physician: Belkys Benitez Final Report: INDICATION: Abdominal pain TECHNIQUE: Abdomen 1 view. COMPARISON: CT scan abdomen and pelvis 02/07/2017 FINDINGS: Bowel: Dilated small bowel loops left shamar abdomen worrisome for small bowel obstruction. Soft tissues: No sign of free air. No sign of soft tissue mass. No suspicious calcifications. Bones: Unremarkable for age. IMPRESSION: Dilated small bowel loops left mid abdomen worrisome for small bowel obstruction. Dictated by Wolfgang Hanks MD @ 02/16/2017 4:00:25 PM Dictated by: Wolfgang Hanks MD @ 02/16/2017 16:00:31 (Electronic Signature) Report Signed by Proxy. NILESH
--- NOTE | 2017-02-18 15:27 | CT ---
EXAM DATE: 02/02/17 PATIENT'S AGE: 81 Patient: CR SERRANO Facility: [place], [place] Site . Site : 1935 Study: CT Abdomen/Pelvis [id number]/4/2017 10:29:53 AM Ordering Physician: Belkys Benitez Final Report: INDICATION: sbo Indication: Small-bowel obstruction. Technique: CT of the abdomen and pelvis without intravenous contrast. Coronal/ sagittal reconstruction images. Comparison: CT of the abdomen and pelvis 02/07/2017. Findings: Lung bases: Bilateral pleural effusions, small on the right, moderate on the left. This is similar to 02/07/2017. There is no pericardial effusion. There is a moderate size hiatal hernia. The lung bases demonstrate consolidation with air bronchogram formation at the right lung base, and passive atelectasis at the left lung base. There is no basilar pneumothorax. Abdomen/ pelvis: Mild gallbladder distention. The gallbladder measures up to 8.3 cm in long axis dimension. Diffuse third-spacing of fluid. There is body wall edema. Spleen size is normal. There is no hydronephrosis. There is no perinephric edema. There is no pancreatic mass or pancreatic duct dilation. Suspected periportal edema. Air-fluid level in the urinary bladder, which could be from recent catheterization. No adnexal mass. There is an air and fluid-filled colon, and dilated loops of small bowel. There is no transition point. The findings suggest an adynamic ileus given the amount of gas and fluid in the colon. For example, the ascending colon measures a maximum of 6.2 cm in luminal dimension there is a heavily calcified abdominal aorta. There is no abdominal aortic aneurysm. There is no abdominal or pelvic lymphadenopathy by size criteria. The bone windows demonstrate degenerative changes about the symphysis pubis. No lytic or blastic bone lesions are seen. There is osteophytic spurring seen throughout the endplates. Minimal anterolisthesis of L5 on S1. Impression: 1. Dilated loops of small bowel and colon. Given the amount of gas and fluid in the colon, a mechanical small-bowel obstruction is not favored. The pattern is more typical of an adynamic ileus. 2. Diffuse third-spacing of fluid, with fat stranding in the subcutaneous tissues, bilateral pleural effusions, and suspected periportal edema. 3. Dilated gallbladder. If there is concern regarding cholecystitis, consider right upper quadrant ultrasound or hepatobiliary scintigraphy. 4. Consolidation at the right lung base. This may represent pneumonia. Passive atelectasis adjacent to the moderate left pleural effusion. Dictated by Aayush Ortiz MD @ 02/17/2017 10:45:32 AM Dictated by: Aayush Ortiz MD @ 02/17/2017 10:46:45 (Electronic Signature) Report Signed by Proxy. MTDD
--- NOTE | 2017-02-18 17:26 | CR ---
EXAM DATE: 02/02/17 PATIENT'S AGE: 81 Patient: CR SERRANO Facility: [place], [place] Site . Site : 1935 Study: XRay Chest [id number]/5/2017 4:03:49 AM Ordering Physician: Belkys Benitez Final Report: INDICATION: Hypoxia TECHNIQUE: Chest radiograph 1 view COMPARISON: 02/13/2017. FINDINGS: Cardiovascular and mediastinum: The heart silhouette is normal in size and morphology. The mediastinum is normal in appearance. Right Port-A-Cath is unchanged. Lungs and pleural spaces: New perihilar airspace infiltrates are present. Bibasilar atelectasis and small lung volumes are unchanged. Small right pleural effusion suspected. No pneumothorax is identified. Bones and soft tissues: No significant findings. IMPRESSION: 1. New airspace infiltrates in the perihilar region are present which may be due to pulmonary edema and less likely pneumonia nor symmetric aspiration. Dictated by Brodie Sanchez MD @ 02/18/2017 4:13:56 AM Dictated by: Brodie Sanchez MD @ 02/18/2017 04:14:00 (Electronic Signature) Report Signed by Proxy. NILESH
== END 2017-02-18 11:45 | DRG 641 ==
LOC: MW.ED 11:37 → MW.MS 14:35 → OBSVTOIN 14:35 → INTOOBSV 14:35 → OBSVTOIN 02-03 11:01 → MW.MS 02-03 16:28 → MW.ICU 02-18 03:41 → MW.MS 02-18 03:42 → MW.ICU 02-18 03:42 → UNDODISIN 02-18 11:45
PROVIDERS: ADMIT Internal Medicine; ATTEND Internal Medicine
PROC: 0D9670Z Drainage of Stomach with Drainage Device, Via Natural or Artificial Opening (ICD-10-PCS; principal; 2017-02-07)
DX: E86.0 Dehydration (principal); N39.0 Urinary tract infection, site not specified; R10.9 Unspecified abdominal pain; K56.7 Ileus, unspecified; R19.7 Diarrhea, unspecified; B96.1 Klebsiella pneumoniae [K. pneumoniae] as the cause of diseases classified elsewhere; Z85.820 Personal history of malignant melanoma of skin; R00.0 Tachycardia, unspecified; R06.82 Tachypnea, not elsewhere classified; R21 Rash and other nonspecific skin eruption; R63.0 Anorexia; N28.9 Disorder of kidney and ureter, unspecified; C43.9 Malignant melanoma of skin, unspecified; I10 Essential (primary) hypertension; E03.9 Hypothyroidism, unspecified; I89.0 Lymphedema, not elsewhere classified; E78.00 Pure hypercholesterolemia, unspecified; R19.5 Other fecal abnormalities; R53.81 Other malaise; E87.70 Fluid overload, unspecified; R60.1 Generalized edema; Z79.899 Other long term (current) drug therapy
CPT/HCPCS: 36415; 74176; 80053; 82150; 83690; 85025; 96361; 99285; J7040; 36600; 51701; 51702; 51703; 70450; 70450-26; 71010; 71010-26; 71250; 71250-26; 74000; 74000-26; 80048; 80061; 81001; 82272; 82570; 82607; 82746; 82803; 82962; 83605; 83735; 84100; 84300; 84439; 84443; 84481; 84482; 87040; 87046; 87086; 87088; 87186; 87324; 87899; 93005; 93306; 94664; 96360; 96372; 96374; 97110-GO; 97110-GP; 97163-GP; 97165-GO; 97530-GP; 99284; A4217; A9270-GY; C9113; G0378; J1644; J1815-GY; J1940; J1956; J2270; J2543; J2765; J3370; J3475; J3480; J7030; J7050; J7120; P9047; Q0167